=== PATIENT | female | born 1990 | race Caucasian/White ===

== ENCOUNTER 2016-09-28 16:32 | Emergency (ER) | payer MEDICAID ==
[2016-09-28 16:40] VITALS: BP 142/109
--- NOTE | 2016-09-28 18:29 | ER Document Report ---
ED Skin Rash/Insect Bite/Abscs - General Chief Complaint: Rash Stated Complaint: SKIN PROBLEM Mode of Arrival: Ambulatory Information source: Patient TRAVEL OUTSIDE OF THE [place] IN LAST 30 DAYS: No - HPI Patient complains to provider of: Skin rash/lesion Onset: Yesterday Onset/Duration: Sudden - Related Data Allergies/Adverse Reactions: clindamycin [Clindamycin] Allergy (Severe, Verified 08/19/16 21:56) Hives doxycycline [Doxycycline] Allergy (Intermediate, Verified 08/19/16 21:56) Hives Past Medical History - General Information source: Patient - Social History Smoking Status: Current Every Day Smoker Family History: Reviewed & Not Pertinent, CAD, DM, Hypertension, Other - Asthma Patient has suicidal ideation: No Patient has homicidal ideation: No - Past Medical History Cardiac Medical History: Reports: Hx Hypertension Denies: Hx Heart Attack Pulmonary Medical History: Reports: Hx Asthma, Hx Bronchitis, Hx COPD, Hx Pneumonia Neurological Medical History: Reports: Hx Migraine. Denies: Hx Cerebrovascular Accident, Hx Seizures Renal/ Medical History: Denies: Hx Peritoneal Dialysis GI Medical History: Denies: Hx Hepatitis, Hx Hiatal Hernia, Hx Ulcer Musculoskeltal Medical History: Reports Hx Musculoskeletal Trauma Psychiatric Medical History: Reports: Hx Bipolar Disorder Traumatic Medical History: Reports: Hx Fractures Infectious Medical History: Denies: Hx Hepatitis Past Surgical History: Reports: Hx Cholecystectomy, Hx Oral Surgery - [place] teeth, Hx Orthopedic Surgery - Bilateral great toe. Denies: Hx Hysterectomy, Hx Mastectomy, Hx Open Heart Surgery, Hx Pacemaker - Immunizations Immunizations up to date: Yes Hx Diphtheria, Pertussis, Tetanus Vaccination: Yes Hx Pneumococcal Vaccination: 08/29/00 Review of Systems - Review of Systems Constitutional: No symptoms reported EENT: No symptoms reported Cardiovascular: No symptoms reported Respiratory: No symptoms reported Gastrointestinal: No symptoms reported Genitourinary: No symptoms reported Female Genitourinary: No symptoms reported Musculoskeletal: No symptoms reported Skin: No symptoms reported Hematologic/Lymphatic: No symptoms reported Neurological/Psychological: No symptoms reported Physical Exam - Vital signs Vitals: Temp Pulse Resp BP Pulse Ox 98.1 F 97 20 142/109 H 99 09/28/16 16:38 09/28/16 16:38 09/28/16 16:38 09/28/16 16:38 09/28/16 16:38 Interpretation: Normal - General General appearance: Appears well, Alert - HEENT Head: Normocephalic, Atraumatic Eyes: Normal Pupils: PERRL - Respiratory Respiratory status: No respiratory distress Chest status: Nontender Breath sounds: Normal Chest palpation: Normal - Cardiovascular Rhythm: Regular Heart sounds: Normal auscultation Murmur: No - Abdominal Inspection: Normal Distension: No distension Bowel sounds: Normal Tenderness: Nontender Organomegaly: No organomegaly - Back Back: Normal, Nontender - Extremities General upper extremity: Normal inspection, Nontender, Normal color, Normal ROM , Normal temperature General lower extremity: Normal inspection, Nontender, Normal color, Normal ROM , Normal temperature, Normal weight bearing. No: Marco's sign - Neurological Neuro grossly intact: Yes Cognition: Normal Orientation: AAOx4 [place] Coma Scale Eye Opening: Spontaneous [place] Coma Scale Verbal: Oriented [place] Coma Scale Motor: Obeys Commands [place] Coma Scale Total: 15 Speech: Normal Motor strength normal: LUE, RUE, LLE, RLE Sensory: Normal - Psychological Associated symptoms: Normal affect, Normal mood - Skin Skin Temperature: Warm Skin Moisture: Dry Skin Color: Normal Notes: Dry red rash to face and upper chest. He can nature. Course - Vital Signs Vital signs: Temp Pulse Resp BP Pulse Ox 98.1 F 97 20 142/109 H 99 09/28/16 16:38 09/28/16 16:38 09/28/16 16:38 09/28/16 16:38 09/28/16 16:38 Discharge - Discharge Clinical Impression: Contact dermatitis Disposition: HOME, SELF-CARE Additional Instructions: [facility] Dr. Eric Tanner [address] [place] [address] Contact dermatitis to face and chest area patient was advised if she continues to come in contact with the offending allergen that this will continue to be an issue. Patient refused steroid injection. Patient will be discharged with prednisone and Benadryl to follow-up with PMD and trailer chief as above. Follow-up with private doctor in 1 to 2 days for final radiology readings please return to the emergency room for any change worsening condition. Follow up with private M.D. for all other routine health care needs. Prescriptions: Diphenhydramine HCl [Benadryl 25 mg Capsule] 25 mg PO Q6 PRN #25 capsule PRN Reason: Prednisone [Deltasone 20 mg Tablet] 3 tab PO DAILY 5 Days
== END 2016-09-28 18:41 | disposition home or self-care (01) ==
LOC: ER 16:32
DX: L25.9 Unspecified contact dermatitis, unspecified cause (principal); F17.200 Nicotine dependence, unspecified, uncomplicated; I10 Essential (primary) hypertension; J44.9 Chronic obstructive pulmonary disease, unspecified; J45.909 Unspecified asthma, uncomplicated; Z88.1 Allergy status to other antibiotic agents
CPT/HCPCS: 99282

== ENCOUNTER 2016-11-04 14:30 | Emergency (ER) | payer OTHER, MEDICAID ==
[2016-11-04] MEDS ORDERED: ACETAMINOPHEN 325 MG TABLET PO ONE (14:55)
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
[2016-11-04 16:55] VITALS: BP 139/105
== END 2016-11-04 16:50 | disposition home or self-care (01) ==
LOC: ER 14:30
DX: S60.211A Contusion of right wrist, initial encounter (principal); M79.641 Pain in right hand; M25.531 Pain in right wrist; V49.50XA Passenger injured in collision with unspecified motor vehicles in traffic accident, initial encounter; I10 Essential (primary) hypertension; J44.9 Chronic obstructive pulmonary disease, unspecified; J45.909 Unspecified asthma, uncomplicated; Z79.899 Other long term (current) drug therapy; Z88.1 Allergy status to other antibiotic agents
CPT/HCPCS: 99283; 73100; L3984

== ENCOUNTER 2016-11-17 22:55 | Emergency (ER) | payer MEDICAID, OTHER ==
[2016-11-18] MEDS ORDERED: PREDNISONE 20 MG TABLET PO ONE (00:13)
[2016-11-18] MEDS ORDERED: IPRATROPIUM/ALBUTEROL 0.5-2.5 MG/3 ML AMPUL NEB ONE (00:13)
--- NOTE | 2016-11-18 00:15 | ER Document Report ---
ED Medical Screen (RME) - General Stated Complaint: CHEST PAIN Notes: 26 year old female asthmatic, chief complaint of chills, wheezing, chest tightness today. Albuterol inhaler helping some. Denies smoking. TRAVEL OUTSIDE OF THE [place] IN LAST 30 DAYS: No - Related Data Allergies/Adverse Reactions: clindamycin [Clindamycin] Allergy (Severe, Verified 11/18/16 00:10) Hives doxycycline [Doxycycline] Allergy (Intermediate, Verified 11/18/16 00:10) Hives Past Medical History - Social History Family history: Reviewed & Not Pertinent - Past Medical History Cardiac Medical History: Reports: Hx Hypertension Denies: Hx Heart Attack Pulmonary Medical History: Reports: Hx Asthma, Hx Bronchitis, Hx COPD, Hx Pneumonia Neurological Medical History: Reports: Hx Migraine. Denies: Hx Cerebrovascular Accident, Hx Seizures Endocrine Medical History: Reports: Hx Hypothyroidism Renal/ Medical History: Denies: Hx Peritoneal Dialysis GI Medical History: Reports: Hx Gastroesophageal Reflux Disease. Denies: Hx Hepatitis, Hx Hiatal Hernia, Hx Ulcer Musculoskeltal Medical History: Reports Hx Musculoskeletal Trauma Psychiatric Medical History: Reports: Hx Anxiety, Hx Bipolar Disorder Traumatic Medical History: Reports: Hx Fractures Infectious Medical History: Denies: Hx Hepatitis Past Surgical History: Reports: Hx Cholecystectomy, Hx Oral Surgery - [place] teeth, Hx Orthopedic Surgery - Bilateral great toe. Denies: Hx Hysterectomy, Hx Mastectomy, Hx Open Heart Surgery, Hx Pacemaker - Immunizations Immunizations up to date: Yes Hx Diphtheria, Pertussis, Tetanus Vaccination: Yes Physical Exam - Vital signs Vitals: Temp Pulse Resp BP Pulse Ox 98.4 F 113 H 16 143/106 H 99 11/17/16 23:11 11/17/16 23:11 11/17/16 23:11 11/17/16 23:11 11/17/16 23:11 - Respiratory Respiratory status: No respiratory distress. No: Respiratory distress, Labored , Retractions, Tachypnea Breath sounds: Other - A few coarse breath sounds and faint end expiratory wheezes bilaterally Course - Vital Signs Vital signs: Temp Pulse Resp BP Pulse Ox 98.4 F 113 H 16 143/106 H 99 11/17/16 23:11 11/17/16 23:11 11/17/16 23:11 11/17/16 23:11 11/17/16 23:11
--- NOTE | 2016-11-18 06:11 | ER Document Report ---
ED General - General Mode of Arrival: Ambulatory Information source: Patient TRAVEL OUTSIDE OF THE [place] IN LAST 30 DAYS: No - HPI Patient complains to provider of: Chest Pain Onset: Yesterday Onset/Duration: Gradual, Persistent Associated symptoms: Chest pain, Nonproductive cough. denies: Fever - General Chief Complaint: Chest Pain Stated Complaint: CHEST PAIN Notes: Patient is a 26 y/o female presenting to the emergency department with concerns of RUQ abdominal tenderness as well as chest pain. Patient states that the chest pain began yesterday. Patient denies any fever, but states that she has been "cold". Patient admits to dry cough, and states that she has been using her inhaler at home. Patient states that her RUQ abdominal pain stems from "the top stitch" from her cholecystectomy which was performed May 2016. (GIN BOBO) - Related Data Allergies/Adverse Reactions: clindamycin [Clindamycin] Allergy (Severe, Verified 11/18/16 00:10) Hives doxycycline [Doxycycline] Allergy (Intermediate, Verified 11/18/16 00:10) Hives Past Medical History - General Information source: Patient - Social History Smoking Status: Former Smoker Chew tobacco use (# tins/day): No Frequency of alcohol use: None Drug Abuse: None Family History: Reviewed & Not Pertinent, CAD, DM, Hypertension, Other - Asthma Patient has suicidal ideation: No Patient has homicidal ideation: No - Past Medical History Cardiac Medical History: Reports: Hx Hypertension Denies: Hx Heart Attack Pulmonary Medical History: Reports: Hx Asthma, Hx Bronchitis, Hx COPD, Hx Pneumonia Neurological Medical History: Reports: Hx Migraine. Denies: Hx Cerebrovascular Accident, Hx Seizures Endocrine Medical History: Reports: Hx Hypothyroidism Renal/ Medical History: Denies: Hx Peritoneal Dialysis GI Medical History: Reports: Hx Gastroesophageal Reflux Disease. Denies: Hx Hepatitis, Hx Hiatal Hernia, Hx Ulcer Musculoskeltal Medical History: Reports Hx Musculoskeletal Trauma Psychiatric Medical History: Reports: Hx Anxiety, Hx Bipolar Disorder Traumatic Medical History: Reports: Hx Fractures Infectious Medical History: Denies: Hx Hepatitis Past Surgical History: Reports: Hx Cholecystectomy, Hx Oral Surgery - [place] teeth, Hx Orthopedic Surgery - Bilateral great toe. Denies: Hx Hysterectomy, Hx Mastectomy, Hx Open Heart Surgery, Hx Pacemaker - Immunizations Immunizations up to date: Yes Hx Diphtheria, Pertussis, Tetanus Vaccination: Yes Hx Pneumococcal Vaccination: 08/29/00 Review of Systems - Review of Systems Constitutional: No symptoms reported EENT: No symptoms reported Cardiovascular: See HPI, Chest pain Respiratory: See HPI, Cough. denies: Sputum Gastrointestinal: See HPI, Abdominal pain - RUQ Genitourinary: No symptoms reported Female Genitourinary: No symptoms reported Musculoskeletal: No symptoms reported Skin: No symptoms reported Hematologic/Lymphatic: No symptoms reported Neurological/Psychological: No symptoms reported -: Yes All other systems reviewed and negative Physical Exam - General General appearance: Appears well, Alert In distress: None - HEENT Head: Normocephalic, Atraumatic Eyes: Normal Pupils: PERRL - Respiratory Respiratory status: No respiratory distress Chest status: Nontender Breath sounds: Wheezing - Mild bilaterally. No: Rhonchi Chest palpation: Normal - Cardiovascular Rhythm: Regular Heart sounds: Normal auscultation Murmur: No - Abdominal Distension: No distension Bowel sounds: Normal Tenderness: Tender - RUQ muscular tenderness, tenderness over right anterior inferior ribs. - Back Back: Normal, Nontender - Extremities General upper extremity: Normal inspection General lower extremity: Normal inspection - Neurological Neuro grossly intact: Yes Cognition: Normal [place] Coma Scale Eye Opening: Spontaneous [place] Coma Scale Verbal: Oriented [place] Coma Scale Motor: Obeys Commands [place] Coma Scale Total: 15 Speech: Normal - Psychological Associated symptoms: Normal affect, Normal mood - Skin Skin Temperature: Warm Skin Moisture: Dry Skin Color: Normal - Vital signs Vitals: Temp Pulse Resp BP Pulse Ox 98.4 F 113 H 16 143/106 H 99 11/17/16 23:11 11/17/16 23:11 11/17/16 23:11 11/17/16 23:11 11/17/16 23:11 Discharge - Discharge Clinical Impression: Chest wall pain, Viral upper respiratory tract infection with cough Asthmatic bronchitis Qualifiers: Asthma severity: mild persistent Asthma complication type: uncomplicated Qualified Code(s): J45.30 - Mild persistent asthma, uncomplicated Additional Instructions: Bronchitis with Bronchospasm (Wheezing): You have bronchitis with bronchospasm (wheezing). Sometimes people develop wheezing with a chest cold. This occurs either because of an underlying tendency toward asthma or because the virus itself irritates the bronchial tubes. This irritation causes cough, shortness of breath, and wheezing. Emergency treatment of bronchospasm may include adrenaline shots or bronchodilator aerosol. You may feel lightheaded and have a rapid pulse for an hour or two. Rest and get plenty of fluids. At home, we'll treat you with a bronchodilator inhaler. Corticosteroids may be required for some patients. Until you recover, avoid chemical fumes, dusts, pollens, and exercising in very cold or dry air. If you smoke, stop now! Most cases of bronchitis get better without antibiotics. We prescribe antibiotics when we believe bacteria are damaging your airways, or if there's high risk the bronchitis will worsen into pneumonia. Increase your fluid intake. A cool mist humidifier may make your lungs more comfortable. An expectorant (cough medicine that loosens phlegm) can help. Repeated episodes of bronchitis and bronchospasm may result in lung damage -- for example, chronic bronchitis, recurrent pneumonias, or emphysema. If you develop a fever, increased wheezing, chest pain, or severe shortness of breath, you should contact the doctor immediately. Chest Wall Pain: Your chest pain has been diagnosed as coming from the chest wall. This is often caused by straining the muscles or joints in the chest during physical activity, direct trauma, coughing, or vigorous vomiting. Persons with arthritis are especially prone to this type of pain, due to inflammation of the cartilage joints near the breast bone. Occasionally, no cause can be found. Rest from strenuous physical activity. This kind of chest pain is usually made worse by movement of the chest. Depending on the symptoms, we may prescribe medicine for pain, muscle relaxation, and antiinflammatory effects. If the pain is new, and seems to be due to muscle strain, cold packs can help. Otherwise, apply gentle warmth to the painful area for 15 minutes every hour or two. You should contact the doctor immediately if things change. Further evaluation is needed if you develop a fever or cough, if the nature of the pain changes, or if you become short of breath. START THE PREDNISONE TOMORROW PRESCRIBED. USE YOUR INHALERS AND NEBULIZER FOR WHEEZING AND SHORTNESS OF BREATH. DRINK PLENTY OF FLUIDS. TAKE MOTRIN OR ALEVE FOR CHEST WALL MUSCLE PAIN. FOLLOW UP WITH YOUR DOCTOR IF NOT IMPROVING. Prescriptions: Prednisone [Deltasone 10 mg Tablet] 10 mg PO ASDIR PRN #21 tablet PRN Reason: Anjumibsadaf Attestation: 11/18/16 06:16 I personally performed the services described in the documentation, reviewed and edited the documentation which was dictated to the scribe in my presence, and it accurately records my words and actions. (HUNG MALHOTRA) Scribe Documentation - Scribe Written by Leeannee:: Gin Bobo 11/18/2016 0610 acting as scribe for :: Maria E
[2016-11-18 06:52] VITALS: BP 133/99
== END 2016-11-18 06:51 | disposition home or self-care (01) ==
LOC: ER 22:55
DX: J06.9 Acute upper respiratory infection, unspecified (principal); B97.89 Other viral agents as the cause of diseases classified elsewhere; J45.30 Mild persistent asthma, uncomplicated; J44.9 Chronic obstructive pulmonary disease, unspecified; R07.89 Other chest pain; R05 Cough; R10.11 Right upper quadrant pain; I10 Essential (primary) hypertension; Z90.49 Acquired absence of other specified parts of digestive tract; Z88.1 Allergy status to other antibiotic agents; Z87.891 Personal history of nicotine dependence; Z87.01 Personal history of pneumonia (recurrent)
CPT/HCPCS: 94640; 99284; 71020; J7512; J7620

== ENCOUNTER 2016-11-23 01:47 | Emergency (ER) | payer MEDICAID ==
--- NOTE | 2016-11-23 07:19 | ER Document Report ---
HPI - HPI Patient complains to provider of: left ear pain Onset: Other - 2 days Onset/Duration: Gradual Quality of pain: Throbbing Pain Level: 4 Context: 26-year-old female complaining of left ear pain feels like there is water in her ear. Recent upper respiratory infection. No fever. Associated Symptoms: None Exacerbated by: Movement - External ear Relieved by: Denies Similar symptoms previously: Yes Recently seen / treated by doctor: No - ROS ROS below otherwise negative: Yes Systems Reviewed and Negative: Yes All other systems reviewed and negative - REPRODUCTIVE Reproductive: DENIES: : - DERM Skin Color: Normal, [place] Past Medical History - General Information source: Patient - Social History Smoking Status: Never Smoker Frequency of alcohol use: None Drug Abuse: None Lives with: Family Family History: CAD, DM, Hypertension, Other - Asthma - Past Medical History Cardiac Medical History: Reports: Hx Hypertension Pulmonary Medical History: Reports: Hx Asthma, Hx Bronchitis, Hx COPD, Hx Pneumonia Neurological Medical History: Reports: Hx Migraine Endocrine Medical History: Reports: Hx Hypothyroidism Renal/ Medical History: Denies: Hx Peritoneal Dialysis GI Medical History: Reports: Hx Gastroesophageal Reflux Disease Musculoskeltal Medical History: Reports Hx Musculoskeletal Trauma Psychiatric Medical History: Reports: Hx Anxiety, Hx Bipolar Disorder Traumatic Medical History: Reports: Hx Fractures Infectious Medical History: Denies: Hx Hepatitis Past Surgical History: Reports: Hx Cholecystectomy, Hx Oral Surgery - [place] teeth, Hx Orthopedic Surgery - Bilateral great toe. Denies: Hx Hysterectomy, Hx Mastectomy, Hx Open Heart Surgery, Hx Pacemaker - Immunizations Immunizations up to date: Yes Hx Diphtheria, Pertussis, Tetanus Vaccination: Yes Hx Pneumococcal Vaccination: 08/29/00 Vertical Provider Document - CONSTITUTIONAL Agree With Documented VS: Yes - INFECTION CONTROL TRAVEL OUTSIDE OF THE [place] IN LAST 30 DAYS: No - HEENT HEENT: Normocephalic, PERRLA. negative: Conjuctival Injection, Pharyngeal Erythema, Tympanic Membrane Red Notes: left canal minimal red, does hurt with tragus and external ear movement, no adenopathy. - NECK Neck: Supple. negative: Lymphadenopathy-Left, Lymphadenopathy-Right - RESPIRATORY Respiratory: Breath Sounds Normal, No Respiratory Distress O2 Sat by Pulse Oximetry: 98 - CARDIOVASCULAR Cardiovascular: Regular Rate, Regular Rhythm - MUSCULOSKELETAL/EXTREMETIES Musculoskeletal/Extremeties: KALIE KIM - NEURO Level of Consciousness: Awake, Alert - DERM Integumentary: Warm, Dry, No Rash Course - Vital Signs Vital signs: Temp Pulse Resp BP Pulse Ox 98.8 F 110 H 20 139/99 H 98 11/23/16 02:12 11/23/16 02:12 11/23/16 02:12 11/23/16 02:12 11/23/16 02:12 Discharge - Discharge Clinical Impression: left otitis externa Condition: Good Disposition: HOME, SELF-CARE Instructions: Otitis Externa ([facility]), Use of Ear Drops ([facility]), Acetaminophen, Use of [id number] Ibuprofen ([facility]) Additional Instructions: warm compress Eardrops See your doctor if persists Return to the emergency room if worse Please complete the patient satisfaction survey if you get one, and return it.. If you do not receive a survey, then you can go to the [facility] website, [email or web address] and place your comments about your very good care. Thank you very much. It was a pleasure being your medical provider today. Prescriptions: Neomy Sulf/Polymyx B Sulf/Hc [Cortisporin Ear Suspension] 2 drop QID #1 bot
[2016-11-23 07:53] VITALS: BP 141/95
== END 2016-11-23 07:45 | disposition home or self-care (01) ==
LOC: ER 01:47
DX: H60.92 Unspecified otitis externa, left ear (principal); H92.02 Otalgia, left ear
CPT/HCPCS: 99282

== ENCOUNTER 2017-03-16 17:05 | Emergency (ER) | payer MEDICAID ==
--- NOTE | 2017-03-16 18:48 | ER Document Report ---
HPI - HPI Patient complains to provider of: cold symptoms Pain Level: 4 Context: 26 yo female c/o nasal congestion, sinus pressure, sore throat x 2 days Associated Symptoms: Rhinnorhea, Sinus pain/drainage, Sore throat. denies: Fever Exacerbated by: Denies Relieved by: Denies Similar symptoms previously: Yes Recently seen / treated by doctor: No - ROS Systems Reviewed and Negative: Yes All other systems reviewed and negative - CARDIOVASCULAR Cardiovascular: DENIES: Chest pain - REPRODUCTIVE Reproductive: DENIES: : - DERM Skin Color: Normal Past Medical History - General Information source: Patient - Social History Smoking Status: Never Smoker Chew tobacco use (# tins/day): No Frequency of alcohol use: None Drug Abuse: None Family History: CAD, DM, Hypertension, Other - Asthma Patient has suicidal ideation: No Patient has homicidal ideation: No - Past Medical History Cardiac Medical History: Reports: Hx Hypertension Pulmonary Medical History: Reports: Hx Asthma, Hx Bronchitis, Hx COPD, Hx Pneumonia Neurological Medical History: Reports: Hx Migraine Endocrine Medical History: Reports: Hx Hypothyroidism Renal/ Medical History: Denies: Hx Peritoneal Dialysis GI Medical History: Reports: Hx Gastroesophageal Reflux Disease. Denies: Hx Hepatitis Musculoskeltal Medical History: Reports Hx Musculoskeletal Trauma Psychiatric Medical History: Reports: Hx Anxiety, Hx Bipolar Disorder Traumatic Medical History: Reports: Hx Fractures Infectious Medical History: Denies: Hx Hepatitis Past Surgical History: Reports: Hx Cholecystectomy, Hx Oral Surgery - [place] teeth, Hx Orthopedic Surgery - Bilateral great toe. Denies: Hx Hysterectomy, Hx Mastectomy, Hx Open Heart Surgery, Hx Pacemaker - Immunizations Immunizations up to date: Yes Hx Diphtheria, Pertussis, Tetanus Vaccination: Yes Hx Pneumococcal Vaccination: 08/29/00 Vertical Provider Document - CONSTITUTIONAL Agree With Documented VS: Yes Exam Limitations: No Limitations General Appearance: WD/WN, No Apparent Distress - INFECTION CONTROL TRAVEL OUTSIDE OF THE [place] IN LAST 30 DAYS: No - HEENT HEENT: Atraumatic, PERRLA, Pharyngeal Tenderness, Pharyngeal Erythema. negative : Pharyngeal Exudate - NECK Neck: Lymphadenopathy-Right - anterior cervical - RESPIRATORY Respiratory: Breath Sounds Normal, No Respiratory Distress O2 Sat by Pulse Oximetry: 98 - CARDIOVASCULAR Cardiovascular: Regular Rate, Regular Rhythm - NEURO Level of Consciousness: Awake, Alert, Appropriate - DERM Integumentary: Warm, Dry, No Rash Course - Re-evaluation Re-evalutation: 03/16/17 19:06 H&P c/w viral upper respiratory infection. will treat with oral and intranasal steroids. pt stable for discharge - Vital Signs Vital signs: Temp Pulse Resp BP Pulse Ox 98.1 F 96 18 154/105 H 98 03/16/17 17:09 03/16/17 17:09 03/16/17 17:43 03/16/17 17:09 03/16/17 17:09 Discharge - Discharge Clinical Impression: Upper respiratory tract infection Qualifiers: URI type: unspecified viral URI Qualified Code(s): J06.9 - Acute upper respiratory infection, unspecified Condition: Stable Disposition: HOME, SELF-CARE Instructions: Upper Respiratory Illness ([facility]), Nasal Sprays and Drops ([facility]), Steroid Medication Additional Instructions: You have a viral upper respiratory infection Take medications as prescribed You make take over the counter Coricidin HBP for congestion Push fluids follow up with your primary care if symptoms persist more than 10 days Prescriptions: Fluticasone Propionate [Flonase Nasal [place] 50 Mcg/[place] 16 gm] 1 spray NASL Q12 #1 inhaler Prednisone [Deltasone 20 mg Tablet] 2 tab PO BID #16 tablet Forms: Elevated Blood Pressure
[2017-03-16 18:53] VITALS: BP 153/108
== END 2017-03-16 18:53 | disposition home or self-care (01) ==
LOC: ER 17:05
DX: J06.9 Acute upper respiratory infection, unspecified (principal); J02.9 Acute pharyngitis, unspecified; R09.81 Nasal congestion; R51 Headache
CPT/HCPCS: 99283

== ENCOUNTER 2017-03-18 21:06 | Emergency (ER) | payer MEDICAID ==
--- NOTE | 2017-03-18 23:10 | ER Document Report ---
ED ENT - General Chief Complaint: Sore Throat Stated Complaint: SORE THROAT Time Seen by Provider: 03/18/17 22:50 Mode of Arrival: Ambulatory Information source: Patient Notes: 26-year-old female presents to ED for sore throat stuffy nose and chills 4-5 days. TRAVEL OUTSIDE OF THE [place] IN LAST 30 DAYS: No - HPI Patient complains to provider of: Nose problem, Throat problem Onset: Other - 4 To 5 days Onset/Duration: Gradual, Persistent Quality of pain: Achy Severity: Moderate Pain Level: 3 Context: Recent Illness Location of pain: Nose, Sinus, Throat Associated symptoms: Cough, Runny nose, Sinus drainage, Sore throat Similar symptoms previously: Yes Recently seen / treated by doctor: Yes - Related Data Allergies/Adverse Reactions: clindamycin [Clindamycin] Allergy (Severe, Verified 11/18/16 00:10) Hives doxycycline [Doxycycline] Allergy (Intermediate, Verified 11/18/16 00:10) Hives Past Medical History - General Information source: Patient - Social History Smoking Status: Never Smoker Cigarette use (# per day): No Chew tobacco use (# tins/day): No Smoking Education Provided: No Frequency of alcohol use: None Drug Abuse: None Lives with: Spouse/Significant other Family History: CAD, DM, Hypertension, Other - Asthma Patient has suicidal ideation: No Patient has homicidal ideation: No - Past Medical History Cardiac Medical History: Reports: Hx Hypertension Pulmonary Medical History: Reports: Hx Asthma, Hx Bronchitis, Hx COPD, Hx Pneumonia EENT Medical History: Reports: None Neurological Medical History: Reports: Hx Migraine Endocrine Medical History: Reports: Hx Hypothyroidism Renal/ Medical History: Reports: None GI Medical History: Reports: Hx Gastroesophageal Reflux Disease Musculoskeltal Medical History: Reports Hx Musculoskeletal Trauma Skin Medical History: Reports None Psychiatric Medical History: Reports: Hx Anxiety, Hx Bipolar Disorder Traumatic Medical History: Reports: Hx Fractures Infectious Medical History: Reports: None Past Surgical History: Reports: Hx Cholecystectomy, Hx Oral Surgery - [place] teeth, Hx Orthopedic Surgery - Bilateral great toe - Immunizations Immunizations up to date: Yes Hx Diphtheria, Pertussis, Tetanus Vaccination: Yes Hx Pneumococcal Vaccination: 08/29/00 Review of Systems - Review of Systems Constitutional: Recent illness EENT: Nose discharge, Sinus discharge, Throat pain Cardiovascular: No symptoms reported Respiratory: Cough Gastrointestinal: No symptoms reported Genitourinary: No symptoms reported Female Genitourinary: No symptoms reported Musculoskeletal: No symptoms reported Skin: No symptoms reported Hematologic/Lymphatic: No symptoms reported Neurological/Psychological: No symptoms reported -: Yes All other systems reviewed and negative Physical Exam - Vital signs Vitals: Temp Pulse Resp BP Pulse Ox 97.9 F 100 20 152/111 H 100 03/18/17 21:18 03/18/17 21:18 03/18/17 21:18 03/18/17 21:18 03/18/17 21:18 Interpretation: Hypertensive - General General appearance: Appears well, Alert - HEENT Head: Normocephalic, Atraumatic Eyes: Normal Pupils: PERRL Ears: Normal External canal: Normal Tympanic membrane: Normal Sinus: Normal Nasal: Purulent discharge, Swelling Mouth/Lips: Normal Mucous membranes: Normal Pharynx: Post nasal drainage Neck: Normal - Respiratory Respiratory status: No respiratory distress Chest status: Nontender Breath sounds: Normal, Nonproductive cough Chest palpation: Normal - Cardiovascular Rhythm: Regular Heart sounds: Normal auscultation Murmur: No - Abdominal Inspection: Normal Distension: No distension Bowel sounds: Normal Tenderness: Nontender Organomegaly: No organomegaly - Back Back: Normal, Nontender - Extremities General upper extremity: Normal inspection, Nontender, Normal color, Normal ROM , Normal temperature General lower extremity: Normal inspection, Nontender, Normal color, Normal ROM , Normal temperature, Normal weight bearing. No: Marco's sign - Neurological Neuro grossly intact: Yes Cognition: Normal Orientation: AAOx4 [place] Coma Scale Eye Opening: Spontaneous [place] Coma Scale Verbal: Oriented [place] Coma Scale Motor: Obeys Commands [place] Coma Scale Total: 15 Speech: Normal Motor strength normal: LUE, RUE, LLE, RLE Sensory: Normal - Psychological Associated symptoms: Normal affect, Normal mood - Skin Skin Temperature: Warm Skin Moisture: Dry Skin Color: Normal Course - Vital Signs Vital signs: Temp Pulse Resp BP Pulse Ox 97.9 F 68 16 109/56 L 99 03/18/17 21:18 03/18/17 23:36 03/18/17 23:36 03/18/17 23:36 03/18/17 23:36 Discharge - Discharge Clinical Impression: Sore throat (viral) Upper respiratory tract infection Qualifiers: URI type: unspecified URI Qualified Code(s): J06.9 - Acute upper respiratory infection, unspecified Disposition: HOME, SELF-CARE Additional Instructions: SORE THROAT: Sore throats may be caused by viruses, bacteria, or fungi. Most are due to a virus, and must get better on their own. Bacterial sore throats, particularly those due to "strep," need treatment with antibiotics. If an antibiotic is prescribed, be sure to take the medication for a full 10 days. Failure to take the antibiotic can result in complications such as rheumatic fever. Sometimes, an injection of antibiotics is given instead of pills or liquid. This single "shot" is equal in effectiveness to the oral medication. To relieve symptoms, take acetaminophen for pain. Sip clear liquids frequently, or eat popsicles or ice chips. Anesthetic sprays or lozenges may help. Make sure the air in the room is not too dry. Avoid using decongestants or antihistamines. Call the doctor if there is no improvement in two days, or if you have difficulty breathing, increasing throat pain, high fever, rash, or frequent vomiting. UPPER RESPIRATORY ILLNESS: You have a viral infection of the respiratory passages -- a "cold." This common infection causes nasal congestion, drainage, and often sore throat and cough. It is highly contagious. The disease usually lasts about 10 to 14 days. There is no "cure" for the viral infection -- it must run its course. If there is a complication, such as bacterial infection in the nose, sinuses, middle ear, or bronchial tubes, antibiotics may be required. The antibiotics won't affect the virus. Drink plenty of fluids. A humidifier may help. An expectorant medication or decongestant may make you more comfortable. Use acetaminophen or ibuprofen for fever or aches. See the doctor if fever persists over two days, if there is any significant worsening of your symptoms, or if you simply fail to improve as expected. FOLLOW-UP CARE: If you have been referred to a physician for follow-up care, call the physician s office for an appointment as you were instructed or within the next two days. If you experience worsening or a significant change in your symptoms, notify the physician immediately or return to the Emergency Department at any time for re-evaluation. Continue medications as prescribed. Please gargle with warm salt and soda solution 3 times a day to help with your viral sore throat. 1 quart of water 1 tablespoon of salt 1 teaspoon of baking soda Mixed 3 ingredients together and boil for 1 minute Placed in a covered quart jar Use 1/2 ounce of cold solution to gargle 3 times a day Forms: Elevated Blood Pressure
[2017-03-18 23:36] VITALS: BP 109/56
== END 2017-03-18 23:36 | disposition home or self-care (01) ==
LOC: ER 21:06
DX: J06.9 Acute upper respiratory infection, unspecified (principal); J02.9 Acute pharyngitis, unspecified; I10 Essential (primary) hypertension; Z88.2 Allergy status to sulfonamides; Z90.49 Acquired absence of other specified parts of digestive tract; Z88.3 Allergy status to other anti-infective agents
CPT/HCPCS: 87070; 87880; 99283

== ENCOUNTER 2017-03-27 22:46 | Emergency (ER) | payer MEDICAID ==
[2017-03-27] MEDS ORDERED: PREDNISONE 20 MG TABLET PO ONE (22:52)
[2017-03-27] MEDS ORDERED: ALBUTEROL SULFATE 0.083% NEB 2.5 MG/3 ML AMPUL NEB ONE (22:54)
--- NOTE | 2017-03-27 22:55 | ER Document Report ---
ED Medical Screen (RME) - General Chief Complaint: Breathing Difficulty Stated Complaint: CHEST PAIN,DIFFICULTY BREATHING Time Seen by Provider: 03/27/17 22:51 Mode of Arrival: Ambulatory Information source: Patient Notes: 26-year-old female presents to ED for shortness of breath difficulty breathing history of asthma chest tightness. Given prednisone and albuterol in the pit area. Chest x-ray was ordered patient does have wheezing throughout. I have greeted and performed a rapid initial assessment of this patient. A comprehensive ED assessment and evaluation of the patient, analysis of test results and completion of medical decision making process will be conducted by an additional ED providers. TRAVEL OUTSIDE OF THE [place] IN LAST 30 DAYS: No - Related Data Allergies/Adverse Reactions: clindamycin [Clindamycin] Allergy (Severe, Verified 11/18/16 00:10) Hives doxycycline [Doxycycline] Allergy (Intermediate, Verified 11/18/16 00:10) Hives Past Medical History - Social History Family history: Reviewed & Not Pertinent - Past Medical History Cardiac Medical History: Reports: Hx Hypertension Pulmonary Medical History: Reports: Hx Asthma, Hx Bronchitis, Hx COPD, Hx Pneumonia Neurological Medical History: Reports: Hx Migraine Endocrine Medical History: Reports: Hx Hypothyroidism Renal/ Medical History: Denies: Hx Peritoneal Dialysis GI Medical History: Reports: Hx Gastroesophageal Reflux Disease. Denies: Hx Hepatitis Musculoskeltal Medical History: Reports Hx Musculoskeletal Trauma Psychiatric Medical History: Reports: Hx Anxiety, Hx Bipolar Disorder Traumatic Medical History: Reports: Hx Fractures Infectious Medical History: Denies: Hx Hepatitis Past Surgical History: Reports: Hx Cholecystectomy, Hx Oral Surgery - [place] teeth, Hx Orthopedic Surgery - Bilateral great toe. Denies: Hx Hysterectomy, Hx Mastectomy, Hx Open Heart Surgery, Hx Pacemaker - Immunizations Immunizations up to date: Yes Hx Diphtheria, Pertussis, Tetanus Vaccination: Yes Physical Exam - Vital signs Vitals: Temp Pulse Resp BP Pulse Ox 97 F L 106 H 28 H 152/126 H 99 03/27/17 22:55 03/27/17 22:55 03/27/17 22:55 03/27/17 22:55 03/27/17 22:55 Course - Vital Signs Vital signs: Temp Pulse Resp BP Pulse Ox 97 F L 106 H 28 H 152/126 H 99 03/27/17 22:55 03/27/17 22:55 03/27/17 22:55 03/27/17 22:55 03/27/17 22:55
[2017-03-27 22:58] VITALS: BP 152/126
[2017-03-27] MEDS ORDERED: ALBUTEROL SULFATE 0.083% NEB 2.5 MG/3 ML AMPUL NEB SCH (23:00)
[2017-03-27] MEDS ORDERED: IPRATROPIUM/ALBUTEROL 0.5-2.5 MG/3 ML AMPUL NEB ONE (23:02)
[2017-03-28] MEDS ORDERED: ALBUTEROL SULFATE HFA (90 MCG/PUFF) 8 GM MDI (1 MDI/ER DISP) IH PRN (02:06)
--- NOTE | 2017-03-28 02:08 | ER Document Report ---
ED General - General Chief Complaint: Asthma Exacerbation Stated Complaint: CHEST PAIN,DIFFICULTY BREATHING Time Seen by Provider: 03/27/17 22:51 Mode of Arrival: Ambulatory Notes: Patient is a 26-year-old female presents with complaint of wheezing and coughing. She was given some breathing treatments in triage and says she feels much better now. She denies any recent fevers or infections. She has no other complaints at this time. TRAVEL OUTSIDE OF THE [place] IN LAST 30 DAYS: No - Related Data Allergies/Adverse Reactions: clindamycin [Clindamycin] Allergy (Severe, Verified 11/18/16 00:10) Hives doxycycline [Doxycycline] Allergy (Intermediate, Verified 11/18/16 00:10) Hives Past Medical History - General Information source: Patient - Social History Smoking Status: Unknown if Ever Smoked Frequency of alcohol use: None Drug Abuse: None Family History: CAD, DM, Hypertension, Other - Asthma Patient has suicidal ideation: No Patient has homicidal ideation: No - Past Medical History Cardiac Medical History: Reports: Hx Hypertension Pulmonary Medical History: Reports: Hx Asthma, Hx Bronchitis, Hx COPD, Hx Pneumonia Neurological Medical History: Reports: Hx Migraine Endocrine Medical History: Reports: Hx Hypothyroidism Renal/ Medical History: Denies: Hx Peritoneal Dialysis GI Medical History: Reports: Hx Gastroesophageal Reflux Disease. Denies: Hx Hepatitis Musculoskeltal Medical History: Reports Hx Musculoskeletal Trauma Psychiatric Medical History: Reports: Hx Anxiety, Hx Bipolar Disorder Traumatic Medical History: Reports: Hx Fractures Infectious Medical History: Denies: Hx Hepatitis Past Surgical History: Reports: Hx Cholecystectomy, Hx Oral Surgery - [place] teeth, Hx Orthopedic Surgery - Bilateral great toe. Denies: Hx Hysterectomy, Hx Mastectomy, Hx Open Heart Surgery, Hx Pacemaker - Immunizations Immunizations up to date: Yes Hx Diphtheria, Pertussis, Tetanus Vaccination: Yes Hx Pneumococcal Vaccination: 08/29/00 Review of Systems - Review of Systems Notes: My Normal Review Basic REVIEW OF SYSTEMS: CONSTITUTIONAL : Denies fever, chills, or sweats. Denies recent illness. EENT: Denies eye, ear, throat, or mouth pain or symptoms. Denies nasal or sinus congestion. CARDIOVASCULAR: Denies chest pain. RESPIRATORY: Wheezing, coughing, difficulty breathing. GASTROINTESTINAL: Denies abdominal pain. Denies nausea, vomiting, or diarrhea. Denies constipation. Last BM: MUSCULOSKELETAL: Denies neck or back pain or joint pain or swelling. SKIN: Denies rash or skin lesions. NEUROLOGICAL: Denies altered mental status or loss of consciousness. Denies headache. Denies weakness or paralysis or loss of use of either side. Denies problems with gait or speech. Denies sensory or motor loss. ALL OTHER SYSTEMS REVIEWED AND NEGATIVE. Physical Exam - Vital signs Vitals: Temp Pulse Resp BP Pulse Ox 97 F L 106 H 28 H 152/126 H 99 03/27/17 22:55 03/27/17 22:55 03/27/17 22:55 03/27/17 22:55 03/27/17 22:55 - Notes Notes: General Appearance: Well nourished, alert, cooperative, no acute distress, no obvious discomfort. Well appearing. Speaking full sentences. Vitals: reviewed, See vital signs table. Head: no swelling or tenderness to the head Eyes: PERRL, EOMI, Conjuctiva clear Mouth: No decreasd moisture Throat: No tonsillar inflammation, No airway obstruction, No lymphadenopathy Lungs: No wheezing, No rales, No rhonci, No accessory muscle use, good air exchange bilaterally. My lung auscultation was performed after patient received breathing treatments in triage. Heart: Normal rate, Regular rythm, No murmur, no rub Extremities: strength 5/5 in all extremities, good pulses in all extremities, no swelling or tenderness in the extremities, no edema. Skin: warm, dry, appropriate color, no rash Neuro: speech clear, oriented x 3, normal affect, responds appropriately to questions. Course - Re-evaluation Re-evalutation: 03/29/17 06:27 Patient is feeling much improved after the breathing treatments she received in triage. I will place her on prednisone for the next several days. Encouraged her return to ER if she has recurrent wheezing, difficulty breathing, or feels unwell. Patient agrees with plan will be discharged home. Dictation of this chart was performed using voice recognition software; therefore, there may be some unintended grammatical errors. Dictation of this chart was performed using voice recognition software; therefore, there may be some unintended grammatical errors. - Vital Signs Vital signs: Temp Pulse Resp BP Pulse Ox 97 F L 106 H 12 152/126 H 97 03/27/17 22:55 03/27/17 22:55 03/28/17 02:00 03/27/17 22:55 03/28/17 02:00 Discharge - Discharge Clinical Impression: Asthma Condition: Good Disposition: HOME, SELF-CARE Additional Instructions: ASTHMA: You have been diagnosed as having asthma. This is a condition where there is episodic tightness in the bronchial tubes. Allergies, infections, and polluted or cold air may be contributing factors. Emergency treatment of a severe asthma attack may include adrenaline shots , or bronchodilator aerosol. You may feel lightheaded, have a decreased exercise tolerance and a rapid pulse for an hour or two. Rest and get plenty of fluids. Home treatment of asthma requires bronchodilator drugs. These can be administered by injection, inhalation, or by mouth. Antibiotics and corticosteroids may be required for some patients. You should avoid chemical fumes, dusts, pollens, and exercising in very cold or dry air. If you smoke, stop!! If you develop a fever, increased wheezing, chest pain, or severe shortness of breath, you should contact the doctor immediately. STEROID MEDICATION: You have been given an injection of or oral medicine of the cortisone/ steroid class. This medication is used to control inflammation or allergy. Nino t is usually only given for a short period of time, until the acute process subsides. There are usually no side effects from short-term use of cortisone-like medications. Some persons feel an increased sense of well-being and are not sleepy at bedtime. Long-term use of cortisone medications is best avoided, unless required for a severe condition. If your condition does not remit, or relapses after the course of corticosteroid medication, you should consult your physician. INHALED BRONCHODILATORS: You have received treatment(s) of and/or prescription for an inhaled bronchodilator -- a medication which stimulates the airways in the lung to dilate. This improves the flow of air in asthma, bronchitis, and emphysema. These medicines have some similarity to adrenaline, and can cause similar side effects: shakiness, racing heart, and a sense of nervousness. These side effects decrease with time. Contact your doctor if these side effects are severe. Do not over-use the medicine. Too-frequent use of the inhaler may make it ineffective. Call your doctor if the inhaler is not controlling your symptoms at the prescribed doses. FOLLOW-UP CARE: If you have been referred to a physician for follow-up care, call the physician s office for an appointment as you were instructed or within the next two days. If you experience worsening or a significant change in your symptoms, notify the physician immediately or return to the Emergency Department at any time for re-evaluation. Please return to the ER if you have worsening difficulty breathing, fever,s or feel unwell. Please follow up with your doctor today as scheduled for reevaluation. Prescriptions: Prednisone [Deltasone 20 mg Tablet] 3 tab PO DAILY 4 Days Referrals: OFE DIAZ MD [Primary Care Provider] - 03/28/17
== END 2017-03-28 02:41 | disposition home or self-care (01) ==
LOC: ER 22:46
DX: J44.9 Chronic obstructive pulmonary disease, unspecified (principal); R05 Cough; I10 Essential (primary) hypertension; Z87.01 Personal history of pneumonia (recurrent); Z88.1 Allergy status to other antibiotic agents
CPT/HCPCS: 94640 ×2; 99283; J7512; J3490; J7620

== ENCOUNTER 2017-06-16 22:20 | Emergency (ER) | payer MEDICAID ==
--- NOTE | 2017-06-16 23:41 | ER Document Report ---
ED Skin Rash/Insect Bite/Abscs - General Mode of Arrival: Ambulatory Information source: Patient TRAVEL OUTSIDE OF THE [place] IN LAST 30 DAYS: No - HPI Patient complains to provider of: Skin rash/lesion Onset: This evening Medication exposure: Antibiotic - see notes above <PRICILA VO - Last Filed: 06/17/17 00:49> <KATHRYNUBALDO CONCHIS - Last Filed: 06/17/17 05:54> - General Chief Complaint: Skin Problem Stated Complaint: POSSIBLE RASH Time Seen by Provider: 06/16/17 23:11 Notes: 26 year old female with history of hypertension and asthma presents to the ED complaining of a rash to her bilateral upper extremities and left abdomen which she noticed 2 days ago. Patient reports that she had a tooth extraction 2 days ago and was given Penicillin. Patient developed a rash secondary to Penicillin and was switched to Amoxicillin. Patient developed a rash secondary to Amoxicillin. Patient is also complaining of left ear pain. (PRICILA VO) - Related Data Allergies/Adverse Reactions: clindamycin [Clindamycin] Allergy (Severe, Verified 11/18/16 00:10) Hives doxycycline [Doxycycline] Allergy (Intermediate, Verified 11/18/16 00:10) Hives Penicillins Allergy (Verified 06/16/17 23:05) Past Medical History - General Information source: Patient - Social History Smoking Status: Unknown if Ever Smoked Family History: CAD, DM, Hypertension, Other - Asthma Patient has suicidal ideation: No Patient has homicidal ideation: No - Past Medical History Cardiac Medical History: Reports: Hx Hypertension Pulmonary Medical History: Reports: Hx Asthma, Hx Bronchitis, Hx COPD, Hx Pneumonia Neurological Medical History: Reports: Hx Migraine Endocrine Medical History: Reports: Hx Hypothyroidism Renal/ Medical History: Denies: Hx Peritoneal Dialysis GI Medical History: Reports: Hx Gastroesophageal Reflux Disease. Denies: Hx Hepatitis Musculoskeltal Medical History: Reports Hx Musculoskeletal Trauma Psychiatric Medical History: Reports: Hx Anxiety, Hx Bipolar Disorder Traumatic Medical History: Reports: Hx Fractures Infectious Medical History: Denies: Hx Hepatitis Past Surgical History: Reports: Hx Cholecystectomy, Hx Oral Surgery - [place] teeth, Hx Orthopedic Surgery - Bilateral great toe. Denies: Hx Hysterectomy, Hx Mastectomy, Hx Open Heart Surgery, Hx Pacemaker - Immunizations Immunizations up to date: Yes Hx Diphtheria, Pertussis, Tetanus Vaccination: Yes Hx Pneumococcal Vaccination: 08/29/00 <PRICILA VO - Last Filed: 06/17/17 00:49> Review of Systems - Review of Systems Constitutional: No symptoms reported EENT: See HPI, Ear pain - left Cardiovascular: No symptoms reported Respiratory: No symptoms reported Gastrointestinal: No symptoms reported Genitourinary: No symptoms reported Female Genitourinary: No symptoms reported Musculoskeletal: No symptoms reported Skin: See HPI, Rash - bilateral upper extremity and left abdomen Hematologic/Lymphatic: No symptoms reported Neurological/Psychological: No symptoms reported -: Yes All other systems reviewed and negative <PRICILA VO - Last Filed: 06/17/17 00:49> Physical Exam - Vital signs Interpretation: Normal - General General appearance: Appears well, Alert - HEENT Head: Normocephalic, Atraumatic Eyes: Normal Pupils: PERRL Tympanic membrane: Normal Nasal: Normal Mouth/Lips: Other - Mild swelling, TTP upper jaw on R. No erythema Pharynx: Normal - Respiratory Respiratory status: No respiratory distress Chest status: Nontender Breath sounds: Normal Chest palpation: Normal - Cardiovascular Rhythm: Regular Heart sounds: Normal auscultation Murmur: No - Abdominal Inspection: Normal Distension: No distension Bowel sounds: Normal Tenderness: Nontender Organomegaly: No organomegaly - Back Back: Normal, Nontender - Extremities General upper extremity: Normal inspection, Nontender, Normal color, Normal ROM , Normal temperature General lower extremity: Normal inspection, Nontender, Normal color, Normal ROM , Normal temperature, Normal weight bearing. No: Marco's sign - Neurological Neuro grossly intact: Yes Cognition: Normal Orientation: AAOx4 [place] Coma Scale Eye Opening: Spontaneous [place] Coma Scale Verbal: Oriented [place] Coma Scale Motor: Obeys Commands [place] Coma Scale Total: 15 Speech: Normal Motor strength normal: LUE, RUE, LLE, RLE Sensory: Normal - Psychological Associated symptoms: Normal affect, Normal mood - Skin Skin Temperature: Warm Skin Moisture: Dry Skin Color: Normal Character of irregularity: Urticarial - bL UE, abdomen <UBALDO PERALTA - Last Filed: 06/17/17 05:54> - Vital signs Vitals: Temp Pulse Resp BP Pulse Ox 97.8 F 78 18 147/114 H 99 06/17/17 00:10 06/17/17 00:10 06/17/17 00:10 06/17/17 00:10 06/17/17 00:10 Course <PRICILA VO - Last Filed: 06/17/17 00:49> <UBALDO PERALTA - Last Filed: 06/17/17 05:54> - Re-evaluation Re-evalutation: 06/16/17 23:45 Patient with recent dental surgery comes in complaining of a rash. Patient with urticaria on upper arms and abdomen with excoriations. Lungs are clear. No evidence for anaphylaxis. Patient is instructed to stop taking penicillin and amoxicillin. She is also allergic to clindamycin. Patient will be given Keflex. Patient will take Benadryl at home and already has a prescription for prednisone which she is to continue. (UBALDO PERALTA) - Vital Signs Vital signs: Temp Pulse Resp BP Pulse Ox 97.8 F 78 18 147/114 H 99 06/17/17 00:10 06/17/17 00:10 06/17/17 00:10 06/17/17 00:10 06/17/17 00:10 Discharge <PRICIAL VO - Last Filed: 06/17/17 00:49> <UBALDO PERALTA - Last Filed: 06/17/17 05:54> - Discharge Clinical Impression: Allergic reaction caused by a drug Qualifiers: Encounter type: initial encounter Qualified Code(s): T78.40XA - Allergy, unspecified, initial encounter Condition: Stable Disposition: HOME, SELF-CARE Instructions: Acute Allergic Reaction to Drugs ([facility]) Additional Instructions: Stop taking Penicillin and Amoxicillin. Begin taking Keflex tomorrow. You may take Benadryl as needed for itching. It can make you drowsy. Please continue to take Prednisone as prescribed. Prescriptions: Cephalexin Monohydrate [Keflex 500 mg Capsule] 500 mg PO TID 7 Days capsule Forms: Return to Work Scribe Attestation: 06/17/17 05:54 I personally performed the services described in the documentation, reviewed and edited the documentation which was dictated to the scribe in my presence, and it accurately records my words and actions. (UBALDO PERALTA) Scribe Documentation - Scribe Written by Scribe:: Asim Salcido, 06/17/2017 0102 acting as scribe for :: Kathryn <PRICILA VO - Last Filed: 06/17/17 00:49>
[2017-06-17 00:54] VITALS: BP 147/114
== END 2017-06-17 00:10 | disposition home or self-care (01) ==
LOC: ER 22:20
DX: R21 Rash and other nonspecific skin eruption (principal); T78.40XA Allergy, unspecified, initial encounter; I10 Essential (primary) hypertension; Z88.0 Allergy status to penicillin; Z90.49 Acquired absence of other specified parts of digestive tract
CPT/HCPCS: 99282

== ENCOUNTER 2017-07-12 22:15 | Emergency (ER) | payer MEDICAID ==
[2017-07-13] MEDS ORDERED: DEXAMETHASONE 4 MG TABLET PO ONE (00:03)
--- NOTE | 2017-07-13 00:17 | ER Document Report ---
ED General - General Chief Complaint: Sore Throat Stated Complaint: MOUTH PROBLEM Time Seen by Provider: 07/12/17 23:01 Notes: Patient is a 27-year-old female with a past medical history of morbid obesity, no prior surgical history who presents with 3 days of sore throat. Patient states that this was gradual in onset and has gotten progressively worse since that time. She does describe as a constant, dull, scratching pain to the back of her throat. Pain is worsened by swallowing. She has not tried any to improve the pain. She notes that she had red spots in the back of her throat which prompted her come to the emergency department. She denies any fever, vomiting, diarrhea, cough, shortness of breath, headache, or altered mental status. She has not seen a primary care doctor regarding today's concerns. No known sick contacts. She has had similar symptoms in the past and she has had strep pharyngitis. TRAVEL OUTSIDE OF THE [place] IN LAST 30 DAYS: No - Related Data Allergies/Adverse Reactions: clindamycin [Clindamycin] Allergy (Severe, Verified 07/05/17 18:10) Hives doxycycline [Doxycycline] Allergy (Intermediate, Verified 07/05/17 18:10) Hives Penicillins Allergy (Verified 07/05/17 18:10) Past Medical History - General Information source: Patient - Social History Smoking Status: Never Smoker Cigarette use (# per day): No Chew tobacco use (# tins/day): No Frequency of alcohol use: None Drug Abuse: None Lives with: Spouse/Significant other Family History: CAD, DM, Hypertension, Other - Asthma - Past Medical History Cardiac Medical History: Reports: Hx Hypertension Pulmonary Medical History: Reports: Hx Asthma, Hx Bronchitis, Hx COPD, Hx Pneumonia Neurological Medical History: Reports: Hx Migraine Endocrine Medical History: Reports: Hx Hypothyroidism Renal/ Medical History: Denies: Hx Peritoneal Dialysis GI Medical History: Reports: Hx Gastroesophageal Reflux Disease. Denies: Hx Hepatitis Musculoskeltal Medical History: Reports Hx Musculoskeletal Trauma Psychiatric Medical History: Reports: Hx Anxiety, Hx Bipolar Disorder Traumatic Medical History: Reports: Hx Fractures Infectious Medical History: Denies: Hx Hepatitis Past Surgical History: Reports: Hx Cholecystectomy, Hx Oral Surgery - [place] teeth, Hx Orthopedic Surgery - Bilateral great toe. Denies: Hx Hysterectomy, Hx Mastectomy, Hx Open Heart Surgery, Hx Pacemaker - Immunizations Immunizations up to date: Yes Hx Diphtheria, Pertussis, Tetanus Vaccination: Yes Hx Pneumococcal Vaccination: 08/29/00 Review of Systems - Review of Systems Notes: Constitutional: Negative for fever. HENT: Positive for sore throat. Eyes: Negative for visual changes. Cardiovascular: Negative for chest pain. Respiratory: Negative for shortness of breath. Gastrointestinal: Negative for abdominal pain, vomiting or diarrhea. Genitourinary: Negative for dysuria. Musculoskeletal: Negative for back pain. Skin: Negative for rash. Neurological: Negative for headaches, weakness or numbness. 10 point ROS negative except as marked above and in HPI. Physical Exam - Vital signs Vitals: Temp Pulse Resp BP Pulse Ox 98.1 F 91 18 144/94 H 98 07/12/17 22:18 07/12/17 22:18 07/12/17 22:18 07/12/17 22:18 07/12/17 22:18 Interpretation: Hypertensive Notes: PHYSICAL EXAMINATION: GENERAL: Well-appearing, well-nourished and in no acute distress. HEAD: Atraumatic, normocephalic. EYES: Pupils equal round and reactive to light, extraocular movements intact, sclera anicteric, conjunctiva are normal. ENT: nares patent, mild bilateral tonsillar erythema and soft palatal petechiae. Moist mucous membranes. NECK: Normal range of motion, bilateral anterior cervical lymphadenopathy LUNGS: Breath sounds clear to auscultation bilaterally and equal. No wheezes rales or rhonchi. HEART: Regular rate and rhythm without murmurs ABDOMEN: Soft, nontender, normoactive bowel sounds. No guarding, no rebound. No masses appreciated. EXTREMITIES: Normal range of motion, no pitting or edema. No cyanosis. NEUROLOGICAL: No focal neurological deficits. Moves all extremities spontaneously and on command. PSYCH: Normal mood, normal affect. SKIN: Warm, Dry, normal turgor, no rashes or lesions noted. Course - Re-evaluation Re-evalutation: 07/13/17 00:12 Presentation of several days of sore throat in an otherwise well-appearing patient. Rapid strep is negative. History and exam are not consistent with a retropharyngeal abscess or peritonsillar abscess. Airway is patent. No difficulty handling oral secretions. Vitals within normal limits. Patient was treated with a single dose of oral dexamethasone. At this time will discharge with return precautions and follow-up recommendations. Verbal discharge instructions given a the bedside and opportunity for questions given. Medication warnings reviewed. Patient is in agreement with this plan and has verbalized understanding of return precautions and the need for primary care follow-up in the nex - Vital Signs Vital signs: Temp Pulse Resp BP Pulse Ox 98.1 F 91 18 144/94 H 98 07/12/17 22:18 07/12/17 22:18 07/12/17 22:18 07/12/17 22:18 07/12/17 22:18 Discharge - Discharge Clinical Impression: Viral pharyngitis Condition: Good Disposition: HOME, SELF-CARE Additional Instructions: Your rapid strep test is negative. Your symptoms are likely due to a viral infection and this should improve over the next 1 week. You have also been given a dose of steroids to help with your throat discomfort. Please continue to take ibuprofen 600 mg every 6 hours or Tylenol 1000 mg every 6 hours as needed for throat discomfort. You can also gargle with salt water. Continue to drink plenty of fluids. Follow-up with your primary care doctor in the next several days. Return if you become unable to swallow, have difficulty breathing , pass out, have persistent vomiting that prevents you from being able to tolerate fluids, or have any other symptoms that are concerning to you.
[2017-07-13] MEDS ORDERED: ALBUTEROL SULFATE 0.083% NEB 2.5 MG/3 ML AMPUL NEB ONE (00:34)
[2017-07-13] MEDS ORDERED: LORAZEPAM 1 MG TABLET PO ONE (00:34)
[2017-07-13 01:01] VITALS: BP 166/103
== END 2017-07-13 01:01 | disposition home or self-care (01) ==
LOC: ER 22:15
DX: J02.9 Acute pharyngitis, unspecified (principal); E66.01 Morbid (severe) obesity due to excess calories; I10 Essential (primary) hypertension; J44.9 Chronic obstructive pulmonary disease, unspecified; E03.9 Hypothyroidism, unspecified; Z88.3 Allergy status to other anti-infective agents; Z88.0 Allergy status to penicillin; Z90.49 Acquired absence of other specified parts of digestive tract
CPT/HCPCS: 94640; 99283; 87070; 87880; J3490

== ENCOUNTER 2017-09-13 21:56 | Emergency (ER) | payer MEDICAID ==
[2017-09-13] MEDS ORDERED: IPRATROPIUM/ALBUTEROL 0.5-2.5 MG/3 ML AMPUL NEB ONE (22:24)
[2017-09-13] MEDS ORDERED: METHYLPREDNISOLONE INJ 125 MG/2 ML SDV IV ONE (22:24)
[2017-09-13] MEDS: MAGNESIUM SULFATE/D5W 1 GM/100 ML RTUPB IV SCH ×2 (23:01→23:02)
[2017-09-13] MEDS: ALBUTEROL SULFATE 0.083% NEB 2.5 MG/3 ML AMPUL NEB SCH (23:02)
--- NOTE | 2017-09-13 23:13 | RADIOLOGY REPORT (SQ) ---
EXAM DESCRIPTION: CHEST SINGLE VIEW CLINICAL HISTORY: 27 years, Female, difficulty breathing COMPARISON: 11.8.17 FINDINGS: Normal lung volume, clear parenchyma, normal cardiac silhouette, and intact bony thorax. IMPRESSION: No acute cardiopulmonary findings. 2011 [employer]- All Rights Reserved
[2017-09-13 23:25] LABS: ABSOLUTE BASOPHILS # (AUTO) 0.1 10^3/uL (0.0-0.2); ABSOLUTE EOSINOPHILS # (AUTO) 0.2 10^3/uL (0.0-0.6); ABSOLUTE LYMPHOCYTES (AUTO) 2.5 10^3/uL (0.5-4.7); ABSOLUTE MONOCYTES (AUTO) 0.7 10^3/uL (0.1-1.4); ABSOLUTE NEUT (AUTO) 6.4 10^3/uL (1.7-8.2); BASOPHILS % (AUTO) 0.6 % (0-2); EOSINOPHILS % (AUTO) 1.6 % (0-6); HEMATOCRIT 45.1 % (36.0-47.0); LYMPHOCYTES % (AUTO) 25.2 % (13-45); MEAN CORPUSCULAR HGB CONC 35.4 g/dL (32.0-36.0); MEAN CORPUSCULAR VOLUME 91 fl (80-97); MONOCYTES % (AUTO) 7.2 % (3-13); PLATELET COUNT 229 10^3/uL (150-450); RED BLOOD COUNT 4.99 10^6/uL (3.72-5.28); RED CELL DISTRIBUTION WIDTH 13.2 % (11.5-14.0); SEGMENTED NEUTROPHILS % (AUTO) 65.4 % (42-78); TOTAL CELLS COUNTED % (AUTO) 100 %; WHITE BLOOD COUNT 9.8 10^3/uL (4.0-10.5)
--- NOTE | 2017-09-13 23:56 | ER Document Report ---
ED General - General Chief Complaint: Respiratory Distress Stated Complaint: DIFFICULTY BREATHING Time Seen by Provider: 09/13/17 22:37 Notes: Patient is a 19-year-old female who presents with complaint of difficulty breathing. She does have history of asthma. She has had some cough and congestion. No fevers. She saw few days ago. She was placed on antibiotic as well as given albuterol inhaler and Advair inhaler. She says the Advair inhaler always makes her feel very sick so she did not use it. She was not placed on prednisone. She was also given amlodipine for her blood pressure. She is on amlodipine made her feel very unwell so she did not fill the prescription. She denies any fevers. She denies any vomiting. No diarrhea. No chest or abdominal pain. No other complaints at this time. TRAVEL OUTSIDE OF THE [place] IN LAST 30 DAYS: No - Related Data Allergies/Adverse Reactions: clindamycin [Clindamycin] Allergy (Severe, Verified 07/05/17 18:10) Hives doxycycline [Doxycycline] Allergy (Intermediate, Verified 07/05/17 18:10) Hives Penicillins Allergy (Verified 07/05/17 18:10) Past Medical History - Social History Smoking Status: Unknown if Ever Smoked Frequency of alcohol use: None Drug Abuse: None Family History: CAD, DM, Hypertension, Other - Asthma - Past Medical History Cardiac Medical History: Reports: Hx Hypertension Pulmonary Medical History: Reports: Hx Asthma, Hx Bronchitis, Hx COPD, Hx Pneumonia Neurological Medical History: Reports: Hx Migraine Endocrine Medical History: Reports: Hx Hypothyroidism Renal/ Medical History: Denies: Hx Peritoneal Dialysis GI Medical History: Reports: Hx Gastroesophageal Reflux Disease. Denies: Hx Hepatitis Musculoskeltal Medical History: Reports Hx Musculoskeletal Trauma Psychiatric Medical History: Reports: Hx Anxiety, Hx Bipolar Disorder Traumatic Medical History: Reports: Hx Fractures Infectious Medical History: Denies: Hx Hepatitis Past Surgical History: Reports: Hx Cholecystectomy, Hx Oral Surgery - [place] teeth, Hx Orthopedic Surgery - Bilateral great toe. Denies: Hx Hysterectomy, Hx Mastectomy, Hx Open Heart Surgery, Hx Pacemaker - Immunizations Immunizations up to date: Yes Hx Diphtheria, Pertussis, Tetanus Vaccination: Yes Hx Pneumococcal Vaccination: 08/29/00 Review of Systems - Review of Systems Notes: My Normal Review Basic REVIEW OF SYSTEMS: CONSTITUTIONAL : Denies fever, chills, or sweats. Denies recent illness. EENT: Denies eye, ear, throat, or mouth pain or symptoms. Denies nasal or sinus congestion. CARDIOVASCULAR: Denies chest pain. RESPIRATORY: difficulty breathing with tightness and wheezing in the lungs. GASTROINTESTINAL: Denies abdominal pain. Denies nausea, vomiting, or diarrhea. Denies constipation. Last BM: MUSCULOSKELETAL: Denies neck or back pain or joint pain or swelling. SKIN: Denies rash or skin lesions. NEUROLOGICAL: Denies altered mental status or loss of consciousness. Denies headache. Denies weakness or paralysis or loss of use of either side. Denies problems with gait or speech. Denies sensory or motor loss. ALL OTHER SYSTEMS REVIEWED AND NEGATIVE. Physical Exam - Notes Notes: General Appearance: Well nourished, alert, cooperative, moderate acute distress , no obvious discomfort. Vitals: reviewed, See vital signs table. Head: no swelling or tenderness to the head Eyes: PERRL, EOMI, Conjuctiva clear Mouth: No decreasd moisture Throat: No tonsillar inflammation, No airway obstruction, No lymphadenopathy Neck: Supple, no neck tenderness, No thyromegaly Lungs: Diffuse wheezing with fair air exchange in lungs. Heart: Cardiac rate, Regular rythm, No murmur, no rub Abdomen: Normal BS, soft, No rigidity, No abdominal tenderness, No guarding, no rebound, Extremities: strength 5/5 in all extremities, good pulses in all extremities, no swelling or tenderness in the extremities, no edema. Skin: warm, dry, appropriate color, no rash Neuro: speech clear, oriented x 3, normal affect, responds appropriately to questions. Course - Re-evaluation Re-evalutation: 09/13/17 23:56 On reevaluation patient's lung richardson are much clear. She is moving a while. She says she feels much improved. She is now speaking full sentences. She has no tachypnea. No increased work of breathing. We will watch her for little bit longer to make sure that her breathing continues to do well without any rebound wheezing or difficulty breathing after the albuterol wears off. 09/14/17 01:19 Patient continues to feel very well. Her lung richardson remain clear. She looks well. I feel she is safe to be discharged home. Her rate is slightly tachycardic at 106. Her oxygen saturation is 97% on room air. I expect tachycardia is related to albuterol received. Clinically she looks extremely well. She speaking in full sentences and is clear lung richardson and has no tachypnea. Feel she is safe to be discharged home. We will discharge him home a prescription for prednisone I will give her albuterol inhaler to use. I encouraged her return to ER immediately if she has recurrent difficulty breathing, wheezing not responding to inhaler, or she feels unwell. Patient agrees with plan will be discharged home. Dictation of this chart was performed using voice recognition software; therefore, there may be some unintended grammatical errors. - Laboratory Result Diagrams: 09/13/17 23:15 09/14/17 00:02 Laboratory results interpreted by me: 09/13/17 09/14/17 23:15 00:02 Hgb 16.0 H Potassium 3.5 L Glucose 139 H Discharge - Discharge Clinical Impression: Bronchitis, Hypokalemia Condition: Good Disposition: HOME, SELF-CARE Additional Instructions: BRONCHITIS WITH BRONCHOSPASM (WHEEZING): You have bronchitis with bronchospasm (wheezing). Sometimes people develop wheezing with a chest cold. This occurs either because of an underlying tendency toward asthma or because the virus itself irritates the bronchial tubes. This irritation causes cough, shortness of breath, and wheezing. Emergency treatment of bronchospasm may include adrenaline shots or bronchodilator aerosol. You may feel lightheaded and have a rapid pulse for an hour or two. Rest and get plenty of fluids. At home, we'll treat you with a bronchodilator inhaler. Corticosteroids may be required for some patients. Until you recover, avoid chemical fumes, dusts, pollens, and exercising in very cold or dry air. If you smoke, stop now! Most cases of bronchitis get better without antibiotics. We prescribe antibiotics when we believe bacteria are damaging your airways, or if there's high risk the bronchitis will worsen into pneumonia. Increase your fluid intake. A cool mist humidifier may make your lungs more comfortable. An expectorant (cough medicine that loosens phlegm) can help. Repeated episodes of bronchitis and bronchospasm may result in lung damage -- for example, chronic bronchitis, recurrent pneumonias, or emphysema. If you develop a fever, increased wheezing, chest pain, or severe shortness of breath, you should contact the doctor immediately. INHALED BRONCHODILATORS: You have received a treatment of and/or prescription for an inhaled bronchodilator -- a medication which stimulates the airways in the lung to dilate. This improves the flow of air in asthma, bronchitis, and emphysema. These medicines have some similarity to adrenaline, and can cause similar side effects: shakiness, racing heart, and a sense of nervousness. These side effects decrease with time. Contact your doctor if these side effects are severe. Do not over-use the medicine. Too-frequent use of the inhaler may make it ineffective. Call your doctor if the inhaler is not controlling your symptoms at the prescribed doses. STEROID MEDICATION: You have been given an injection of or oral medicine of the cortisone/ steroid class. This medication is used to control inflammation or allergy. Nino t is usually only given for a short period of time, until the acute process subsides. There are usually no side effects from short-term use of cortisone-like medications. Some persons feel an increased sense of well-being and are not sleepy at bedtime. Long-term use of cortisone medications is best avoided, unless required for a severe condition. If your condition does not remit, or relapses after the course of corticosteroid medication, you should consult your physician. SMOKING: If you smoke, you should stop smoking. The tar and chemicals in cigarette smoke are harmful. Smoking has been shown to cause: emphysema chronic bronchitis lung cancer mouth and throat cancer stomach and pancreas cancer premature aging defects In addition, smoking increases ear and lung infections in children of smokers. FOLLOW-UP CARE: If you have been referred to a physician for follow-up care, call the physician s office for an appointment as you were instructed or within the next two days. If you experience worsening or a significant change in your symptoms, notify the physician immediately or return to the Emergency Department at any time for re-evaluation. Please use the inhaler as needed for wheezing and difficulty breathing not to exceed 2 puffs every 2 hours. Please follow up with your doctor in 2-3 days for reevaluation. Please return to the ER immediately if you have fevers, recurrent wheezing not responding to your inhaler, difficulty breathing, or if you feel unwell. Prescriptions: Prednisone [Deltasone 20 mg Tablet] 3 tab PO DAILY 4 Days tablet
[2017-09-14 00:35] LABS: ANION GAP 13 (5-19); BLOOD UREA NITROGEN 14 mg/dL (7-20); CALCIUM 10.2 mg/dL (8.4-10.2); CARBON DIOXIDE 28 mmol/L (22-30); CHLORIDE 101 mmol/L (98-107); GLUCOSE 139 mg/dL (75-110); POTASSIUM 3.5 mmol/L (3.6-5.0); SODIUM 142.2 mmol/L (137-145)
[2017-09-14] MEDS ORDERED: ALBUTEROL SULFATE HFA (90 MCG/PUFF) 8 GM MDI (1 MDI/ER DISP) IH ONE (01:11)
[2017-09-14] MEDS ORDERED: POTASSIUM CHLORIDE 10 MEQ TABLET.SA PO ONE (01:13)
[2017-09-14 01:43] VITALS: BP 126/77
== END 2017-09-14 01:42 | disposition home or self-care (01) ==
LOC: ER 21:56
DX: J44.9 Chronic obstructive pulmonary disease, unspecified (principal); E87.6 Hypokalemia; R00.0 Tachycardia, unspecified; R05 Cough; I10 Essential (primary) hypertension; Z88.1 Allergy status to other antibiotic agents; Z88.0 Allergy status to penicillin; Z87.01 Personal history of pneumonia (recurrent)
CPT/HCPCS: 94640 ×2; 99285; 96375; 96365; 36415; 85025; 80048; 71045; J2930; J3475; J3490; J7620

== ENCOUNTER 2017-09-17 22:17 | Emergency (ER) | payer MEDICAID ==
[2017-09-17 22:30] VITALS: BP 149/92
[2017-09-17] MEDS ORDERED: IPRATROPIUM/ALBUTEROL 0.5-2.5 MG/3 ML AMPUL NEB ONE ×2 (22:34→22:43)
[2017-09-17] MEDS ORDERED: DEXAMETHASONE SOD PHOS INJ 10 MG/1 ML VIAL IM ONE (22:52)
--- NOTE | 2017-09-17 22:58 | ER Document Report ---
ED Respiratory Problem - General Chief Complaint: Breathing Difficulty Stated Complaint: TROUBLE BREATHING,CHILLS Time Seen by Provider: 09/17/17 22:43 Notes: The patient is a 27-year-old female, past medical history asthma, hypertension, presents with 4 days of a dry cough and intermittent wheezing. She was diagnosed with bronchitis by her primary care physician and is taking prednisone , azithromycin and using her albuterol with some relief of her symptoms. She is still having chills and having some wheezing. Patient denies chest pain, leg swelling, nausea, vomiting, OCP use, headache, hemoptysis, rash or back pain. TRAVEL OUTSIDE OF THE [place] IN LAST 30 DAYS: No - Related Data Allergies/Adverse Reactions: clindamycin [Clindamycin] Allergy (Severe, Verified 07/05/17 18:10) Hives doxycycline [Doxycycline] Allergy (Intermediate, Verified 07/05/17 18:10) Hives Penicillins Allergy (Verified 07/05/17 18:10) Past Medical History - General Information source: Patient - Social History Smoking Status: Unknown if Ever Smoked Family History: CAD, DM, Hypertension, Other - Asthma - Past Medical History Cardiac Medical History: Reports: Hx Hypertension Pulmonary Medical History: Reports: Hx Asthma, Hx Bronchitis, Hx COPD, Hx Pneumonia Neurological Medical History: Reports: Hx Migraine Endocrine Medical History: Reports: Hx Hypothyroidism Renal/ Medical History: Denies: Hx Peritoneal Dialysis GI Medical History: Reports: Hx Gastroesophageal Reflux Disease. Denies: Hx Hepatitis Musculoskeltal Medical History: Reports Hx Musculoskeletal Trauma Psychiatric Medical History: Reports: Hx Anxiety, Hx Bipolar Disorder Traumatic Medical History: Reports: Hx Fractures Infectious Medical History: Denies: Hx Hepatitis Past Surgical History: Reports: Hx Cholecystectomy, Hx Oral Surgery - [place] teeth, Hx Orthopedic Surgery - Bilateral great toe. Denies: Hx Hysterectomy, Hx Mastectomy, Hx Open Heart Surgery, Hx Pacemaker - Immunizations Immunizations up to date: Yes Hx Diphtheria, Pertussis, Tetanus Vaccination: Yes Hx Pneumococcal Vaccination: 08/29/00 Review of Systems - Review of Systems Notes: REVIEW OF SYSTEMS: CONSTITUTIONAL: -fevers, -chills EENT: -eye pain, -difficulty swallowing, -nasal congestion CARDIOVASCULAR: -chest pain, -syncope. RESPIRATORY: +cough, +SOB GASTROINTESTINAL: -abdominal pain, -nausea, -vomiting, -diarrhea GENITOURINARY: -dysuria, -hematuria MUSCULOSKELETAL: -back pain, -neck pain SKIN: -rash or skin lesions. HEMATOLOGIC: -easy bruising or bleeding. LYMPHATIC: -swollen, enlarged glands. NEUROLOGICAL: -altered mental status or loss of consciousness, -headache, - neurologic symptoms PSYCHIATRIC: -anxiety, -depression. ALL OTHER SYSTEMS REVIEWED AND NEGATIVE. Physical Exam - Vital signs Vitals: Temp Pulse Resp BP Pulse Ox 98.6 F 97 24 H 149/92 H 97 09/17/17 22:29 09/17/17 22:29 09/17/17 22:29 09/17/17 22:29 09/17/17 22:29 - Notes Notes: PHYSICAL EXAMINATION: GENERAL: Well-appearing, well-nourished and in no acute distress. HEAD: Atraumatic, normocephalic. EYES: Pupils equal round and reactive to light, extraocular movements intact, sclera anicteric, conjunctiva are normal. ENT: nares patent, oropharynx clear without exudates. Moist mucous membranes. NECK: Normal range of motion, supple without lymphadenopathy LUNGS: No respiratory distress. Speaking in full sentences. Mild end- expiratory wheezes. HEART: Regular rate and rhythm without murmurs ABDOMEN: Soft, nontender, normoactive bowel sounds. No guarding, no rebound. No masses appreciated. EXTREMITIES: Normal range of motion, no pitting or edema. No cyanosis. NEUROLOGICAL: Cranial nerves grossly intact. Normal speech, normal gait. Normal sensory and motor exams. PSYCH: Normal mood, normal affect. SKIN: Warm, Dry, normal turgor, no rashes or lesions noted. Course - Re-evaluation Re-evalutation: Patient is in no respiratory distress. She has slight end expiratory wheezes. Patient provided with 3 duonebs and Decadron with complete relief of her symptoms. Repeat lung exam is clear. She is not hypoxic and her slight tachypnea on triage resolved. She has no risk factors for PE and she is PECARN negative. Chest x-ray did not show any focal infiltrates. Pt instructed to continue to use her albuterol as needed. She has azithromycin prescribed by her primary care physician and has an appointment with her PMD tomorrow. Given very strict return precautions and she understands. - Vital Signs Vital signs: Temp Pulse Resp BP Pulse Ox 98.6 F 97 24 H 149/92 H 97 09/17/17 22:29 09/17/17 22:29 09/17/17 22:29 09/17/17 22:29 09/17/17 22:29 - Diagnostic Test Radiology reviewed: Image reviewed, Reports reviewed Radiology results interpreted by me: CXR: NAD Discharge - Discharge Clinical Impression: Bronchitis with asthma, acute Condition: Stable Disposition: HOME, SELF-CARE Additional Instructions: BRONCHITIS WITH BRONCHOSPASM (WHEEZING): You have bronchitis with bronchospasm (wheezing). Sometimes people develop wheezing with a chest cold. This occurs either because of an underlying tendency toward asthma or because the virus itself irritates the bronchial tubes. This irritation causes cough, shortness of breath, and wheezing. Emergency treatment of bronchospasm may include adrenaline shots or bronchodilator aerosol. You may feel lightheaded and have a rapid pulse for an hour or two. Rest and get plenty of fluids. At home, we'll treat you with a bronchodilator inhaler. Corticosteroids may be required for some patients. Until you recover, avoid chemical fumes, dusts, pollens, and exercising in very cold or dry air. If you smoke, stop now! Most cases of bronchitis get better without antibiotics. We prescribe antibiotics when we believe bacteria are damaging your airways, or if there's high risk the bronchitis will worsen into pneumonia. Increase your fluid intake. A cool mist humidifier may make your lungs more comfortable. An expectorant (cough medicine that loosens phlegm) can help. Repeated episodes of bronchitis and bronchospasm may result in lung damage -- for example, chronic bronchitis, recurrent pneumonias, or emphysema. If you develop a fever, increased wheezing, chest pain, or severe shortness of breath, you should contact the doctor immediately. INHALED BRONCHODILATORS: You have received a treatment of and/or prescription for an inhaled bronchodilator -- a medication which stimulates the airways in the lung to dilate. This improves the flow of air in asthma, bronchitis, and emphysema. These medicines have some similarity to adrenaline, and can cause similar side effects: shakiness, racing heart, and a sense of nervousness. These side effects decrease with time. Contact your doctor if these side effects are severe. Do not over-use the medicine. Too-frequent use of the inhaler may make it ineffective. Call your doctor if the inhaler is not controlling your symptoms at the prescribed doses. STEROID MEDICATION: You have been given an injection of or oral medicine of the cortisone/ steroid class. This medication is used to control inflammation or allergy. Nion t is usually only given for a short period of time, until the acute process subsides. There are usually no side effects from short-term use of cortisone-like medications. Some persons feel an increased sense of well-being and are not sleepy at bedtime. Long-term use of cortisone medications is best avoided, unless required for a severe condition. If your condition does not remit, or relapses after the course of corticosteroid medication, you should consult your physician. USE OF ACETAMINOPHEN (Tylenol): Acetaminophen may be taken for pain relief or fever control. It's much safer than aspirin, offering a wider range of "safe" dosages. It is safe during . Some brand names are Tylenol, Panadol, Datril, Anacin 3, Tempra, and Liquiprin. Acetaminophen can be repeated every four hours. The following are maximum recommended dosages: >89 pounds or adults 650 mg to 900 mg Acetaminophen can be repeated every four hours. Maximum dose not to exceed 4000 mg a day. SMOKING: If you smoke, you should stop smoking. The tar and chemicals in cigarette smoke are harmful. Smoking has been shown to cause: emphysema chronic bronchitis lung cancer mouth and throat cancer stomach and pancreas cancer premature aging defects In addition, smoking increases ear and lung infections in children of smokers. FOLLOW-UP CARE: If you have been referred to a physician for follow-up care, call the physician s office for an appointment as you were instructed or within the next two days. If you experience worsening or a significant change in your symptoms, notify the physician immediately or return to the Emergency Department at any time for re-evaluation. Forms: Elevated Blood Pressure, Smoking Cessation Education
--- NOTE | 2017-09-17 23:19 | RADIOLOGY REPORT (SQ) ---
EXAM DESCRIPTION: CHEST PA/LAT CLINICAL HISTORY: 27 years, Female, SOB COMPARISON: 09/13/2017. FINDINGS: Normal lung volume, clear parenchyma, normal cardiac silhouette, and intact bony thorax. IMPRESSION: No acute cardiopulmonary findings.
== END 2017-09-18 00:18 | disposition home or self-care (01) ==
LOC: ER 22:17
DX: J45.998 Other asthma (principal); I10 Essential (primary) hypertension; E03.9 Hypothyroidism, unspecified; Z88.0 Allergy status to penicillin; Z90.49 Acquired absence of other specified parts of digestive tract
CPT/HCPCS: 94640 ×2; 99284; 96372; 71046; J1100; J7620

== ENCOUNTER 2017-11-18 16:57 | Emergency (ER) | payer MEDICAID ==
[2017-11-18 17:05] VITALS: BP 127/95
--- NOTE | 2017-11-18 17:17 | ER Document Report ---
HPI - HPI Pain Level: 4 Notes: Patient is a 27-year-old female with a history of asthma, hypertension, and anxiety who presents to the ED complaining of an occasional cough, feeling of incomplete exhalation 2 days. Pt states that she does have some chest wall pain with a deep breath and pushing in that area. Patient states that her symptoms started on the weather changed. Patient states that she was evaluated by her primary care doctor today who wanted to put her on a Z-Kenneth, but patient wanted to come to the emergency department thereafter as she wanted a second opinion as she does not want to be on antibiotics that she does not have to be and wants a chest x-ray. Patient denies any smoking, IV drug use, hormone use, previous DVT/PE, recent surgery/trauma, or other significant cardiopulmonary medical history. Patient states that she has been using her breathing treatments at home on occasion. She has no other concerns or complaints today. Denies any headache, fever, neck pain, URI, sore throat, chest pain, palpitations, syncope, wheeze, dyspnea, abdominal pain, nausea/vomiting/diarrhea , urinary retention, dysuria, hematuria, or rash. Pt has been here multiple times with the same complaint per patient. - ROS Systems Reviewed and Negative: Yes All other systems reviewed and negative - REPRODUCTIVE Reproductive: DENIES: : Past Medical History - Social History Smoking Status: Never Smoker Family History: CAD, DM, Hypertension, Other - Asthma - Past Medical History Cardiac Medical History: Reports: Hx Hypertension Pulmonary Medical History: Reports: Hx Asthma, Hx Bronchitis, Hx COPD, Hx Pneumonia Neurological Medical History: Reports: Hx Migraine Endocrine Medical History: Reports: Hx Hypothyroidism Renal/ Medical History: Denies: Hx Peritoneal Dialysis GI Medical History: Reports: Hx Gastroesophageal Reflux Disease. Denies: Hx Hepatitis Musculoskeltal Medical History: Reports Hx Musculoskeletal Trauma Psychiatric Medical History: Reports: Hx Anxiety, Hx Bipolar Disorder Traumatic Medical History: Reports: Hx Fractures Infectious Medical History: Denies: Hx Hepatitis Past Surgical History: Reports: Hx Cholecystectomy, Hx Oral Surgery - [place] teeth, Hx Orthopedic Surgery - Bilateral great toe. Denies: Hx Hysterectomy, Hx Mastectomy, Hx Open Heart Surgery, Hx Pacemaker - Immunizations Immunizations up to date: Yes Hx Diphtheria, Pertussis, Tetanus Vaccination: Yes Hx Pneumococcal Vaccination: 08/29/00 Vertical Provider Document - CONSTITUTIONAL Agree With Documented VS: Yes Notes: PHYSICAL EXAMINATION: GENERAL: Well-appearing, well-nourished and in no acute distress. HEAD: Atraumatic, normocephalic. EYES: Pupils equal round and reactive to light, extraocular movements intact, sclera anicteric, conjunctiva are normal. ENT: EAC clear b/l. TM's intact b/l without erythema, fluid, or perforation. Nares patent and without discharge. oropharynx clear without exudates. No tonsilar hypertrophy or erythema. Moist mucous membranes. No sinus tenderness. NECK: Normal range of motion, supple without lymphadenopathy Chest: Moderate tenderness to palp of the left chest wall, correlates with pain described. LUNGS: mildly prolonged expiration. Scant b/l expiratory wheeze w/o crackles. HEART: Regular rate and rhythm without murmurs, rubs, gallops. ABDOMEN: Soft, nontender, nondistended abdomen. No guarding, no rebound. No masses appreciated. Normal bowel sounds present. No CVA tenderness bilaterally. Musculoskeletal: FROM to passive/active. Strength 5+/5. Marco neg b/l. No calf erythema/swelling/asymmetry. Extremities: No cyanosis, clubbing, or edema b/l. Peripheral pulses 2+. Capillary refill less than 3 seconds. NEUROLOGICAL: Normal speech, normal gait. Normal sensory, motor exams PSYCH: Normal mood, normal affect. SKIN: Warm, Dry, normal turgor, no rashes or lesions noted. - INFECTION CONTROL TRAVEL OUTSIDE OF THE [place] IN LAST 30 DAYS: No Course - Re-evaluation Re-evalutation: 11/18/17 18:34 Patient is an afebrile, well-hydrated, 27-year-old female who presents to the ED with a mild asthma exacerbation based on H&P today. Vitals are acceptable. PE is otherwise unremarkable. EKG and chest x-ray were unremarkable for any acute pathology. PECARN negative. Wells 0. Patient has palpable and reproducible chest wall tenderness. No other labs or imaging warranted at this time based on H&P. DuoNeb was given today which improved symptoms. Patient declined any IM steroids. I will be sending her home with a steroid tapering dose. Low suspicion for any ACS, PE, pneumothorax, pericarditis, dissection, respiratory compromise, severe dehydration, sepsis, meningitis, or other systemic emergent condition at this time. Patient is aware that her condition can change from initial presentation and she needs to monitor symptoms closely and seek medical attention for any acute changes. Recommend conservative measures for symptoms. Recheck with your PCM in 3-5 days. Return to the ED with any worsening/concerning symptoms otherwise as reviewed in discharge. Patient is in agreement. - Vital Signs Vital signs: Temp Pulse Resp BP Pulse Ox 97.8 F 78 16 127/95 H 95 11/18/17 17:04 11/18/17 17:04 11/18/17 17:04 11/18/17 17:04 11/18/17 17:04 Discharge - Discharge Clinical Impression: Chest wall pain Asthma Qualifiers: Asthma severity: mild Asthma persistence: intermittent Asthma complication type : uncomplicated Qualified Code(s): J45.20 - Mild intermittent asthma, uncomplicated Condition: Stable Disposition: HOME, SELF-CARE Instructions: Chest Wall Pain ([facility]), Asthma ([facility]) Additional Instructions: Maintain adequate fluid intake Take meds as directed--use inhaler at home as needed tylenol/ibuprofen as needed over the counter cold medication as needed for symptoms Humidified air may help Wash your hands regularly F/u: with your PCM in 3-5 days for a recheck Return to the ED with any fever, worsening pain, chest pain, palpitations, syncope, worsening DAVIS, neck pain/stiffness, shortness of breath, wheezing, drooling, trouble swallowing/breathing, abdominal pain, n/v/d, rash, or worsening/concerning symptoms otherwise. Prescriptions: Prednisone [Deltasone 10 mg Tablet] 10 mg PO ASDIR PRN #21 tablet PRN Reason: Forms: Elevated Blood Pressure Referrals: MARILEE BEVERLY MD [ACTIVE STAFF] - Follow up as needed
--- NOTE | 2017-11-18 17:39 | RADIOLOGY REPORT (SQ) ---
EXAM DESCRIPTION: CHEST PA/LAT COMPLETED DATE/TIME: 11/18/2017 5:32 pm REASON FOR STUDY: cough COMPARISON: 09/17/2017 EXAM PARAMETERS: NUMBER OF VIEWS: two views TECHNIQUE: Digital Frontal and Lateral radiographic views of the chest acquired. RADIATION DOSE: NA LIMITATIONS: none FINDINGS: LUNGS AND PLEURA: No opacities, masses or pneumothorax. No pleural effusion. MEDIASTINUM AND HILAR STRUCTURES: No masses or contour abnormalities. HEART AND VASCULAR STRUCTURES: Heart normal size. No evidence for failure. BONES: No acute findings. HARDWARE: None in the chest. OTHER: No other significant finding. IMPRESSION: NO SIGNIFICANT RADIOGRAPHIC FINDING IN THE CHEST. TECHNICAL DOCUMENTATION: JOB ID: [id number] [employer]- All Rights Reserved Reading location - IP/workstation name: [email or web address]
[2017-11-18] MEDS ORDERED: IPRATROPIUM/ALBUTEROL 0.5-2.5 MG/3 ML AMPUL NEB ONE (17:49)
--- NOTE | 2017-11-18 22:02 | EKG REPORT ---
SEVERITY:- ABNORMAL ECG - SINUS RHYTHM INCOMPLETE RIGHT BUNDLE BRANCH BLOCK : Confirmed by: Robles Justice 18-Nov-2017 22:01:45
== END 2017-11-18 18:25 | disposition home or self-care (01) ==
LOC: ER 16:57
DX: J45.21 Mild intermittent asthma with (acute) exacerbation (principal); J44.9 Chronic obstructive pulmonary disease, unspecified; R07.89 Other chest pain; I10 Essential (primary) hypertension; R05 Cough; Z87.01 Personal history of pneumonia (recurrent)
CPT/HCPCS: 93005; 94640; 99283; 71046; 93010; J7620

== ENCOUNTER 2017-11-22 22:18 | Emergency (ER) | payer MEDICAID ==
--- NOTE | 2017-11-23 00:36 | ER Document Report ---
ED Respiratory Problem - General Chief Complaint: cold symptoms, coughing, chest discomfort Stated Complaint: CHEST PAIN, COLD, COUGHING Time Seen by Provider: 11/23/17 00:13 Notes: 27-year-old female to emergency department for evaluation of cough. States that she was seen here a few days ago on with bronchitis and placed on prednisone and breathing treatments. No fever. No abdominal pain. Still has a cough and hurts every now and then but no pain at this time. TRAVEL OUTSIDE OF THE [place] IN LAST 30 DAYS: No - HPI Onset: Last week - Related Data Allergies/Adverse Reactions: clindamycin [Clindamycin] Allergy (Severe, Verified 11/18/17 16:59) Hives doxycycline [Doxycycline] Allergy (Intermediate, Verified 11/18/17 16:59) Hives Penicillins Allergy (Verified 11/18/17 16:59) Past Medical History - General Information source: Patient - Social History Smoking Status: Former Smoker Cigarette use (# per day): Yes Chew tobacco use (# tins/day): No Frequency of alcohol use: None Drug Abuse: None Lives with: Family Family History: CAD, DM, Hypertension, Other - Asthma Patient has suicidal ideation: No Patient has homicidal ideation: No - Past Medical History Cardiac Medical History: Reports: Hx Hypertension Pulmonary Medical History: Reports: Hx Asthma, Hx Bronchitis, Hx COPD, Hx Pneumonia Neurological Medical History: Reports: Hx Migraine Endocrine Medical History: Reports: Hx Hypothyroidism Renal/ Medical History: Denies: Hx Peritoneal Dialysis GI Medical History: Reports: Hx Gastroesophageal Reflux Disease. Denies: Hx Hepatitis Musculoskeltal Medical History: Reports Hx Musculoskeletal Trauma Psychiatric Medical History: Reports: Hx Anxiety, Hx Bipolar Disorder Traumatic Medical History: Reports: Hx Fractures Infectious Medical History: Denies: Hx Hepatitis Past Surgical History: Reports: Hx Cholecystectomy, Hx Oral Surgery - [place] teeth, Hx Orthopedic Surgery - Bilateral great toe. Denies: Hx Hysterectomy, Hx Mastectomy, Hx Open Heart Surgery, Hx Pacemaker - Immunizations Immunizations up to date: Yes Hx Diphtheria, Pertussis, Tetanus Vaccination: Yes Hx Pneumococcal Vaccination: 08/29/00 Review of Systems - Review of Systems Constitutional: No symptoms reported EENT: No symptoms reported Cardiovascular: No symptoms reported Respiratory: Cough, Short of breath, Wheezing Gastrointestinal: No symptoms reported Genitourinary: No symptoms reported Female Genitourinary: No symptoms reported Musculoskeletal: No symptoms reported Skin: No symptoms reported Hematologic/Lymphatic: No symptoms reported Neurological/Psychological: No symptoms reported Physical Exam - Vital signs Vitals: Temp Pulse Resp BP Pulse Ox 98.5 F 76 18 133/89 H 97 11/22/17 23:02 11/22/17 23:02 11/22/17 23:02 11/22/17 23:02 11/22/17 23:02 Interpretation: Normal - General General appearance: Appears well, Alert - HEENT Head: Normocephalic, Atraumatic Eyes: Normal Pupils: PERRL - Respiratory Respiratory status: No respiratory distress Chest status: Nontender Breath sounds: Normal Chest palpation: Normal - Cardiovascular Rhythm: Regular Heart sounds: Normal auscultation Murmur: No - Abdominal Inspection: Normal Distension: No distension Bowel sounds: Normal Tenderness: Nontender Organomegaly: No organomegaly - Back Back: Normal, Nontender - Extremities General upper extremity: Normal inspection, Nontender, Normal color, Normal ROM , Normal temperature General lower extremity: Normal inspection, Nontender, Normal color, Normal ROM , Normal temperature, Normal weight bearing. No: Marco's sign - Neurological Neuro grossly intact: Yes Cognition: Normal Orientation: AAOx4 Rosina Coma Scale Eye Opening: Spontaneous [place] Coma Scale Verbal: Oriented [place] Coma Scale Motor: Obeys Commands [place] Coma Scale Total: 15 Speech: Normal Motor strength normal: LUE, RUE, LLE, RLE Sensory: Normal - Psychological Associated symptoms: Normal affect, Normal mood - Skin Skin Temperature: Warm Skin Moisture: Dry Skin Color: Normal Course - Re-evaluation Re-evalutation: 11/23/17 00:35 This is an extremely well-appearing 27-year-old female in no acute distress with normal vital signs, no wheezing, nothing on physical exam and who is asymptomatic at this time. Currently on prednisone and breathing treatments. I have encouraged her to continue doing what she is doing. Find nothing further to add at this time. Will DC shortly. - Vital Signs Vital signs: Temp Pulse Resp BP Pulse Ox 98.6 F 78 18 125/93 H 96 11/23/17 00:58 11/23/17 00:58 11/23/17 00:58 11/23/17 00:58 11/23/17 00:58 Discharge - Discharge Clinical Impression: Upper respiratory infection, viral Condition: Good Disposition: HOME, SELF-CARE Instructions: Upper Respiratory Illness ([facility]), Viral Syndrome ([facility]) Additional Instructions: Return for any worsening symptoms or concerns.
[2017-11-23 00:58] VITALS: BP 125/93
== END 2017-11-23 00:58 | disposition home or self-care (01) ==
LOC: ER 22:18
DX: J06.9 Acute upper respiratory infection, unspecified (principal); B97.89 Other viral agents as the cause of diseases classified elsewhere; J44.9 Chronic obstructive pulmonary disease, unspecified; J40 Bronchitis, not specified as acute or chronic; R07.9 Chest pain, unspecified; R05 Cough; R06.02 Shortness of breath; I10 Essential (primary) hypertension; Z88.1 Allergy status to other antibiotic agents; Z88.0 Allergy status to penicillin; Z87.891 Personal history of nicotine dependence; Z87.01 Personal history of pneumonia (recurrent)
CPT/HCPCS: 99283

== ENCOUNTER 2017-12-06 21:27 | Emergency (ER) | payer MEDICAID ==
--- NOTE | 2017-12-06 22:48 | ER Document Report ---
HPI - HPI Pain Level: Denies Notes: Patient is a 27-year-old female who presents to the ED complaining of a skin lesion/rash to her anterior superior chest/inferior neck 1-1/2 weeks. Patient states that it has remained unchanged and on occasion does itch. Patient has not noticed any other lesions or spreading of the rash. Patient has not tried any [id number] creams for her symptoms. She has no other concerns or complaints at this time. No other significant past medical history. Denies any headache, fever, neck pain, URI, sore throat, chest pain, palpitations, syncope, cough, shortness of breath, wheeze, dyspnea, abdominal pain, nausea/ vomiting/diarrhea, urinary retention, dysuria, hematuria. - ROS Systems Reviewed and Negative: Yes All other systems reviewed and negative - REPRODUCTIVE Reproductive: DENIES: : Past Medical History - Social History Smoking Status: Unknown if Ever Smoked Family History: CAD, DM, Hypertension, Other - Asthma - Past Medical History Cardiac Medical History: Reports: Hx Hypertension Pulmonary Medical History: Reports: Hx Asthma, Hx Bronchitis, Hx COPD, Hx Pneumonia Neurological Medical History: Reports: Hx Migraine Endocrine Medical History: Reports: Hx Hypothyroidism Renal/ Medical History: Denies: Hx Peritoneal Dialysis GI Medical History: Reports: Hx Gastroesophageal Reflux Disease. Denies: Hx Hepatitis Musculoskeltal Medical History: Reports Hx Musculoskeletal Trauma Psychiatric Medical History: Reports: Hx Anxiety, Hx Bipolar Disorder Traumatic Medical History: Reports: Hx Fractures Infectious Medical History: Denies: Hx Hepatitis Past Surgical History: Reports: Hx Cholecystectomy, Hx Oral Surgery - [place] teeth, Hx Orthopedic Surgery - Bilateral great toe. Denies: Hx Hysterectomy, Hx Mastectomy, Hx Open Heart Surgery, Hx Pacemaker - Immunizations Immunizations up to date: Yes Hx Diphtheria, Pertussis, Tetanus Vaccination: Yes Hx Pneumococcal Vaccination: 08/29/00 Vertical Provider Document - CONSTITUTIONAL Agree With Documented VS: Yes Notes: PHYSICAL EXAMINATION: GENERAL: Well-appearing, well-nourished and in no acute distress. HEAD: Atraumatic, normocephalic. EYES: Pupils equal round and reactive to light, extraocular movements intact, sclera anicteric, conjunctiva are normal. ENT: Nares patent and without discharge. oropharynx clear without exudates. No tonsilar hypertrophy or erythema. Moist mucous membranes. NECK: Normal range of motion, supple without lymphadenopathy. Nontender. LUNGS: Breath sounds clear to auscultation bilaterally and equal. No wheezes rales or rhonchi. HEART: Regular rate and rhythm without murmurs, rubs, gallops. Extremities: No cyanosis, clubbing, or edema b/l. Peripheral pulses 2+. Capillary refill less than 3 seconds. NEUROLOGICAL: Normal speech, normal gait. Normal sensory, motor exams PSYCH: Normal mood, normal affect. SKIN: Inferior rt neck: there is a small 0.6 diam macular lesion with an erythemic border and minimal central pallor. No Erythema migrans. No abscess, streaks, tenderness, induration, or discharge. - INFECTION CONTROL TRAVEL OUTSIDE OF THE [place] IN LAST 30 DAYS: No Course - Re-evaluation Re-evalutation: 12/06/17 22:46 Patient is an afebrile, well-hydrated, 27-year-old female who presents to the ED with a skin lesion, suspect tinea infection. Vitals are acceptable. PE is otherwise unremarkable. No labs or imaging warranted at this time based on H& P. Low suspicion for any cellulitis, abscess, sepsis, Nec fasciitis, SJS, or other systemic emergent condition at this time. I will send her home with a prescription for Lotrisone cream. Conservative measures otherwise for symptoms. Recheck with your PCM in 3-5 days. Consider consult dermatology if needed. Return to the ED with any worsening/concerning symptoms otherwise as reviewed discharge. Patient is in agreement. - Vital Signs Vital signs: Temp Pulse Resp BP Pulse Ox 98.3 F 99 16 149/108 H 98 12/06/17 21:37 12/06/17 21:37 12/06/17 21:37 12/06/17 21:37 12/06/17 21:37 Discharge - Discharge Clinical Impression: Tinea corporis Condition: Stable Disposition: HOME, SELF-CARE Instructions: Ringworm (Tinea Corporis) ([facility]) Additional Instructions: Keep the skin clean and dry Wash with soap and water Tylenol/ibuprofen if needed Triple antibiotic ointment daily for any break in the skin Take medication as directed Monitor for any worsening symptoms Recheck with your PCM in 3-5 days Consider consult with Dermatology for ongoing/worsening symptoms Return to the ED with any worsening symptoms and/or development of fever, headache, chest pain, palpitations, syncope, shortness of breath, trouble breathing, abdominal pain, n/v/d, abscess, purulent discharge, red streaks, worsening swelling, or other worsening symptoms that are concerning to you. Prescriptions: Clotrimazole/Betamethasone Dip [Lotrisone Cream 15 gm] 1 applic TP BID #15 g Forms: Elevated Blood Pressure Referrals: LOBO BHATT DO [ACTIVE STAFF] - Follow up as needed
[2017-12-06 23:00] VITALS: BP 145/106
== END 2017-12-06 23:00 | disposition home or self-care (01) ==
LOC: ER 21:27
DX: B35.4 Tinea corporis (principal); I10 Essential (primary) hypertension; Z90.49 Acquired absence of other specified parts of digestive tract
CPT/HCPCS: 99282

== ENCOUNTER 2018-02-07 22:46 | Emergency (ER) | payer MEDICAID ==
[2018-02-07 23:21] VITALS: BP 128/87
[2018-02-08] MEDS ORDERED: DOCUSATE SODIUM 100 MG CAPSULE LFT_EAR ONE (01:06)
--- NOTE | 2018-02-08 01:06 | ER Document Report ---
HPI - HPI Pain Level: 4 Context: Patient is a 19-year-old female presents emergency department with chief complaint of left ear pain for the past 8 days. Patient states that she recurrently gets outer ear infections but is never followed up with her nose and throat specialist regarding this. She denies any ear pain, loss of hearing , tinnitus, fever, dizziness. Patient states that she was going to use a home antibiotic drop but she ran out of it earlier today. Patient states that she only used it for about 1 day. She admits to history of seasonal allergies and asthma. - CONSTITUTIONAL Constitutional: DENIES: Fever, Chills - EENT EENT: REPORTS: Ear Pain. DENIES: Sore Throat, Eye problems - NEURO Neurology: DENIES: Headache, Weakness, Vision blurred, Dizzinesss / Vertigo - CARDIOVASCULAR Cardiovascular: DENIES: Chest pain - RESPIRATORY Respiratory: REPORTS: Coughing. DENIES: Trouble Breathing - GASTROINTESTINAL Gastrointestinal: DENIES: Abdominal Pain, Black / Bloody Stools - URINARY Urinary: DENIES: Dysuria, Urgency, Frequency - REPRODUCTIVE Reproductive: DENIES: : - MUSCULOSKELETAL Musculoskeletal: DENIES: Extremity pain Past Medical History - Social History Smoking Status: Unknown if Ever Smoked Family History: CAD, DM, Hypertension, Other - Asthma Patient has suicidal ideation: No Patient has homicidal ideation: No - Past Medical History Cardiac Medical History: Reports: Hx Hypertension Pulmonary Medical History: Reports: Hx Asthma, Hx Bronchitis, Hx COPD, Hx Pneumonia Neurological Medical History: Reports: Hx Migraine Endocrine Medical History: Reports: Hx Hypothyroidism Renal/ Medical History: Denies: Hx Peritoneal Dialysis GI Medical History: Reports: Hx Gastroesophageal Reflux Disease. Denies: Hx Hepatitis Musculoskeltal Medical History: Reports Hx Musculoskeletal Trauma Psychiatric Medical History: Reports: Hx Anxiety, Hx Bipolar Disorder Traumatic Medical History: Reports: Hx Fractures Infectious Medical History: Denies: Hx Hepatitis Past Surgical History: Reports: Hx Cholecystectomy, Hx Oral Surgery - [place] teeth, Hx Orthopedic Surgery - Bilateral great toe. Denies: Hx Hysterectomy, Hx Mastectomy, Hx Open Heart Surgery, Hx Pacemaker - Immunizations Immunizations up to date: Yes Hx Diphtheria, Pertussis, Tetanus Vaccination: Yes Hx Pneumococcal Vaccination: 08/29/00 Vertical Provider Document - CONSTITUTIONAL Agree With Documented VS: Yes Notes: PHYSICAL EXAM GENERAL: Alert, interacts well. HEENT: NCAT, pale conjunctiva, extraocular movements intact, pupils PERRL. Left ear with external auditory canal tenderness, erythema without any evidence of blood, drainage or TM intact without evidence of effusion, bulging, injection, MMM, Uvula midline. Airway patent. No evidence of tonsillar enlargement, peritonsillar abscess, retropharyngeal abscess. LUNGS: Clear to auscultation bilaterally, no wheezes, rales, or rhonchi. No respiratory distress. HEART: Regular rate and rhythm. No murmurs, gallops, or rubs. NEUROLOGICAL: Alert and oriented x4. Normal speech. PSYCH: Normal affect, normal mood. SKIN: Warm, dry, normal turgor. No rashes or lesions noted. - INFECTION CONTROL TRAVEL OUTSIDE OF THE [place] IN LAST 30 DAYS: No Course - Re-evaluation Re-evalutation: 02/08/18 01:04 Patient is a 27-year-old female who presents with symptoms consistent with otitis externa. Will treat with a topical antibiotic solution and have her follow-up with ear nose and throat given her recurrence of these infections. There is no evidence of tympanic membrane perforation, otitis media patient is agreeable with plan otherwise given strict return precautions and stable for discharge home - Vital Signs Vital signs: Temp Pulse Resp BP Pulse Ox 98.8 F 97 20 128/87 H 97 02/07/18 23:20 02/07/18 23:20 02/07/18 23:20 02/07/18 23:20 02/07/18 23:20 Discharge - Discharge Clinical Impression: Otitis externa Qualifiers: Otitis externa type: unspecified type Chronicity: acute Laterality: left Qualified Code(s): H60.502 - Unspecified acute noninfective otitis externa, left ear Condition: Good Disposition: HOME, SELF-CARE Instructions: Acetaminophen, Use of Ear Drops ([facility]), Otitis Externa ([facility]) Prescriptions: Neomy Sulf/Polymyx B Sulf/Hc [Tjfvllxh-Wjcbfzsld-Ro Ear Soln] 10 ml OT QID 10 Days solution Referrals: TROY ESQUIVEL DO [ASSOCIATE] - Follow up in 1 month
== END 2018-02-08 01:17 | disposition home or self-care (01) ==
LOC: ER 22:46
DX: H60.502 Unspecified acute noninfective otitis externa, left ear (principal); H92.02 Otalgia, left ear; I10 Essential (primary) hypertension; J44.9 Chronic obstructive pulmonary disease, unspecified; E03.9 Hypothyroidism, unspecified; Z90.49 Acquired absence of other specified parts of digestive tract
CPT/HCPCS: 99283; J3490

== ENCOUNTER 2018-02-13 23:44 | Emergency (ER) | payer MEDICAID ==
[2018-02-14 00:33] VITALS: BP 119/86
[2018-02-14] MEDS ORDERED: CIPROFLOXACIN HCL/DEXAMETH OTIC DROP 7.5 ML AU ONE (01:41)
--- NOTE | 2018-02-14 01:46 | ER Document Report ---
ED ENT - General Chief Complaint: Ear Pain Stated Complaint: PAIN IN BOTH EARS Time Seen by Provider: 02/14/18 01:39 Mode of Arrival: Ambulatory Information source: Patient Notes: 27-year-old female presents with complaint of bilateral ear pain worse to the left side. Patient reports that she spent quite a bit of time in a pool last week, patient began having the pain approximately 2 days after swimming. Patient reports history of outer ear infections. Patient denies any bleeding or drainage from either ear. TRAVEL OUTSIDE OF THE [place] IN LAST 30 DAYS: No - Related Data Allergies/Adverse Reactions: clindamycin [Clindamycin] Allergy (Severe, Verified 11/18/17 16:59) Hives doxycycline [Doxycycline] Allergy (Intermediate, Verified 11/18/17 16:59) Hives Penicillins Allergy (Verified 11/18/17 16:59) Past Medical History - General Information source: Patient - Social History Smoking Status: Current Every Day Smoker Frequency of alcohol use: None Drug Abuse: None Lives with: Family Family History: CAD, DM, Hypertension, Other - Asthma - Past Medical History Cardiac Medical History: Reports: Hx Hypertension Pulmonary Medical History: Reports: Hx Asthma, Hx Bronchitis, Hx COPD, Hx Pneumonia Neurological Medical History: Reports: Hx Migraine Endocrine Medical History: Reports: Hx Hypothyroidism Renal/ Medical History: Denies: Hx Peritoneal Dialysis GI Medical History: Reports: Hx Gastroesophageal Reflux Disease. Denies: Hx Hepatitis Musculoskeltal Medical History: Reports Hx Musculoskeletal Trauma Psychiatric Medical History: Reports: Hx Anxiety, Hx Bipolar Disorder Traumatic Medical History: Reports: Hx Fractures Infectious Medical History: Denies: Hx Hepatitis Past Surgical History: Reports: Hx Cholecystectomy, Hx Oral Surgery - [place] teeth, Hx Orthopedic Surgery - Bilateral great toe. Denies: Hx Hysterectomy, Hx Mastectomy, Hx Open Heart Surgery, Hx Pacemaker - Immunizations Immunizations up to date: Yes Hx Diphtheria, Pertussis, Tetanus Vaccination: Yes Hx Pneumococcal Vaccination: 08/29/00 Review of Systems - Review of Systems Constitutional: No symptoms reported EENT: Ear pain Cardiovascular: No symptoms reported Respiratory: No symptoms reported Gastrointestinal: No symptoms reported Genitourinary: No symptoms reported Female Genitourinary: No symptoms reported Musculoskeletal: No symptoms reported Skin: No symptoms reported Hematologic/Lymphatic: No symptoms reported Neurological/Psychological: No symptoms reported Physical Exam - Vital signs Vitals: Temp Pulse Resp BP Pulse Ox 98.9 F 74 18 119/86 H 98 02/14/18 00:31 02/14/18 00:31 02/14/18 00:02/14/18 00:02/14/18 00:31 - Notes Notes: PHYSICAL EXAMINATION: GENERAL: Well-appearing, well-nourished and in no acute distress. HEAD: Atraumatic, normocephalic. EYES: Pupils equal round and reactive to light, extraocular movements intact, conjunctiva are normal. ENT: Nares patent, oropharynx clear without exudates. Moist mucous membranes. TTP to external left ear. Left canal swollen. TM's normal bilaterally. NECK: Normal range of motion, supple without lymphadenopathy LUNGS: Breath sounds clear to auscultation bilaterally and equal. No wheezes rales or rhonchi. HEART: Regular rate and rhythm without murmurs ABDOMEN: Soft, nontender, nondistended abdomen. No guarding, no rebound. No masses appreciated. Female : deferred Musculoskeletal: Normal range of motion, no pitting or edema. No cyanosis. NEUROLOGICAL: Cranial nerves grossly intact. Normal speech, normal gait. Normal sensory, motor exams PSYCH: Normal mood, normal affect. SKIN: Warm, Dry, normal turgor, no rashes or lesions noted. Course - Re-evaluation Re-evalutation: Patient with otitis externa. Will discharge patient on ciprodex due to patients multiple allergies. - Vital Signs Vital signs: Temp Pulse Resp BP Pulse Ox 98.9 F 74 18 119/86 H 98 02/14/18 00:31 02/14/18 00:31 02/14/18 00:02/14/18 00:02/14/18 00:31 Discharge - Discharge Clinical Impression: Otitis externa Qualifiers: Otitis externa type: unspecified type Chronicity: unspecified Laterality: bilateral Qualified Code(s): H60.93 - Unspecified otitis externa, bilateral Condition: Stable Disposition: HOME, SELF-CARE Additional Instructions: Otitis Externa You have otitis externa -- an infection of the outer ear canal. This can be very painful. It's sometimes called "swimmer's ear," because it often occurs after prolonged water exposure. Many things, such as earwax and dirt in the ear, can contribute to it. The usual treatment is antibiotic/antiinflammatory ear drops. Occasionally , a wick will be placed in the ear to draw in the medicine. If the infection is severe, an oral antibiotic may be prescribed. Pain medication is often needed. Avoid getting water in the ear. Outer ear infections often take longer to heal than you might expect. Some tenderness and ache in the ear may persist for about two weeks. See your physician if you fail to improve as expected. Call the doctor at once if you develop fever, increasing swelling (particularly if it makes your ear "poke out"), severe headache, stiff neck, or decreased hearing. Please use the ciprodex ear drops 4 drops to each ear twice daily for 7 days. Follow up with your primary care provider for a re-evaluation in 5-7 days.
[2018-02-14] MEDS ORDERED: IBUPROFEN 600 MG TABLET PO ONE (01:47)
== END 2018-02-14 02:18 | disposition home or self-care (01) ==
LOC: ER 23:44
DX: H60.93 Unspecified otitis externa, bilateral (principal); H92.03 Otalgia, bilateral; F17.200 Nicotine dependence, unspecified, uncomplicated; I10 Essential (primary) hypertension; J44.9 Chronic obstructive pulmonary disease, unspecified; Z88.1 Allergy status to other antibiotic agents; Z88.0 Allergy status to penicillin
CPT/HCPCS: 99282; J3490 ×2

== ENCOUNTER 2018-02-16 13:07 | Emergency (ER) | payer MEDICAID ==
[2018-02-16 13:13] VITALS: BP 135/87
--- NOTE | 2018-02-16 13:43 | ER Document Report ---
ED Extremity Problem, Upper - General Chief Complaint: Burn Stated Complaint: FINGER BURN Time Seen by Provider: 02/16/18 13:28 Mode of Arrival: Ambulatory Information source: Patient Notes: 27-year-old female presented to the ED for complaint of tipton to the left index finger and left arm. She states she was trying to burn the top off of a water bottle and dropped some of the plastic on her arm and finger. There are 2 very small less than 1 cm, second-degree tipton to the left index finger and one to the left arm. It is alert and very oriented speaking in full sentences respirations regular and unlabored and walking with a even steady gait. TRAVEL OUTSIDE OF THE [place] IN LAST 30 DAYS: No - HPI Patient complains to provider of: Left, Forearm, Hand Onset: This morning Recent injury: Yes Where: Outdoors Quality of pain: Burning Severity of pain: Moderate Pain Level: 3 Context: Burn Associated symptoms: None Exacerbated by: Movement Relieved by: Nothing Similar symptoms previously: No Recently seen / treated by doctor: No - Related Data Allergies/Adverse Reactions: clindamycin [Clindamycin] Allergy (Severe, Verified 02/16/18 13:09) Hives doxycycline [Doxycycline] Allergy (Intermediate, Verified 02/16/18 13:09) Hives amoxicillin Allergy (Verified 02/16/18 13:09) Penicillins Allergy (Verified 02/16/18 13:09) Past Medical History - General Information source: Patient - Social History Smoking Status: Never Smoker Cigarette use (# per day): No Chew tobacco use (# tins/day): No Smoking Education Provided: No Frequency of alcohol use: None Drug Abuse: None Lives with: Family Family History: CAD, DM, Hypertension, Other - Asthma Patient has suicidal ideation: No Patient has homicidal ideation: No - Past Medical History Cardiac Medical History: Reports: Hx Hypertension Pulmonary Medical History: Reports: Hx Asthma, Hx Bronchitis, Hx COPD, Hx Pneumonia EENT Medical History: Reports: None Neurological Medical History: Reports: Hx Migraine Endocrine Medical History: Reports: Hx Hypothyroidism Renal/ Medical History: Reports: None Malignancy Medical History: Reports: None GI Medical History: Reports: Hx Gastroesophageal Reflux Disease Musculoskeltal Medical History: Reports Hx Musculoskeletal Trauma Skin Medical History: Reports None Psychiatric Medical History: Reports: Hx Anxiety, Hx Bipolar Disorder Traumatic Medical History: Reports: Hx Fractures Infectious Medical History: Reports: None Past Surgical History: Reports: Hx Cholecystectomy, Hx Oral Surgery - [place] teeth, Hx Orthopedic Surgery - Bilateral great toe - Immunizations Immunizations up to date: Yes Hx Diphtheria, Pertussis, Tetanus Vaccination: Yes Hx Pneumococcal Vaccination: 08/29/00 Review of Systems - Review of Systems Constitutional: No symptoms reported EENT: No symptoms reported Cardiovascular: No symptoms reported Respiratory: No symptoms reported Gastrointestinal: No symptoms reported Genitourinary: No symptoms reported Female Genitourinary: No symptoms reported Musculoskeletal: No symptoms reported Skin: Other - Left forearm and index finger second-degree tipton Hematologic/Lymphatic: No symptoms reported Neurological/Psychological: No symptoms reported -: Yes All other systems reviewed and negative Physical Exam - Vital signs Vitals: Temp Pulse Resp BP Pulse Ox 98.6 F 74 18 135/87 H 97 02/16/18 13:11 02/16/18 13:11 02/16/18 13:11 02/16/18 13:11 02/16/18 13:11 Interpretation: Normal - General General appearance: Appears well, Alert - HEENT Head: Normocephalic, Atraumatic Eyes: Normal Pupils: PERRL - Respiratory Respiratory status: No respiratory distress Chest status: Nontender Breath sounds: Normal Chest palpation: Normal - Cardiovascular Rhythm: Regular Heart sounds: Normal auscultation Murmur: No - Abdominal Inspection: Normal Distension: No distension Bowel sounds: Normal Tenderness: Nontender Organomegaly: No organomegaly - Back Back: Normal, Nontender - Extremities General upper extremity: Normal inspection, Nontender, Normal color, Normal ROM , Normal temperature General lower extremity: Normal inspection, Nontender, Normal color, Normal ROM , Normal temperature, Normal weight bearing. No: Marco's sign - Neurological Neuro grossly intact: Yes Cognition: Normal Orientation: AAOx4 Rosina Coma Scale Eye Opening: Spontaneous [place] Coma Scale Verbal: Oriented Rosina Coma Scale Motor: Obeys Commands Rosina Coma Scale Total: 15 Speech: Normal Motor strength normal: LUE, RUE, LLE, RLE Sensory: Normal - Psychological Associated symptoms: Normal affect, Normal mood - Skin Skin Temperature: Warm Skin Moisture: Dry Skin Color: Normal Location of irregularity: Extremities Character of irregularity: Other Irregularity with: Tenderness Course - Re-evaluation Re-evalutation: 02/16/18 18:56 Tipton were cleaned with Shur-Clens rinsed with saline bacitracin and Band-Aids applied to the areas. Patient was instructed to follow-up with primary doctor or the ED for any increase in symptoms. Patient instructed use Tylenol Motrin for her discomfort. None of these tipton were as much as 5 mm. - Vital Signs Vital signs: Temp Pulse Resp BP Pulse Ox 98.6 F 74 18 135/87 H 97 02/16/18 13:11 02/16/18 13:11 02/16/18 13:11 02/16/18 13:11 02/16/18 13:11 Discharge - Discharge Clinical Impression: small 2nd burn to left index finger, small 2nd degree burn to left arm Condition: Stable Disposition: HOME, SELF-CARE Instructions: Family Physicians / Practices Additional Instructions: Tipton The seriousness of a burn is not always obvious at first. Delayed tissue damage and secondary infection may occur despite proper treatment. Proper care is very important. A burn that is third-degree may need skin grafting. Most tipton, however, are simply protected with dressings until healed. Keep the burn clean. If the dressing gets wet, remove it and blot the wound dry, then apply a fresh dressing. Dressings should be changed at least once daily. Soaks to remove crusting are usually started in about two days. Tipton in certain areas require stretching to prevent disabling tightness. Your doctor will advise you about this. For pain control, you may frequently apply a hand towel that has been dipped in water with ice cubes. Do not apply ice directly to the burned areas. If any signs of infection occur (swelling, redness, increasing tenderness, red streaks, tender lumps in the armpit or groin above the burn, or fever), contact the doctor immediately. Soap Cleansing Gently wash the wound daily using a mild soap (like Ivory, Phisoderm, Neutrogena). Use warm water, rubbing gently until all debris, ooze, and crusting have been washed from the wound. Allow to dry briefly (about 10 minutes) after cleaning. Repeat this cleansing at least three times a day for the first two days and then once or twice a day. Antibiotic Ointment Protection Your wounds are such that dressing them is not practical or optional. After cleansing, you should apply a thin coating of antibiotic ointment ( Bacitracin, not Neosporin) to the wounds at least three times daily. This lessens infection risk, and may decrease the amount of scarring. Use a q-tip or dull butter knife, not your finger, to apply this ointment. Any debris or ooze which builds up in the ointment should be gently rubbed off with a sterile gauze pad. Harder crusting may need to be gently scrubbed off with a clean wash cloth with soap and warm water, perhaps applying a warm, wet wash cloth to the wound for ten minutes first. Development of redness, severe itching, or blistering may mean allergy to the ointment. See the doctor. Acetaminophen Acetaminophen may be taken for pain relief or fever control. It's much safer than aspirin, offering a wider range of "safe" dosages. It is safe during . Some brand names are Tylenol, Panadol, Datril, Anacin 3, Tempra, and Liquiprin. Acetaminophen can be repeated every four hours. The following are maximum recommended dosages: WEIGHT Dose Drops Elixir Chewable( 80mg) (LBS.) drprs=droppers tsp=teaspoon 6 40 mg .4 ml (1/2) 6-11 80 mg .8 ml (full) 1/2 tsp 1 tab 12-16 120 mg 1 1/2 drprs 3/4 tsp 1 1/2 tabs 17-23 160 mg 2 drprs 1 tsp 2 tabs 24-30 240 mg 3 drprs 1 1/2 tsp 3 tabs 30-35 320 mg 2 tsp 4 tabs 36-41 360 mg 2 1/4 tsp 4 1 /2 tabs 42-47 400 mg 2 1/2 tsp 5 tabs 48-53 480 mg 3 tsp 6 tabs 54-59 520 mg 3 1/4 tsp 6 1 /2 tabs 60-64 560 mg 3 1/2 tsp 7 tabs 65-70 600 mg 3 3/4 tsp 7 1 /2 tabs 71-76 640 mg 4 tsp 8 tabs 77-82 720 mg 4 1/2 tsp 9 tabs 83-88 800 mg 5 tsp 10 tabs >89 pounds or adults 650 mg to 900 mg Acetaminophen can be repeated every four hours. Maximum daily dose not to exceed 4000 mg. These maximum recommended dosages are slightly higher than the dosages written on the product container, but these dosages are very safe and well below the toxic dosage for acetaminophen. FOLLOW-UP CARE: If you have been referred to a physician for follow-up care, call the physician s office for an appointment as you were instructed or within the next two days. If you experience worsening or a significant change in your symptoms, notify the physician immediately or return to the Emergency Department at any time for re-evaluation. Forms: Elevated Blood Pressure
== END 2018-02-16 13:50 | disposition home or self-care (01) ==
LOC: ER 13:07
DX: T23.222A Burn of second degree of single left finger (nail) except thumb, initial encounter (principal); T22.20XA Burn of second degree of shoulder and upper limb, except wrist and hand, unspecified site, initial encounter; X08.8XXA Exposure to other specified smoke, fire and flames, initial encounter; I10 Essential (primary) hypertension; J44.9 Chronic obstructive pulmonary disease, unspecified
CPT/HCPCS: 99283

== ENCOUNTER 2018-03-08 18:49 | Emergency (ER) | payer MEDICAID ==
[2018-03-08] MEDS ORDERED: IPRATROPIUM/ALBUTEROL 0.5-2.5 MG/3 ML AMPUL NEB ONE (19:10)
[2018-03-08] MEDS ORDERED: PREDNISONE 20 MG TABLET PO ONE (19:10)
--- NOTE | 2018-03-08 19:11 | ER Document Report ---
HPI - HPI Patient complains to provider of: Cough, wheezing Quality of pain: No pain Pain Level: Denies Context: Patient states that she has had a cough for the past week. Patient states that she was sleeping and woke up around 6 PM today and noticed wheezing. Patient does have a history of asthma. Patient used her nebulizer once and then came into the ER. Patient denies any fever. Associated Symptoms: Nonproductive cough. denies: Chest pain Exacerbated by: Denies Relieved by: Denies Similar symptoms previously: Yes Recently seen / treated by doctor: No - ROS ROS below otherwise negative: Yes Systems Reviewed and Negative: Yes All other systems reviewed and negative - CONSTITUTIONAL Constitutional: DENIES: Fever, Chills - EENT EENT: DENIES: Sore Throat, Congestion - CARDIOVASCULAR Cardiovascular: DENIES: Chest pain - RESPIRATORY Respiratory: REPORTS: Coughing. DENIES: Trouble Breathing - GASTROINTESTINAL Gastrointestinal: DENIES: Nausea, Patient vomiting - REPRODUCTIVE Reproductive: DENIES: : - DERM Skin Color: Normal Skin Problems: None Past Medical History - General Information source: Patient - Social History Smoking Status: Never Smoker Frequency of alcohol use: None Drug Abuse: None Occupation: None Lives with: Family Family History: CAD, DM, Hypertension, Other - Asthma - Past Medical History Cardiac Medical History: Reports: Hx Hypertension Pulmonary Medical History: Reports: Hx Asthma, Hx Bronchitis, Hx COPD, Hx Pneumonia Neurological Medical History: Reports: Hx Migraine Endocrine Medical History: Reports: Hx Hypothyroidism Renal/ Medical History: Denies: Hx Peritoneal Dialysis GI Medical History: Reports: Hx Gastroesophageal Reflux Disease. Denies: Hx Hepatitis Musculoskeltal Medical History: Reports Hx Musculoskeletal Trauma Psychiatric Medical History: Reports: Hx Anxiety, Hx Bipolar Disorder Traumatic Medical History: Reports: Hx Fractures Infectious Medical History: Denies: Hx Hepatitis Past Surgical History: Reports: Hx Cholecystectomy, Hx Oral Surgery - [place] teeth, Hx Orthopedic Surgery - Bilateral great toe. Denies: Hx Hysterectomy, Hx Mastectomy, Hx Open Heart Surgery, Hx Pacemaker - Immunizations Immunizations up to date: Yes Hx Diphtheria, Pertussis, Tetanus Vaccination: Yes Hx Pneumococcal Vaccination: 08/29/00 Vertical Provider Document - CONSTITUTIONAL Agree With Documented VS: Yes Exam Limitations: No Limitations General Appearance: WD/WN, No Apparent Distress - INFECTION CONTROL TRAVEL OUTSIDE OF THE [place] IN LAST 30 DAYS: No - HEENT HEENT: Atraumatic, Normal ENT Exam, Normocephalic - NECK Neck: Normal Inspection, Supple. negative: Lymphadenopathy-Left, Lymphadenopathy-Right - RESPIRATORY Respiratory: No Respiratory Distress, Chest Non-Tender, Wheezing - with cough only - CARDIOVASCULAR Cardiovascular: Regular Rate, Regular Rhythm, No Murmur - BACK Back: Normal Inspection - MUSCULOSKELETAL/EXTREMETIES Musculoskeletal/Extremeties: MAEW - NEURO Level of Consciousness: Awake, Alert, Appropriate Motor/Sensory: No Motor Deficit - DERM Integumentary: Warm, Dry, No Rash Course - Re-evaluation Re-evalutation: 03/08/18 20:26 Respirations even and unlabored, no wheezing at this time. Patient encouraged to continue to use her nebulizer at home. Discussed worsening symptoms that patient should return immediately for. - Vital Signs Vital signs: Temp Pulse Resp BP Pulse Ox 97.5 F 73 20 144/103 H 99 03/08/18 18:54 03/08/18 18:54 03/08/18 18:54 03/08/18 18:54 03/08/18 18:54 - Diagnostic Test Radiology reviewed: Reports reviewed Discharge - Discharge Clinical Impression: Asthma exacerbation Qualifiers: Asthma severity: unspecified severity Asthma persistence: unspecified Qualified Code(s): J45.901 - Unspecified asthma with (acute) exacerbation Condition: Stable Disposition: HOME, SELF-CARE Additional Instructions: Return immediately for any new or worsening symptoms Followup with your primary care provider, call tomorrow to make a followup appointment Use your inhaler that you have at home as prescribed ASTHMA: You have been diagnosed as having asthma. This is a condition where there is episodic tightness in the bronchial tubes. Allergies, infections, and polluted or cold air may be contributing factors. Emergency treatment of a severe asthma attack may include adrenaline shots , or bronchodilator aerosol. You may feel lightheaded, have a decreased exercise tolerance and a rapid pulse for an hour or two. Rest and get plenty of fluids. Home treatment of asthma requires bronchodilator drugs. These can be administered by injection, inhalation, or by mouth. Antibiotics and corticosteroids may be required for some patients. You should avoid chemical fumes, dusts, pollens, and exercising in very cold or dry air. If you smoke, stop!! If you develop a fever, increased wheezing, chest pain, or severe shortness of breath, you should contact the doctor immediately. STEROID MEDICATION: You have been given an injection of or oral medicine of the cortisone/ steroid class. This medication is used to control inflammation or allergy. Nino t is usually only given for a short period of time, until the acute process subsides. There are usually no side effects from short-term use of cortisone-like medications. Some persons feel an increased sense of well-being and are not sleepy at bedtime. Long-term use of cortisone medications is best avoided, unless required for a severe condition. If your condition does not remit, or relapses after the course of corticosteroid medication, you should consult your physician. INHALED BRONCHODILATORS: You have received treatment(s) of and/or prescription for an inhaled bronchodilator -- a medication which stimulates the airways in the lung to dilate. This improves the flow of air in asthma, bronchitis, and emphysema. These medicines have some similarity to adrenaline, and can cause similar side effects: shakiness, racing heart, and a sense of nervousness. These side effects decrease with time. Contact your doctor if these side effects are severe. Do not over-use the medicine. Too-frequent use of the inhaler may make it ineffective. Call your doctor if the inhaler is not controlling your symptoms at the prescribed doses. FOLLOW-UP CARE: If you have been referred to a physician for follow-up care, call the physician s office for an appointment as you were instructed or within the next two days. If you experience worsening or a significant change in your symptoms, notify the physician immediately or return to the Emergency Department at any time for re-evaluation. Prescriptions: Prednisone [Deltasone 20 mg Tablet] 3 tab PO DAILY 4 Days tablet Referrals: BRUCE COTE PA-C [PHYSICIAN RACING MECHANIC] - Follow up as needed
--- NOTE | 2018-03-08 19:55 | RADIOLOGY REPORT (SQ) ---
EXAM DESCRIPTION: CHEST 2 VIEWS COMPLETED DATE/TIME: 03/08/2018 7:34 pm REASON FOR STUDY: cough COMPARISON: 11/18/2017 EXAM PARAMETERS: NUMBER OF VIEWS: two views TECHNIQUE: Digital Frontal and Lateral radiographic views of the chest acquired. RADIATION DOSE: NA LIMITATIONS: none FINDINGS: LUNGS AND PLEURA: No opacities, masses or pneumothorax. No pleural effusion. MEDIASTINUM AND HILAR STRUCTURES: No masses or contour abnormalities. HEART AND VASCULAR STRUCTURES: Heart normal size. No evidence for failure. BONES: No acute findings. HARDWARE: None in the chest. OTHER: No other significant finding. IMPRESSION: NO ACUTE RADIOGRAPHIC FINDING IN THE CHEST. TECHNICAL DOCUMENTATION: JOB ID: [id number] [employer]- All Rights Reserved Reading location - IP/workstation name: [email or web address]
[2018-03-08 20:31] VITALS: BP 143/98
== END 2018-03-08 20:31 | disposition home or self-care (01) ==
LOC: ER 18:49
DX: J45.901 Unspecified asthma with (acute) exacerbation (principal); J44.9 Chronic obstructive pulmonary disease, unspecified; I10 Essential (primary) hypertension; E03.9 Hypothyroidism, unspecified; Z90.49 Acquired absence of other specified parts of digestive tract
CPT/HCPCS: 94640; 99284; 71046; J7512; J7620

== ENCOUNTER 2018-03-19 22:59 | Emergency (ER) | payer MEDICAID ==
[2018-03-19] MEDS ORDERED: BENZONATATE 100 MG CAPSULE PO ONE (23:51)
[2018-03-19] MEDS ORDERED: LIDOCAINE 2% INJ-PF (20 MG/ML) 10 ML AMPUL NEB ONE (23:51)
--- NOTE | 2018-03-19 23:53 | RADIOLOGY REPORT (SQ) ---
EXAM DESCRIPTION: XR CHEST 1 VIEW COMPLETED DATE/TME: 03/19/2018 23:19 CLINICAL HISTORY: 27 years, Female, sob, cough EXAM DESCRIPTION: CLINICAL HISTORY: sob, cough COMPARISON: 03/08/2018 FINDINGS: Single view of the chest is submitted. Cardiac silhouette is normal. No focal parenchymal or pleural disease. No acute bony abnormality. There is no significant pulmonary vascular engorgement. IMPRESSION: No evidence of acute cardiopulmonary disease.
--- NOTE | 2018-03-20 00:20 | ER Document Report ---
ED General - General Chief Complaint: Cold Symptoms Stated Complaint: COLD SYMPTOMS Time Seen by Provider: 03/19/18 23:19 Notes: Patient is a 27 year old female with a past history of asthma who presents with 3 days of a persistent, nonproductive cough. She describes as a dry, nagging, daily cough that is worse at night. She has been trying her albuterol inhaler with minimal to no relief. She was recently started on lisinopril several days ago. She has not seen her general doctor regarding his concerns. She denies any shortness of breath, chest pain, syncope, fever or constitutional symptoms. She has a history of similar symptoms in the past with viral upper respiratory infections and allergies. TRAVEL OUTSIDE OF THE [place] IN LAST 30 DAYS: No - Related Data Allergies/Adverse Reactions: clindamycin [Clindamycin] Allergy (Severe, Verified 03/08/18 18:50) Hives doxycycline [Doxycycline] Allergy (Intermediate, Verified 03/08/18 18:50) Hives amoxicillin Allergy (Verified 03/08/18 18:50) Penicillins Allergy (Verified 03/08/18 18:50) Past Medical History - General Information source: Patient - Social History Smoking Status: Never Smoker Frequency of alcohol use: None Drug Abuse: None Family History: CAD, DM, Hypertension, Other - Asthma - Past Medical History Cardiac Medical History: Reports: Hx Hypertension Pulmonary Medical History: Reports: Hx Asthma, Hx Bronchitis, Hx COPD, Hx Pneumonia Neurological Medical History: Reports: Hx Migraine Endocrine Medical History: Reports: Hx Hypothyroidism Renal/ Medical History: Denies: Hx Peritoneal Dialysis GI Medical History: Reports: Hx Gastroesophageal Reflux Disease. Denies: Hx Hepatitis Musculoskeletal Medical History: Reports Hx Musculoskeletal Trauma Psychiatric Medical History: Reports: Hx Anxiety, Hx Bipolar Disorder Traumatic Medical History: Reports: Hx Fractures Infectious Medical History: Denies: Hx Hepatitis Past Surgical History: Reports: Hx Cholecystectomy, Hx Oral Surgery - [place] teeth, Hx Orthopedic Surgery - Bilateral great toe. Denies: Hx Hysterectomy, Hx Mastectomy, Hx Open Heart Surgery, Hx Pacemaker - Immunizations Immunizations up to date: Yes Hx Diphtheria, Pertussis, Tetanus Vaccination: Yes Hx Pneumococcal Vaccination: 08/29/00 Review of Systems - Review of Systems Notes: Constitutional: Negative for fever. HENT: Positive for nasal congestion Eyes: Negative for visual changes. Cardiovascular: Negative for chest pain. Respiratory: Positive cough Gastrointestinal: Negative for abdominal pain, vomiting or diarrhea. Genitourinary: Negative for dysuria. Musculoskeletal: Negative for back pain. Skin: Negative for rash. Neurological: Negative for headaches, weakness or numbness. 10 point ROS negative except as marked above and in HPI. Physical Exam - Vital signs Vitals: Temp Pulse Resp BP Pulse Ox 98.9 F 96 13 144/101 H 98 03/19/18 23:13 03/19/18 23:13 03/19/18 23:13 03/19/18 23:13 03/19/18 23:13 Interpretation: Hypertensive Notes: PHYSICAL EXAMINATION: GENERAL: Well-appearing, well-nourished and in no acute distress. HEAD: Atraumatic, normocephalic. EYES: Pupils equal round and reactive to light, extraocular movements intact, sclera anicteric, conjunctiva are normal. ENT: nares patent, oropharynx clear without exudates. Moist mucous membranes. NECK: Normal range of motion, supple without lymphadenopathy LUNGS: Breath sounds clear to auscultation bilaterally and equal. No wheezes rales or rhonchi. HEART: Regular rate and rhythm without murmurs ABDOMEN: Soft, nontender, normoactive bowel sounds. No guarding, no rebound. No masses appreciated. EXTREMITIES: Normal range of motion, no pitting or edema. No cyanosis. NEUROLOGICAL: No focal neurological deficits. Moves all extremities spontaneously and on command. PSYCH: Normal mood, normal affect. SKIN: Warm, Dry, normal turgor, no rashes or lesions noted. Course - Re-evaluation Re-evalutation: 03/20/18 00:19 Patient presents with a clinical history and exam most consistent with an acute viral bronchitis versus possible allergic rhinitis with associated cough. Alternative consideration will be lisinopril induced cough and I have advised the patient would hold the medication for the next 2 days to see if this resolves the cough. Patient is overall well in appearance without tachypnea, hypoxemia, tachycardia, or difficulty with ambulation. Breath sounds are clear bilaterally. No fever. Patient does have additional signs of upper respiratory infection including nasal congestion, sore throat, and sinus pressure. Chest x-ray clear. Will treat with bronchodilators, single dose of dexamethasone, and Tessalon Perles. At this time will discharge with return precautions and follow-up recommendations. Verbal discharge instructions given a the bedside and opportunity for questions given. Medication warnings reviewed. Patient is in agreement with this plan and has verbalized understanding of return precautions and the need for primary care follow-up in the next 24-72 hours. 03/20/18 03:45 - Vital Signs Vital signs: Temp Pulse Resp BP Pulse Ox 98.4 F 94 15 136/96 H 98 03/20/18 00:39 03/20/18 00:39 03/20/18 00:39 03/20/18 00:39 03/20/18 00:39 - Diagnostic Test Radiology reviewed: Image reviewed, Reports reviewed Radiology results interpreted by me: 03/20/18 00:19 Chest x-ray: No acute infiltrate or pneumothorax Discharge - Discharge Clinical Impression: Persistent cough, Shortness of breath Acute bronchitis Qualifiers: Bronchitis organism: unspecified organism Qualified Code(s): J20.9 - Acute bronchitis, unspecified Condition: Good Disposition: HOME, SELF-CARE Additional Instructions: You were seen for symptoms most consistent with bronchitis. This can take up to 12 weeks to fully resolve. This is generally due to a viral infection. Please follow-up with your primary doctor in the next 2-3 days. Return if you develop worsening cough, vomiting, fever >100.4, pass out, begin coughing blood, or have any other symptoms that are concerning to you. Please use the medications prescribed today as directed. Prescriptions: Benzonatate [Tessalon Perles 100 mg Capsule] 100 mg PO Q8HP PRN #40 capsule PRN Reason:
[2018-03-20 00:58] VITALS: BP 136/96
== END 2018-03-20 00:50 | disposition home or self-care (01) ==
LOC: ER 22:59
DX: J44.0 Chronic obstructive pulmonary disease with (acute) lower respiratory infection (principal); J20.9 Acute bronchitis, unspecified; R09.81 Nasal congestion; R05 Cough; I10 Essential (primary) hypertension; Z88.1 Allergy status to other antibiotic agents; Z88.0 Allergy status to penicillin; Z87.01 Personal history of pneumonia (recurrent)
CPT/HCPCS: 99283; 71045; J3490 ×2

== ENCOUNTER 2018-03-23 16:20 | Emergency (ER) | payer MEDICAID ==
--- NOTE | 2018-03-23 17:09 | ER Document Report ---
ED Respiratory Problem - General Chief Complaint: Respiratory Distress Stated Complaint: DIFFICULTY BREATHING Time Seen by Provider: 03/23/18 17:04 Information source: Patient Notes: Patient is a 27-year-old female who presents for her third visit in the last week for some shortness of breath. Patient has had some runny nose and congestion. No fevers. She states a mild chest discomfort with the coughing. She denies any calf pain or leg swelling, recent trips or travel. Patient does have a history of asthma as well as anxiety. She states her last admission for asthma was when she was 1 years old. She has never been intubated. Patient's older primary care physician yesterday who started on steroids. She called EMS for some wheezing and they provided Solu-Medrol 125 mg as well as 2 albuterol treatments. Patient feels much improved. TRAVEL OUTSIDE OF THE [place] IN LAST 30 DAYS: No - HPI Patient complains to provider of: Chest pain, Short of breath Onset: Other - See above Duration: Better, Gone now Initiating Event: Other - See above Quality of pain: Achy Severity: Mild Pain Level: Denies Context: Other - See above Short of Breath: Mild Cough: Nonproductive Sputum amount: None Associated symptoms: Other - See above Similar symptoms previously: No Recently seen / treated by doctor: No - Related Data Allergies/Adverse Reactions: clindamycin [Clindamycin] Allergy (Severe, Verified 03/23/18 16:37) Hives doxycycline [Doxycycline] Allergy (Intermediate, Verified 03/23/18 16:37) Hives amoxicillin Allergy (Verified 03/08/18 18:50) Penicillins Allergy (Verified 03/08/18 18:50) Past Medical History - General Information source: Patient - Social History Smoking Status: Never Smoker Cigarette use (# per day): No Chew tobacco use (# tins/day): No Smoking Education Provided: No Frequency of alcohol use: None Drug Abuse: None Family History: CAD, DM, Hypertension, Other - Asthma Patient has suicidal ideation: No Patient has homicidal ideation: No - Past Medical History Cardiac Medical History: Reports: Hx Hypertension Pulmonary Medical History: Reports: Hx Asthma, Hx Bronchitis, Hx COPD, Hx Pneumonia Neurological Medical History: Reports: Hx Migraine Endocrine Medical History: Reports: Hx Hypothyroidism Renal/ Medical History: Denies: Hx Peritoneal Dialysis GI Medical History: Reports: Hx Gastroesophageal Reflux Disease. Denies: Hx Hepatitis Musculoskeletal Medical History: Reports Hx Musculoskeletal Trauma Psychiatric Medical History: Reports: Hx Anxiety, Hx Bipolar Disorder Traumatic Medical History: Reports: Hx Fractures Infectious Medical History: Denies: Hx Hepatitis Past Surgical History: Reports: Hx Cholecystectomy, Hx Oral Surgery - [place] teeth, Hx Orthopedic Surgery - Bilateral great toe. Denies: Hx Hysterectomy, Hx Mastectomy, Hx Open Heart Surgery, Hx Pacemaker - Immunizations Immunizations up to date: Yes Hx Diphtheria, Pertussis, Tetanus Vaccination: Yes Hx Pneumococcal Vaccination: 08/29/00 Review of Systems - Review of Systems Constitutional: denies: Fever EENT: Nose congestion, Nose discharge. denies: Eye discharge Cardiovascular: Chest pain. denies: Palpitations, Dizziness, Lightheaded Respiratory: Short of breath Gastrointestinal: denies: Vomiting Genitourinary: denies: Dysuria Musculoskeletal: denies: Leg swelling Skin: Other - no hives. denies: Rash Neurological/Psychological: Other - no slurred speech -: Yes All other systems reviewed and negative Physical Exam - Vital signs Vitals: Temp Resp Pulse Ox 98.7 F 18 95 03/23/18 16:32 03/23/18 16:32 03/23/18 16:32 Notes: Reviewed vital signs and nursing note as charted by RN. CONSTITUTIONAL: Alert and oriented and responds appropriately to questions. Well -appearing; well-nourished HEAD: Normocephalic; atraumatic ENT: Normal nose; bilateral nonpurulent nasal rhinorrhea; moist mucous membranes ; pharynx without lesions noted NECK: Supple without meningismus; non-tender CARD: Regular rate and rhythm; no murmurs; symmetric distal pulses RESP: Normal chest excursion without splinting or tachypnea; breath sounds clear and equal bilaterally without wheezing or rhonchi present ABD/GI: Normal bowel sounds; non-distended; soft, non-tender BACK: The back appears normal and is non-tender to palpation EXT: Normal ROM in all joints; non-tender to palpation; no edema SKIN: Normal color for age and race; warm; dry; no acute lesions noted NEURO: Moves all extremities equally; Motor and sensory function intact PSYCH: The patient's mood and manner are appropriate. Grooming and personal hygiene are appropriate. Course - Re-evaluation Re-evalutation: 03/23/18 17:09 Given the above history and physical with the patient's third visit I will obtain basic labs including a d-dimer. I do not detect any wheezing at this time. Patient is tachycardic after the nebulizer treatment. Patient has been afebrile here. Blood pressure stable. 03/23/18 18:22 Chest x-ray shows normal heart, normal mediastinum, no fractures, normal lung richardson, no pneumothorax. Lungs are still clear to auscultation. 03/23/18 18:55 Patient's labs and d-dimer is recorded. I have discussed with the patient to follow-up with the primary care physician regarding her sugar. Patient has been on steroids. Patient will be discharged home with strict return precautions. - Vital Signs Vital signs: Temp Pulse Resp BP Pulse Ox 98.7 F 18 95 03/23/18 16:32 03/23/18 16:32 03/23/18 16:32 - Laboratory Result Diagrams: 03/23/18 17:51 03/23/18 17:51 Laboratory results interpreted by me: 03/23/18 03/23/18 17:51 17:51 Hgb 16.4 H Seg Neutrophils % 92.7 H Lymphocytes % 6.3 L Monocytes % 0.7 L Absolute Neutrophils 9.2 H Glucose 166 H Calcium 10.3 H Discharge - Discharge Clinical Impression: Wheezing, Nasal congestion Dyspnea Qualifiers: Dyspnea type: unspecified Qualified Code(s): R06.00 - Dyspnea, unspecified Condition: Good Disposition: [facility]-Other Additional Instructions: Come back immediately with any worsening wheezing, shortness of breath, fevers, vomiting, calf pain or leg swelling, or any other acute problems. Please take his steroids as prescribed. Please take 2 puffs of the albuterol inhaler every 4 hours for the next 48 hours as we have discussed. Please follow -up with your primary care physician.
--- NOTE | 2018-03-23 17:31 | RADIOLOGY REPORT (SQ) ---
EXAM DESCRIPTION: CHEST SINGLE VIEW COMPLETED DATE/TIME: 03/23/2018 5:22 pm REASON FOR STUDY: 12; sob COMPARISON: 03/19/2018 EXAM PARAMETERS: NUMBER OF VIEWS: One view. TECHNIQUE: Single frontal radiographic view of the chest acquired. RADIATION DOSE: NA LIMITATIONS: None. FINDINGS: LUNGS AND PLEURA: No opacities, masses or pneumothorax. No pleural effusion. MEDIASTINUM AND HILAR STRUCTURES: No masses. Contour normal. HEART AND VASCULAR STRUCTURES: Heart normal in size. Normal vasculature. BONES: No acute findings. HARDWARE: None in the chest. OTHER: No other significant finding. IMPRESSION: NO ACUTE RADIOGRAPHIC FINDING IN THE CHEST. TECHNICAL DOCUMENTATION: JOB ID: [id number] [employer]- All Rights Reserved Reading location - IP/workstation name: [email or web address]
[2018-03-23 18:15] LABS: ABSOLUTE LYMPHOCYTES (AUTO) 0.6 10^3/uL (0.5-4.7); ABSOLUTE MONOCYTES (AUTO) 0.1 10^3/uL (0.1-1.4); ABSOLUTE NEUT (AUTO) 9.2 10^3/uL (1.7-8.2); BASOPHILS % (AUTO) 0.2 % (0-2); EOSINOPHILS % (AUTO) 0.1 % (0-6); HEMATOCRIT 46.9 % (36.0-47.0); HEMOGLOBIN 16.4 g/dL (12.0-15.5); LYMPHOCYTES % (AUTO) 6.3 % (13-45); MEAN CORPUSCULAR HEMOGLOBIN 31.6 pg (27.0-33.4); MEAN CORPUSCULAR VOLUME 90 fl (80-97); MONOCYTES % (AUTO) 0.7 % (3-13); PLATELET COUNT 281 10^3/uL (150-450); RED BLOOD COUNT 5.19 10^6/uL (3.72-5.28); RED CELL DISTRIBUTION WIDTH 13.5 % (11.5-14.0); SEGMENTED NEUTROPHILS % (AUTO) 92.7 % (42-78); TOTAL CELLS COUNTED % (AUTO) 100 %; WHITE BLOOD COUNT 9.9 10^3/uL (4.0-10.5)
[2018-03-23 18:44] LABS: ANION GAP 17 (5-19); BLOOD UREA NITROGEN 11 mg/dL (7-20); CALCIUM 10.3 mg/dL (8.4-10.2); CARBON DIOXIDE 24 mmol/L (22-30); CHLORIDE 102 mmol/L (98-107); GLUCOSE 166 mg/dL (75-110); POTASSIUM 4.3 mmol/L (3.6-5.0); SODIUM 142.6 mmol/L (137-145)
[2018-03-23 19:50] VITALS: BP 127/65
--- NOTE | 2018-03-23 23:57 | EKG REPORT ---
SEVERITY:- OTHERWISE NORMAL ECG - SINUS TACHYCARDIA : Confirmed by: Antonella Sena MD 23-Mar-2018 23:57:26
== END 2018-03-23 19:51 ==
LOC: ER 16:20
DX: R06.2 Wheezing (principal); R06.00 Dyspnea, unspecified; R09.81 Nasal congestion; R06.02 Shortness of breath; I10 Essential (primary) hypertension; J44.9 Chronic obstructive pulmonary disease, unspecified; Z88.0 Allergy status to penicillin; Z88.3 Allergy status to other anti-infective agents; Z90.49 Acquired absence of other specified parts of digestive tract
CPT/HCPCS: 36415; 71045; 80048; 84484; 85025; 85379; 93005; 93010; 99284

== ENCOUNTER 2018-03-27 21:11 | Emergency (ER) | payer MEDICAID ==
--- NOTE | 2018-03-27 23:28 | ER Document Report ---
ED General - General Chief Complaint: Asthma Exacerbation Stated Complaint: CHEST TIGHTNESS Time Seen by Provider: 03/27/18 23:17 Notes: Patient is a 19-year-old female who presents with complaint of feeling that she still short of breath. She does have history of asthma. She does not smoke. She has been seen here many times for similar symptoms. She was recently seen here a few days ago. At that time she had a CBC, CMP, cardiac enzymes and a d- dimer which were negative. She was placed on steroids. She says her wheezing has resolved but she still feels as if she cannot fully exhale as she is supposed to. She saw her primary care doctor referred her to an botany laboratory assistant. She brought some of her allergy testing with her which showed that she is allergic to cat dander as well as dust mites. She really has no other complaints at this time and denies any recent fevers. TRAVEL OUTSIDE OF THE [place] IN LAST 30 DAYS: No - Related Data Allergies/Adverse Reactions: clindamycin [Clindamycin] Allergy (Severe, Verified 03/23/18 16:37) Hives doxycycline [Doxycycline] Allergy (Intermediate, Verified 03/23/18 16:37) Hives amoxicillin Allergy (Verified 03/08/18 18:50) Penicillins Allergy (Verified 03/08/18 18:50) Past Medical History - Social History Smoking Status: Never Smoker Frequency of alcohol use: None Drug Abuse: None Family History: CAD, DM, Hypertension, Other - Asthma - Past Medical History Cardiac Medical History: Reports: Hx Hypertension Pulmonary Medical History: Reports: Hx Asthma, Hx Bronchitis, Hx COPD, Hx Pneumonia Neurological Medical History: Reports: Hx Migraine Endocrine Medical History: Reports: Hx Hypothyroidism Renal/ Medical History: Denies: Hx Peritoneal Dialysis GI Medical History: Reports: Hx Gastroesophageal Reflux Disease. Denies: Hx Hepatitis Musculoskeletal Medical History: Reports Hx Musculoskeletal Trauma Psychiatric Medical History: Reports: Hx Anxiety, Hx Bipolar Disorder Traumatic Medical History: Reports: Hx Fractures Infectious Medical History: Denies: Hx Hepatitis Past Surgical History: Reports: Hx Cholecystectomy, Hx Oral Surgery - [place] teeth, Hx Orthopedic Surgery - Bilateral great toe. Denies: Hx Hysterectomy, Hx Mastectomy, Hx Open Heart Surgery, Hx Pacemaker - Immunizations Immunizations up to date: Yes Hx Diphtheria, Pertussis, Tetanus Vaccination: Yes Hx Pneumococcal Vaccination: 08/29/00 Review of Systems - Review of Systems Notes: My Normal Review Basic REVIEW OF SYSTEMS: CONSTITUTIONAL : Denies fever, chills, or sweats. Denies recent illness. EENT: Some nasal congestion CARDIOVASCULAR: Denies chest pain. RESPIRATORY: Some dyspnea. GASTROINTESTINAL: Denies abdominal pain. Denies nausea, vomiting, or diarrhea. MUSCULOSKELETAL: Denies neck or back pain or joint pain or swelling. SKIN: Denies rash or skin lesions. NEUROLOGICAL: Denies altered mental status or loss of consciousness. Denies headache. Denies weakness or paralysis or loss of use of either side. Denies problems with gait or speech. Denies sensory or motor loss. ALL OTHER SYSTEMS REVIEWED AND NEGATIVE. Physical Exam - Vital signs Vitals: Temp Pulse Resp BP Pulse Ox 98.8 F 96 20 142/98 H 100 03/27/18 21:24 03/27/18 21:24 03/27/18 21:24 03/27/18 21:24 03/27/18 21:24 - Notes Notes: General Appearance: Well nourished, alert, cooperative, no acute distress, no obvious discomfort. Vitals: reviewed, See vital signs table. Head: no swelling or tenderness to the head Eyes: PERRL, EOMI, Conjuctiva clear Mouth: No decreasd moisture Throat: No tonsillar inflammation, No airway obstruction, No lymphadenopathy Neck: Supple, no neck tenderness, No thyromegaly Lungs: No wheezing on exam. Lung richardson are completely clear. No tachypnea. No accessory muscle use. Heart: Normal rate, Regular rythm, No murmur, no rub Abdomen: Normal BS, soft, No rigidity, No abdominal tenderness, No guarding, no rebound, Extremities: strength 5/5 in all extremities, good pulses in all extremities, no swelling or tenderness in the extremities, no edema. Skin: warm, dry, appropriate color, no rash Neuro: speech clear, oriented x 3, normal affect, responds appropriately to questions. Course - Re-evaluation Re-evalutation: 03/28/18 01:07 Patient's x-rays completely normal. Her lung richardson are clear. She has good air movement. I informed her that something adequately added to her regimen at this time that I feel with help her feeling of not being able to fully exhale. On exam she exhales just fine. She does have an upcoming appointment with print operator this Tuesday. Encouraged her to keep that appointment. I did ask her about sleep apnea and snoring she does snore at nighttime. Informed her that treatment of sleep apnea might help her chronic difficulty with her breathing. She is overweight and has a body habitus that would be concerning for her having problems with sleep apnea as well. Informed to inform print operator that she is snoring as he may want to do sleep study on her as well. Encouraged her return to ER if she has worsening difficulty breathing or feels unwell. She had blood work just to 3 days ago with a negative d-dimer. Her vital signs do not reflect that of a PE. Currently she has no tachypnea, no accessory muscle use, she is clear lung richardson, she is 99% on room air. I do not see any further treatment or intervention is needed at this time. Dictation of this chart was performed using voice recognition software; therefore, there may be some unintended grammatical errors. - Vital Signs Vital signs: Temp Pulse Resp BP Pulse Ox 98.8 F 96 20 142/98 H 100 03/27/18 21:24 03/27/18 21:24 03/27/18 21:24 03/27/18 21:24 03/27/18 21:24 Discharge - Discharge Clinical Impression: Shortness of breath Condition: Good Disposition: HOME, SELF-CARE Additional Instructions: Please continue to use your inhalers as prescribed. Your print operator on Tuesday as scheduled. Please inform them that you do have some snoring at nighttime. Please return to the ER for likely difficulty breathing is worsening , you have fevers, or if you feel unwell.
--- NOTE | 2018-03-27 23:38 | RADIOLOGY REPORT (SQ) ---
EXAM DESCRIPTION: XR CHEST 1 VIEW COMPLETED DATE/TME: 03/27/2018 23:24 CLINICAL HISTORY: 27 years Female, dyspnea COMPARISON: 7.26.18 NUMBER OF VIEWS/TECHNIQUE: 1/AP FINDINGS: Adequate lung volume, clear parenchyma, normal cardiac silhouette, and intact bony thorax. IMPRESSION: No acute cardiopulmonary findings.
[2018-03-28 01:11] VITALS: BP 137/100
== END 2018-03-28 01:12 | disposition home or self-care (01) ==
LOC: ER 21:11
DX: J44.9 Chronic obstructive pulmonary disease, unspecified (principal); R06.02 Shortness of breath; R09.81 Nasal congestion; R06.83 Snoring; E66.3 Overweight; Z68.42 Body mass index [BMI] 45.0-49.9, adult; Z91.048 Other nonmedicinal substance allergy status; Z88.1 Allergy status to other antibiotic agents; Z88.0 Allergy status to penicillin; Z87.01 Personal history of pneumonia (recurrent); Z82.5 Family history of asthma and other chronic lower respiratory diseases
CPT/HCPCS: 71045; 99285

== ENCOUNTER 2018-03-31 19:32 | Emergency (ER) | payer MEDICAID ==
[2018-03-31] MEDS ORDERED: IPRATROPIUM/ALBUTEROL 0.5-2.5 MG/3 ML AMPUL NEB ONE (20:06)
[2018-03-31] MEDS ORDERED: NORMAL SALINE 1000 ML 1,000 ML IV ONE (20:07)
--- NOTE | 2018-03-31 20:09 | ER Document Report ---
ED Respiratory Problem - General Chief Complaint: Cough Stated Complaint: CHEST PAIN/COUGH Time Seen by Provider: 03/31/18 19:53 Notes: Patient is a 27-year-old female comes emergency department for chief complaint of episodes of coughing, wheezing, shortness of breath, and asthma exacerbation. She states for the past 2 weeks she has been in and out of the emergency department, she went to see her bariatric program coordinator 2 days ago, she was placed on Spiriva after having lung testing, she has a sleep study scheduled. She did complete a round of steroids recently. She states that she does okay until she has the episodes of coughing where she feels like she cannot breathe. She denies any fevers or chills, passing out, nausea vomiting. She does not smoke, she stopped smoking a long time ago. Only other medication is losartan. TRAVEL OUTSIDE OF THE [place] IN LAST 30 DAYS: No - Related Data Allergies/Adverse Reactions: clindamycin [Clindamycin] Allergy (Severe, Verified 03/31/18 20:02) Hives doxycycline [Doxycycline] Allergy (Intermediate, Verified 03/31/18 20:02) Hives amoxicillin Allergy (Verified 03/31/18 20:02) Penicillins Allergy (Verified 03/31/18 20:02) Past Medical History - General Information source: Patient - Social History Smoking Status: Former Smoker Frequency of alcohol use: None Drug Abuse: None Lives with: Spouse/Significant other Family History: CAD, DM, Hypertension, Other - Asthma Patient has suicidal ideation: No Patient has homicidal ideation: No - Past Medical History Cardiac Medical History: Reports: Hx Hypertension Pulmonary Medical History: Reports: Hx Asthma, Hx Bronchitis, Hx COPD, Hx Pneumonia Neurological Medical History: Reports: Hx Migraine Endocrine Medical History: Reports: Hx Hypothyroidism Renal/ Medical History: Denies: Hx Peritoneal Dialysis GI Medical History: Reports: Hx Gastroesophageal Reflux Disease. Denies: Hx Hepatitis Musculoskeletal Medical History: Reports Hx Musculoskeletal Trauma Psychiatric Medical History: Reports: Hx Anxiety, Hx Bipolar Disorder Traumatic Medical History: Reports: Hx Fractures Infectious Medical History: Denies: Hx Hepatitis Past Surgical History: Reports: Hx Cholecystectomy, Hx Oral Surgery - [place] teeth, Hx Orthopedic Surgery - Bilateral great toe. Denies: Hx Hysterectomy, Hx Mastectomy, Hx Open Heart Surgery, Hx Pacemaker - Immunizations Immunizations up to date: Yes Hx Diphtheria, Pertussis, Tetanus Vaccination: Yes Hx Pneumococcal Vaccination: 08/29/00 Review of Systems - Review of Systems Constitutional: No symptoms reported EENT: No symptoms reported Cardiovascular: No symptoms reported Respiratory: See HPI Gastrointestinal: No symptoms reported Genitourinary: No symptoms reported Female Genitourinary: No symptoms reported Musculoskeletal: No symptoms reported Skin: No symptoms reported Hematologic/Lymphatic: No symptoms reported Neurological/Psychological: No symptoms reported Physical Exam - Vital signs Vitals: Temp Pulse Resp BP Pulse Ox 98.5 F 106 H 20 150/110 H 100 03/31/18 19:37 03/31/18 19:37 03/31/18 19:37 03/31/18 19:37 03/31/18 19:37 - Notes Notes: GENERAL: Alert, interacts well. No acute distress. HEAD: Normocephalic, atraumatic. EYES: Pupils equal, round, and reactive to light. Extraocular movements intact. ENT: Oral mucosa moist, tongue midline. NECK: Full range of motion. Supple. Trachea midline. LUNGS: Questionable slightly decreased breath sounds versus not taking full breaths. Questionable vocalization versus wheezing. No rales or rhonchi. No tachypnea. No labored breathing. HEART: Regular rate and rhythm. No murmur ABDOMEN: Soft, non-tender. Non-distended. Bowel sounds present in all 4 quadrants. EXTREMITIES: Moves all 4 extremities spontaneously. No edema, normal radial and dorsalis pedis pulses bilaterally. No cyanosis. BACK: no cervical, thoracic, lumbar midline tenderness. No saddle anesthesia, normal distal neurovascular exam. NEUROLOGICAL: Alert and oriented x3. Normal speech. [cranial nerves II through XII grossly intact]. PSYCH: Normal affect, normal mood. SKIN: Warm, dry, normal turgor. No rashes or lesions noted. Course - Re-evaluation Re-evalutation: Patient seems to have some decreased breath sounds on initial evaluation, questionable wheezing versus vocalization, no respiratory distress, smiling and well-appearing. No hypoxia. On reevaluation patient taking full breaths, no abnormal lung sounds, she states she feels much better. Questionable whether patient had a bronchospasm or not, she did have a couple of coughing episodes. No smoking, she is not tachycardic on my evaluation, she denies any symptoms on reevaluation, no lower extremity swelling, recent travel, recent surgery, personal or family history of pulmonary embolism. No fever. She states she is ready to go home. She declines steroids after discussion. She states she will follow-up with her bariatric program coordinator. Discussed return precautions. Patient states understanding and agreement. Stable at time of discharge. - Vital Signs Vital signs: Temp Pulse Resp BP Pulse Ox 98.1 F 78 18 128/68 H 98 03/31/18 22:00 03/31/18 22:00 03/31/18 22:00 03/31/18 22:00 03/31/18 22:00 Discharge - Discharge Clinical Impression: Cough Asthma Qualifiers: Asthma severity: unspecified severity Asthma persistence: intermittent Asthma complication type: unspecified Qualified Code(s): J45.20 - Mild intermittent asthma, uncomplicated Condition: Stable Disposition: HOME, SELF-CARE Additional Instructions: You were treated here for bronchospasm from asthma, continue current medications at home, take cough medication as prescribed if needed, continue to follow-up with your bariatric program coordinator and sleep study. Return if you worsen including difficulty breathing, wheezing, passing out, spiking fever, or any other concerning or worsening symptoms. Prescriptions: Benzonatate [Tessalon Perle 100 mg Capsule] 100 mg PO Q8HP PRN #20 cap PRN Reason: Forms: Return to Work, Treatment of Relative/Child
[2018-03-31] MEDS: MAGNESIUM SULFATE/D5W 1 GM/100 ML RTUPB IV SCH ×2 (20:34→22:03)
[2018-03-31 23:51] VITALS: BP 128/68
== END 2018-03-31 22:27 | disposition home or self-care (01) ==
LOC: ER 19:32
DX: J45.20 Mild intermittent asthma, uncomplicated (principal); R07.9 Chest pain, unspecified; I10 Essential (primary) hypertension; E03.9 Hypothyroidism, unspecified; Z88.3 Allergy status to other anti-infective agents; Z88.0 Allergy status to penicillin; Z87.891 Personal history of nicotine dependence; Z90.49 Acquired absence of other specified parts of digestive tract
CPT/HCPCS: 99283; 96365; J3475; J7030; J7620

== ENCOUNTER 2018-04-04 23:43 | Emergency (ER) | payer MEDICAID ==
--- NOTE | 2018-04-05 01:41 | ER Document Report ---
ED General - General Chief Complaint: Sore throat, cough, headache Stated Complaint: HEADACHE,COUGH Time Seen by Provider: 04/05/18 01:35 Notes: Patient presents with upper respiratory congestion and sore throat that has been going on for approximately 1 week. She was seen for similar symptoms and wheezing with a history of asthma several days ago and was provided steroid she states. She continues to have upper respiratory congestion but does not complain of any respiratory compromise at this time. No fevers or chills. TRAVEL OUTSIDE OF THE [place] IN LAST 30 DAYS: No - Related Data Allergies/Adverse Reactions: clindamycin [Clindamycin] Allergy (Severe, Verified 03/31/18 20:02) Hives doxycycline [Doxycycline] Allergy (Intermediate, Verified 03/31/18 20:02) Hives amoxicillin Allergy (Verified 03/31/18 20:02) Penicillins Allergy (Verified 03/31/18 20:02) Past Medical History - Social History Smoking Status: Unknown if Ever Smoked Family History: CAD, DM, Hypertension, Other - Asthma - Past Medical History Cardiac Medical History: Reports: Hx Hypertension Pulmonary Medical History: Reports: Hx Asthma, Hx Bronchitis, Hx COPD, Hx Pneumonia Neurological Medical History: Reports: Hx Migraine Endocrine Medical History: Reports: Hx Hypothyroidism Renal/ Medical History: Denies: Hx Peritoneal Dialysis GI Medical History: Reports: Hx Gastroesophageal Reflux Disease. Denies: Hx Hepatitis Musculoskeletal Medical History: Reports Hx Musculoskeletal Trauma Psychiatric Medical History: Reports: Hx Anxiety, Hx Bipolar Disorder Traumatic Medical History: Reports: Hx Fractures Infectious Medical History: Denies: Hx Hepatitis Past Surgical History: Reports: Hx Cholecystectomy, Hx Oral Surgery - [place] teeth, Hx Orthopedic Surgery - Bilateral great toe. Denies: Hx Hysterectomy, Hx Mastectomy, Hx Open Heart Surgery, Hx Pacemaker - Immunizations Immunizations up to date: Yes Hx Diphtheria, Pertussis, Tetanus Vaccination: Yes Hx Pneumococcal Vaccination: 08/29/00 Review of Systems - Review of Systems Constitutional: No symptoms reported EENT: See HPI Cardiovascular: No symptoms reported Respiratory: No symptoms reported Gastrointestinal: No symptoms reported Genitourinary: No symptoms reported Female Genitourinary: No symptoms reported Musculoskeletal: No symptoms reported Skin: No symptoms reported Hematologic/Lymphatic: No symptoms reported Neurological/Psychological: No symptoms reported Physical Exam - Vital signs Vitals: Temp Pulse Resp BP Pulse Ox 99.0 F 102 H 18 145/106 H 99 04/04/18 23:51 04/04/18 23:51 04/04/18 23:51 04/04/18 23:51 04/04/18 23:51 - General General appearance: Appears well, Alert - HEENT Head: Normocephalic, Atraumatic - Respiratory Respiratory status: No respiratory distress - Mild diffuse wheezing but good air movement no crackles - Cardiovascular Rhythm: Regular Heart sounds: Normal auscultation Murmur: No - Abdominal Inspection: Normal Course - Re-evaluation Re-evalutation: 04/05/18 01:38 Overall, patient is well-appearing with normal exam other than mild wheezing Sliva with good air movement. No cervical lymphadenopathy no erythematous tonsils. Will provide fluticasone and nasal azelastine - Vital Signs Vital signs: Temp Pulse Resp BP Pulse Ox 98.6 F 92 18 139/101 H 97 04/05/18 01:58 04/05/18 01:58 04/05/18 01:58 04/05/18 01:58 04/05/18 01:58 Discharge - Discharge Clinical Impression: Sinus congestion Condition: Good Disposition: HOME, SELF-CARE Instructions: Sinusitis ([facility]) Prescriptions: Dextromethorphan HBr [Tussin Cough] 10 mg PO QHS #1 bottle Azelastine HCl 205.5 mcg NS BID PRN #1 bottle PRN Reason: Fluticasone Propionate 9.9 ml NS BID PRN #1 bottle PRN Reason:
[2018-04-05 01:59] VITALS: BP 139/101
== END 2018-04-05 01:59 | disposition home or self-care (01) ==
LOC: ER 23:43
DX: R09.81 Nasal congestion (principal); J02.9 Acute pharyngitis, unspecified; R05 Cough; R51 Headache; J45.909 Unspecified asthma, uncomplicated; I10 Essential (primary) hypertension
CPT/HCPCS: 99283

== ENCOUNTER 2018-04-18 00:58 | Emergency (ER) | payer MEDICAID ==
[2018-04-18] MEDS ORDERED: PREDNISONE 20 MG TABLET PO ONE (01:38)
[2018-04-18] MEDS ORDERED: IPRATROPIUM/ALBUTEROL 0.5-2.5 MG/3 ML AMPUL NEB ONE (01:38)
--- NOTE | 2018-04-18 01:40 | ER Document Report ---
ED General - General Chief Complaint: Asthma Exacerbation Stated Complaint: CHEST TIGHTNESS Time Seen by Provider: 04/18/18 01:32 Notes: Patient is a 27-year-old female who presents with chief complaint of asthma exacerbation. Patient reports she has had a dry cough for several weeks. Patient reports that this evening she tried to lay down and go to sleep however she started wheezing severely, patient reports trying to use her albuterol inhaler with minimal relief. Patient denies any history of fever. TRAVEL OUTSIDE OF THE [place] IN LAST 30 DAYS: No - Related Data Allergies/Adverse Reactions: clindamycin [Clindamycin] Allergy (Severe, Verified 03/31/18 20:02) Hives doxycycline [Doxycycline] Allergy (Intermediate, Verified 03/31/18 20:02) Hives amoxicillin Allergy (Verified 03/31/18 20:02) Penicillins Allergy (Verified 03/31/18 20:02) Past Medical History - General Information source: Patient - Social History Smoking Status: Current Some Day Smoker Frequency of alcohol use: None Drug Abuse: None Family History: CAD, DM, Hypertension, Other - Asthma - Past Medical History Cardiac Medical History: Reports: Hx Hypertension Pulmonary Medical History: Reports: Hx Asthma, Hx Bronchitis, Hx COPD, Hx Pneumonia Neurological Medical History: Reports: Hx Migraine Endocrine Medical History: Reports: Hx Hypothyroidism Renal/ Medical History: Denies: Hx Peritoneal Dialysis GI Medical History: Reports: Hx Gastroesophageal Reflux Disease. Denies: Hx Hepatitis Musculoskeletal Medical History: Reports Hx Musculoskeletal Trauma Psychiatric Medical History: Reports: Hx Anxiety, Hx Bipolar Disorder Traumatic Medical History: Reports: Hx Fractures Infectious Medical History: Denies: Hx Hepatitis Past Surgical History: Reports: Hx Cholecystectomy, Hx Oral Surgery - [place] teeth, Hx Orthopedic Surgery - Bilateral great toe. Denies: Hx Hysterectomy, Hx Mastectomy, Hx Open Heart Surgery, Hx Pacemaker - Immunizations Immunizations up to date: Yes Hx Diphtheria, Pertussis, Tetanus Vaccination: Yes Hx Pneumococcal Vaccination: 08/29/00 Review of Systems - Review of Systems Constitutional: No symptoms reported EENT: No symptoms reported Cardiovascular: No symptoms reported Respiratory: See HPI Gastrointestinal: No symptoms reported Genitourinary: No symptoms reported Female Genitourinary: No symptoms reported Musculoskeletal: No symptoms reported Skin: No symptoms reported Hematologic/Lymphatic: No symptoms reported Neurological/Psychological: No symptoms reported Physical Exam - Vital signs Vitals: Temp Pulse Resp BP Pulse Ox 97.9 F 92 20 164/109 H 98 04/18/18 01:02 04/18/18 01:02 04/18/18 01:02 04/18/18 01:02 04/18/18 01:02 - Notes Notes: PHYSICAL EXAMINATION: GENERAL: Well-appearing, well-nourished and in no acute distress. HEAD: Atraumatic, normocephalic. EYES: Pupils equal round and reactive to light, extraocular movements intact, conjunctiva are normal. ENT: Nares patent, oropharynx clear without exudates. Moist mucous membranes. NECK: Normal range of motion, supple without lymphadenopathy LUNGS: Breath sounds clear to auscultation bilaterally and equal. No rales or rhonchi. Mild expiratory wheezing bilaterally. HEART: Regular rate and rhythm without murmurs ABDOMEN: Soft, nontender, nondistended abdomen. No guarding, no rebound. No masses appreciated. Female : deferred Musculoskeletal: Normal range of motion, no pitting or edema. No cyanosis. NEUROLOGICAL: Cranial nerves grossly intact. Normal speech, normal gait. Normal sensory, motor exams PSYCH: Normal mood, normal affect. SKIN: Warm, Dry, normal turgor, no rashes or lesions noted. Course - Re-evaluation Re-evalutation: Mild expiratory wheezing noted otherwise examination is unremarkable. Patient alert, oriented and speaking in full and complete sentences without difficulty. Will try DuoNeb and p.o. prednisone. Patient's vital signs are stable with a pulse ox of 97%, respiratory rate of 20. Will reevaluate shortly. Patient's lung sounds improved after administration of DuoNeb's. Patient ready for discharge. Patient reports she has adequate asthma medications at home. Will place patient on a short course of prednisone. Patient called encouraged to follow-up with her plastics sheet finishing press operator sooner than originally scheduled in June if she continues to have acute asthma exacerbations. - Vital Signs Vital signs: Temp Pulse Resp BP Pulse Ox 97.9 F 92 20 164/109 H 98 04/18/18 01:02 04/18/18 01:02 04/18/18 01:02 04/18/18 01:02 04/18/18 01:02 Discharge - Discharge Clinical Impression: Asthma exacerbation Qualifiers: Asthma severity: moderate Asthma persistence: unspecified Qualified Code(s): J45.901 - Unspecified asthma with (acute) exacerbation Condition: Stable Disposition: HOME, SELF-CARE Additional Instructions: Asthma You have been diagnosed as having asthma. This is a condition where there is episodic tightness in the bronchial tubes. Allergies, infections, and polluted or cold air may be contributing factors. Emergency treatment of a severe asthma attack may include adrenaline shots , or bronchodilator aerosol. You may feel lightheaded, have a decreased exercise tolerance and a rapid pulse for an hour or two. Rest and get plenty of fluids. Home treatment of asthma requires bronchodilator drugs. These can be administered by injection, inhalation, or by mouth. Antibiotics and corticosteroids may be required for some patients. You should avoid chemical fumes, dusts, pollens, and exercising in very cold or dry air. If you smoke, stop!! If you develop a fever, increased wheezing, chest pain, or severe shortness of breath, you should contact the doctor immediately Please take course of prednisone as prescribed. You may want to consider contacting your plastics sheet finishing press operator to move up your scheduled appointment as you may need to see him sooner than June if you continue to have acute asthma flareups. Please be sure to take all medications as prescribed and stay away from any irritants such as cigarette smoke. Prescriptions: Prednisone [Deltasone 20 mg Tablet] 3 tab PO DAILY 5 Days #15 tablet
[2018-04-18 05:14] VITALS: BP 137/100
== END 2018-04-18 03:55 | disposition home or self-care (01) ==
LOC: ER 00:58
DX: J44.9 Chronic obstructive pulmonary disease, unspecified (principal); R05 Cough; I10 Essential (primary) hypertension; F17.200 Nicotine dependence, unspecified, uncomplicated
CPT/HCPCS: 94640; 99284; J7512; J7620

== ENCOUNTER 2018-05-23 22:30 | Emergency (ER) | payer MEDICAID ==
--- NOTE | 2018-05-24 02:15 | ER Document Report ---
HPI - HPI Pain Level: 3 Notes: Patient is a 19-year-old female with a history of asthma and hypertension who presents to the ED complaining of nasal congestion/discharge, dry nonproductive cough times 1 day. Patient states that she is still eating and drinking without difficulties, but does have a decreased p.o. intake. She is still urinating normally having normal bowel movements. Patient has been using some [id number] meds for symptoms which has been helping. Patient states that she has been exposed to a couple kids who were coughing as well. She denies any significant past medical history including cardiopulmonary history and immunocompromised conditions aside from her asthma. Denies any current headache , neck pain, sore throat, chest pain, palpitations, syncope, shortness of breath , wheeze, dyspnea, abdominal pain, nausea/vomiting/diarrhea, urinary retention, dysuria, hematuria, or rash. - ROS Systems Reviewed and Negative: Yes All other systems reviewed and negative - REPRODUCTIVE Reproductive: DENIES: : Past Medical History - Social History Smoking Status: Unknown if Ever Smoked Family History: CAD, DM, Hypertension, Other - Asthma - Past Medical History Cardiac Medical History: Reports: Hx Hypertension Pulmonary Medical History: Reports: Hx Asthma, Hx Bronchitis, Hx COPD, Hx Pneumonia Neurological Medical History: Reports: Hx Migraine Endocrine Medical History: Reports: Hx Hypothyroidism Renal/ Medical History: Denies: Hx Peritoneal Dialysis GI Medical History: Reports: Hx Gastroesophageal Reflux Disease. Denies: Hx Hepatitis Musculoskeletal Medical History: Reports Hx Musculoskeletal Trauma Psychiatric Medical History: Reports: Hx Anxiety, Hx Bipolar Disorder Traumatic Medical History: Reports: Hx Fractures Infectious Medical History: Denies: Hx Hepatitis Past Surgical History: Reports: Hx Cholecystectomy, Hx Oral Surgery - [place] teeth, Hx Orthopedic Surgery - Bilateral great toe. Denies: Hx Hysterectomy, Hx Mastectomy, Hx Open Heart Surgery, Hx Pacemaker - Immunizations Immunizations up to date: Yes Hx Diphtheria, Pertussis, Tetanus Vaccination: Yes Hx Pneumococcal Vaccination: 08/29/00 Vertical Provider Document - CONSTITUTIONAL Agree With Documented VS: Yes Notes: PHYSICAL EXAMINATION: GENERAL: Well-appearing, well-nourished and in no acute distress. A&Ox4. Answers questions appropriately. Moves comfortably w/o notable distress HEAD: Atraumatic, normocephalic. EYES: Pupils equal round and reactive to light, extraocular movements intact, sclera anicteric, conjunctiva are normal. ENT: EAC clear b/l. TM's intact b/l without erythema, fluid, or perforation. Nares patent and with clear discharge. oropharynx no erythema without exudates. No tonsilar hypertrophy without erythema or exudate. No palatine shift. Uvula midline. No tongue protrusion. No drooling, hoarseness, or airway compromise. Moist mucous membranes. No sinus tenderness. NECK: Normal range of motion, supple without lymphadenopathy. No rigidity/ meningismus. LUNGS: Very minimal wheeze bilateral base without any retractions. HEART: Regular rate and rhythm without murmurs, rubs, gallops. NEUROLOGICAL: Normal speech, normal gait. Normal sensory, motor exams PSYCH: Normal mood, normal affect. SKIN: Warm, Dry, normal turgor, no rashes or lesions noted. - INFECTION CONTROL TRAVEL OUTSIDE OF THE [place] IN LAST 30 DAYS: No Course - Re-evaluation Re-evalutation: 05/24/18 02:11 Patient is an afebrile, well-hydrated, 27-year-old female who presents to the ED with acute URI, suspect viral. Vitals are acceptable. PE is otherwise unremarkable. No labs or imaging warranted at this time based on H&P. Patient has no significant cardiopulmonary or immunocompromised medical conditions aside from asthma. Patient is without tachycardia, hypoxia, or tachypnea. Patient is tolerating p.o. without any difficulties. Low suspicion for any meningitis, sepsis, peritonsillar/pharyngeal abscess, respiratory compromise, severe dehydration, or other emergent systemic condition at this time. Patient is aware this condition can change from initial presentation and she needs to monitor symptoms closely. Rx for steroid taper. Conservative measures otherwise for symptoms. Recheck with your PCM in 3-5 days. Return to the ED with any worsening/concerning symptoms otherwise as reviewed in discharge. Patient is in agreement. - Vital Signs Vital signs: Temp Pulse Resp BP Pulse Ox 98.8 F 89 17 152/97 H 98 05/23/18 22:57 05/23/18 22:57 05/23/18 22:57 05/23/18 22:57 05/23/18 22:57 Discharge - Discharge Clinical Impression: Acute URI Acute bronchitis Qualifiers: Bronchitis organism: unspecified organism Qualified Code(s): J20.9 - Acute bronchitis, unspecified Condition: Stable Disposition: HOME, SELF-CARE Instructions: Upper Respiratory Illness ([facility]), Bronchitis ([facility]) Additional Instructions: Maintain adequate fluid intake Take meds as directed tylenol/ibuprofen as needed over the counter cold medication as needed for symptoms Humidified air may help Wash your hands regularly Wear a mask when coughing F/u: with your PCM in 3-5 days for a recheck Return to the ED with any fever, worsening pain, chest pain, palpitations, syncope, worsening DAVIS, neck pain/stiffness, shortness of breath, wheezing, drooling, trouble swallowing/breathing, abdominal pain, n/v/d, rash, or worsening/concerning symptoms otherwise. Prescriptions: Prednisone [Deltasone 20 mg Tablet] 3 tab PO DAILY 3 Days tablet Forms: Elevated Blood Pressure Referrals: [facility] [Provider Group] - Follow up as needed [facility] [Provider Group] - Follow up as needed
[2018-05-24 03:13] VITALS: BP 132/97
== END 2018-05-24 02:30 | disposition home or self-care (01) ==
LOC: ER 22:30
DX: J20.9 Acute bronchitis, unspecified (principal); J44.0 Chronic obstructive pulmonary disease with (acute) lower respiratory infection; I10 Essential (primary) hypertension; R09.81 Nasal congestion
CPT/HCPCS: 99283

== ENCOUNTER 2018-05-30 14:23 | Emergency (ER) | payer MEDICAID ==
[2018-05-30] MEDS ORDERED: IPRATROPIUM/ALBUTEROL 0.5-2.5 MG/3 ML AMPUL NEB ONE ×2 (14:48→14:52)
[2018-05-30] MEDS ORDERED: METHYLPREDNISOLONE INJ 125 MG/2 ML SDV IV ONE (14:52)
[2018-05-30] MEDS ORDERED: ALBUTEROL SULFATE 0.083% NEB 2.5 MG/3 ML AMPUL NEB ONE (14:52)
--- NOTE | 2018-05-30 14:54 | ER Document Report ---
ED Medical Screen (RME) - General Chief Complaint: Asthma Exacerbation Stated Complaint: BREATHING PROBLEMS Time Seen by Provider: 05/30/18 14:52 Mode of Arrival: Ambulatory Information source: Patient Notes: 27-year-old female with COPD, asthma presents with complaint of shortness of breath that started 1 hour prior to arrival. Patient reports recent upper respiratory infection. She has been hospitalized in the past for her asthma but denies any intubations. Patient has tried her home medications without relief. I have greeted and performed a rapid initial assessment of this patient. A comprehensive ED assessment and evaluation of the patient, analysis of test results and completion of medical decision making process we will be contacted by additional ED providers. General; mild distress Respiratory; auditory wheezing, accessory muscle use. Neuro; alert and oriented x3 TRAVEL OUTSIDE OF THE [place] IN LAST 30 DAYS: No - HPI Onset: Just prior to arrival Onset/Duration: Sudden Associated Symptoms: Cough (productive), Shortness of breath Exacerbated by: Coughing, Deep breathing Relieved by: Denies Similar symptoms previously: Yes Recently seen / treated by doctor: Yes - Related Data Smoking: Non-smoker Frequency of alcohol use: None Drug Abuse: None Allergies/Adverse Reactions: clindamycin [Clindamycin] Allergy (Severe, Verified 03/31/18 20:02) Hives doxycycline [Doxycycline] Allergy (Intermediate, Verified 03/31/18 20:02) Hives amoxicillin Allergy (Verified 03/31/18 20:02) Penicillins Allergy (Verified 03/31/18 20:02) Past Medical History - Social History Chew tobacco use (# tins/day): No Frequency of alcohol use: None Drug Abuse: None Family history: Reviewed & Not Pertinent - Past Medical History Cardiac Medical History: Reports: Hx Hypertension Pulmonary Medical History: Reports: Hx Asthma, Hx Bronchitis, Hx COPD, Hx Pneumonia Neurological Medical History: Reports: Hx Migraine Endocrine Medical History: Reports: Hx Hypothyroidism Renal/ Medical History: Denies: Hx Peritoneal Dialysis GI Medical History: Reports: Hx Gastroesophageal Reflux Disease. Denies: Hx Hepatitis Musculoskeltal Medical History: Reports Hx Musculoskeletal Trauma Psychiatric Medical History: Reports: Hx Anxiety, Hx Bipolar Disorder Traumatic Medical History: Reports: Hx Fractures Infectious Medical History: Denies: Hx Hepatitis Past Surgical History: Reports: Hx Cholecystectomy, Hx Oral Surgery - [place] teeth, Hx Orthopedic Surgery - Bilateral great toe. Denies: Hx Hysterectomy, Hx Mastectomy, Hx Open Heart Surgery, Hx Pacemaker - Immunizations Immunizations up to date: Yes Hx Diphtheria, Pertussis, Tetanus Vaccination: Yes History of Influenza Vaccine for 05/2017 - 10/2017 Season: No
[2018-05-30] MEDS ORDERED: MAGNESIUM SULFATE/D5W 1 GM/100 ML RTUPB IV ONE (16:01)
--- NOTE | 2018-05-30 16:02 | RADIOLOGY REPORT (SQ) ---
EXAM DESCRIPTION: CHEST SINGLE VIEW COMPLETED DATE/TIME: 05/30/2018 3:54 pm REASON FOR STUDY: sob COMPARISON: 03/27/2018 EXAM PARAMETERS: NUMBER OF VIEWS: One view. TECHNIQUE: Single frontal radiographic view of the chest acquired. RADIATION DOSE: NA LIMITATIONS: None. FINDINGS: LUNGS AND PLEURA: No opacities, masses or pneumothorax. No pleural effusion. MEDIASTINUM AND HILAR STRUCTURES: No masses. Contour normal. HEART AND VASCULAR STRUCTURES: Heart normal in size. Normal vasculature. BONES: No acute findings. HARDWARE: None in the chest. OTHER: No other significant finding. IMPRESSION: 1. No significant interval changes since the prior study dated 03/27/2018. No acute fin dings. TECHNICAL DOCUMENTATION: JOB ID: [id number] [employer]- All Rights Reserved Reading location - IP/workstation name: [email or web address]
[2018-05-30 16:06] LABS: ANION GAP 10 (5-19); BLOOD UREA NITROGEN 11 mg/dL (7-20); CARBON DIOXIDE 24 mmol/L (22-30); CHLORIDE 104 mmol/L (98-107); GLUCOSE 105 mg/dL (75-110); POTASSIUM 4.1 mmol/L (3.6-5.0); SODIUM 137.7 mmol/L (137-145)
[2018-05-30 18:21] VITALS: BP 140/86
[2018-05-30] MEDS ORDERED: DEXAMETHASONE SOD PHOS INJ 10 MG/1 ML VIAL IV ONE (18:31)
[2018-05-30] MEDS ORDERED: ALBUTEROL SULFATE HFA (90 MCG/PUFF) 8 GM MDI (1 MDI/ER DISP) IH ONE (18:32)
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
== END 2018-05-30 19:00 | disposition home or self-care (01) ==
LOC: ER 14:23
DX: J45.901 Unspecified asthma with (acute) exacerbation (principal); I10 Essential (primary) hypertension; J44.9 Chronic obstructive pulmonary disease, unspecified; E03.9 Hypothyroidism, unspecified; Z90.49 Acquired absence of other specified parts of digestive tract
CPT/HCPCS: 94640 ×2; 99285; 96375; 96365; 96366; 36415; 84703; 80048; 71045; J2930; J3475; J1100; J3490; J7620

== ENCOUNTER 2018-07-05 09:25 | Emergency (ER) | payer MEDICAID ==
[2018-07-05 09:35] VITALS: BP 135/95
--- NOTE | 2018-07-05 10:00 | ER Document Report ---
ED General - General Chief Complaint: Cold Symptoms Stated Complaint: DIFFICULTY BREATHING Time Seen by Provider: 07/05/18 09:50 TRAVEL OUTSIDE OF THE [place] IN LAST 30 DAYS: No - HPI Notes: Patient is a 28-year-old female that presents to the emergency department for chief complaint of cough congestion and wheezing for the last 3-4 days. Patient reports history of asthma and has been using her albuterol nebulizer 1- 2 times daily. She states she has a thick sputum production. She has not been admitted for her asthma since she was 1 years old. She denies any fevers or chills. She does report increased cough and runny nose. She denies any chest pain. She states she has some mild shortness of breath when she gets coughing. She denies any nausea, vomiting, or abdominal pain. Past Medical History: Asthma Past Surgical History: Cholecystectomy Social History: Denies drugs alcohol and tobacco use Family History: Reviewed and noncontributory for presenting illness Allergies: Reviewed, see documented allergy list. REVIEW OF SYSTEMS: CONSTITUTIONAL : No fever No chills No diaphoresis No recent illness EENT: No vision changes No congestion No sore throat CARDIOVASCULAR: No chest pain No palpitations RESPIRATORY: shortness of breath cough No difficulty breathing GASTROINTESTINAL: No abdominal pain No nausea No vomiting No diarrhea GENITOURINARY: No dysuria No hematuria No difficulty urinating MUSCULOSKELETAL: No back pain No leg pain No arm pain SKIN: No rashes No lesions LYMPHATIC: No swollen, enlarged glands. NEUROLOGICAL: No lightheadedness No headache No weakness No paresthesias PSYCHIATRIC: No anxiety No depression PHYSICAL EXAMINATION: Vital signs reviewed, nursing noted reviewed. GENERAL: Well-appearing, well-nourished and in no acute distress. HEAD: Atraumatic, normocephalic. EYES: Eyes appear normal, extraocular movements intact, sclera anicteric, conjunctiva are normal. ENT: nares patent, oropharynx clear without exudates. Moist mucous membranes. NECK: Normal range of motion, supple without lymphadenopathy LUNGS: Breath sounds clear to auscultation bilaterally and equal. No wheezes rales or rhonchi. HEART: Regular rate and rhythm without murmurs ABDOMEN: Soft, nontender, normoactive bowel sounds. No rebound, guarding, or rigidity. No masses appreciated. EXTREMITIES: Nontender, good range of motion, no pitting or edema. NEUROLOGICAL: No focal neurological deficits. Moves all extremities spontaneously Motor and sensory grossly intact on exam. PSYCH: Normal mood, normal affect. SKIN: Warm, Dry, normal turgor, no rashes or lesions noted on exposed skin - Related Data Allergies/Adverse Reactions: clindamycin [Clindamycin] Allergy (Severe, Verified 07/05/18 09:27) Hives doxycycline [Doxycycline] Allergy (Intermediate, Verified 07/05/18 09:27) Hives amoxicillin Allergy (Verified 07/05/18 09:27) Penicillins Allergy (Verified 07/05/18 09:27) Past Medical History - Social History Smoking Status: Never Smoker Family History: CAD, DM, Hypertension, Other - Asthma - Past Medical History Cardiac Medical History: Reports: Hx Hypertension Pulmonary Medical History: Reports: Hx Asthma, Hx Bronchitis, Hx COPD, Hx Pneumonia Neurological Medical History: Reports: Hx Migraine Endocrine Medical History: Reports: Hx Hypothyroidism Renal/ Medical History: Denies: Hx Peritoneal Dialysis GI Medical History: Reports: Hx Gastroesophageal Reflux Disease. Denies: Hx Hepatitis Musculoskeletal Medical History: Reports Hx Musculoskeletal Trauma Psychiatric Medical History: Reports: Hx Anxiety, Hx Bipolar Disorder Traumatic Medical History: Reports: Hx Fractures Infectious Medical History: Denies: Hx Hepatitis Past Surgical History: Reports: Hx Cholecystectomy, Hx Oral Surgery - [place] teeth, Hx Orthopedic Surgery - Bilateral great toe. Denies: Hx Hysterectomy, Hx Mastectomy, Hx Open Heart Surgery, Hx Pacemaker - Immunizations Immunizations up to date: Yes Hx Diphtheria, Pertussis, Tetanus Vaccination: Yes Hx Pneumococcal Vaccination: 08/29/00 Review of Systems - Review of Systems Notes: Dictated Physical Exam - Vital signs Vitals: Temp Pulse Resp BP Pulse Ox 98.5 F 98 20 135/95 H 99 07/05/18 09:34 07/05/18 09:34 07/05/18 09:34 07/05/18 09:34 07/05/18 09:34 - Notes Notes: Dictated Course - Re-evaluation Re-evalutation: 07/05/18 09:58 Vitals reviewed. Nursing notes reviewed. Patient afebrile and nontoxic- appearing. She has no wheezing on lung auscultation and is in no respiratory distress. She is oxygenating well on room air. She was instructed to increase the frequency of her home nebulized treatments to every 4 hours instead of 1-2 times daily. She will continue taking her inhaled corticosteroids. She will be started on azithromycin for her thick sputum. She will be referred to primary care for close follow-up if not improving. She will return for new or worsening symptoms. Discharged home in stable condition. - Vital Signs Vital signs: Temp Pulse Resp BP Pulse Ox 98.5 F 98 20 135/95 H 99 07/05/18 09:34 07/05/18 09:34 07/05/18 09:34 07/05/18 09:34 07/05/18 09:34 Discharge - Discharge Clinical Impression: URI, acute, Asthma exacerbation Condition: Stable Disposition: HOME, SELF-CARE Instructions: Upper Respiratory Illness ([facility]), Asthma ([facility]) Additional Instructions: Please return to the emergency department if you have any worsening, or concern of your symptoms. Please return to the emergency department if you develop chest pain, difficulty breathing, severe abdominal pain, or ongoing vomiting. Please follow-up with your primary care physician in 2-3 days and any other recommended physicians. If prescribed, take all medications as directed. If you have any questions or concerns do not hesitate to return the emergency department for evaluation. [] Prescriptions: Azithromycin [Zithromax 250 mg Tablet] 250 mg PO ASDIR PRN #6 tablet PRN Reason: Referrals: BRUCE COTE PA-C [Primary Care Provider] - Follow up in 3-5 days
== END 2018-07-05 10:05 | disposition home or self-care (01) ==
LOC: ER 09:25
DX: J45.901 Unspecified asthma with (acute) exacerbation (principal); Z79.899 Other long term (current) drug therapy; J06.9 Acute upper respiratory infection, unspecified; J44.9 Chronic obstructive pulmonary disease, unspecified; R05 Cough; R09.89 Other specified symptoms and signs involving the circulatory and respiratory systems; R06.02 Shortness of breath; I10 Essential (primary) hypertension; Z88.1 Allergy status to other antibiotic agents; Z88.0 Allergy status to penicillin; Z87.01 Personal history of pneumonia (recurrent)
CPT/HCPCS: 99283

== ENCOUNTER 2018-07-05 20:52 | Emergency (ER) | payer MEDICAID ==
--- NOTE | 2018-07-05 21:41 | ER Document Report ---
ED General - General Chief Complaint: Chest Congestion Stated Complaint: SHORTNESS OF BREATH Time Seen by Provider: 07/05/18 21:41 Notes: Patient is a 28-year-old female with asthma that presents to the emergency department for chief complaint of cough and wheezing. Patient states she is been having cough and wheezing since Tuesday, she was seen in the emergency department earlier today, for similar symptoms, was given breathing treatments and was improved, was discharged home on azithromycin, for possible bronchitis, she does typically use her albuterol, which has not been helping significantly at home so she came back to the emergency department. She denies having any chest pain, but does complain of chest congestion, denies any sputum production at this time. She also denies having any lightheadedness, dizziness, nausea, vomiting or abdominal pain. Past Medical History: Asthma, hypertension Past Surgical History: Cholecystectomy Social History: Denies tobacco, alcohol or drug use Family History: Reviewed and noncontributory for presenting illness Allergies: Reviewed, see documented allergy list. REVIEW OF SYSTEMS: Other than noted above, the 12 point review of systems was reviewed with the patient and were negative, all pertinent findings are included in the HPI. PHYSICAL EXAMINATION: Vital signs reviewed, nursing noted reviewed. GENERAL: Well-appearing, well-nourished and in no acute distress. HEAD: Atraumatic, normocephalic. EYES: Eyes appear normal, extraocular movements intact, sclera anicteric, conjunctiva are normal. ENT: nares patent, oropharynx clear without exudates. Moist mucous membranes. NECK: Normal range of motion, supple without lymphadenopathy LUNGS: Mild expiratory wheezing noted throughout all lung richardson, no acute respiratory distress. HEART: Regular rate and rhythm without murmurs ABDOMEN: Soft, obese, nontender, normoactive bowel sounds. No rebound, guarding , or rigidity. No masses appreciated. EXTREMITIES: Nontender, good range of motion, no pitting or edema. NEUROLOGICAL: No focal neurological deficits. Moves all extremities spontaneously Motor and sensory grossly intact on exam. PSYCH: Normal mood, normal affect. SKIN: Warm, Dry, normal turgor, no rashes or lesions noted on exposed skin TRAVEL OUTSIDE OF THE [place] IN LAST 30 DAYS: No - Related Data Allergies/Adverse Reactions: clindamycin [Clindamycin] Allergy (Severe, Verified 07/05/18 09:27) Hives doxycycline [Doxycycline] Allergy (Intermediate, Verified 07/05/18 09:27) Hives amoxicillin Allergy (Verified 07/05/18 09:27) Penicillins Allergy (Verified 07/05/18 09:) Past Medical History - Social History Smoking Status: Never Smoker Family History: CAD, DM, Hypertension, Other - Asthma Patient has suicidal ideation: No Patient has homicidal ideation: No - Past Medical History Cardiac Medical History: Reports: Hx Hypertension Pulmonary Medical History: Reports: Hx Asthma, Hx Bronchitis, Hx COPD, Hx Pneumonia Neurological Medical History: Reports: Hx Migraine Endocrine Medical History: Reports: Hx Hypothyroidism Renal/ Medical History: Denies: Hx Peritoneal Dialysis GI Medical History: Reports: Hx Gastroesophageal Reflux Disease. Denies: Hx Hepatitis Musculoskeletal Medical History: Reports Hx Musculoskeletal Trauma Psychiatric Medical History: Reports: Hx Anxiety, Hx Bipolar Disorder Traumatic Medical History: Reports: Hx Fractures Infectious Medical History: Denies: Hx Hepatitis Past Surgical History: Reports: Hx Cholecystectomy, Hx Oral Surgery - [place] teeth, Hx Orthopedic Surgery - Bilateral great toe. Denies: Hx Hysterectomy, Hx Mastectomy, Hx Open Heart Surgery, Hx Pacemaker - Immunizations Immunizations up to date: Yes Hx Diphtheria, Pertussis, Tetanus Vaccination: Yes Hx Pneumococcal Vaccination: 08/29/00 Physical Exam - Vital signs Vitals: Temp Pulse Resp BP Pulse Ox 98.1 F 105 H 22 H 139/90 H 99 07/05/18 21:03 07/05/18 21:03 07/05/18 21:03 07/05/18 21:03 07/05/18 21:03 Course - Re-evaluation Re-evalutation: Patient seen and examined vital signs reviewed. Laboratory data and imaging were ordered as appropriate for the patient's presenting symptoms and complaint, with consideration of any critical or life threatening conditions that may be associated with their obtained history and exam as noted above. Patient was treated with DuoNeb breathing treatment, which she was improved afterwards, she was also given IV Solu-Medrol 125 mg, and 1 g of IV magnesium Results were reviewed when available and demonstrated negative chest x-ray The patient was re-evaluated and was improved Evaluation was most consistent with acute asthma exacerbation, will provide prednisone for 5 additional days, and advised her to use albuterol 4 times daily for the next 3-5 days, and then as needed afterwards and to follow-up with her primary care physician. Results were discussed with the patient at this point, after careful consideration I feel that that patient can be discharged from the emergency department, the patient was educated treatments and reasons to return to the emergency department based on their presumed diagnosis as noted above, they were advised to followup with a primary care physician in 2-3 days. Patient was agreeable to plan of care. *Note is created using voice recognition software and may contain spelling, syntax or grammatical errors. Chest X-Ray 07/05/18 21:43 IMPRESSION: No acute cardiopulmonary findings. - Vital Signs Vital signs: Temp Pulse Resp BP Pulse Ox 98.1 F 105 H 22 H 139/90 H 100 07/05/18 21:03 07/05/18 21:03 07/05/18 21:03 07/05/18 21:03 07/05/18 21:22 - EKG Interpretation by Me Additional EKG results interpreted by me: EKG demonstrates sinus tachycardia with a ventricular rate of 111 bpm, normal axis, QTC 462 ms, no evidence of acute ischemia on this EKG, this is compared with prior EKG from 03/23/2018, without significant change. Discharge - Discharge Clinical Impression: Asthma exacerbation Qualifiers: Asthma severity: unspecified severity Asthma persistence: unspecified Qualified Code(s): J45.901 - Unspecified asthma with (acute) exacerbation Condition: Stable Disposition: HOME, SELF-CARE Instructions: Asthma ([facility]) Additional Instructions: Use your albuterol inhaler 4 times daily for the next 3-4 days, take the prednisone as prescribed. Please return to the emergency department if you have any worsening, or concern of your symptoms. Please return to the emergency department if you develop chest pain, difficulty breathing, severe abdominal pain, or ongoing vomiting. Please follow-up with your primary care physician in 2-3 days and any other recommended physicians. If prescribed, take all medications as directed. If you have any questions or concerns do not hesitate to return the emergency department for evaluation. Prescriptions: Prednisone [Deltasone 20 mg Tablet] 2 tab PO DAILY 5 Days #10 tablet Referrals: BRUCE COTE PA-C [Primary Care Provider] - Follow up in 3-5 days
[2018-07-05] MEDS ORDERED: IPRATROPIUM/ALBUTEROL 0.5-2.5 MG/3 ML AMPUL NEB ONE (21:42)
--- NOTE | 2018-07-05 22:34 | RADIOLOGY REPORT (SQ) ---
EXAM DESCRIPTION: XR CHEST 2 VIEWS COMPLETED DATE/TME: 07/05/2018 21:43 CLINICAL HISTORY: 28 years Female, cough COMPARISON: None. FINDINGS: Adequate lung volume, clear parenchyma, normal cardiac silhouette, and intact bony thorax. IMPRESSION: No acute cardiopulmonary findings.
[2018-07-05] MEDS ORDERED: METHYLPREDNISOLONE INJ 125 MG/2 ML SDV IV ONE (22:37)
[2018-07-05] MEDS ORDERED: MAGNESIUM SULFATE/D5W 1 GM/100 ML RTUPB IV ONE (22:37)
[2018-07-05 23:34] VITALS: BP 143/106
--- NOTE | 2018-07-06 07:33 | EKG REPORT ---
SEVERITY:- OTHERWISE NORMAL ECG - SINUS TACHYCARDIA : Confirmed by: Baldemar Mojica MD 06-Jul-2018 07:32:59
== END 2018-07-05 23:37 | disposition home or self-care (01) ==
LOC: ER 20:52
DX: J45.901 Unspecified asthma with (acute) exacerbation (principal); J44.9 Chronic obstructive pulmonary disease, unspecified; Z87.01 Personal history of pneumonia (recurrent); R09.89 Other specified symptoms and signs involving the circulatory and respiratory systems; R05 Cough; R00.0 Tachycardia, unspecified; I10 Essential (primary) hypertension; Z79.899 Other long term (current) drug therapy; Z88.1 Allergy status to other antibiotic agents; Z88.0 Allergy status to penicillin
CPT/HCPCS: 93005; 94640; 99284; 96374; 96375; 71046; 93010; J2930; J3475; J7620

== ENCOUNTER 2018-07-18 19:54 | Emergency (ER) | payer MEDICAID ==
--- NOTE | 2018-07-18 21:39 | ER Document Report ---
HPI - HPI Patient complains to provider of: Sore throat cough Time Seen by Provider: 07/18/18 21:14 Onset: Other - 3 days Onset/Duration: Persistent Quality of pain: Achy Pain Level: Denies Context: Patient presents complaining of a 3-day history of sore throat, cough and ear pain. Patient denies any fever. Patient is here with significant other who has similar upper respiratory symptoms. Associated Symptoms: Nonproductive cough, Sore throat. denies: Chills, Fever Exacerbated by: Denies Relieved by: Denies Similar symptoms previously: Yes Recently seen / treated by doctor: No - ROS ROS below otherwise negative: Yes Systems Reviewed and Negative: Yes All other systems reviewed and negative - CONSTITUTIONAL Constitutional: REPORTS: Chills. DENIES: Fever - EENT EENT: REPORTS: Sore Throat, Ear Pain - L ear - RESPIRATORY Respiratory: REPORTS: Coughing - GASTROINTESTINAL Gastrointestinal: DENIES: Abdominal Pain, Nausea, Patient vomiting, Diarrhea - REPRODUCTIVE Reproductive: DENIES: : - MUSCULOSKELETAL Musculoskeletal: DENIES: Back Pain, Neck Pain - DERM Skin Color: Normal Skin Problems: None Past Medical History - General Information source: Patient - Social History Smoking Status: Former Smoker Chew tobacco use (# tins/day): No Frequency of alcohol use: None Drug Abuse: None Occupation: None Lives with: Spouse/Significant other Family History: CAD, DM, Hypertension, Other - Asthma Patient has suicidal ideation: No Patient has homicidal ideation: No - Past Medical History Cardiac Medical History: Reports: Hx Hypertension Pulmonary Medical History: Reports: Hx Asthma, Hx Bronchitis, Hx COPD, Hx Pneumonia Neurological Medical History: Reports: Hx Migraine Endocrine Medical History: Reports: Hx Hypothyroidism Renal/ Medical History: Denies: Hx Peritoneal Dialysis GI Medical History: Reports: Hx Gastroesophageal Reflux Disease. Denies: Hx Hepatitis Musculoskeletal Medical History: Reports Hx Musculoskeletal Trauma Psychiatric Medical History: Reports: Hx Anxiety, Hx Bipolar Disorder Traumatic Medical History: Reports: Hx Fractures Infectious Medical History: Denies: Hx Hepatitis Past Surgical History: Reports: Hx Cholecystectomy, Hx Oral Surgery - [place] teeth, Hx Orthopedic Surgery - Bilateral great toe. Denies: Hx Hysterectomy, Hx Mastectomy, Hx Open Heart Surgery, Hx Pacemaker - Immunizations Immunizations up to date: Yes Hx Diphtheria, Pertussis, Tetanus Vaccination: Yes Hx Pneumococcal Vaccination: 08/29/00 Vertical Provider Document - CONSTITUTIONAL Agree With Documented VS: Yes Exam Limitations: No Limitations General Appearance: WD/WN, No Apparent Distress - INFECTION CONTROL TRAVEL OUTSIDE OF THE [place] IN LAST 30 DAYS: No - HEENT HEENT: Atraumatic, Normocephalic, Pharyngeal Tenderness, Pharyngeal Erythema. negative: Pharyngeal Exudate, Tympanic Membrane Red, Tympanic Membrane Bulging - NECK Neck: Normal Inspection, Supple. negative: Lymphadenopathy-Left, Lymphadenopathy-Right - RESPIRATORY Respiratory: Breath Sounds Normal, No Respiratory Distress, Chest Non-Tender. negative: Rales, Rhonchi, Wheezing - CARDIOVASCULAR Cardiovascular: Regular Rate, Regular Rhythm, No Murmur - BACK Back: Normal Inspection - MUSCULOSKELETAL/EXTREMETIES Musculoskeletal/Extremeties: MAEW, FROM - NEURO Level of Consciousness: Awake, Alert, Appropriate Motor/Sensory: No Motor Deficit - DERM Integumentary: Warm, Dry, No Rash Course - Re-evaluation Re-evalutation: 07/18/18 22:36 Respirations even and unlabored, patient nontoxic in appearance. Patient with sore throat and URI symptoms and presents with significant other with similar symptoms. No concern for pneumonia pneumothorax or PE at this time. Good return precautions given. - Vital Signs Vital signs: Temp Pulse Resp BP Pulse Ox 98.7 F 108 H 16 137/103 H 99 07/18/18 19:55 07/18/18 19:55 07/18/18 19:55 07/18/18 19:55 07/18/18 19:55 - Laboratory Laboratory results interpreted by me: 07/18/18 22:36 Labs- Entire Visit 07/18/18 21:20 Group A Strep Rapid NEGATIVE 07/18/18 22:37 Labs- Entire Visit 07/18/18 21:20 Group A Strep Rapid NEGATIVE Discharge - Discharge Clinical Impression: Sore throat Upper respiratory infection Qualifiers: URI type: unspecified URI Qualified Code(s): J06.9 - Acute upper respiratory infection, unspecified Condition: Stable Disposition: HOME, SELF-CARE Instructions: Acetaminophen, Sore Throat ([facility]), Upper Respiratory Illness ([facility]) Additional Instructions: Return immediately for any new or worsening symptoms Followup with your primary care provider, call tomorrow to make a followup appointment Use your inhaler that you have at home as prescribed Throat culture is pending, will call if you need any different treatment Prescriptions: Benzonatate [Tessalon Perle 100 mg Capsule] 100 mg PO Q8HP PRN #20 cap PRN Reason: Referrals: BRUCE COTE PA-C [Primary Care Provider] - Follow up tomorrow
[2018-07-18] MEDS ORDERED: ACETAMINOPHEN 325 MG TABLET PO ONE (22:38)
[2018-07-18 22:52] VITALS: BP 149/102
== END 2018-07-18 22:52 | disposition home or self-care (01) ==
LOC: ER 19:54
DX: J02.9 Acute pharyngitis, unspecified (principal); J06.9 Acute upper respiratory infection, unspecified; R05 Cough; R68.83 Chills (without fever); H92.02 Otalgia, left ear; I10 Essential (primary) hypertension; J44.9 Chronic obstructive pulmonary disease, unspecified; Z87.891 Personal history of nicotine dependence
CPT/HCPCS: 99283; 87070; 87880; J3490

== ENCOUNTER 2018-08-29 22:20 | Emergency (ER) | payer MEDICAID ==
[2018-08-30] MEDS ORDERED: IPRATROPIUM/ALBUTEROL 0.5-2.5 MG/3 ML AMPUL NEB ONE (02:49)
[2018-08-30] MEDS ORDERED: AZITHROMYCIN 250 MG TABLET PO ONE (02:50)
--- NOTE | 2018-08-30 02:53 | ER Document Report ---
ED General - General Chief Complaint: Cough Stated Complaint: CHILLS,COUGH Time Seen by Provider: 08/30/18 02:25 Notes: Patient is a 28-year-old female who presents to the emergency department with a chief complaint of a cough times 2 days. At home she has been taking albuterol nebulizer treatments, with little relief. She also complains of right sided ear pain. She has associated chills with her symptoms. She has not taken any medication to help with her symptoms. She has also not seen her primary care doctor for this issue. She has a history of hypertension and asthma. TRAVEL OUTSIDE OF THE [place] IN LAST 30 DAYS: No - Related Data Allergies/Adverse Reactions: clindamycin [Clindamycin] Allergy (Severe, Verified 07/05/18 09:27) Hives doxycycline [Doxycycline] Allergy (Intermediate, Verified 07/05/18 09:27) Hives amoxicillin Allergy (Verified 07/05/18 09:27) Penicillins Allergy (Verified 07/05/18 09:27) Past Medical History - Social History Smoking Status: Unknown if Ever Smoked Family History: CAD, DM, Hypertension, Other - Asthma Patient has suicidal ideation: No Patient has homicidal ideation: No - Past Medical History Cardiac Medical History: Reports: Hx Hypertension Pulmonary Medical History: Reports: Hx Asthma, Hx Bronchitis, Hx COPD, Hx Pneumonia Neurological Medical History: Reports: Hx Migraine Endocrine Medical History: Reports: Hx Hypothyroidism Renal/ Medical History: Denies: Hx Peritoneal Dialysis GI Medical History: Reports: Hx Gastroesophageal Reflux Disease. Denies: Hx Hepatitis Musculoskeletal Medical History: Reports Hx Musculoskeletal Trauma Psychiatric Medical History: Reports: Hx Anxiety, Hx Bipolar Disorder Traumatic Medical History: Reports: Hx Fractures Infectious Medical History: Denies: Hx Hepatitis Past Surgical History: Reports: Hx Cholecystectomy, Hx Oral Surgery - [place] teeth, Hx Orthopedic Surgery - Bilateral great toe. Denies: Hx Hysterectomy, Hx Mastectomy, Hx Open Heart Surgery, Hx Pacemaker - Immunizations Immunizations up to date: Yes Hx Diphtheria, Pertussis, Tetanus Vaccination: Yes Hx Pneumococcal Vaccination: 08/29/00 Review of Systems - Review of Systems Notes: REVIEW OF SYSTEMS: CONSTITUTIONAL : Denies recent illness. Denies recent unintentional weight loss. Denies fever, chills, or sweats. EENT: See HPI CARDIOVASCULAR: Denies chest pain. RESPIRATORY: See HPI GASTROINTESTINAL: Denies nausea, vomiting, and diarrhea. Denies abdominal pain. Denies constipation. GENITOURINARY: Denies difficulty urinating, burning, blood in urine, urgency or frequency. MUSCULOSKELETAL: Denies neck and back pain. Denies joint pain or swelling. SKIN: Denies rash, itchiness, or lesions HEMATOLOGIC : Denies easy bruising or bleeding. LYMPHATIC: Denies swollen, painful, enlarged glands. NEUROLOGICAL: Denies no numbness or tingling denies weakness. Denies headache. Denies altered mental status. Denies alteration in speech. PSYCHIATRIC: Denies stress, anxiety, alteration in sleep patterns, or depression. All other systems reviewed and negative. Physical Exam - Vital signs Vitals: Temp Pulse Resp BP Pulse Ox 99.4 F 105 H 19 144/96 H 97 08/29/18 22:59 08/29/18 22:59 08/29/18 22:59 08/29/18 22:59 08/29/18 22:59 - Notes Notes: PHYSICAL EXAMINATION: GENERAL: Appears well, healthy, well-nourished, no acute distress. HEAD: Normocephalic, atraumatic. EYES: PERRL, conjunctiva normal, all extraocular movements intact, sclera nonicteric ENT: Moist mucous membranes. Erythema noted to bilateral tympanic membranes. NECK: Supple, no noticeable swelling, redness, rash. Normal range of motion. LUNGS: Wheezes noted anteriorly diminished lung sounds posteriorly. CARDIOVASCULAR: S1-S2, regular rate, regular rhythm. Radial pulses 2+, normal. ABDOMEN: Normoactive bowel sounds. Soft, nontender, no guarding, no rebound tenderness, and no masses palpated. EXTREMITIES: Normal strength and range of motion, no pitting or edema. No cyanosis. NEUROLOGICAL: Moves all extremities upon command. Strength 5/5 in all extremities. PSYCH: Normal mood, normal affect. SKIN: Warm, dry. No rash, lesions, ulcerations noted. Normal skin turgor. Course - Re-evaluation Re-evalutation: 08/30/18 02:54 Patient's physical exam is most consistent with bilateral otitis media. She does have mild wheezing, which she will be given a DuoNeb treatment for. Her last albuterol treatment was at 2100 this evening. I do not suspect mastoiditis at this time, because she does not have pain to the mastoid process. Due to her multiple antibiotic allergies, she will be given her first dose of azithromycin here in the emergency department and sent home with the rest of her azithromycin prescription. 08/30/18 03:20 Patient's blood sounds have improved and she states she feels better. Verbal discharge instructions were given to the patient. They verbalized understanding. They are stable for discharge. - Vital Signs Vital signs: Temp Pulse Resp BP Pulse Ox 98.3 F 98 17 140/95 H 97 08/30/18 03:24 08/30/18 03:24 08/30/18 03:24 08/30/18 03:24 08/30/18 03:24 Discharge - Discharge Clinical Impression: Acute otitis media Qualifiers: Otitis media type: suppurative Laterality: bilateral Recurrence: non-recurrent Spontaneous tympanic membrane rupture: without spontaneous rupture Qualified Code(s): H66.003 - Acute suppurative otitis media without spontaneous rupture of ear drum, bilateral Condition: Stable Disposition: HOME, SELF-CARE Additional Instructions: You were seen in the emergency department for a cough. You have an ear infection in both ears. You have been given your first dose of antibiotics here in the emergency department. Please take 1 tablet of your antibiotic every day until it is gone. You may develop a fever, if you do you may take Motrin or Tylenol 600 mg of Motrin and 1000 mg of Tylenol every 6 hours as needed for your fever or pain. Please continue to take your Zyrtec and Flonase at home. You may also take your albuterol treatments every 4 hours as needed for wheezing. If you develop a fever greater than 100.4 F that is not controlled by Motrin and Tylenol, or have any developed shortness of breath, or have any symptoms that are worrisome to you, please return to the emergency department. Prescriptions: Azithromycin [Zithromax 250 mg Tablet] 250 mg PO DAILY #4 tablet Referrals: BRUCE COTE PA-C [Primary Care Provider] - Follow up as needed
[2018-08-30 03:31] VITALS: BP 140/95
== END 2018-08-30 03:30 | disposition home or self-care (01) ==
LOC: ER 08-30 02:31
DX: H66.003 Acute suppurative otitis media without spontaneous rupture of ear drum, bilateral (principal); R05 Cough; H92.01 Otalgia, right ear; I10 Essential (primary) hypertension; J44.9 Chronic obstructive pulmonary disease, unspecified
CPT/HCPCS: 94640; 99282; Q0144; J7620

== ENCOUNTER 2018-10-02 11:01 | Emergency (ER) | payer MEDICAID ==
[2018-10-02] MEDS ORDERED: IPRATROPIUM/ALBUTEROL 0.5-2.5 MG/3 ML AMPUL NEB ONE (13:12)
--- NOTE | 2018-10-02 13:13 | ER Document Report ---
ED Flu Like - General Chief Complaint: Flu Symptoms Stated Complaint: FLU SYMPTOMS Time Seen by Provider: 10/02/18 12:33 Primary Care Provider: BRUCE COTE PA-C [Primary Care Provider] - Follow up as needed TRAVEL OUTSIDE OF THE U.S[place] IN LAST 30 DAYS: No - HPI Patient complains to provider of: Fever cough runny nose Notes: Patient coming in states a history of asthma coming in for evaluation of fever cough runny nose ongoing since . Upon my evaluation patient looks nontoxic. Patient states that he received flu vaccine this year denies any sick contacts. Patient states she does not smoke. Denies any recent travel denies any recent antibiotics. Patient is in no obvious distress upon my evaluation no air hunger. Patient is compliant with her medic at home. A brief review of the patient's past medical records available in [place] was performed - Related Data Allergies/Adverse Reactions: clindamycin [Clindamycin] Allergy (Severe, Verified 07/05/18 09:27) Hives doxycycline [Doxycycline] Allergy (Intermediate, Verified 07/05/18 09:27) Hives amoxicillin Allergy (Verified 07/05/18 09:27) Penicillins Allergy (Verified 07/05/18 09:27) Past Medical History - Social History Smoking Status: Never Smoker Chew tobacco use (# tins/day): No Frequency of alcohol use: None Drug Abuse: None Family History: CAD, DM, Hypertension, Other - Asthma Patient has suicidal ideation: No Patient has homicidal ideation: No - Past Medical History Cardiac Medical History: Reports: Hx Hypertension Pulmonary Medical History: Reports: Hx Asthma, Hx Bronchitis, Hx COPD, Hx Pneumonia Neurological Medical History: Reports: Hx Migraine Endocrine Medical History: Reports: Hx Hypothyroidism Renal/ Medical History: Denies: Hx Peritoneal Dialysis GI Medical History: Reports: Hx Gastroesophageal Reflux Disease. Denies: Hx Hepatitis Musculoskeletal Medical History: Reports Hx Musculoskeletal Trauma Psychiatric Medical History: Reports: Hx Anxiety, Hx Bipolar Disorder Traumatic Medical History: Reports: Hx Fractures Infectious Medical History: Denies: Hx Hepatitis Past Surgical History: Reports: Hx Cholecystectomy, Hx Oral Surgery - [place] teeth, Hx Orthopedic Surgery - Bilateral great toe. Denies: Hx Hysterectomy, Hx Mastectomy, Hx Open Heart Surgery, Hx Pacemaker - Immunizations Immunizations up to date: Yes Hx Diphtheria, Pertussis, Tetanus Vaccination: Yes Hx Pneumococcal Vaccination: 01/01/01 Review of Systems - Review of Systems Constitutional: Fever EENT: Nose discharge Cardiovascular: No symptoms reported Respiratory: Short of breath Gastrointestinal: No symptoms reported Genitourinary: No symptoms reported Female Genitourinary: No symptoms reported Musculoskeletal: No symptoms reported Skin: No symptoms reported Hematologic/Lymphatic: No symptoms reported Neurological/Psychological: No symptoms reported -: Yes All other systems reviewed and negative Physical Exam - Vital signs Vitals: Temp Pulse Resp BP Pulse Ox 98.3 F 96 16 150/90 H 99 10/02/18 13:26 10/02/18 13:26 10/02/18 13:10/02/18 13:10/02/18 13:26 Interpretation: Normal - General General appearance: Appears well, Alert - HEENT Head: Normocephalic, Atraumatic Eyes: Normal Pupils: PERRL - Respiratory Respiratory status: No respiratory distress Chest status: Nontender Breath sounds: Wheezing - Scattered Chest palpation: Normal - Cardiovascular Rhythm: Regular Heart sounds: Normal auscultation Murmur: No - Abdominal Inspection: Normal Distension: No distension Bowel sounds: Normal Tenderness: Nontender Organomegaly: No organomegaly - Back Back: Normal, Nontender - Extremities General upper extremity: Normal inspection, Nontender, Normal color, Normal ROM, Normal temperature General lower extremity: Normal inspection, Nontender, Normal color, Normal ROM, Normal temperature, Normal weight bearing. No: Marco's sign - Neurological Neuro grossly intact: Yes Cognition: Normal Orientation: AAOx4 [place] Coma Scale Eye Opening: Spontaneous [place] Coma Scale Verbal: Oriented [place] Coma Scale Motor: Obeys Commands [place] Coma Scale Total: 15 Speech: Normal Motor strength normal: LUE, RUE, LLE, RLE Sensory: Normal - Psychological Associated symptoms: Normal affect, Normal mood - Skin Skin Temperature: Warm Skin Moisture: Dry Skin Color: Normal Course - Re-evaluation Re-evalutation: 10/02/18 18:20 Patient was scattered wheezes on examination more likely patient has a viral etiology possibly influenza. Discussed this possible etiology with patient. Patient is to follow-up with her primary care physician continue with her medications at home. States understanding patient will be discharged home - Vital Signs Vital signs: Temp Pulse Resp BP Pulse Ox 98.3 F 96 16 150/90 H 99 10/02/18 13:26 10/02/18 13:10/02/18 13:26 10/02/18 13:26 10/02/18 13:26 Discharge - Discharge Clinical Impression: Shortness of breath, Flu-like symptoms Condition: Good Disposition: HOME, SELF-CARE Instructions: Influenza ([facility]) [id number] Additional Instructions: Continue take Tylenol Motrin for fever and pain control at home please use your nebulizer and inhalers at home 1 treatment every 2-4 hours as needed for shortness of breath or wheezing. You may use the Zofran as prescribed for any nausea that she may have. Follow-up with your primary care physician in the next 2-3 days return to the ER symptoms worsen. Prescriptions: Ondansetron HCl [Zofran 4 mg Tablet] 1 - 2 tab PO Q6 #30 tablet Referrals: BRUCE COTE PA-C [Primary Care Provider] - Follow up as needed
[2018-10-02 13:27] VITALS: BP 150/90
== END 2018-10-02 13:26 | disposition home or self-care (01) ==
LOC: ER 11:01
DX: J11.1 Influenza due to unidentified influenza virus with other respiratory manifestations (principal); R06.02 Shortness of breath; R50.9 Fever, unspecified; R05 Cough; R09.89 Other specified symptoms and signs involving the circulatory and respiratory systems; I10 Essential (primary) hypertension; J44.9 Chronic obstructive pulmonary disease, unspecified
CPT/HCPCS: 94640; 99283; J7620

== ENCOUNTER 2018-10-02 19:58 | Emergency (ER) | payer MEDICAID ==
--- NOTE | 2018-10-02 23:33 | ER Document Report ---
ED General - General Chief Complaint: Sore Throat Stated Complaint: SORE THROAT,COUGH,CHILLS Time Seen by Provider: 10/02/18 23:32 Primary Care Provider: BRUCE COTE PA-C [Primary Care Provider] - Follow up as needed Mode of Arrival: Ambulatory Information source: Patient Notes: HISTORY OF PRESENT ILLNESS: Patient is a 28-year-old obese female with a past medical history of hypertension and anxiety who presents with fever with nonproductive cough and sore throat for the past "few days." Location: Global, throat Onset: Gradual Provocation: Swallowing Quality: "Burning and soreness" Radiation: None Severity: Mild to moderate Timing: Constant 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 Denies recent illness. EENT: Positive for sore throat, denies nasal congestion. CARDIOVASCULAR: Denies chest pain. RESPIRATORY: Positive for cough that is nonproductive. Denies shortness of breath, difficulty breathing, or wheezing. GASTROINTESTINAL: Denies abdominal pain. Denies nausea, vomiting, or diarrhea. Denies constipation. GENITOURINARY: Denies difficulty urinating, painful urination, burning, frequency, or blood in urine. FEMALE GENITOURINARY: Denies vaginal bleeding, abnormal or irregular periods. MUSCULOSKELETAL: Denies body aches. Denies neck or back pain or joint pain or swelling. SKIN: Denies rash or skin lesions. HEMATOLOGIC : Denies easy bruising or bleeding. LYMPHATIC: Denies swollen, enlarged glands. NEUROLOGICAL: Denies altered mental status or loss of consciousness. Denies headache. Denies weakness or paralysis or loss of use of either side. Denies problems with gait or speech. Denies sensory or motor loss. PSYCHIATRIC: Denies anxiety or stress or depression. All other systems reviewed and negative. PHYSICAL EXAMINATION: GENERAL: Well-appearing, well-nourished and in no acute distress, morbidly obese. HEAD: Atraumatic, normocephalic. No scalp deformity, depression, or crepitance. EYES: Pupils are 3 mm and equal/round/reactive to light, extraocular movements intact, sclera anicteric, conjunctiva are normal. ENT: Nares patent bilaterally, oropharynx clear without exudates or palatal petechia. Moist mucous membranes. No tonsil hypertrophy. NECK: Normal range of motion, supple without lymphadenopathy. LUNGS: Breath sounds present, equal, and clear to auscultation bilaterally. No wheezes, rales, or rhonchi. HEART: Regular rate and rhythm without murmurs, rubs, or gallops. 2+ peripheral pulses. Normal capillary refill. ABDOMEN: Soft, nontender, nondistended. Normoactive bowel sounds. No guarding, no rebound. No masses appreciated. BACK: Normal contour, no midline tenderness. Rectal exam deferred. PELVC: Deferred. EXTREMITIES: Normal range of motion, no pitting or edema. No cyanosis. NEUROLOGICAL: No focal neurological deficits. Moves all extremities spontaneously and on command. PSYCH: Normal mood, normal affect. No suicidal thoughts/ideations. No homocidal thoughts/ideations. No hallucinations. SKIN: Warm, dry, normal turgor, no rashes or lesions noted. ASSESSMENT AND PLAN: This patient is a 28-year-old female who presents with subjective fever with sore throat that is consistent with viral syndrome. 1. Will give oral Decadron and discharged home with return precautions and follow-up as needed. Patient voices both understanding and agreeing with the plan. TRAVEL OUTSIDE OF THE [place] IN LAST 30 DAYS: No - Related Data Allergies/Adverse Reactions: clindamycin [Clindamycin] Allergy (Severe, Verified 07/05/18 09:27) Hives doxycycline [Doxycycline] Allergy (Intermediate, Verified 07/05/18 09:27) Hives amoxicillin Allergy (Verified 07/05/18 09:27) Penicillins Allergy (Verified 07/05/18 09:27) Past Medical History - General Information source: Patient - Social History Smoking Status: Never Smoker Chew tobacco use (# tins/day): No Frequency of alcohol use: None Drug Abuse: None Lives with: Family Family History: CAD, DM, Hypertension, Other - Asthma Patient has suicidal ideation: No Patient has homicidal ideation: No - Past Medical History Cardiac Medical History: Reports: Hx Hypertension Pulmonary Medical History: Reports: Hx Asthma, Hx Bronchitis, Hx COPD, Hx Pn eum[place] EENT Medical History: Reports: None Neurological Medical History: Reports: Hx Migraine Endocrine Medical History: Reports: Hx Hypothyroidism Renal/ Medical History: Reports: None. Denies: Hx Peritoneal Dialysis Malignancy Medical History: Reports: None GI Medical History: Reports: Hx Gastroesophageal Reflux Disease. Denies: Hx Hepatitis Musculoskeletal Medical History: Reports Hx Musculoskeletal Trauma Skin Medical History: Reports None Psychiatric Medical History: Reports: Hx Anxiety, Hx Bipolar Disorder Traumatic Medical History: Reports: Hx Fractures Infectious Medical History: Reports: None. Denies: Hx Hepatitis Past Surgical History: Reports: Hx Cholecystectomy, Hx Oral Surgery - [place] teeth, Hx Orthopedic Surgery - Bilateral great toe. Denies: Hx Hysterectomy, Hx Mastectomy, Hx Open Heart Surgery, Hx Pacemaker - Immunizations Immunizations up to date: Yes Hx Diphtheria, Pertussis, Tetanus Vaccination: Yes Hx Pneumococcal Vaccination: 08/29/00 Physical Exam - Vital signs Vitals: Temp Pulse Resp BP Pulse Ox 98.8 F 112 H 24 H 154/108 H 97 10/02/18 20:06 10/02/18 20:06 10/02/18 20:06 10/02/18 20:06 10/02/18 20:06 Course - Vital Signs Vital signs: Temp Pulse Resp BP Pulse Ox 98.8 F 112 H 24 H 154/108 H 97 10/02/18 20:06 10/02/18 20:06 10/02/18 20:06 10/02/18 20:06 10/02/18 20:06 Discharge - Discharge Clinical Impression: Viral syndrome Condition: Good Disposition: HOME, SELF-CARE Instructions: Viral Syndrome ([facility]) Additional Instructions: You have been evaluated in the Emergency Department for continued symptoms secondary to a viral illness. While here, you received oral Decadron and will be discharged home with prescriptions. Please follow-up with your primary physician as instructed in 1-2 weeks to be rechecked for improvement. Return to the Emergency Department if you experience uncontrolled fevers, difficulty breathing, or any other concerning symptoms. Prescriptions: Codeine Phosphate/Guaifenesin [Cheratussin AC Syrup] 10 ml PO Q6H PRN #240 liquid PRN Reason: Cough Referrals: BRUCE COTE PA-C [Primary Care Provider] - Follow up as needed Print Language: Kosovan
[2018-10-03] MEDS ORDERED: DEXAMETHASONE CONC 1 MG/ML SOLN PO ONE (00:53)
[2018-10-03 01:45] VITALS: BP 145/105
== END 2018-10-03 01:45 | disposition home or self-care (01) ==
LOC: ER 19:58
DX: B34.9 Viral infection, unspecified (principal); J02.9 Acute pharyngitis, unspecified; R05 Cough; I10 Essential (primary) hypertension; R50.9 Fever, unspecified; J44.9 Chronic obstructive pulmonary disease, unspecified
CPT/HCPCS: 99282; J8540

== ENCOUNTER 2018-10-13 10:38 | Emergency (ER) | payer MEDICAID ==
[2018-10-13] MEDS ORDERED: DIPHENHYDRAMINE HCL 50 MG/ML VIAL IV ONE (11:30)
[2018-10-13] MEDS ORDERED: FAMOTIDINE INJ/PF 20 MG/2 ML SDV IV ONE (11:31)
[2018-10-13] MEDS ORDERED: MAGNESIUM SULFATE/D5W 1 GM/100 ML RTUPB IV ONE (11:31)
--- NOTE | 2018-10-13 11:32 | ER Document Report ---
ED Medical Screen (RME) - General Chief Complaint: Lip Swelling Stated Complaint: SWOLLEN LIP/EAR PAIN Time Seen by Provider: 10/13/18 11:30 Primary Care Provider: BRUCE COTE PA-C [Primary Care Provider] - Follow up as needed Mode of Arrival: Ambulatory Information source: Patient Notes: Note this is a 28-year-old female with a colitis, hypertension, hypothyroidism and allergic reactions to bee stings. Patient states her lower lip was tingling last night she put some ice packs on it. She awoke this morning with swollen lower lip. She denies any difficulty swallowing or breathing. She denies any wheezing. She denies any fever. She does have swelling and tenderness to the left. He denies any recent illnesses. TRAVEL OUTSIDE OF THE [place] IN LAST 30 DAYS: No - Related Data Allergies/Adverse Reactions: clindamycin [Clindamycin] Allergy (Severe, Verified 10/13/18 11:05) Hives doxycycline [Doxycycline] Allergy (Intermediate, Verified 10/13/18 11:05) Hives amoxicillin Allergy (Verified 10/13/18 11:05) Penicillins Allergy (Verified 10/13/18 11:05) Past Medical History - Social History Chew tobacco use (# tins/day): No Frequency of alcohol use: None Drug Abuse: None Family history: Reviewed & Not Pertinent - Past Medical History Cardiac Medical History: Reports: Hx Hypertension Pulmonary Medical History: Reports: Hx Asthma, Hx Bronchitis, Hx COPD, Hx Pneumonia Neurological Medical History: Reports: Hx Migraine Endocrine Medical History: Reports: Hx Hypothyroidism Renal/ Medical History: Denies: Hx Peritoneal Dialysis GI Medical History: Reports: Hx Gastroesophageal Reflux Disease. Denies: Hx Hepatitis Musculoskeltal Medical History: Reports Hx Musculoskeletal Trauma Psychiatric Medical History: Reports: Hx Anxiety, Hx Bipolar Disorder Traumatic Medical History: Reports: Hx Fractures Infectious Medical History: Denies: Hx Hepatitis Past Surgical History: Reports: Hx Cholecystectomy, Hx Oral Surgery - [place] teeth, Hx Orthopedic Surgery - Bilateral great toe. Denies: Hx Hysterectomy, Hx Mastectomy, Hx Open Heart Surgery, Hx Pacemaker - Immunizations Immunizations up to date: Yes Hx Diphtheria, Pertussis, Tetanus Vaccination: Yes History of Influenza Vaccine for 05/2017 - 10/2017 Season: No Physical Exam - Vital signs Vitals: Temp Pulse Resp BP Pulse Ox 99.1 F 96 18 145/108 H 98 10/13/18 11:00 10/13/18 11:00 10/13/18 11:00 10/13/18 11:00 10/13/18 11:00 Course - Vital Signs Vital signs: Temp Pulse Resp BP Pulse Ox 99.1 F 96 18 145/108 H 98 10/13/18 11:00 10/13/18 11:00 10/13/18 11:00 10/13/18 11:00 10/13/18 11:00 Doctor's Discharge - Discharge Referrals: BRUCE COTE PA-C [Primary Care Provider] - Follow up as needed
[2018-10-13 11:56] LABS: ABSOLUTE BASOPHILS # (AUTO) 0.1 10^3/uL (0.0-0.2); ABSOLUTE EOSINOPHILS # (AUTO) 0.4 10^3/uL (0.0-0.6); ABSOLUTE LYMPHOCYTES (AUTO) 1.7 10^3/uL (0.5-4.7); ABSOLUTE MONOCYTES (AUTO) 0.6 10^3/uL (0.1-1.4); ABSOLUTE NEUT (AUTO) 6.5 10^3/uL (1.7-8.2); BASOPHILS % (AUTO) 0.6 % (0-2); EOSINOPHILS % (AUTO) 4.4 % (0-6); HEMATOCRIT 49.6 % (36.0-47.0); HEMOGLOBIN 17.6 g/dL (12.0-15.5); LYMPHOCYTES % (AUTO) 18.5 % (13-45); MEAN CORPUSCULAR HEMOGLOBIN 31.9 pg (27.0-33.4); MEAN CORPUSCULAR HGB CONC 35.5 g/dL (32.0-36.0); MEAN CORPUSCULAR VOLUME 90 fl (80-97); MONOCYTES % (AUTO) 6.3 % (3-13); PLATELET COUNT 289 10^3/uL (150-450); RED BLOOD COUNT 5.53 10^6/uL (3.72-5.28); SEGMENTED NEUTROPHILS % (AUTO) 70.2 % (42-78); TOTAL CELLS COUNTED % (AUTO) 100 %; WHITE BLOOD COUNT 9.2 10^3/uL (4.0-10.5)
[2018-10-13 12:14] LABS: ALANINE AMINOTRANSFERASE 122 U/L (9-52); ALBUMIN 5.3 g/dL (3.5-5.0); ALKALINE PHOSPHATASE 93 U/L (38-126); ANION GAP 14 (5-19); ASPARTATE AMINO TRANSFERASE 77 U/L (14-36); BLOOD UREA NITROGEN 9 mg/dL (7-20); CALCIUM 10.2 mg/dL (8.4-10.2); CARBON DIOXIDE 28 mmol/L (22-30); CHLORIDE 100 mmol/L (98-107); GLUCOSE 95 mg/dL (75-110); POTASSIUM 4.7 mmol/L (3.6-5.0); SODIUM 141.7 mmol/L (137-145)
[2018-10-13 12:15] LABS: BILIRUBIN,DIRECT 0.4 mg/dL (0.0-0.4); BILIRUBIN,TOTAL 1.4 mg/dL (0.2-1.3); TOTAL PROTEIN 8.4 g/dL (6.3-8.2)
--- NOTE | 2018-10-13 13:19 | ER Document Report ---
ED General - General Chief Complaint: Lip Swelling Stated Complaint: SWOLLEN LIP/EAR PAIN Time Seen by Provider: 10/13/18 11:30 Primary Care Provider: BRUCE COTE PA-C [Primary Care Provider] - Follow up as needed Mode of Arrival: Ambulatory Notes: 28-year-old female with a colitis, hypertension, hypothyroidism and allergic reactions to bee stings. Patient states her lower lip was tingling last night she put some ice packs on it. No changes as far as food consumption, last thing she ate was pizza last night which is typical. She awoke this morning with swollen lower lip. She denies any difficulty swallowing or breathing. She denies any wheezing. She denies rashes or hives. She denies nausea or vomiting. She denies any fever. She denies neck stiffness. Denies shortness of breath or chest pain. TRAVEL OUTSIDE OF THE [place] IN LAST 30 DAYS: No - Related Data Allergies/Adverse Reactions: clindamycin [Clindamycin] Allergy (Severe, Verified 10/13/18 11:05) Hives doxycycline [Doxycycline] Allergy (Intermediate, Verified 10/13/18 11:05) Hives amoxicillin Allergy (Verified 10/13/18 11:05) Penicillins Allergy (Verified 10/13/18 11:05) Past Medical History - General Information source: Patient - Social History Smoking Status: Never Smoker Chew tobacco use (# tins/day): No Frequency of alcohol use: None Drug Abuse: None Family History: CAD, DM, Hypertension, Other - Asthma Patient has suicidal ideation: No Patient has homicidal ideation: No - Past Medical History Cardiac Medical History: Reports: Hx Hypertension Pulmonary Medical History: Reports: Hx Asthma, Hx Bronchitis, Hx COPD, Hx Pneumonia Neurological Medical History: Reports: Hx Migraine Endocrine Medical History: Reports: Hx Hypothyroidism Renal/ Medical History: Denies: Hx Peritoneal Dialysis GI Medical History: Reports: Hx Gastroesophageal Reflux Disease. Denies: Hx Hepatitis Musculoskeletal Medical History: Reports Hx Musculoskeletal Trauma Psychiatric Medical History: Reports: Hx Anxiety, Hx Bipolar Disorder Traumatic Medical History: Reports: Hx Fractures Infectious Medical History: Denies: Hx Hepatitis Past Surgical History: Reports: Hx Cholecystectomy, Hx Oral Surgery - [place] teeth, Hx Orthopedic Surgery - Bilateral great toe. Denies: Hx Hysterectomy, Hx Mastectomy, Hx Open Heart Surgery, Hx Pacemaker - Immunizations Immunizations up to date: Yes Hx Diphtheria, Pertussis, Tetanus Vaccination: Yes Hx Pneumococcal Vaccination: 08/29/00 Review of Systems - Review of Systems Constitutional: See HPI EENT: See HPI Cardiovascular: See HPI Respiratory: See HPI Gastrointestinal: See HPI Genitourinary: No symptoms reported Female Genitourinary: No symptoms reported Musculoskeletal: No symptoms reported Skin: See HPI Hematologic/Lymphatic: No symptoms reported Neurological/Psychological: No symptoms reported Physical Exam - Vital signs Vitals: Temp Pulse Resp BP Pulse Ox 99.1 F 96 18 145/108 H 98 10/13/18 11:00 10/13/18 11:00 10/13/18 11:00 10/13/18 11:00 10/13/18 11:00 - Notes Notes: PHYSICAL EXAMINATION: Reviewed vital signs and charting by RN GENERAL: Alert, interacts well. No acute distress. HEAD: Normocephalic, atraumatic. EYES: Pupils equal, round, and reactive to light. Extraocular movements intact. ENT: Oral mucosa moist, tongue midline. NECK: Full range of motion. Tenderness right side of neck, a lot of fat difficult to assess anatomy but she states she feels subjective swelling trachea midline. LUNGS: Clear to auscultation bilaterally, no wheezes, rales, or rhonchi. No respiratory distress. HEART: Regular rate and rhythm. No murmur ABDOMEN: soft, non-tender. Non-distended. Bowel sounds present in all 4 quadrants. no McBurney's point tenderness, no Alvarado sign. EXTREMITIES: Moves all 4 extremities spontaneously. No edema, No cyanosis. NEUROLOGICAL: Alert and oriented. Normal speech. PSYCH: Normal affect, normal mood. SKIN: Warm, dry, normal turgor. Lower lip edema with lesion center part of bottom lip, no drainage from it, discolored, and no area of fluctuance. Course - Re-evaluation Re-evalutation: 10/13/18 13:19 Overall well-appearing 28-year-old female presents with a swollen lip that started this morning. Discussed patient with Dr. Ornelas. Patient did get Pepcid, Benadryl, mag sulfate IV. After infusions patient still had lip swelling. Because patient noted tingling last night this is consistent with pro dromal symptoms with a lesion present. She states that she is having pain on her lip. I cannot explain why her lip is swollen but there is no evidence of anaphylaxis or concern for an allergic reaction. Patient states she was playing with her cat but denies that cat scratched her on her lip. Lesion appears to be herpetic in nature. Plan is to give her Goss's Cyclovir 1 g now with a prescription. I told her close follow-up with her primary doctor on Tuesday or Tuesday. Gave her strict return precautions. Patient understood all instructions and agrees to plan. 10/13/18 14:30 - Vital Signs Vital signs: Temp Pulse Resp BP Pulse Ox 99.1 F 96 18 145/108 H 98 10/13/18 11:00 10/13/18 11:00 10/13/18 11:00 10/13/18 11:00 10/13/18 11:00 - Laboratory Result Diagrams: 10/13/18 11:42 10/13/18 11:42 Laboratory results interpreted by me: 10/13/18 10/13/18 11:42 11:42 RBC 5.53 H Hgb 17.6 H Hct 49.6 H Total Bilirubin 1.4 H AST 77 H ALT 122 H Total Protein 8.4 H Albumin 5.3 H Discharge - Discharge Clinical Impression: Swollen lip Condition: Good Disposition: HOME, SELF-CARE Additional Instructions: You are seen in the emergency department this afternoon for lip swelling. It is unclear why her lip is swollen but because your cat did not scratch you I am not concerned for infection. Your blood work did not show any evidence of infection. We gave you the medications that we give for allergic reaction which did not respond which tells us that is most likely is not an allergic reaction. Because you had the tingling on your lip last night prior to this break out that is consistent with a herpetic breakout. This is also a cold sore. I have given you medication here in the emergency department called valacyclovir. I am sending her home with a prescription for 7 days able take 3 times a day. Please follow-up with your primary doctor on Tuesday or Tuesday. If you develop worsening swelling of your lips, your throat starts closing off you are having difficulty breathing, he develop hives, he developed nausea or vomiting with hives please immediately return to the emergency department as this is a sign of an emergency Referrals: BRUCE COTE PA-C [Primary Care Provider] - Follow up as needed
[2018-10-13] MEDS ORDERED: VALACYCLOVIR HCL 500 MG TABLET PO ONE (14:29)
[2018-10-13 14:51] VITALS: BP 139/99
== END 2018-10-13 14:52 | disposition home or self-care (01) ==
LOC: ER 10:38
DX: R22.0 Localized swelling, mass and lump, head (principal); K13.0 Diseases of lips; I10 Essential (primary) hypertension; J44.9 Chronic obstructive pulmonary disease, unspecified; Z91.030 Bee allergy status; Z88.1 Allergy status to other antibiotic agents; Z88.0 Allergy status to penicillin
CPT/HCPCS: 99283; 96375; 96365; 96366; 36415; 85025; 80053; J1200; J3475; S0028; J3490

== ENCOUNTER 2018-10-16 22:24 | Emergency (ER) | payer MEDICAID ==
--- NOTE | 2018-10-17 01:41 | ER Document Report ---
HPI - HPI Patient complains to provider of: Respiratory distress Time Seen by Provider: 10/17/18 01:35 Pain Level: 3 Context: Patient is a 28-year-old female presents to the emergency department chief complaint respiratory distress. Patient states she is an asthma patient and feels as though her albuterol at home was not working this evening. Patient is denying any cough, congestion, fever, nausea, vomiting. Patient states she overall is feeling fine just states that she feels as though her home albuterol was not "doing the trick tonight." Past medical history: Asthma Medications: Albuterol Allergies: Clindamycin, doxycycline, penicillin - REPRODUCTIVE Reproductive: DENIES: : Past Medical History - General Information source: Patient - Social History Smoking Status: Unknown if Ever Smoked Family History: CAD, DM, Hypertension, Other - Asthma - Past Medical History Cardiac Medical History: Reports: Hx Hypertension Pulmonary Medical History: Reports: Hx Asthma, Hx Bronchitis, Hx COPD, Hx Pneumonia Neurological Medical History: Reports: Hx Migraine Endocrine Medical History: Reports: Hx Hypothyroidism Renal/ Medical History: Denies: Hx Peritoneal Dialysis GI Medical History: Reports: Hx Gastroesophageal Reflux Disease. Denies: Hx Hepatitis Musculoskeletal Medical History: Reports Hx Musculoskeletal Trauma Psychiatric Medical History: Reports: Hx Anxiety, Hx Bipolar Disorder Traumatic Medical History: Reports: Hx Fractures Infectious Medical History: Denies: Hx Hepatitis Past Surgical History: Reports: Hx Cholecystectomy, Hx Oral Surgery - [place] te eth, Hx Orthopedic Surgery - Bilateral great toe. Denies: Hx Hysterectomy, Hx Mastectomy, Hx Open Heart Surgery, Hx Pacemaker - Immunizations Immunizations up to date: Yes Hx Diphtheria, Pertussis, Tetanus Vaccination: Yes Hx Pneumococcal Vaccination: 08/29/00 Vertical Provider Document - CONSTITUTIONAL Agree With Documented VS: Yes Notes: GENERAL: Alert, interacts well. No acute distress. HEAD: Normocephalic, atraumatic. EYES: Pupils equal, round, and reactive to light. Extraocular movements intact. ENT: Oral mucosa moist, tongue midline. Nares patent, TM's intact, nonerythematous, nonbulging bilaterally. Pharynx within normal limits no palatal petechiae noted NECK: Full range of motion. Supple. Trachea midline. LUNGS: Clear to auscultation bilaterally, no wheezes, rales, or rhonchi. No respiratory distress. HEART: Regular rate and rhythm. No murmur ABDOMEN: Soft, non-tender. Non-distended. Bowel sounds present in all 4 quadrants. EXTREMITIES: Moves all 4 extremities spontaneously. No edema, normal radial and dorsalis pedis pulses bilaterally. No cyanosis. BACK: no cervical, thoracic, lumbar midline tenderness. No saddle anesthesia, normal distal neurovascular exam. NEUROLOGICAL: Alert and oriented x3. Normal speech. cranial nerves II through XII grossly intact PSYCH: Normal affect, normal mood. SKIN: Warm, dry, normal turgor. No rashes or lesions noted. - INFECTION CONTROL TRAVEL OUTSIDE OF THE [place] IN LAST 30 DAYS: No Course - Re-evaluation Re-evalutation: 10/17/18 01:39 Upon my examination patient is in absolutely no respiratory distress. Her pulse oxygenation on room air is 100%. Patient states "I feel a whole lot better after sitting in the waiting room." Patient states she has plenty of her albuterol inhaler at home. I discussed with her I do not feel as though she is put on a dose of steroids at this time because her lung sounds clear in all richardson. Discussed the use of a chest x-ray. Patient continues without cough, congestion, fever, pneumonia is unlikely. Patient states "I feel better and would like to go home." Patient stable for discharge. - Vital Signs Vital signs: Temp Pulse Resp BP Pulse Ox 98.7 F 104 H 18 170/103 H 99 10/16/18 22:52 10/16/18 22:52 10/16/18 22:52 10/16/18 22:52 10/16/18 22:52 Discharge - Discharge Clinical Impression: Shortness of breath Condition: Stable Disposition: HOME, SELF-CARE Additional Instructions: You have been seen and treated in the emergency department for your rest jacki distress. Please continue to use your at home breathing treatments every 4 hours as needed. Please make sure he stay well-hydrated and follow-up with your primary care provider in the next 24-48 hours. Please immediately return to the emergency room should you feel short of breath or have any other concerning symptoms. Forms: Elevated Blood Pressure Referrals: BRUCE COTE PA-C [Primary Care Provider] - Follow up as needed
[2018-10-17 03:04] VITALS: BP 151/88
== END 2018-10-17 01:45 | disposition home or self-care (01) ==
LOC: ER 22:24
DX: J44.9 Chronic obstructive pulmonary disease, unspecified (principal); Z79.899 Other long term (current) drug therapy; R06.02 Shortness of breath; I10 Essential (primary) hypertension; Z88.1 Allergy status to other antibiotic agents; Z88.0 Allergy status to penicillin
CPT/HCPCS: 99284

== ENCOUNTER 2018-11-15 21:45 | Emergency (ER) | payer MEDICAID ==
[2018-11-15] MEDS ORDERED: NORMAL SALINE 1000 ML 1,000 ML IV ONE (21:58)
[2018-11-15] MEDS: MAGNESIUM SULFATE/D5W 1 GM/100 ML RTUPB IV SCH ×2 (21:59→22:27)
--- NOTE | 2018-11-15 22:00 | ER Document Report ---
ED Respiratory Problem - General Stated Complaint: DIFFICULTY BREATHING Time Seen by Provider: 11/15/18 21:55 Primary Care Provider: BRUCE COTE PA-C [Primary Care Provider] - Follow up as needed Notes: Patient is a 28-year-old female who comes in with difficulty breathing. Patient has a history of asthma and states that her difficulty breathing has been getting worse all week. She had a temperature of 99 yesterday. Patient denies any productive coughing. She has been using rescue inhaler and nebulizer at home. Patient has never been intubated for asthma. She does not get flu vaccines or pneumonia vaccines. Patient has not smoked in quite some time. Denies any chance of being . No chest pain. Has been feeling better since EMS started nebulizer treatments and gave her Solu-Medrol prior to arrival. TRAVEL OUTSIDE OF THE [place] IN LAST 30 DAYS: No - HPI Patient complains to provider of: Asthma, Short of breath Onset: Last week Duration: Continuous Quality of pain: No pain Pain Level: Denies Context: Hx asthma Short of Breath: Moderate Cough: Nonproductive Sputum amount: Scant Sputum color: Clear At home treatment: Bronchodilators EMS treatments: Bronchodilators, Solumedrol Associated symptoms: None - Related Data Allergies/Adverse Reactions: clindamycin [Clindamycin] Allergy (Severe, Verified 10/13/18 11:05) Hives doxycycline [Doxycycline] Allergy (Intermediate, Verified 10/13/18 11:05) Hives amoxicillin Allergy (Verified 10/13/18 11:05) Penicillins Allergy (Verified 10/13/18 11:05) Past Medical History - Social History Smoking Status: Former Smoker Family History: CAD, DM, Hypertension, Other - Asthma - Past Medical History Cardiac Medical History: Reports: Hx Hypertension Pulmonary Medical History: Reports: Hx Asthma, Hx Bronchitis, Hx COPD, Hx Pneumonia Neurological Medical History: Reports: Hx Migraine Endocrine Medical History: Reports: Hx Hypothyroidism Renal/ Medical History: Denies: Hx Peritoneal Dialysis GI Medical History: Reports: Hx Gastroesophageal Reflux Disease. Denies: Hx Hepatitis Musculoskeletal Medical History: Reports Hx Musculoskeletal Trauma Psychiatric Medical History: Reports: Hx Anxiety, Hx Bipolar Disorder Traumatic Medical History: Reports: Hx Fractures Infectious Medical History: Denies: Hx Hepatitis Past Surgical History: Reports: Hx Cholecystectomy, Hx Oral Surgery - [place] teeth, Hx Orthopedic Surgery - Bilateral great toe. Denies: Hx Hysterectomy, Hx Mastectomy, Hx Open Heart Surgery, Hx Pacemaker - Immunizations Immunizations up to date: Yes Hx Diphtheria, Pertussis, Tetanus Vaccination: Yes Hx Pneumococcal Vaccination: 08/29/00 Review of Systems - Review of Systems Constitutional: Malaise EENT: No symptoms reported Cardiovascular: No symptoms reported Respiratory: See HPI Gastrointestinal: No symptoms reported Genitourinary: No symptoms reported Female Genitourinary: No symptoms reported Musculoskeletal: No symptoms reported Skin: No symptoms reported Hematologic/Lymphatic: No symptoms reported Neurological/Psychological: No symptoms reported Physical Exam - Vital signs Interpretation: Tachypneic - General General appearance: Alert In distress: Mild - some tachypnea - HEENT Head: Normocephalic, Atraumatic Eyes: Normal Pupils: PERRL - Respiratory Respiratory status: Respiratory distress - mild Breath sounds: Wheezing - Cardiovascular Rhythm: Regular, Tachycardia - Abdominal Inspection: Normal Tenderness: Nontender - Back Back: Normal - Extremities General upper extremity: Normal inspection, Normal ROM General lower extremity: Normal inspection, Normal ROM - Neurological Neuro grossly intact: Yes Cognition: Normal Orientation: AAOx4 Rosina Coma Scale Eye Opening: Spontaneous Rosina Coma Scale Verbal: Oriented Rosina Coma Scale Motor: Obeys Commands Rosina Coma Scale Total: 15 - Psychological Associated symptoms: Normal affect, Normal mood - Skin Skin Temperature: Warm Skin Moisture: Diaphoretic Skin Color: Flushed Course - Re-evaluation Re-evalutation: 11/15/18 21:59 Patient with difficulty breathing. Currently on a nebulizer treatment. Is received Solu-Medrol. Magnesium and fluids initiated for tachycardia. 11/15/18 22:08 Respiratory status improving. CARE transition to Dr. Juan Boothe. - Laboratory Result Diagrams: 11/15/18 21:47 11/15/18 21:47 - Diagnostic Test Radiology reviewed: Image reviewed - NAD - EKG Interpretation by [facility] EKG shows normal: Sinus rhythm Rate: Tachycardia Discharge - Discharge Clinical Impression: Asthma exacerbation Qualifiers: Asthma severity: moderate Asthma persistence: unspecified Qualified Code(s): J45.901 - Unspecified asthma with (acute) exacerbation Condition: Stable Disposition: OTHER Referrals: BRUCE COTE PA-C [Primary Care Provider] - Follow up as needed
[2018-11-15 22:06] LABS: ABSOLUTE EOSINOPHILS # (AUTO) 0.5 10^3/uL (0.0-0.6); ABSOLUTE LYMPHOCYTES (AUTO) 2.2 10^3/uL (0.5-4.7); ABSOLUTE MONOCYTES (AUTO) 0.6 10^3/uL (0.1-1.4); ABSOLUTE NEUT (AUTO) 6.8 10^3/uL (1.7-8.2); BASOPHILS % (AUTO) 0.5 % (0-2); EOSINOPHILS % (AUTO) 5.1 % (0-6); HEMATOCRIT 43.2 % (36.0-47.0); HEMOGLOBIN 15.4 g/dL (12.0-15.5); LYMPHOCYTES % (AUTO) 21.4 % (13-45); MEAN CORPUSCULAR HEMOGLOBIN 32.3 pg (27.0-33.4); MEAN CORPUSCULAR HGB CONC 35.7 g/dL (32.0-36.0); MEAN CORPUSCULAR VOLUME 91 fl (80-97); MONOCYTES % (AUTO) 6.3 % (3-13); PLATELET COUNT 228 10^3/uL (150-450); RED BLOOD COUNT 4.76 10^6/uL (3.72-5.28); RED CELL DISTRIBUTION WIDTH 13.4 % (11.5-14.0); SEGMENTED NEUTROPHILS % (AUTO) 66.7 % (42-78); TOTAL CELLS COUNTED % (AUTO) 100 %; WHITE BLOOD COUNT 10.1 10^3/uL (4.0-10.5)
[2018-11-15 22:14] LABS: ALANINE AMINOTRANSFERASE 121 U/L (9-52); ALBUMIN 4.5 g/dL (3.5-5.0); ALKALINE PHOSPHATASE 92 U/L (38-126); ANION GAP 11 (5-19); ASPARTATE AMINO TRANSFERASE 81 U/L (14-36); BILIRUBIN,DIRECT 0.2 mg/dL (0.0-0.4); BILIRUBIN,TOTAL 0.6 mg/dL (0.2-1.3); BLOOD UREA NITROGEN 10 mg/dL (7-20); CALCIUM 9.8 mg/dL (8.4-10.2); CARBON DIOXIDE 26 mmol/L (22-30); CHLORIDE 102 mmol/L (98-107); GLUCOSE 116 mg/dL (75-110); POTASSIUM 3.8 mmol/L (3.6-5.0); SODIUM 139.4 mmol/L (137-145); TOTAL PROTEIN 7.4 g/dL (6.3-8.2)
--- NOTE | 2018-11-15 22:35 | RADIOLOGY REPORT (SQ) ---
EXAM DESCRIPTION: XR CHEST 1 VIEW COMPLETED DATE/TME: 11/15/2018 00:00 CLINICAL HISTORY: 28 years, Female, sob COMPARISON: 07/05/2018 chest x-ray NUMBER OF VIEWS: 1 TECHNIQUE: Portable chest LIMITATIONS: None. FINDINGS: The heart size is normal. Lungs are clear. No pneumothorax IMPRESSION: Negative chest copyright 2010 [employer] [facility] [employer]- All Rights Reserved
[2018-11-15 22:41] LABS: A TYPE INFLUENZA AG NEGATIVE (NEGATIVE); B INFLUENZA AG NEGATIVE (NEGATIVE)
[2018-11-16 00:20] VITALS: BP 141/88
== END 2018-11-16 00:29 | disposition home or self-care (01) ==
LOC: ER 21:45
DX: J45.901 Unspecified asthma with (acute) exacerbation (principal); J44.9 Chronic obstructive pulmonary disease, unspecified; R74.0 Nonspecific elevation of levels of transaminase and lactic acid dehydrogenase [LDH]; R00.0 Tachycardia, unspecified; R61 Generalized hyperhidrosis; R23.2 Flushing; I10 Essential (primary) hypertension; Z87.01 Personal history of pneumonia (recurrent); Z88.1 Allergy status to other antibiotic agents; Z88.0 Allergy status to penicillin; Z87.891 Personal history of nicotine dependence
CPT/HCPCS: 99285; 96365; 36415; 84703; 85025; 80053; 87804; 71045; J3475; J7030

== ENCOUNTER 2018-12-10 19:53 | Emergency (ER) | payer MEDICAID ==
[2018-12-10] MEDS ORDERED: IPRATROPIUM/ALBUTEROL 0.5-2.5 MG/3 ML AMPUL NEB ONE (21:32)
[2018-12-10] MEDS ORDERED: PREDNISONE 20 MG TABLET PO ONE (21:32)
--- NOTE | 2018-12-10 21:35 | ER Document Report ---
ED Medical Screen (RME) - General Chief Complaint: Shortness Of Breath Stated Complaint: SHORTNESS OF BREATH Time Seen by Provider: 12/10/18 21:32 Notes: Patient is a 28-year-old female with history of asthma who comes in tonight with onset of coughing, wheezing, shortness of breath, tightness in her chest since this afternoon. She is afebrile. She takes mostly just and healed albuterol but does mention another inhaler which sounds like a corticosteroid. I have treated and performed a rapid initial assessment of this patient. A comprehensive ED assessment and evaluation of the patient, analysis of test results and completion of medical decision making process will be conducted by additional ED providers. PHYSICAL EXAMINATION: GENERAL: Well-appearing, well-nourished and in no acute distress. A&Ox4. Answers questions appropriately. LUNGS: Diminished breath sounds bilateral. No respiratory distress. No intercostal retractions. HEART: Regular rate and rhythm without murmurs, rubs, gallops. ABDOMEN: Soft, nondistended abdomen. Extremities: No cyanosis, clubbing, or edema b/l. NEUROLOGICAL: Normal speech, normal gait. PSYCH: Normal mood, normal affect. TRAVEL OUTSIDE OF THE [place] IN LAST 30 DAYS: No - Related Data Allergies/Adverse Reactions: clindamycin [Clindamycin] Allergy (Severe, Verified 10/13/18 11:05) Hives doxycycline [Doxycycline] Allergy (Intermediate, Verified 10/13/18 11:05) Hives amoxicillin Allergy (Verified 10/13/18 11:05) Penicillins Allergy (Verified 10/13/18 11:05) Past Medical History - Social History Family history: Reviewed & Not Pertinent - Past Medical History Cardiac Medical History: Reports: Hx Hypertension Pulmonary Medical History: Reports: Hx Asthma, Hx Bronchitis, Hx COPD, Hx Pneumonia Neurological Medical History: Reports: Hx Migraine Endocrine Medical History: Reports: Hx Hypothyroidism Renal/ Medical History: Denies: Hx Peritoneal Dialysis GI Medical History: Reports: Hx Gastroesophageal Reflux Disease. Denies: Hx Hepatitis Musculoskeltal Medical History: Reports Hx Musculoskeletal Trauma Psychiatric Medical History: Reports: Hx Anxiety, Hx Bipolar Disorder Traumatic Medical History: Reports: Hx Fractures Infectious Medical History: Denies: Hx Hepatitis Past Surgical History: Reports: Hx Cholecystectomy, Hx Oral Surgery - [place] teeth, Hx Orthopedic Surgery - Bilateral great toe. Denies: Hx Hysterectomy, Hx Mastectomy, Hx Open Heart Surgery, Hx Pacemaker - Immunizations Immunizations up to date: Yes Hx Diphtheria, Pertussis, Tetanus Vaccination: Yes History of Influenza Vaccine for 05/2017 - 10/2017 Season: No Physical Exam - Vital signs Vitals: Temp Pulse Resp BP Pulse Ox 98.1 F 97 24 H 140/99 H 98 12/10/18 20:09 12/10/18 20:09 12/10/18 20:09 12/10/18 20:09 12/10/18 20:09 Course - Vital Signs Vital signs: Temp Pulse Resp BP Pulse Ox 98.1 F 97 24 H 140/99 H 98 12/10/18 20:09 12/10/18 20:09 12/10/18 20:09 12/10/18 20:09 12/10/18 20:09
--- NOTE | 2018-12-10 22:11 | ER Document Report ---
ED General - General Chief Complaint: Shortness Of Breath Stated Complaint: SHORTNESS OF BREATH Time Seen by Provider: 12/10/18 21:32 Primary Care Provider: BRUCE COTE PA-C [Primary Care Provider] - Follow up in 3-5 days Notes: Patient is a 28-year-old female with a history of asthma presents with complaint of wheezing and difficulty breathing. She ran out of her inhaler. She denies fevers. No vomiting. No other complaints at this time. Patient was given a breathing treatment in triage. She says her symptoms are much improved and she feels better. TRAVEL OUTSIDE OF THE [place] IN LAST 30 DAYS: No - Related Data Allergies/Adverse Reactions: clindamycin [Clindamycin] Allergy (Severe, Verified 10/13/18 11:05) Hives doxycycline [Doxycycline] Allergy (Intermediate, Verified 10/13/18 11:05) Hives amoxicillin Allergy (Verified 10/13/18 11:05) Penicillins Allergy (Verified 10/13/18 11:05) Past Medical History - Social History Smoking Status: Unknown if Ever Smoked Frequency of alcohol use: None Drug Abuse: None Family History: CAD, DM, Hypertension, Other - Asthma - Past Medical History Cardiac Medical History: Reports: Hx Hypertension Pulmonary Medical History: Reports: Hx Asthma, Hx Bronchitis, Hx COPD, Hx Pneumonia Neurological Medical History: Reports: Hx Migraine Endocrine Medical History: Reports: Hx Hypothyroidism Renal/ Medical History: Denies: Hx Peritoneal Dialysis GI Medical History: Reports: Hx Gastroesophageal Reflux Disease. Denies: Hx Hepatitis Musculoskeletal Medical History: Reports Hx Musculoskeletal Trauma Psychiatric Medical History: Reports: Hx Anxiety, Hx Bipolar Disorder Traumatic Medical History: Reports: Hx Fractures Infectious Medical History: Denies: Hx Hepatitis Past Surgical History: Reports: Hx Cholecystectomy, Hx Oral Surgery - [place] teeth, Hx Orthopedic Surgery - Bilateral great toe. Denies: Hx Hysterectomy, Hx Mastectomy, Hx Open Heart Surgery, Hx Pacemaker - Immunizations Immunizations up to date: Yes Hx Diphtheria, Pertussis, Tetanus Vaccination: Yes Hx Pneumococcal Vaccination: 08/29/00 Review of Systems - Review of Systems Notes: My Normal Review Basic REVIEW OF SYSTEMS: CONSTITUTIONAL : Denies fever, chills, or sweats. Denies recent illness. EENT: Denies eye, ear, throat, or mouth pain or symptoms. Denies nasal or sinus congestion. RESPIRATORY: Difficulty breathing. Wheezing. GASTROINTESTINAL: Denies abdominal pain. Denies nausea, vomiting, or diarrhea. MUSCULOSKELETAL: Denies neck or back pain or joint pain or swelling. SKIN: Denies rash or skin lesions. NEUROLOGICAL: Denies altered mental status or loss of consciousness. Denies headache. Denies weakness or paralysis or loss of use of either side. Denies problems with gait or speech. Denies sensory or motor loss. ALL OTHER SYSTEMS REVIEWED AND NEGATIVE. Physical Exam - Vital signs Vitals: Temp Pulse Resp BP Pulse Ox 98.1 F 97 24 H 140/99 H 98 12/10/18 20:09 12/10/18 20:09 12/10/18 20:09 12/10/18 20:09 12/10/18 20:09 - Notes Notes: General Appearance: Well nourished, alert, cooperative, no acute distress, no obvious discomfort. Well-appearing. Vitals: reviewed, See vital signs table. Eyes: PERRL, EOMI, Conjuctiva clear Mouth: No decreasd moisture Lungs: No wheezing, No rales, No rhonci, No accessory muscle use, good air exchange bilaterally. Heart: Normal rate, Regular rythm, No murmur, no rub Extremities: good pulses in all extremities, no swelling or tenderness in the extremities, no edema. Skin: warm, dry, appropriate color Neuro: speech clear, oriented x 3, normal affect, responds appropriately to questions. Course - Re-evaluation Re-evalutation: 12/10/18 22:22 Patient's wheezing is completely resolved with one breathing treatment. She looks well. I will give her an inhlaer and a prescription for prednisone. She is to return to the ER if she has difficulty breathing, wheezing not responding to the inhaler, or if she feels she is worsening in any way. Patient agrees with plan and will be discharged home. 12/10/18 22:23 12/11/18 05:59 Dictation of this chart was performed using voice recognition software; therefore, there may be some unintended grammatical errors. - Vital Signs Vital signs: Temp Pulse Resp BP Pulse Ox 98.5 F 98 16 140/84 H 95 12/10/18 22:41 12/10/18 22:43 12/10/18 22:41 12/10/18 22:41 12/10/18 22:41 - EKG Interpretation by Me Additional EKG results interpreted by me: 12/10/18 22:09 EKG is reviewed and interpreted by me. EKG shows NSR with a rate of [address] segment elevation or depression. OR interval is within normal range, QRS duration is normal, QTc is within normal range. No old EKG for comparison. Discharge - Discharge Clinical Impression: Asthma Qualifiers: Asthma severity: unspecified severity Asthma persistence: unspecified Asthma complication type: with acute exacerbation Qualified Code(s): J45.901 - Unspecified asthma with (acute) exacerbation Condition: Good Disposition: HOME, SELF-CARE Additional Instructions: ASTHMA: You have been diagnosed as having asthma. This is a condition where there is episodic tightness in the bronchial tubes. Allergies, infections, and polluted or cold air may be contributing factors. Emergency treatment of a severe asthma attack may include adrenaline shots, or bronchodilator aerosol. You may feel lightheaded, have a decreased exercise tolerance and a rapid pulse for an hour or two. Rest and get plenty of fluids. Home treatment of asthma requires bronchodilator drugs. These can be administered by injection, inhalation, or by mouth. Antibiotics and corticosteroids may be required for some patients. You should avoid chemical fumes, dusts, pollens, and exercising in very cold or dry air. If you smoke, stop!! If you develop a fever, increased wheezing, chest pain, or severe shortness of breath, you should contact the doctor immediately. STEROID MEDICATION: You have been given an injection of or oral medicine of the cortisone/steroid class. This medication is used to control inflammation or allergy. Nino t is usually only given for a short period of time, until the acute process subsides. There are usually no side effects from short-term use of cortisone-like medications. Some persons feel an increased sense of well-being and are not sleepy at bedtime. Long-term use of cortisone medications is best avoided, unless required for a severe condition. If your condition does not remit, or relapses after the course of corticosteroid medication, you should consult your physician. INHALED BRONCHODILATORS: You have received treatment(s) of and/or prescription for an inhaled bronchodilator -- a medication which stimulates the airways in the lung to dilate. This improves the flow of air in asthma, bronchitis, and emphysema. These medicines have some similarity to adrenaline, and can cause similar side effects: shakiness, racing heart, and a sense of nervousness. These side effects decrease with time. Contact your doctor if these side effects are severe. Do not over-use the medicine. Too-frequent use of the inhaler may make it ineffective. Call your doctor if the inhaler is not controlling your symptoms at the prescribed doses. FOLLOW-UP CARE: If you have been referred to a physician for follow-up care, call the physicians office for an appointment as you were instructed or within the next two days. If you experience worsening or a significant change in your symptoms, notify the physician immediately or return to the Emergency Department at any time for re-evaluation. Please follow up with your doctor in a few days for reevaluation. please return to the ER if you have recurrent wheezing not responding to your inhaler, fevers, worsening difficulty breathing, or feel that you are worsening in any way. Prescriptions: RX: Prednisone [Deltasone 20 mg Tablet] 3 tab PO DAILY 4 Days tablet Referrals: BRUCE COTE PA-C [Primary Care Provider] - Follow up in 3-5 days
[2018-12-10] MEDS ORDERED: ALBUTEROL SULFATE HFA (90 MCG/PUFF) 8 GM MDI (1 MDI/ER DISP) IH ONE (22:20)
[2018-12-10 22:42] VITALS: BP 140/84
--- NOTE | 2018-12-10 23:40 | EKG REPORT ---
SEVERITY:- NORMAL ECG - SINUS RHYTHM : Confirmed by: Robles Justice 10-Dec-2018 23:38:36
== END 2018-12-10 22:44 | disposition home or self-care (01) ==
LOC: ER 19:53
DX: J45.909 Unspecified asthma, uncomplicated (principal); J44.9 Chronic obstructive pulmonary disease, unspecified; T48.906A Underdosing of unspecified agents primarily acting on the respiratory system, initial encounter; Z91.128 Patient's intentional underdosing of medication regimen for other reason; Z91.14 Patient's other noncompliance with medication regimen; Z87.01 Personal history of pneumonia (recurrent); Z88.1 Allergy status to other antibiotic agents; Z88.0 Allergy status to penicillin
CPT/HCPCS: 93005; 99285; 93010; J7512; J3490; J7620

== ENCOUNTER 2018-12-28 22:14 | Emergency (ER) | payer MEDICAID ==
--- NOTE | 2018-12-28 22:57 | RADIOLOGY REPORT (SQ) ---
EXAM DESCRIPTION: Right foot RadLex: XR FOOT 3 OR MORE VIEWS Views: 3 CLINICAL HISTORY: 28 years Female, foor injury COMPARISON: None. FINDINGS: Negative for acute fracture, dislocation, or radiopaque foreign body. Small Achilles calcaneal spur is noted. There are 2 small well-corticated ossific densities lateral to the calcaneocuboid joint, typical for benign ossicles. No lytic bone changes or periosteal reaction. IMPRESSION: 1. No acute findings.
--- NOTE | 2018-12-29 00:34 | ER Document Report ---
ED Extremity Problem, Lower - General Chief Complaint: Foot Injury Stated Complaint: RIGHT FOOT PAIN Time Seen by Provider: 12/29/18 00:22 Primary Care Provider: BRUCE COTE PA-C [Primary Care Provider] - Follow up as needed Notes: Patient is a 28-year-old female comes emergency room complaining of right great toe pain. Patient states yesterday she was walking in her house and she kicked a floor register. Her states that the landlord did not screw in the floor register and as she walked on it it pops up and as it popped up she stubbed her toe into it. She is stating that she has some mild discomfort and pain with ambulation and it hurts and throbs since yesterday. She is taken ibuprofen without much relief. She denies any other injuries. She does have a history of gout. TRAVEL OUTSIDE OF THE [place] IN LAST 30 DAYS: No - HPI Patient complains to provider of: Altered sensation, Injury, Pain, Swelling Location: Great Toe Occurred: Yesterday Where: Home Onset/Duration: Sudden, Persistent, Worse Quality of pain: Pressure, Sharp, Throbbing Severity: Moderate Pain Level: 3 Context: Barefoot Recent injury: Yes Associated symptoms: Painful ambulation Exacerbated by: Movement, Walking Relieved by: Rest - Related Data Allergies/Adverse Reactions: clindamycin [Clindamycin] Allergy (Severe, Verified 10/13/18 11:05) Hives doxycycline [Doxycycline] Allergy (Intermediate, Verified 10/13/18 11:05) Hives amoxicillin Allergy (Verified 10/13/18 11:05) Penicillins Allergy (Verified 10/13/18 11:05) Past Medical History - General Information source: Patient, Relative - Social History Smoking Status: Never Smoker Cigarette use (# per day): No Chew tobacco use (# tins/day): No Smoking Education Provided: No Frequency of alcohol use: None Drug Abuse: None Lives with: Family - Like that I want needles patient is no more movement in the after performing a Medical Screening Examination, I estimate there is LOW risk for OPEN FRACTURE, COMPARTMENT SYNDROME, TENDON RUPTURE, ACUTE NEUROVASCULAR INJURY, or RETAINED FOREIGN BODY, thus I consider the discharge disposition reasonable. Also, there is no evidence or peritonitis, sepsis, or toxicity. I have reevaluated this patient multiple times and no significant life threatening changes are noted. The patient and I have discussed the diagnosis and risks, and we agree with discharging home with close follow-up with the understanding that symptoms and presentations can change. We also discussed returning to the Emergency Department immediately if new or worsening symptoms occur. We have discussed the symptoms which are most concerning (e.g., changing or worsening pain, fever, numbness, weakness, cool or painful digits) that necessitate immediate return. Normal 1 Family History: CAD, DM, Hypertension, Other - Asthma Patient has suicidal ideation: No - Past Medical History Cardiac Medical History: Reports: Hx Hypertension Pulmonary Medical History: Reports: Hx Asthma, Hx Bronchitis, Hx COPD, Hx Pneumonia Neurological Medical History: Reports: Hx Migraine Endocrine Medical History: Reports: Hx Hypothyroidism Renal/ Medical History: Denies: Hx Peritoneal Dialysis GI Medical History: Reports: Hx Gastroesophageal Reflux Disease. Denies: Hx Hepatitis Musculoskeletal Medical History: Reports Hx Musculoskeletal Trauma Psychiatric Medical History: Reports: Hx Anxiety, Hx Bipolar Disorder Traumatic Medical History: Reports: Hx Fractures Infectious Medical History: Denies: Hx Hepatitis Past Surgical History: Reports: Hx Cholecystectomy, Hx Oral Surgery - [place] teeth, Hx Orthopedic Surgery - Bilateral great toe. Denies: Hx Hysterectomy, Hx Mastectomy, Hx Open Heart Surgery, Hx Pacemaker - Immunizations Immunizations up to date: Yes Hx Diphtheria, Pertussis, Tetanus Vaccination: Yes Hx Pneumococcal Vaccination: 08/29/00 Review of Systems - Review of Systems Constitutional: No symptoms reported EENT: No symptoms reported Cardiovascular: No symptoms reported Respiratory: No symptoms reported Gastrointestinal: No symptoms reported Genitourinary: No symptoms reported Female Genitourinary: No symptoms reported Musculoskeletal: See HPI, Joint pain, Joint swelling, Muscle pain Skin: No symptoms reported Hematologic/Lymphatic: No symptoms reported Neurological/Psychological: No symptoms reported -: Yes All other systems reviewed and negative Physical Exam - Vital signs Vitals: Temp Pulse Resp BP Pulse Ox 98.3 F 95 20 150/102 H 95 12/28/18 22:50 12/28/18 22:50 12/28/18 22:50 12/28/18 22:50 12/28/18 22:50 Interpretation: Hypertensive - Notes Notes: PHYSICAL EXAMINATION: GENERAL: Well-appearing, well-nourished and in no acute distress. HEAD: Atraumatic, normocephalic. LUNGS: Breath sounds clear to auscultation bilaterally and equal. No wheezes rales or rhonchi. HEART: Regular rate and rhythm without murmur Musculoskeletal: Examination patient's area of concern is her right great toe. On physical examination there is no sign of ecchymosis or abrasions there is a slight discoloration on the dorsum of the right great toe and the dorsum of the foot some mild redness or erythema. Does not appear to be a cellulitis. More of an irritation. There is no sign of a hematoma no sign of discoloration as stated with ecchymosis and patient does not attempt to move her toes when asked. So ambulation is done on her heel. Palpation of the great toe shows some mild tenderness but no warmth change and good cap refill in the nailbeds of the toes of the right foot. NEUROLOGICAL: Normal speech, normal gait. Normal sensory, motor exams PSYCH: Normal mood, normal affect. SKIN: Warm, Dry, normal turgor, no rashes or lesions noted. Course - Re-evaluation Re-evalutation: 12/29/18 00:34 It appears patient has just stubbed/strained her great toe on the right foot. X-rays were negative for any acute findings. - Vital Signs Vital signs: Temp Pulse Resp BP Pulse Ox 98.3 F 95 20 150/102 H 95 12/28/18 22:50 12/28/18 22:50 12/28/18 22:50 12/28/18 22:50 12/28/18 22:50 Procedures - Immobilization Right Great toe Time completed: 00:35 Pre-Proc Neuro Vasc Exam: Normal Immobilizer type: Post-op shoe Performed by: [email or web address] Post-Proc Neuro Vasc Exam: Normal Discharge - Discharge Clinical Impression: Stubbed toe Strain of toe of right foot Qualifiers: Encounter type: initial encounter Qualified Code(s): S96.911A - Strain of unspecified muscle and tendon at ankle and foot level, right foot, initial encounter Condition: Stable Disposition: HOME, SELF-CARE Instructions: Sprained Toe ([facility]), Stubbed Toe ([facility]) Additional Instructions: Use the postop shoe as directed. Wear it for the next 4 to 5 days. This stops her toes from bending. Highly suggest if nothing else use a cane. Ice to the area 3 times a day. Continue with ibuprofen 800 mg 3 times a day with food. Should you have continued pain or discomfort you will need to follow-up with orthopedist. I will give you the name of orthopedic group that you can contact to see if they can accommodate you. Forms: Elevated Blood Pressure Referrals: BRUCE COTE PA-C [Primary Care Provider] - Follow up as needed MIN ZAVALA MD [ACTIVE STAFF] - Follow up as needed
[2018-12-29 00:50] VITALS: BP 180/131
== END 2018-12-29 00:50 | disposition home or self-care (01) ==
LOC: ER 22:14
DX: S96.911A Strain of unspecified muscle and tendon at ankle and foot level, right foot, initial encounter (principal); R20.9 Unspecified disturbances of skin sensation; W22.8XXA Striking against or struck by other objects, initial encounter; Y92.009 Unspecified place in unspecified non-institutional (private) residence as the place of occurrence of the external cause; I10 Essential (primary) hypertension; J44.9 Chronic obstructive pulmonary disease, unspecified; Z88.1 Allergy status to other antibiotic agents; Z88.0 Allergy status to penicillin
CPT/HCPCS: 99283

== ENCOUNTER 2019-01-02 21:34 | Emergency (ER) | payer MEDICAID ==
[2019-01-02 22:30] VITALS: BP 142/98
== END 2019-01-03 00:30 | disposition left against medical advice (07) ==
LOC: ER 21:34
DX: Z53.21 Procedure and treatment not carried out due to patient leaving prior to being seen by health care provider (principal)

== ENCOUNTER 2019-01-22 23:54 | Emergency (ER) | payer MEDICAID ==
[2019-01-23] MEDS ORDERED: HYDROCODONE/ACETAMINOPHEN 5-325 MG TABLET PO ONE (01:26)
--- NOTE | 2019-01-23 01:31 | ER Document Report ---
ED ENT - General Chief Complaint: Ear Pain Stated Complaint: EAR PAIN Time Seen by Provider: 01/23/19 00:53 Primary Care Provider: BRUCE COTE PA-C [Primary Care Provider] - Follow up as needed Mode of Arrival: Ambulatory Information source: Patient TRAVEL OUTSIDE OF THE [place] IN LAST 30 DAYS: No - HPI Patient complains to provider of: Ear problem Notes: Patient here with complaints of right ear pain. The patient states that she went swimming yesterday and got stuck underneath the water and got water in her right ear. Since that time she has had increasing pain to the right ear. No fevers. She has not noticed any drainage. She denies any nausea, vomiting, diarrhea. No severe headache. No blurred or loss vision. No swelling. No rash. Pain is constant, moderate, worse with movement of the right jaw, palpation of the ear, better with ibuprofen. She denies any traumatic injury to this area. No sore throat. No difficulty breathing or swallowing. No chest pain or shortness of breath. No other complaints. - Related Data Allergies/Adverse Reactions: clindamycin [Clindamycin] Allergy (Severe, Verified 10/13/18 11:05) Hives doxycycline [Doxycycline] Allergy (Intermediate, Verified 10/13/18 11:05) Hives amoxicillin Allergy (Verified 10/13/18 11:05) Penicillins Allergy (Verified 10/13/18 11:05) Past Medical History - Social History Smoking Status: Never Smoker Chew tobacco use (# tins/day): No Frequency of alcohol use: None Drug Abuse: None Family History: CAD, DM, Hypertension, Other - Asthma Patient has suicidal ideation: No Patient has homicidal ideation: No - Past Medical History Cardiac Medical History: Reports: Hx Hypertension Pulmonary Medical History: Reports: Hx Asthma, Hx Bronchitis, Hx COPD, Hx Pneumonia Neurological Medical History: Reports: Hx Migraine Endocrine Medical History: Reports: Hx Hypothyroidism Renal/ Medical History: Denies: Hx Peritoneal Dialysis GI Medical History: Reports: Hx Gastroesophageal Reflux Disease. Denies: Hx Hepatitis Musculoskeletal Medical History: Reports Hx Musculoskeletal Trauma Psychiatric Medical History: Reports: Hx Anxiety, Hx Bipolar Disorder Traumatic Medical History: Reports: Hx Fractures Infectious Medical History: Denies: Hx Hepatitis Past Surgical History: Reports: Hx Cholecystectomy, Hx Oral Surgery - [place] teeth, Hx Orthopedic Surgery - Bilateral great toe. Denies: Hx Hysterectomy, Hx Mastectomy, Hx Open Heart Surgery, Hx Pacemaker - Immunizations Immunizations up to date: Yes Hx Diphtheria, Pertussis, Tetanus Vaccination: Yes Hx Pneumococcal Vaccination: 08/29/00 Review of Systems - Review of Systems -: Yes All other systems reviewed and negative Physical Exam - Vital signs Vitals: Temp Pulse Resp BP Pulse Ox 98.5 F 93 16 147/89 H 98 01/22/19 23:56 01/22/19 23:56 01/22/19 23:56 01/22/19 23:56 01/22/19 23:56 - Notes Notes: GENERAL: alert, cooperative, nontoxic, no distress. HEAD: normocephalic, atraumatic EYES: conjunctiva pink without discharge, no external redness or swelling. EARS: no external swelling, no external redness, no mastoid redness, swelling, tenderness. Left ear canal and TM unremarkable. Right ear canal is erythematous and swollen. Tenderness to palpation of the tragus. Visualized TM shows no sign of perforation or otitis media. Unable to completely visualize the entire TM due to ear canal swelling. NOSE: atraumatic, no external swelling. clear rhinorrhea noted. MOUTH/THROAT: mucous membranes moist and pink, posterior pharynx without erythema, swelling, exudate. No trismus or drooling. NECK: soft, supple, full range of motion, no meningismus. CHEST: no distress, lungs clear and equal throughout. No wheezing, rales, rhonchi. CARDIAC: regular rate and rhythm, no murmur, normal capillary refill, normal pulses. No peripheral edema noted. BACK: full range of motion, no CVA tenderness. EXTREMITIES: full range of motion of all extremities. No redness, no swelling. NEURO: alert and oriented A&O3, no focal deficits, full range of motion of all extremities. PYSCH: appropriate mood, affect. Patient is cooperative. SKIN: pink, warm, dry, no rash. Course - Re-evaluation Re-evalutation: 01/23/19 01:28 Patient is nontoxic-appearing with stable vitals. Patient here with complaints of right ear pain. She got water in her ear yesterday while swimming and now has pain to the ear. On exam she is noted to have a right otitis externa. No obvious perforation or otitis media. There is no sign of mastoiditis. Patient is nontoxic-appearing and otherwise looks well. Patient states that she has Cortisporin eardrops at the house. She was instructed that she can continue using these. She will be given a dose of Medina here in the emergency department will be discharged home with a prescription for Medina to take as needed for pain. She has an ENT and was she was instructed to follow-up with her ENT if this is not improving within the next 2 to 3 days, sooner for worsening pain, fever, swelling, persistent vomiting, or for any further concerns. The patient's emergency department workup and current diagnosis were explained to the patient and or family. Follow-up instructions were provided. Medications if prescribed were discussed. Instructions for when to return to the emergency department including specific worrisome symptoms were discussed with the patient and/or family. - Vital Signs Vital signs: Temp Pulse Resp BP Pulse Ox 98.5 F 93 16 147/89 H 98 01/22/19 23:56 01/22/19 23:56 01/22/19 23:56 01/22/19 23:56 01/22/19 23:56 Discharge - Discharge Clinical Impression: Otitis externa of right ear Qualifiers: Otitis externa type: swimmer's ear Chronicity: acute Qualified Code(s): H60.331 - Swimmer's ear, right ear Condition: Stable Disposition: HOME, SELF-CARE Instructions: Use of Ear Drops ([facility]), Oral Narcotic Medication ([facility]), Otitis Externa ([facility]) Additional Instructions: Take medication as prescribed. Follow-up with your ENT if not improving in the next 2 to 3 days, sooner for worsening pain, fever, swelling, redness, persistent vomiting, or for any further concerns. Prescriptions: Hydrocodone/Acetaminophen [Medina 5-325 mg Tablet] 2 tab PO Q6H PRN #10 tab PRN Reason: Neomy Sulf/Polymyx B Sulf/Hc [Cortisporin Ear Suspension] 4 drop AD QID 7 Days #1 bottle Forms: Elevated Blood Pressure, Smoking Cessation Education Referrals: BRUCE COTE PA-C [Primary Care Provider] - Follow up as needed
[2019-01-23 01:42] VITALS: BP 150/96
== END 2019-01-23 01:45 | disposition home or self-care (01) ==
LOC: ER 23:54
DX: H60.331 Swimmer's ear, right ear (principal); H92.01 Otalgia, right ear; I10 Essential (primary) hypertension; J44.9 Chronic obstructive pulmonary disease, unspecified; Z88.1 Allergy status to other antibiotic agents; Z88.0 Allergy status to penicillin
CPT/HCPCS: 99282

== ENCOUNTER 2019-01-24 19:33 | Emergency (ER) | payer MEDICAID ==
[2019-01-25] MEDS ORDERED: IBUPROFEN 600 MG TABLET PO ONE (01:00)
[2019-01-25] MEDS ORDERED: AZITHROMYCIN 250 MG TABLET PO ONE (01:00)
--- NOTE | 2019-01-25 01:08 | ER Document Report ---
ED ENT - General Chief Complaint: Ear Pain Stated Complaint: EAR ACHE Time Seen by Provider: 01/25/19 00:54 Primary Care Provider: BRUCE COTE PA-C [Primary Care Provider] - Follow up as needed TRAVEL OUTSIDE OF THE [place] IN LAST 30 DAYS: No - HPI Notes: Patient is a 28-year-old female that presents to the emergency department for chief complaint of right ear pain. Patient was diagnosed with otitis externa yesterday. She states she was given eardrops and they are running out of her ear. She reports the ear feels more swollen today. She denies any headache, fever, nausea and vomiting. Patient has been taking ibuprofen for her pain and states her last dose was about 10 hours ago. Past Medical History: Asthma, hypertension Past Surgical History: Negative Social History: Denies drugs alcohol and tobacco Family History: Reviewed and noncontributory for presenting illness Allergies: Reviewed, see documented allergy list. REVIEW OF SYSTEMS: CONSTITUTIONAL : No fever No chills No diaphoresis No recent illness EENT: No vision changes No congestion No sore throat Right ear pain CARDIOVASCULAR: No chest pain No palpitations RESPIRATORY: No shortness of breath No cough No difficulty breathing GASTROINTESTINAL: No abdominal pain No nausea No vomiting No diarrhea GENITOURINARY: No dysuria No hematuria No difficulty urinating MUSCULOSKELETAL: No back pain No leg pain No arm pain SKIN: No rashes No lesions LYMPHATIC: No swollen, enlarged glands. NEUROLOGICAL: No lightheadedness No headache No weakness No paresthesias PSYCHIATRIC: No anxiety No depression PHYSICAL EXAMINATION: Vital signs reviewed, nursing noted reviewed. GENERAL: Well-appearing, well-nourished and in no acute distress. HEAD: Atraumatic, normocephalic. EYES: Eyes appear normal, extraocular movements intact, sclera anicteric, conjunctiva are normal. ENT: No mastoid tenderness bilaterally. Normal left ear. Right external ear canal edema, erythema and purulent discharge. Nares patent, oropharynx clear without exudates. Moist mucous membranes. NECK: Normal range of motion, supple with anterior chain lymphadenopathy LUNGS: Breath sounds clear to auscultation bilaterally and equal. No wheezes rales or rhonchi. HEART: Regular rate and rhythm without murmurs ABDOMEN: Soft, nontender, normoactive bowel sounds. No rebound, guarding, or rigidity. No masses appreciated. EXTREMITIES: Nontender, good range of motion, no pitting or edema. NEUROLOGICAL: No focal neurological deficits. Moves all extremities spontaneou sly Motor and sensory grossly intact on exam. PSYCH: Normal mood, normal affect. SKIN: Warm, Dry, normal turgor, no rashes or lesions noted on exposed skin - Related Data Allergies/Adverse Reactions: clindamycin [Clindamycin] Allergy (Severe, Verified 10/13/18 11:05) Hives doxycycline [Doxycycline] Allergy (Intermediate, Verified 10/13/18 11:05) Hives amoxicillin Allergy (Verified 10/13/18 11:05) Penicillins Allergy (Verified 10/13/18 11:05) Past Medical History - Social History Smoking Status: Never Smoker Family History: CAD, DM, Hypertension, Other - Asthma - Past Medical History Cardiac Medical History: Reports: Hx Hypertension Pulmonary Medical History: Reports: Hx Asthma, Hx Bronchitis, Hx COPD, Hx Pneumonia Neurological Medical History: Reports: Hx Migraine Endocrine Medical History: Reports: Hx Hypothyroidism Renal/ Medical History: Denies: Hx Peritoneal Dialysis GI Medical History: Reports: Hx Gastroesophageal Reflux Disease. Denies: Hx Hepatitis Musculoskeletal Medical History: Reports Hx Musculoskeletal Trauma Psychiatric Medical History: Reports: Hx Anxiety, Hx Bipolar Disorder Traumatic Medical History: Reports: Hx Fractures Infectious Medical History: Denies: Hx Hepatitis Past Surgical History: Reports: Hx Cholecystectomy, Hx Oral Surgery - [place] teeth, Hx Orthopedic Surgery - Bilateral great toe. Denies: Hx Hysterectomy, Hx Mastectomy, Hx Open Heart Surgery, Hx Pacemaker - Immunizations Immunizations up to date: Yes Hx Diphtheria, Pertussis, Tetanus Vaccination: Yes Hx Pneumococcal Vaccination: 08/29/00 Physical Exam - Vital signs Vitals: Temp Pulse Resp BP Pulse Ox 98.2 F 92 16 133/95 H 99 01/24/19 20:27 01/24/19 20:27 01/24/19 20:27 01/24/19 20:27 01/24/19 20:27 Course - Re-evaluation Re-evalutation: 01/25/19 01:08 Vitals reviewed. Nursing notes reviewed. Patient has a right otitis externa. She was given antibiotics yesterday. Her right ear is too swollen to insert an ear wick at this time. I did encourage her to continue using the eardrops and to lay on her left side for at least 30 minutes after instillation of the drops. Patient will also be started on oral antibiotic for concern that the drops are not getting into her ear because of the edema. She is otherwise afebrile and well-appearing. There is no mastoid tenderness or bogginess to suggest mastoiditis. She was given ibuprofen for pain. She is discharged in stable condition. - Vital Signs Vital signs: Temp Pulse Resp BP Pulse Ox 98.2 F 92 16 133/95 H 99 01/24/19 20:27 01/24/19 20:27 01/24/19 20:01/24/19 20:01/24/19 20:27 Discharge - Discharge Clinical Impression: Right otitis externa Qualifiers: Otitis externa type: unspecified type Chronicity: acute Qualified Code(s): H60.501 - Unspecified acute noninfective otitis externa, right ear Condition: Stable Disposition: HOME, SELF-CARE Instructions: Otitis Externa ([facility]) Additional Instructions: Please return to the emergency department if you have any worsening, or concern of your symptoms. Please return to the emergency department if you develop chest pain, difficulty breathing, severe abdominal pain, or ongoing vomiting. Please follow-up with your primary care physician in 2-3 days and any other recommended physicians. If prescribed, take all medications as directed. If you have any questions or concerns do not hesitate to return the emergency department for evaluation. Lay on your left side for 30 minutes to an hour after using her eardrops Prescriptions: Azithromycin [Zithromax 250 mg Tablet] 250 mg PO DAILY #4 tablet Referrals: BRUCE COTE PA-C [Primary Care Provider] - Follow up in 3-5 days
[2019-01-25 01:26] VITALS: BP 128/93
== END 2019-01-25 01:26 | disposition home or self-care (01) ==
LOC: ER 19:33
DX: H60.501 Unspecified acute noninfective otitis externa, right ear (principal); H92.01 Otalgia, right ear; I10 Essential (primary) hypertension; J44.9 Chronic obstructive pulmonary disease, unspecified; Z88.1 Allergy status to other antibiotic agents; Z88.0 Allergy status to penicillin
CPT/HCPCS: 99282; Q0144; J3490

== ENCOUNTER 2019-01-29 17:10 | Emergency (ER) | payer MEDICAID ==
[2019-01-29 17:48] VITALS: BP 173/108
[2019-01-29] MEDS ORDERED: LIDOCAINE 2% VISCOUS SOLN 20 ML UDCUP PO ONE (17:49)
--- NOTE | 2019-01-29 17:52 | ER Document Report ---
ED ENT - General Chief Complaint: Ear Pain Stated Complaint: EAR PAIN Time Seen by Provider: 01/29/19 17:38 Primary Care Provider: BRUCE COTE PA-C [Primary Care Provider] - Follow up tomorrow Mode of Arrival: Ambulatory Information source: Patient Notes: 28-year-old female presented to ED for right ear pain with swelling and yellow drainage. She was seen in the emergency room on started on azithromycin and completed that. She states she then went to her primary care doctor and was started on eardrops for the otitis externa. She states she is c ontinuing to have pain in the ibuprofen does not seem to be helping with the pain. She states she would like something stronger for the pain. Patient is alert oriented respirations regular and unlabored speaking in full sentences walks with a even steady gait. TRAVEL OUTSIDE OF THE [place] IN LAST 30 DAYS: No - HPI Patient complains to provider of: Ear problem Onset: Last week Onset/Duration: Persistent Quality of pain: Sharp, Stabbing Severity: Moderate Pain Level: 4 Context: Recent Illness Location of pain: Ears Associated symptoms: Ear pain, Ear drainage Similar symptoms previously: Yes Recently seen / treated by doctor: Yes - Related Data Allergies/Adverse Reactions: clindamycin [Clindamycin] Allergy (Severe, Verified 01/29/19 17:12) Hives doxycycline [Doxycycline] Allergy (Intermediate, Verified 01/29/19 17:12) Hives amoxicillin Allergy (Verified 01/29/19 17:12) Penicillins Allergy (Verified 01/29/19 17:12) Past Medical History - General Information source: Patient - Social History Smoking Status: Never Smoker Frequency of alcohol use: None Drug Abuse: None Lives with: Family Family History: CAD, DM, Hypertension, Other - Asthma Patient has suicidal ideation: No Patient has homicidal ideation: No - Past Medical History Cardiac Medical History: Reports: Hx Hypertension Pulmonary Medical History: Reports: Hx Asthma, Hx Bronchitis, Hx COPD, Hx Pneumonia EENT Medical History: Reports: None Neurological Medical History: Reports: Hx Migraine Endocrine Medical History: Reports: Hx Hypothyroidism Renal/ Medical History: Reports: None Malignancy Medical History: Reports: None GI Medical History: Reports: Hx Gastroesophageal Reflux Disease Musculoskeletal Medical History: Reports Hx Musculoskeletal Trauma Skin Medical History: Reports None Psychiatric Medical History: Reports: Hx Anxiety, Hx Bipolar Disorder Traumatic Medical History: Reports: Hx Fractures Infectious Medical History: Reports: None Past Surgical History: Reports: Hx Cholecystectomy, Hx Oral Surgery - [place] teeth, Hx Orthopedic Surgery - Bilateral great toe - Immunizations Immunizations up to date: Yes Hx Diphtheria, Pertussis, Tetanus Vaccination: Yes Hx Pneumococcal Vaccination: 08/29/00 Review of Systems - Review of Systems Constitutional: Recent illness EENT: Ear pain, Ear discharge Cardiovascular: No symptoms reported Respiratory: No symptoms reported Gastrointestinal: No symptoms reported Genitourinary: No symptoms reported Female Genitourinary: No symptoms reported Musculoskeletal: No symptoms reported Skin: No symptoms reported Hematologic/Lymphatic: No symptoms reported Neurological/Psychological: No symptoms reported -: Yes All other systems reviewed and negative Physical Exam - Vital signs Vitals: Temp Pulse Resp BP Pulse Ox 98.1 F 120 H 16 160/107 H 97 01/29/19 17:15 01/29/19 17:15 01/29/19 17:15 01/29/19 17:15 01/29/19 17:15 Interpretation: Normal - General General appearance: Appears well, Alert - HEENT Head: Normocephalic, Atraumatic Eyes: Normal Pupils: PERRL Ears: Pinna tenderness, Tragus tenderness External canal: Erythema, Swollen, Other - right Tympanic membrane: Normal Sinus: Normal Nasal: Purulent discharge, Swelling Mouth/Lips: Normal Mucous membranes: Normal Pharynx: Normal Neck: Normal - Respiratory Respiratory status: No respiratory distress Chest status: Nontender Breath sounds: Normal Chest palpation: Normal - Cardiovascular Rhythm: Regular Heart sounds: Normal auscultation Murmur: No - Abdominal Inspection: Normal Distension: No distension Bowel sounds: Normal Tenderness: Nontender Organomegaly: No organomegaly - Back Back: Normal, Nontender - Extremities General upper extremity: Normal inspection, Nontender, Normal color, Normal ROM, Normal temperature General lower extremity: Normal inspection, Nontender, Normal color, Normal ROM, Normal temperature, Normal weight bearing. No: Marco's sign - Neurological Neuro grossly intact: Yes Cognition: Normal Orientation: AAOx4 [place] Coma Scale Eye Opening: Spontaneous [place] Coma Scale Verbal: Oriented [place] Coma Scale Motor: Obeys Commands [place] Coma Scale Total: 15 Speech: Normal Motor strength normal: LUE, RUE, LLE, RLE Sensory: Normal - Psychological Associated symptoms: Normal affect, Normal mood - Skin Skin Temperature: Warm Skin Moisture: Dry Skin Color: Normal Course - Re-evaluation Re-evalutation: 01/29/19 18:20 Patient was seen by her primary care today and was started with eardrops and steroids. She was seen on the and started on azithromycin which she has completed. She states she is continued to have pain in the ear. Patient was given lidocaine viscous jelly to place in the ear. Patient received relief from the pain - Vital Signs Vital signs: Temp Pulse Resp BP Pulse Ox 98.0 F 99 20 173/108 H 96 01/29/19 17:47 01/29/19 18:01 01/29/19 17:47 01/29/19 17:47 01/29/19 17:47 Discharge - Discharge Clinical Impression: Right ear pain Right otitis externa Qualifiers: Otitis externa type: unspecified type Chronicity: unspecified Qualified Code (s): H60.91 - Unspecified otitis externa, right ear Condition: Stable Disposition: HOME, SELF-CARE Additional Instructions: OTITIS EXTERNA: You have otitis externa -- an infection of the outer ear canal. This can be very painful. It's sometimes called "swimmer's ear," because it often occurs after prolonged water exposure. Many things, such as earwax and dirt in the ear, can contribute to it. The usual treatment is antibiotic/antiinflammatory ear drops. Occasionally, a wick will be placed in the ear to draw in the medicine. If the infection is severe, an oral antibiotic may be prescribed. Pain medication is often needed. Avoid getting water in the ear. Outer ear infections often take longer to heal than you might expect. Some tenderness and ache in the ear may persist for about two weeks. See your physician if you fail to improve as expected. Call the doctor at once if you develop fever, increasing swelling (particularly if it makes your ear "poke out"), severe headache, stiff neck, or decreased hearing. You have been given a syringe of lidocaine viscous jelly. It is in a syringe that you can insert a small amount into the ear canal after you have done your eardrops no more than 2-3 times a day for the pain. Please use after the eardrops that the eardrops get to the canal. Continue your antibiotics prescribed by your primary care doctor as they are the actual antibiotics. USE OF ACETAMINOPHEN (Tylenol): Acetaminophen may be taken for pain relief or fever control. It's much safer than aspirin, offering a wider range of "safe" dosages. It is safe during . Some brand names are Tylenol, Panadol, Datril, Anacin 3, Tempra, and Liquiprin. Acetaminophen can be repeated every four hours. The following are maximum recommended dosages: WEIGHT Dose Drops Elixir Chewable(80mg) (LBS.) drprs=droppers tsp=teaspoon 6 40 mg 0.4 ml (1/2) 6-11 80 mg 0.8 ml (full) tsp 1 tab 12-16 120 mg 1 1/2 drprs 3/4 tsp 1 1/2 tabs 17-23 160 mg 2 drprs 1 tsp 2 tabs 24-30 240 mg 3 drprs 1 1/2 tsp 3 tabs 30-35 320 mg 2 tsp 4 tabs 36-41 360 mg 2 1/4 tsp 4 1/2 tabs 42-47 400 mg 2 1/2 tsp 5 tabs 48-53 480 mg 3 tsp 6 tabs 54-59 520 mg 3 1/4 tsp 6 1/2 tabs 60-64 560 mg 3 1/2 tsp 7 tabs 65-70 600 mg 3 3/4 tsp 7 1/2 tabs 71-76 640 mg 4 tsp 8 tabs 77-82 720 mg 4 1/2 tsp 9 tabs 83-88 800 mg 5 tsp 10 tabs >89 pounds or adults 650 mg to 900 mg Acetaminophen can be repeated every four hours. Maximum dose not to exceed 4000 mg a day. These maximum recommended dosages are slightly higher than the dosages written on the product container, but these dosages are very safe and below the toxic dosage for acetaminophen. FOLLOW-UP CARE: If you have been referred to a physician for follow-up care, call the physicians office for an appointment as you were instructed or within the next two days. If you experience worsening or a significant change in your symptoms, notify the physician immediately or return to the Emergency Department at any time for re-evaluation. Forms: Elevated Blood Pressure Referrals: BRUCE COTE PA-C [Primary Care Provider] - Follow up tomorrow
== END 2019-01-29 18:21 | disposition home or self-care (01) ==
LOC: ER 17:10
DX: H60.91 Unspecified otitis externa, right ear (principal); H92.01 Otalgia, right ear; R09.89 Other specified symptoms and signs involving the circulatory and respiratory systems; I10 Essential (primary) hypertension; J44.9 Chronic obstructive pulmonary disease, unspecified; Z88.1 Allergy status to other antibiotic agents; Z88.0 Allergy status to penicillin
CPT/HCPCS: 99282; J3490

== ENCOUNTER 2019-05-05 15:15 | Emergency (ER) | payer MEDICAID ==
--- NOTE | 2019-05-05 18:32 | ER Document Report ---
HPI - HPI Patient complains to provider of: chest pain Time Seen by Provider: 05/05/19 18:28 Pain Level: 4 Context: Pt denies any prior personal cardiac history. denies any family history of sudden or cardiac dz at a young age. no syncope. no palpitations. no hx of mi, cva, tia, or cad. no ripping or tearing sensation. denies any blood thinners. No prior history of blood clots. No recent long distance travel/immobilization, recent surgery, exogenous estrogen use, hemoptysis, history of cancer, or calf pain/swelling. No prior history of arrhythmias. - ROS Systems Reviewed and Negative: Yes All other systems reviewed and negative - To include 10 systems, unless mentioned in the hpi. - REPRODUCTIVE Reproductive: DENIES: : Past Medical History - Social History Smoking Status: Former Smoker Frequency of alcohol use: None Drug Abuse: None Family History: CAD, DM, Hypertension, Other - Asthma Patient has suicidal ideation: No Patient has homicidal ideation: No - Past Medical History Cardiac Medical History: Reports: Hx Hypertension Pulmonary Medical History: Reports: Hx Asthma, Hx Bronchitis, Hx COPD, Hx Pneumonia Neurological Medical History: Reports: Hx Migraine Endocrine Medical History: Reports: Hx Hypothyroidism Renal/ Medical History: Denies: Hx Peritoneal Dialysis GI Medical History: Reports: Hx Gastroesophageal Reflux Disease. Denies: Hx Hepatitis Musculoskeletal Medical History: Reports Hx Musculoskeletal Trauma Psychiatric Medical History: Reports: Hx Anxiety, Hx Bipolar Disorder Traumatic Medical History: Reports: Hx Fractures Infectious Medical History: Denies: Hx Hepatitis Past Surgical History: Reports: Hx Cholecystectomy, Hx Oral Surgery - [place] teeth, Hx Orthopedic Surgery - Bilateral great toe. Denies: Hx Hysterectomy, Hx Mastectomy, Hx Open Heart Surgery, Hx Pacemaker - Immunizations Immunizations up to date: Yes Hx Diphtheria, Pertussis, Tetanus Vaccination: Yes Hx Pneumococcal Vaccination: 08/29/00 Vertical Provider Document - CONSTITUTIONAL Notes: >>>> PHYSICAL_EXAM: GENERAL_APPEARANCE: well_nourished, alert, cooperative, no_acute_distress, no_obvious_discomfort. pleasant, obese young white female, smiling, speaking in full sentences, in no sign of pain or resp distress, VITALS: reviewed, see vital signs table. HEAD: no_swelling\tenderness on the head. normocephalic. atraumatic. no ramirez signs. no raccoons eyes. EARS: canals_clear_bilat, TMs_clear. EYES: PERRL, EOMI, conjunctiva_clear. NOSE: no_nasal_discharge. MOUTH: (-)decreased moisture. THROAT: no_tonsilar_inflammation, no_airway_obstruction. no_lymphadenopathy NECK: supple, no_neck_tenderness, full rom. full strength. no jvd. no carotid bruit. no meningeal signs. no sign of central cord syndrome. BACK: no_back_tenderness. CHEST_WALL: pos_chest_tenderness peristernally that reproduces pts pain exactly. no overlying skin changes LUNGS:scant exp wheezes diffusely with slight decreased breath sounds (- )accessory muscle use, good air exchange bilateral. HEART: normal_rate, normal_rhythm, ABDOMEN: normal_BS, soft, no_abd_tenderness, (-)guarding, (-)rebound, no distension or peritoneal signs. no cva ttp EXTREMITIES: strength 5/5 in all_extremities, good pulses in all_extremities, no_swelling\tenderness in the extremities, no_edema. full rom. normal gait. good pulses. brisk cap refill. good hand warp preparer. neg ayaan sign NEURO: motor and sensation intact, cranial nerves 2-12 intact, cerebellar fxn intact SKIN: warm, dry, good_color, no_rash. MENTAL_STATUS: speech_clear, oriented_X_3, normal_affect, responds_appropriately to questions. - INFECTION CONTROL TRAVEL OUTSIDE OF THE [place] IN LAST 30 DAYS: No Course - Re-evaluation Re-evalutation: 05/05/19 18:33 Pt here for . advised to f/u with pcp in 1-2 days. return for any worsening sym ptoms. vss. well appearing. satting well on ra. neurononfocal. pt understands and agrees to plan. On reexam, pt improved with tx listed. remained stable. nontoxic. well appearing. pain controlled. tolerating po. requesting to go home. case discussed with ER Attending, , who directed and agrees with plan of care and advised no further workup indicated at this time and pt is stable for dc home with close f/u with pcp/specialist. Documentation achieved through voice recording which may lead to some occasional accidental typographical errors. Extensive efforts have been made to proof read documentation to make sure these are the least as possible. 05/05/19 21:47 Category Date Time Status EKG Documentation STAT Care 05/05/19 15:18 Completed CHEST 2 VIEWS [RAD] Stat Exams 05/05/19 18:30 Completed CBC WITH DIFF [HEME] Stat Lab 05/05/19 18:53 Completed COMPREHENSIVE METABOLIC PANEL [CHEM] Stat Lab 05/05/19 18:53 Completed CREATINE KINASE MB [CHEM] Stat Lab 05/05/19 18:53 Completed CREATINE KINASE [CHEM] Stat Lab 05/05/19 18:53 Completed FREE T3 [CHEM] Stat Lab 05/05/19 18:53 Completed HCG QUALITATIVE, URINE [URIN] Stat Lab 05/05/19 20:19 Completed MAGNESIUM [CHEM] Stat Lab 05/05/19 18:53 Completed T4 [FREE T4 (FREE THYROXINE)] [CHEM] Stat Lab 05/05/19 18:53 Completed THYROID STIMULATING HORMONE [CHEM] Stat Lab 05/05/19 18:53 Completed TROPONIN I [CHEM] Stat Lab 05/05/19 18:53 Completed URINALYSIS [URIN] Stat Lab 05/05/19 20:19 Completed URINE CULTURE [MC] Stat Lab 05/05/19 21:41 Uncollected Ipratropium/Albuterol Sulfate [Duoneb 3 ml Ampul] Med 05/05/19 18:58 Discontinued 3 ml NEB NOW ONE Ketorolac Tromethamine [Toradol Inj/Pf 30 mg/1 ml Sdv] Med 05/05/19 18:58 Discontinued 30 mg IV NOW ONE EKG ER ONLY [ER] Stat Oth 05/05/19 Active Nebulizer Therapy Routine [RESPCARE] NOW Ther 05/05/19 18:58 Active - Vital Signs Vital signs: Temp Pulse Resp BP Pulse Ox 98.7 F 103 H 18 136/86 H 97 05/05/19 15:25 05/05/19 15:25 05/05/19 15:25 05/05/19 15:25 05/05/19 15:25 05/05/19 21:41 Temp Pulse Pulse Resp BP BP Pulse Ox 05/05/19 21:01 18 98 05/05/19 21:00 16 126/90 H 98 05/05/19 20:59 19 98 05/05/19 20:26 20 116/88 H 98 05/05/19 20:25 16 98 05/05/19 20:15 104 H 20 149/98 H 100 05/05/19 20:12 23 H 149/98 H 100 05/05/19 20:11 21 H 100 05/05/19 20:00 16 98 05/05/19 19:01 19 99 05/05/19 19:00 16 157/103 H 100 05/05/19 18:59 23 H 99 05/05/19 18:58 19 144/104 H 100 05/05/19 18:57 17 99 05/05/19 18:50 25 H 100 05/05/19 15:25 98.7 F 103 H 18 136/86 H 97 - Laboratory Result Diagrams: 05/05/19 18:53 05/05/19 18:53 Laboratory results interpreted by me: 05/05/19 21:41 Labs- Entire Visit 05/05/19 05/05/19 05/05/19 18:53 18:53 18:53 WBC 10.9 H RBC 4.95 Hgb 15.7 H Hct 45.0 MCV 91 MCH 31.7 MCHC 34.9 RDW 13.2 Plt Count 267 Lymph % (Auto) 21.3 Bullock % (Auto) 5.1 Eos % (Auto) 3.7 Baso % (Auto) 0.6 Absolute Neuts (auto) 7.6 Absolute Lymphs (auto) 2.3 Absolute Monos (auto) 0.6 Absolute Eos (auto) 0.4 Absolute Basos (auto) 0.1 Seg Neutrophils % 69.3 Sodium 138.2 Potassium 4.0 Chloride 98 Carbon Dioxide 30 Anion Gap 10 BUN 15 Creatinine 0.96 Est GFR ( Amer) > 60 Est GFR (MDRD) Non-Af > 60 Glucose 86 Calcium 10.1 Magnesium 1.8 Total Bilirubin 1.2 Direct Bilirubin 0.2 Neonat Total Bilirubin Not Reportable Neonat Direct Bilirubin Not Reportable Neonat Indirect Bili Not Reportable AST 55 H ALT 80 Alkaline Phosphatase 82 Creatine Kinase 100 CK-MB (CK-2) Troponin I Total Protein 7.5 Albumin 4.7 TSH Free T4 Free T3 pg/mL Urine Color Urine Appearance Urine pH Ur Specific Mcdonough Urine Protein Urine Glucose (UA) Urine Ketones Urine Blood Urine Nitrite Urine Bilirubin Urine Urobilinogen Ur Leukocyte Esterase Urine WBC (Auto) Urine RBC (Auto) Urine Bacteria (Auto) Squamous Epi Cells Auto Urine Mucus (Auto) Urine Ascorbic Acid Urine HCG, Qual 05/05/19 05/05/19 05/05/19 18:53 18:53 20:19 WBC RBC Hgb Hct MCV MCH MCHC RDW Plt Count Lymph % (Auto) Bullock % (Auto) Eos % (Auto) Baso % (Auto) Absolute Neuts (auto) Absolute Lymphs (auto) Absolute Monos (auto) Absolute Eos (auto) Absolute Basos (auto) Seg Neutrophils % Sodium Potassium Chloride Carbon Dioxide Anion Gap BUN Creatinine Est GFR ( Amer) Est GFR (MDRD) Non-Af Glucose Calcium Magnesium Total Bilirubin Direct Bilirubin Neonat Total Bilirubin Neonat Direct Bilirubin Neonat Indirect Bili AST ALT Alkaline Phosphatase Creatine Kinase CK-MB (CK-2) 0.59 Troponin I < 0.012 Total Protein Albumin TSH 1.63 Free T4 1.21 Free T3 pg/mL 3.45 Urine Color DARK YELLOW Urine Appearance CLOUDY Urine pH 6.0 Ur Specific Mcdonough 1.029 Urine Protein 30 H Urine Glucose (UA) NEGATIVE Urine Ketones NEGATIVE Urine Blood MODERATE H Urine Nitrite NEGATIVE Urine Bilirubin NEGATIVE Urine Urobilinogen NEGATIVE Ur Leukocyte Esterase MODERATE H Urine WBC (Auto) 152 Urine RBC (Auto) 34 Urine Bacteria (Auto) TRACE Squamous Epi Cells Auto 6 Urine Mucus (Auto) FEW Urine Ascorbic Acid NEGATIVE Urine HCG, Qual NEGATIVE - Diagnostic Test Radiology reviewed: Image reviewed, Reports reviewed Radiology results interpreted by me: 05/05/19 21:41 Chest X-Ray 05/05/19 18:30 IMPRESSION: No acute abnormality of the lungs. No focal airspace opacity. - EKG Interpretation by Mo EKG shows normal: Sinus rhythm Rate: Tachycardia - 101 bpm, no stemi, reviewed by dr de la fuente When compared to previous EKG there are: No significant change Discharge - Discharge Clinical Impression: Acute bronchospasm, Costochondritis Condition: Good Disposition: HOME, SELF-CARE Instructions: Chest Wall Pain ([facility]), Bronchospasm ([facility]) Additional Instructions: Follow-up with PCP in 1 to 2 days. Return for any worsening symptoms. tylenol or motrin as needed for any pain or fever if not allergic. take the medication as prescribed. Continue to use your inhalers as prescribed. Referrals: BRUCE COTE PA-C [Primary Care Provider] - Follow up as needed
[2019-05-05] MEDS ORDERED: IPRATROPIUM/ALBUTEROL 0.5-2.5 MG/3 ML AMPUL NEB ONE (18:58)
[2019-05-05] MEDS ORDERED: KETOROLAC TROMETHAMINE INJ/PF 30 MG/1 ML SDV IV ONE (18:58)
[2019-05-05 19:11] LABS: ABSOLUTE BASOPHILS # (AUTO) 0.1 10^3/uL (0.0-0.2); ABSOLUTE EOSINOPHILS # (AUTO) 0.4 10^3/uL (0.0-0.6); ABSOLUTE LYMPHOCYTES (AUTO) 2.3 10^3/uL (0.5-4.7); ABSOLUTE MONOCYTES (AUTO) 0.6 10^3/uL (0.1-1.4); ABSOLUTE NEUT (AUTO) 7.6 10^3/uL (1.7-8.2); BASOPHILS % (AUTO) 0.6 % (0-2); EOSINOPHILS % (AUTO) 3.7 % (0-6); HEMOGLOBIN 15.7 g/dL (12.0-15.5); LYMPHOCYTES % (AUTO) 21.3 % (13-45); MEAN CORPUSCULAR HEMOGLOBIN 31.7 pg (27.0-33.4); MEAN CORPUSCULAR HGB CONC 34.9 g/dL (32.0-36.0); MEAN CORPUSCULAR VOLUME 91 fl (80-97); MONOCYTES % (AUTO) 5.1 % (3-13); PLATELET COUNT 267 10^3/uL (150-450); RED BLOOD COUNT 4.95 10^6/uL (3.72-5.28); RED CELL DISTRIBUTION WIDTH 13.2 % (11.5-14.0); SEGMENTED NEUTROPHILS % (AUTO) 69.3 % (42-78); TOTAL CELLS COUNTED % (AUTO) 100 %; WHITE BLOOD COUNT 10.9 10^3/uL (4.0-10.5)
[2019-05-05 19:28] LABS: ALBUMIN 4.7 g/dL (3.5-5.0); ALKALINE PHOSPHATASE 82 U/L (38-126); ANION GAP 10 (5-19); ASPARTATE AMINO TRANSFERASE 55 U/L (14-36); BILIRUBIN,DIRECT 0.2 mg/dL (0.0-0.4); BILIRUBIN,TOTAL 1.2 mg/dL (0.2-1.3); BLOOD UREA NITROGEN 15 mg/dL (7-20); CALCIUM 10.1 mg/dL (8.4-10.2); CARBON DIOXIDE 30 mmol/L (22-30); CHLORIDE 98 mmol/L (98-107); GLUCOSE 86 mg/dL (75-110); TOTAL PROTEIN 7.5 g/dL (6.3-8.2)
--- NOTE | 2019-05-05 19:32 | RADIOLOGY REPORT (SQ) ---
EXAM DESCRIPTION: CHEST 2 VIEWS COMPLETED DATE/TIME: 05/05/2019 7:22 pm REASON FOR STUDY: cp COMPARISON: 11/15/2018 EXAM PARAMETERS: NUMBER OF VIEWS: two views TECHNIQUE: Digital Frontal and Lateral radiographic views of the chest acquired. RADIATION DOSE: NA LIMITATIONS: none FINDINGS: LUNGS AND PLEURA: No opacities, masses or pneumothorax. No pleural effusion. MEDIASTINUM AND HILAR STRUCTURES: No masses or contour abnormalities. HEART AND VASCULAR STRUCTURES: Heart normal size. No evidence for failure. BONES: No acute findings. HARDWARE: None in the chest. OTHER: No other significant finding. IMPRESSION: No acute abnormality of the lungs. No focal airspace opacity. TECHNICAL DOCUMENTATION: JOB ID: [id number] [employer]- All Rights Reserved Reading location - IP/workstation name: [email or web address]
[2019-05-05 19:40] LABS: CREATINE KINASE MB 0.59 ng/mL (<4.55)
[2019-05-05 19:41] LABS: TROPONIN I < 0.012 ng/mL
[2019-05-05 19:46] LABS: FREE T3 3.45 pg/mL (2.77-5.27); FREE T4 (FREE THYROXINE) 1.21 ng/dL (0.78-2.19)
[2019-05-05 20:00] LABS: THYROID STIMULATING HORMONE 1.63 uIU/mL (0.47-4.68)
[2019-05-05 20:58] LABS: APPEARANCE,URINE CLOUDY; BILIRUBIN,URINE NEGATIVE (NEGATIVE); GLUCOSE, URINE NEGATIVE (NEGATIVE); KETONES,URINE NEGATIVE (NEGATIVE); LEUKOCYTE ESTERASE,URINE MODERATE (NEGATIVE); NITRITE,URINE NEGATIVE (NEGATIVE); PROTEIN,URINE 30 mg/dL (NEGATIVE); URINE SPECIFIC GRAVITY 1.029; UROBILINOGEN,URINE NEGATIVE mg/dL (<2.0)
[2019-05-05 20:59] LABS: COLOR,URINE DARK YELLOW
[2019-05-05 21:54] VITALS: BP 132/85
--- NOTE | 2019-05-06 18:38 | EKG REPORT ---
SEVERITY:- OTHERWISE NORMAL ECG - SINUS TACHYCARDIA : Confirmed by: Robles Justice 06-May-2019 18:37:14
== END 2019-05-05 21:55 | disposition home or self-care (01) ==
LOC: ER 15:15
DX: M94.0 Chondrocostal junction syndrome [Tietze] (principal); J98.01 Acute bronchospasm; R00.0 Tachycardia, unspecified; R07.9 Chest pain, unspecified; I10 Essential (primary) hypertension; J44.9 Chronic obstructive pulmonary disease, unspecified; Z87.891 Personal history of nicotine dependence; E66.9 Obesity, unspecified
CPT/HCPCS: 93005; 94640; 99285; 96374; 36415; 87086; 84439; 82553; 82550; 83735; 84443; 85025; 81025; 87088; 80053; 81001; 84484; 84481; 71046; 93010; J1885; J7620

== ENCOUNTER 2019-05-09 22:36 | Emergency (ER) | payer MEDICAID ==
--- NOTE | 2019-05-09 23:28 | ER Document Report ---
HPI - HPI Patient complains to provider of: chest pain, sob, tachy Time Seen by Provider: 05/09/19 23:18 Pain Level: 3 - REPRODUCTIVE Reproductive: DENIES: : - DERM Skin Color: Normal Past Medical History - Social History Smoking Status: Former Smoker Frequency of alcohol use: None Drug Abuse: None Family History: CAD, DM, Hypertension, Other - Asthma Patient has suicidal ideation: No Patient has homicidal ideation: No - Past Medical History Cardiac Medical History: Reports: Hx Hypertension Pulmonary Medical History: Reports: Hx Asthma, Hx Bronchitis, Hx COPD, Hx Pneumonia Neurological Medical History: Reports: Hx Migraine Endocrine Medical History: Reports: Hx Hypothyroidism Renal/ Medical History: Denies: Hx Peritoneal Dialysis GI Medical History: Reports: Hx Gastroesophageal Reflux Disease. Denies: Hx Hepatitis Musculoskeletal Medical History: Reports Hx Musculoskeletal Trauma Psychiatric Medical History: Reports: Hx Anxiety, Hx Bipolar Disorder Traumatic Medical History: Reports: Hx Fractures Infectious Medical History: Denies: Hx Hepatitis Past Surgical History: Reports: Hx Cholecystectomy, Hx Oral Surgery - [place] teeth, Hx Orthopedic Surgery - Bilateral great toe. Denies: Hx Hysterectomy, Hx Mastectomy, Hx Open Heart Surgery, Hx Pacemaker - Immunizations Immunizations up to date: Yes Hx Diphtheria, Pertussis, Tetanus Vaccination: Yes Hx Pneumococcal Vaccination: 08/29/00 Vertical Provider Document - INFECTION CONTROL TRAVEL OUTSIDE OF THE [place] IN LAST 30 DAYS: No Course - Vital Signs Vital signs: Temp Pulse Resp BP Pulse Ox 98.9 F 109 H 18 136/97 H 99 05/09/19 22:42 05/09/19 22:42 05/09/19 22:42 05/09/19 22:42 05/09/19 22:42 - Laboratory Result Diagrams: 05/09/19 23:48 05/09/19 23:48 - EKG Interpretation by Pr EKG shows normal: Sinus rhythm Rate: Tachycardia - 107 bpm, no stemi, reviewed by dr cervantes When compared to previous EKG there are: No significant change Discharge - Discharge Clinical Impression: Costochondritis, Shortness of breath, Acute bronchospasm Acute bronchitis Qualifiers: Bronchitis organism: unspecified organism Qualified Code(s): J20.9 - Acute bronchitis, unspecified Asthma exacerbation Qualifiers: Asthma severity: mild Asthma persistence: unspecified Qualified Code(s): J45.901 - Unspecified asthma with (acute) exacerbation Condition: Good Disposition: HOME, SELF-CARE Instructions: Chest Wall Pain ([facility]) Additional Instructions: Follow-up with PCP/pulmonology in 1 to 2 days. Return for any worsening sym ptoms. tylenol or motrin as needed for any pain or fever if not allergic. take the medication as prescribed. Prescriptions: Prednisone [Deltasone 10 mg Tablet] 40 mg PO DAILY 5 Days #20 tablet Albuterol Sulfate [Proair HFA Inhalation Aerosol 8.5 gm MDI] 2 puff IH Q4H PRN # 1 mdi PRN Reason: Beclomethasone Dipropionate [Qvar] 1 - 2 inh IH BID PRN #1 aer.w.adap PRN Reason: Azithromycin [Zithromax 250 mg Tablet] 250 mg PO ASDIR PRN #6 tablet PRN Reason: Referrals: BRUCE COTE PA-C [Primary Care Provider] - Follow up tomorrow OFE MEJIA II, MD [NO LOCAL MD] - Follow up tomorrow
[2019-05-10 00:04] LABS: ABSOLUTE BASOPHILS # (AUTO) 0.1 10^3/uL (0.0-0.2); ABSOLUTE EOSINOPHILS # (AUTO) 0.4 10^3/uL (0.0-0.6); ABSOLUTE LYMPHOCYTES (AUTO) 2.2 10^3/uL (0.5-4.7); ABSOLUTE MONOCYTES (AUTO) 0.6 10^3/uL (0.1-1.4); ABSOLUTE NEUT (AUTO) 6.7 10^3/uL (1.7-8.2); BASOPHILS % (AUTO) 0.7 % (0-2); EOSINOPHILS % (AUTO) 4.2 % (0-6); HEMATOCRIT 43.9 % (36.0-47.0); HEMOGLOBIN 15.2 g/dL (12.0-15.5); LYMPHOCYTES % (AUTO) 21.6 % (13-45); MEAN CORPUSCULAR HEMOGLOBIN 31.5 pg (27.0-33.4); MEAN CORPUSCULAR HGB CONC 34.7 g/dL (32.0-36.0); MEAN CORPUSCULAR VOLUME 91 fl (80-97); PLATELET COUNT 266 10^3/uL (150-450); RED BLOOD COUNT 4.84 10^6/uL (3.72-5.28); RED CELL DISTRIBUTION WIDTH 12.9 % (11.5-14.0); SEGMENTED NEUTROPHILS % (AUTO) 67.5 % (42-78); TOTAL CELLS COUNTED % (AUTO) 100 %
[2019-05-10 00:21] LABS: INTERNATIONAL RATION (INR) 0.98
--- NOTE | 2019-05-10 00:22 | RADIOLOGY REPORT (SQ) ---
XR CHEST 2 VIEWS EXAM DATE: 05/09/2019 11:20 PM CDT HISTORY: Chest pain. COMPARISON: 05/05/2019 FINDINGS: The heart size is within normal limits. No consolidation, pleural effusion, or pneumothorax is seen. The bony thorax is intact. IMPRESSION: No evidence of acute cardiopulmonary disease.
[2019-05-10 00:24] LABS: ALBUMIN 4.7 g/dL (3.5-5.0); ALKALINE PHOSPHATASE 82 U/L (38-126); ANION GAP 9 (5-19); ASPARTATE AMINO TRANSFERASE 52 U/L (14-36); BILIRUBIN,DIRECT 0.1 mg/dL (0.0-0.4); BILIRUBIN,TOTAL 0.6 mg/dL (0.2-1.3); BLOOD UREA NITROGEN 10 mg/dL (7-20); CALCIUM 9.9 mg/dL (8.4-10.2); CARBON DIOXIDE 31 mmol/L (22-30); CHLORIDE 99 mmol/L (98-107); CREATINE KINASE 58 U/L (30-135); GLUCOSE 91 mg/dL (75-110); POTASSIUM 3.9 mmol/L (3.6-5.0); TOTAL PROTEIN 7.6 g/dL (6.3-8.2)
[2019-05-10] MEDS ORDERED: IPRATROPIUM/ALBUTEROL 0.5-2.5 MG/3 ML AMPUL NEB ONE (00:40)
[2019-05-10 00:42] LABS: CREATINE KINASE MB < 0.22 ng/mL (<4.55); TROPONIN I < 0.012 ng/mL
--- NOTE | 2019-05-10 01:53 | RADIOLOGY REPORT (SQ) ---
CLINICAL HISTORY: tachy, sob, EVAL pe COMPARISON: None. TECHNIQUE: CT CHEST ANGIOGRAPHY WITHOUT THEN WITH IV CONTRAST on 05/10/2019 12:40 AM CDT. MIPS reconstructions were generated. This exam was performed according to our departmental dose-optimization program, which includes automated exposure control, adjustment of the mA and/or kV according to patient size and/or use of iterative reconstruction technique. MIP images were generated. FINDINGS: Thoracic aorta is normal in course and caliber without aneurysm or dissection. Pulmonary arteries are adequately opacified without acute or chronic filling defects. The heart is normal in size. There is no pericardial effusion. Intrathoracic lymph nodes are not enlarged. There is no pleural effusion, pleural thickening or pneumothorax. Central airways are patent. Lungs are clear with no consolidation, mass or interstitial lung disease. In the upper abdomen, cholecystectomy was performed. The spleen is enlarged measuring 16.1 cm. There are no acute osseous findings. No suspicious bony lesions. IMPRESSION: No aortic dissection or aneurysm. No pulmonary embolus. No pneumonia.
[2019-05-10 03:05] VITALS: BP 113/94
--- NOTE | 2019-05-10 09:33 | EKG REPORT ---
SEVERITY:- OTHERWISE NORMAL ECG - SINUS TACHYCARDIA : Confirmed by: Antonella Sena MD 10-May-2019 09:32:18
== END 2019-05-10 03:26 | disposition home or self-care (01) ==
LOC: ER 22:36
DX: M94.0 Chondrocostal junction syndrome [Tietze] (principal); J20.9 Acute bronchitis, unspecified; J44.9 Chronic obstructive pulmonary disease, unspecified; R06.02 Shortness of breath; R07.9 Chest pain, unspecified; R00.0 Tachycardia, unspecified; Z87.891 Personal history of nicotine dependence; I10 Essential (primary) hypertension
CPT/HCPCS: 93005; 94640; 99285; 36415; 82553; 82550; 83735; 84703; 85025; 85610; 80053; 84484; 71046; 71275; 93010; J7620

== ENCOUNTER 2019-06-17 21:23 | Emergency (ER) | payer MEDICAID ==
[2019-06-17 21:33] VITALS: BP 138/92
[2019-06-17] MEDS ORDERED: DIPHENHYDRAMINE HCL 50 MG CAPSULE PO ONE (22:02)
[2019-06-17] MEDS ORDERED: FAMOTIDINE 20 MG TABLET PO ONE (22:02)
--- NOTE | 2019-06-17 22:02 | ER Document Report ---
ED Medical Screen (RME) - General Chief Complaint: Rash Stated Complaint: RASH Time Seen by Provider: 06/17/19 22:00 Primary Care Provider: BRUCE COTE PA-C [Primary Care Provider] - Follow up as needed Mode of Arrival: Ambulatory Information source: Patient Notes: 29-year-old female presents to ED for complaint of a rash to both forearms. She states it started yesterday but is getting more painful swollen and red. States she did not use anything or do anything that should be given her rash on her arms. She is alert oriented respirations regular and unlabored speaking in full sentences. Took Benadryl yesterday but not today. She states she did use cortisone 10 on it tonight. I have greeted and performed a rapid initial assessment of this patient. A comprehensive ED assessment and evaluation of the patient, analysis of test results and completion of medical decision making process will be conducted by an additional ED providers. TRAVEL OUTSIDE OF THE [place] IN LAST 30 DAYS: No - Related Data Allergies/Adverse Reactions: clindamycin [Clindamycin] Allergy (Severe, Verified 01/29/19 17:12) Hives doxycycline [Doxycycline] Allergy (Intermediate, Verified 01/29/19 17:12) Hives amoxicillin Allergy (Verified 01/29/19 17:12) Penicillins Allergy (Verified 01/29/19 17:12) Home Medications: Blood pressure meds. cholesterol med. pro air. symbicort Past Medical History - Social History Chew tobacco use (# tins/day): No Frequency of alcohol use: None Drug Abuse: None Family history: Reviewed & Not Pertinent - Past Medical History Cardiac Medical History: Reports: Hx Hypertension Pulmonary Medical History: Reports: Hx Asthma, Hx Bronchitis, Hx COPD, Hx Pneumonia Neurological Medical History: Reports: Hx Migraine Endocrine Medical History: Reports: Hx Hypothyroidism Renal/ Medical History: Denies: Hx Peritoneal Dialysis GI Medical History: Reports: Hx Gastroesophageal Reflux Disease. Denies: Hx Hepatitis Musculoskeltal Medical History: Reports Hx Musculoskeletal Trauma Psychiatric Medical History: Reports: Hx Anxiety, Hx Bipolar Disorder Traumatic Medical History: Reports: Hx Fractures Infectious Medical History: Denies: Hx Hepatitis Past Surgical History: Reports: Hx Cholecystectomy, Hx Oral Surgery - [place] teeth, Hx Orthopedic Surgery - Bilateral great toe. Denies: Hx Hysterectomy, Hx Mastectomy, Hx Open Heart Surgery, Hx Pacemaker - Immunizations Immunizations up to date: Yes Hx Diphtheria, Pertussis, Tetanus Vaccination: Yes Physical Exam - Vital signs Vitals: Temp Pulse Resp BP Pulse Ox 98.9 F 106 H 18 138/92 H 97 06/17/19 21:31 06/17/19 21:31 06/17/19 21:31 06/17/19 21:31 06/17/19 21:31 Course - Vital Signs Vital signs: Temp Pulse Resp BP Pulse Ox 98.9 F 106 H 18 138/92 H 97 06/17/19 21:31 06/17/19 21:31 06/17/19 21:31 06/17/19 21:31 06/17/19 21:31 Doctor's Discharge - Discharge Referrals: BRUCE COTE PA-C [Primary Care Provider] - Follow up as needed
--- NOTE | 2019-06-17 22:59 | ER Document Report ---
ED General - General Chief Complaint: Rash Stated Complaint: RASH Time Seen by Provider: 06/17/19 22:00 Primary Care Provider: BRUCE COTE PA-C [Primary Care Provider] - Follow up as needed Mode of Arrival: Ambulatory TRAVEL OUTSIDE OF THE [place] IN LAST 30 DAYS: No - HPI Notes: 29-year-old female presents with itchy redness and rash on her bilateral f orearms and hand. Gradual onset of last 2 to 3 days, first thought she may have been exposed to a new detergent but states this was several months ago. She has had several bug bites mosquito bites thinks it may be related to that. Otherwise she is really uncertain. No odynophagia or dysphagia, no systemic effects. No fever chills or sweats. Moderate intensity, gradual onset, nonradiating. No other modifying factors, no other associated symptoms, no other provocative or palliative factors. - Related Data Allergies/Adverse Reactions: clindamycin [Clindamycin] Allergy (Severe, Verified 01/29/19 17:12) Hives doxycycline [Doxycycline] Allergy (Intermediate, Verified 01/29/19 17:12) Hives amoxicillin Allergy (Verified 01/29/19 17:12) Penicillins Allergy (Verified 01/29/19 17:12) Home Medications: Blood pressure meds. cholesterol med. pro air. symbicort Past Medical History - General Information source: Patient - Social History Smoking Status: Former Smoker Chew tobacco use (# tins/day): No Frequency of alcohol use: None Drug Abuse: None Family History: CAD, DM, Hypertension, Other - Asthma Patient has suicidal ideation: No Patient has homicidal ideation: No - Past Medical History Cardiac Medical History: Reports: Hx Hypertension Pulmonary Medical History: Reports: Hx Asthma, Hx Bronchitis, Hx COPD, Hx Pneumonia Neurological Medical History: Reports: Hx Migraine Endocrine Medical History: Reports: Hx Hypothyroidism Renal/ Medical History: Denies: Hx Peritoneal Dialysis GI Medical History: Reports: Hx Gastroesophageal Reflux Disease. Denies: Hx Hepatitis Musculoskeletal Medical History: Reports Hx Musculoskeletal Trauma Psychiatric Medical History: Reports: Hx Anxiety, Hx Bipolar Disorder Traumatic Medical History: Reports: Hx Fractures Infectious Medical History: Denies: Hx Hepatitis Past Surgical History: Reports: Hx Cholecystectomy, Hx Oral Surgery - [place] teeth, Hx Orthopedic Surgery - Bilateral great toe. Denies: Hx Hysterectomy, Hx Mastectomy, Hx Open Heart Surgery, Hx Pacemaker - Immunizations Immunizations up to date: Yes Hx Diphtheria, Pertussis, Tetanus Vaccination: Yes Hx Pneumococcal Vaccination: 08/29/00 Review of Systems - Review of Systems Notes: Review of systems as in the history of present illness, otherwise negative x 10 systems. Physical Exam - Vital signs Vitals: Temp Pulse Resp BP Pulse Ox 98.9 F 106 H 18 138/92 H 97 06/17/19 21:31 06/17/19 21:31 06/17/19 21:31 06/17/19 21:31 06/17/19 21:31 - Notes Notes: General: Well devloped, no acute distress. HEENT: Normocephalic, atraumatic. Pupils equal round reactive to light. Mucosa moist. No JVD. Chest: No trauma, normal excursion. Respiratory: Good air exchange, normal excursion. Cardiac: Regular rhythm Abdomen: Soft, benign. Nondistended. Back: No asymmetry or gross abnormality. Motor: Grossly normal power and tone. Neurologic: Alert, nonfocal. Vascular: Well perfused Skin: No petechiae or purpura. There is some mild blanching erythematous patches and papular areas on the forearm and dorsal distal hand. Course - Re-evaluation Re-evalutation: 06/17/19 22:58 Appearing female with what appears to be contact dermatitis versus possible localized allergic reaction. No clinical evidence to support cellulitis. Will treat empirically with a short course of steroids, close outpatient follow-up, return if worsening. - Vital Signs Vital signs: Temp Pulse Resp BP Pulse Ox 98.9 F 106 H 18 138/92 H 97 06/17/19 21:31 06/17/19 21:31 06/17/19 21:31 06/17/19 21:31 06/17/19 21:31 Discharge - Discharge Clinical Impression: Dermatitis Condition: Stable Disposition: HOME, SELF-CARE Instructions: Contact Dermatitis ([facility]) Prescriptions: Prednisone [Deltasone 20 mg Tablet] 2 tab PO DAILY 5 Days tablet Referrals: BRUCE COTE PA-C [Primary Care Provider] - Follow up as needed
== END 2019-06-17 23:12 | disposition home or self-care (01) ==
LOC: ER 21:23
DX: L30.9 Dermatitis, unspecified (principal); I10 Essential (primary) hypertension; E03.9 Hypothyroidism, unspecified; Z88.0 Allergy status to penicillin; Z90.49 Acquired absence of other specified parts of digestive tract
CPT/HCPCS: J3490 ×2; 99282

== ENCOUNTER 2019-07-24 15:16 | Emergency (ER) | payer MEDICAID ==
--- NOTE | 2019-07-24 15:25 | ER Document Report ---
ED Medical Screen (RME) - General Chief Complaint: Shortness Of Breath Stated Complaint: CHEST PAIN Time Seen by Provider: 07/24/19 15:22 Primary Care Provider: BRUCE COTE PA-C [Primary Care Provider] - Follow up as needed Mode of Arrival: Ambulatory Information source: Patient Notes: 29-year-old female presents to ED for complaint of chest pain to the upper mid sternal area. She states she has been short of breath for about 5 days and has been using her asthma medication and treatments. She states her last asthma treatment was about an hour ago. Her lungs are clear to auscultation no wheezing anywhere noted. She is not short of breath at this time. She does complain of the chest pain. She is getting a EKG at this time. Patient's medical history has been updated I have greeted and performed a rapid initial assessment of this patient. A comprehensive ED assessment and evaluation of the patient, analysis of test results and completion of medical decision making process will be conducted by an additional ED providers. TRAVEL OUTSIDE OF THE [place] IN LAST 30 DAYS: No - HPI Onset: Other - Chest pain this morning shortness of breath x5 days Onset/Duration: Gradual, Intermittent Quality of pain: Pressure Severity: Moderate Pain Level: 3 Associated Symptoms: Chest pain, Shortness of breath Exacerbated by: Denies Relieved by: Denies Similar symptoms previously: Yes Recently seen / treated by doctor: No - Related Data Smoking: Non-smoker Frequency of alcohol use: None Drug Abuse: None - She is in the EKG room right now Allergies/Adverse Reactions: clindamycin [Clindamycin] Allergy (Severe, Verified 01/29/19 17:12) Hives doxycycline [Doxycycline] Allergy (Intermediate, Verified 01/29/19 17:12) Hives amoxicillin Allergy (Verified 01/29/19 17:12) Penicillins Allergy (Verified 01/29/19 17:12) Past Medical History - General Information source: Patient - Social History Family history: Reviewed & Not Pertinent - Past Medical History Cardiac Medical History: Reports: Hx Hypercholesterolemia, Hx Hypertension Pulmonary Medical History: Reports: Hx Asthma, Hx Bronchitis, Hx COPD, Hx Pneumonia EENT Medical History: Reports: None Neurological Medical History: Reports: Hx Migraine Endocrine Medical History: Reports: Hx Hypothyroidism Renal/ Medical History: Reports: None Malignancy Medical History: Reports: None GI Medical History: Reports: Hx Gastroesophageal Reflux Disease Musculoskeltal Medical History: Reports Hx Musculoskeletal Trauma Skin Medical History: Reports None Psychiatric Medical History: Reports: Hx Anxiety, Hx Bipolar Disorder Traumatic Medical History: Reports: Hx Fractures Infectious Medical History: Reports: None Past Surgical History: Reports: Hx Cholecystectomy, Hx Oral Surgery - [place] teeth, Hx Orthopedic Surgery - Bilateral great toe - Immunizations Immunizations up to date: Yes Hx Diphtheria, Pertussis, Tetanus Vaccination: Yes Doctor's Discharge - Discharge Referrals: BRUCE COTE PA-C [Primary Care Provider] - Follow up as needed
[2019-07-24] MEDS ORDERED: ASPIRIN 81 MG TABLET, CHEWABLE PO ONE (15:26)
--- NOTE | 2019-07-24 15:48 | RADIOLOGY REPORT (SQ) ---
EXAM DESCRIPTION: CHEST 2 VIEWS COMPLETED DATE/TIME: 07/24/2019 3:40 pm REASON FOR STUDY: Upper chest pain shortness of breath COMPARISON: 05/09/2019 EXAM PARAMETERS: NUMBER OF VIEWS: two views TECHNIQUE: Digital Frontal and Lateral radiographic views of the chest acquired. RADIATION DOSE: NA LIMITATIONS: none FINDINGS: LUNGS AND PLEURA: No opacities, masses or pneumothorax. No pleural effusion. MEDIASTINUM AND HILAR STRUCTURES: No masses or contour abnormalities. HEART AND VASCULAR STRUCTURES: Heart normal size. No evidence for failure. BONES: No acute findings. HARDWARE: None in the chest. OTHER: No other significant finding. IMPRESSION: NO ACUTE RADIOGRAPHIC FINDING IN THE CHEST. TECHNICAL DOCUMENTATION: JOB ID: [id number] [employer]- All Rights Reserved Reading location - IP/workstation name: [email or web address]
[2019-07-24 16:20] LABS: ABSOLUTE BASOPHILS # (AUTO) 0.1 10^3/uL (0.0-0.2); ABSOLUTE EOSINOPHILS # (AUTO) 0.3 10^3/uL (0.0-0.6); ABSOLUTE LYMPHOCYTES (AUTO) 2.8 10^3/uL (0.5-4.7); ABSOLUTE MONOCYTES (AUTO) 0.9 10^3/uL (0.1-1.4); ABSOLUTE NEUT (AUTO) 9.7 10^3/uL (1.7-8.2); BASOPHILS % (AUTO) 0.5 % (0-2); HEMATOCRIT 46.6 % (36.0-47.0); HEMOGLOBIN 16.4 g/dL (12.0-15.5); LYMPHOCYTES % (AUTO) 20.6 % (13-45); MEAN CORPUSCULAR HEMOGLOBIN 32.1 pg (27.0-33.4); MEAN CORPUSCULAR HGB CONC 35.1 g/dL (32.0-36.0); MEAN CORPUSCULAR VOLUME 92 fl (80-97); MONOCYTES % (AUTO) 6.7 % (3-13); PLATELET COUNT 340 10^3/uL (150-450); RED CELL DISTRIBUTION WIDTH 13.6 % (11.5-14.0); SEGMENTED NEUTROPHILS % (AUTO) 70.2 % (42-78); TOTAL CELLS COUNTED % (AUTO) 100 %; WHITE BLOOD COUNT 13.8 10^3/uL (4.0-10.5)
--- NOTE | 2019-07-24 16:22 | ER Document Report ---
ED General - General Chief Complaint: Shortness Of Breath Stated Complaint: CHEST PAIN Time Seen by Provider: 07/24/19 15:22 Primary Care Provider: BRUCE COTE PA-C [Primary Care Provider] - Follow up in 3-5 days Mode of Arrival: Ambulatory Notes: 29-year-old female presents with shortness of breath for 5 days and chest pain that started earlier today. Patient states she has been using her breathing treatments at home with little relief. Last breathing treatment was at 2:30 PM. Patient states that the chest pain is mid upper and describes it as constant. Patient has associated nausea and dizziness with it. Patient denies any recent long distance travel, recent history of surgery/hospitalizations, control use, personal history of cancer, or history of PE or DVT. TRAVEL OUTSIDE OF THE [place] IN LAST 30 DAYS: No - Related Data Allergies/Adverse Reactions: clindamycin [Clindamycin] Allergy (Severe, Verified 01/29/19 17:12) Hives doxycycline [Doxycycline] Allergy (Intermediate, Verified 01/29/19 17:12) Hives amoxicillin Allergy (Verified 01/29/19 17:12) Penicillins Allergy (Verified 01/29/19 17:12) Past Medical History - General Information source: Patient - Social History Smoking Status: Unknown if Ever Smoked Frequency of alcohol use: None Drug Abuse: None - She is in the EKG room right now Family History: CAD, DM, Hypertension, Other - Asthma - Past Medical History Cardiac Medical History: Reports: Hx Hypercholesterolemia, Hx Hypertension Pulmonary Medical History: Reports: Hx Asthma, Hx Bronchitis, Hx COPD, Hx Pneumonia EENT Medical History: Reports: None Neurological Medical History: Reports: Hx Migraine Endocrine Medical History: Reports: Hx Hypothyroidism Renal/ Medical History: Reports: None Malignancy Medical History: Reports: None GI Medical History: Reports: Hx Gastroesophageal Reflux Disease Musculoskeletal Medical History: Reports Hx Musculoskeletal Trauma Skin Medical History: Reports None Psychiatric Medical History: Reports: Hx Anxiety, Hx Bipolar Disorder Traumatic Medical History: Reports: Hx Fractures Infectious Medical History: Reports: None Past Surgical History: Reports: Hx Cholecystectomy, Hx Oral Surgery - [place] teeth, Hx Orthopedic Surgery - Bilateral great toe - Immunizations Immunizations up to date: Yes Hx Diphtheria, Pertussis, Tetanus Vaccination: Yes Hx Pneumococcal Vaccination: 08/29/00 Review of Systems - Review of Systems Notes: Constitutional: Negative for fever. HENT: Negative for sore throat. Eyes: Negative for visual changes. Cardiovascular: Positive for chest pain. Respiratory: Positive for shortness of breath. Gastrointestinal: Positive for nausea. Negative for abdominal pain, vomiting or diarrhea. Genitourinary: Negative for dysuria. Musculoskeletal: Negative for back pain. Skin: Negative for rash. Neurological: Positive for dizziness. Negative for headaches, weakness or numbness. 10 point ROS negative except as marked above and in HPI. Physical Exam - Vital signs Vitals: Temp Pulse Resp BP Pulse Ox 98.1 F 110 H 16 132/81 H 99 07/24/19 15:32 07/24/19 15:32 07/24/19 15:32 07/24/19 15:32 07/24/19 15:32 - Notes Notes: GENERAL: Well-appearing, well-nourished. Diaphoretic. Morbidly obese. HEAD: Atraumatic, normocephalic. EYES: Extraocular movements intact, sclera anicteric, conjunctiva are normal. NECK: Normal range of motion, supple without lymphadenopathy or JVD. LUNGS: Breath sounds clear to auscultation bilaterally and equal. No wheezes rales or rhonchi. HEART: Tachycardic without murmurs, rubs or gallops. ABDOMEN: Soft, nontender. No guarding, no rebound. No masses appreciated. EXTREMITIES: Normal range of motion, no pitting or edema. No clubbing or cyanosis. NEUROLOGICAL: Cranial nerves II through XII grossly intact. Normal speech, normal gait. PSYCH: Normal mood, normal affect. SKIN: Warm, Dry, normal turgor, no rashes or lesions noted. Course - Re-evaluation Re-evalutation: 07/24/19 29-year-old female presents for dyspnea for 5 days and chest pain that started today. Patient is mildly tachycardic on exam. Patient denies any recent long distance travel, personal history of cancer, control use, recent history of hospitalizations/surgeries, or history of PE/DVT. Cardiac wo rkup initiated. EKG shows tachycardia. 07/24/19 19:52 Presentation of chest pain in an otherwise well appearing patient. Low clinical suspicion for ACS given clinical history, exam, EKG without ST elevations or depressions, and negative initial troponin. HEART score less than or equal to 3. PE also seems unlikely given clinical history or dyspnea. Patient is PERC criteria negative. D-dimer negative. CXR without evidence of pneumothorax or pneumonia. No widened mediastinum. Aortic dissection also seems unlikely given history, symmetric pulses, CXR, and vitals. Pt ambulated and SpO2 stayed 94-97%. HEART Score: 1 Chest pain in a patient without evidence of cardiac or other serious etiology on workup today. I discussed with patient that, based on their age, risk factors and emergency department testing today, the likelihood that their symptoms are related to a heart attack is very low (estimated risk of heart attack or over the next 30 days of less than 1%). The patient demonstrates decision making capacity and has verbalized an understanding of these risks to me. Based on this, the patient has chosen to follow-up as an outpatient. Usual chest pain return precautions reviewed. The patient states understanding and agreement with this plan. 07/24/19 19:54 - Vital Signs Vital signs: Temp Pulse Resp BP Pulse Ox 97.9 F 110 H 15 123/70 96 07/24/19 19:38 07/24/19 15:32 07/24/19 19:01 07/24/19 19:00 07/24/19 19:01 - Laboratory Result Diagrams: 07/24/19 15:48 07/24/19 15:48 Laboratory results interpreted by me: 07/24/19 07/24/19 07/24/19 15:40 15:48 15:48 WBC 13.8 H Hgb 16.4 H Absolute Neuts (auto) 9.7 H Calcium 10.4 H Leukocyte Esterase Rfl TRACE H Discharge - Discharge Clinical Impression: Chest pain Qualifiers: Chest pain type: unspecified Qualified Code(s): R07.9 - Chest pain, unspecified Dyspnea Qualifiers: Dyspnea type: shortness of breath Qualified Code(s): R06.02 - Shortness of breath Condition: Stable Disposition: HOME, SELF-CARE Instructions: Chest Pain of Unclear Cause ([facility]) Additional Instructions: You were seen today for chest pain. The exact cause of your pain is unclear. However, based on your cardiac enzyme testing, chest x-ray, and EKG it does not appear that it is from an immediately life-threatening cause at this time. Although your testing here is normal is critical that you follow-up with your primary care physician for continued evaluation of this chest pain and possible stress testing. I recommended you see your physician within the next 24-48 hours to be evaluated for consideration of a stress test. Please return to emergency department immediately if you have worsening of your chest pain, shortness of breath, vomiting, become unable to exert yourself due to pain or difficulty breathing, you pass out, or have any pain that radiates into your arms, jaw, or back. Please also return if you have any additional symptoms that are concerning to you. Referrals: BRUCE COTE PA-C [Primary Care Provider] - Follow up in 3-5 days
[2019-07-24 16:41] LABS: ALBUMIN 4.9 g/dL (3.5-5.0); ALKALINE PHOSPHATASE 75 U/L (38-126); ANION GAP 16 (5-19); ASPARTATE AMINO TRANSFERASE 31 U/L (14-36); BILIRUBIN,DIRECT 0.1 mg/dL (0.0-0.4); BILIRUBIN,TOTAL 0.7 mg/dL (0.2-1.3); BLOOD UREA NITROGEN 12 mg/dL (7-20); CALCIUM 10.4 mg/dL (8.4-10.2); CARBON DIOXIDE 27 mmol/L (22-30); CHLORIDE 99 mmol/L (98-107); GLUCOSE 85 mg/dL (75-110); TOTAL PROTEIN 8.1 g/dL (6.3-8.2)
[2019-07-24 17:02] LABS: APPEARANCE,URINE SLIGHTLY-CLOUDY; BILIRUBIN,URINE NEGATIVE (NEGATIVE); COLOR,URINE YELLOW; GLUCOSE, URINE NEGATIVE (NEGATIVE); KETONES,URINE NEGATIVE (NEGATIVE); PROTEIN,URINE NEGATIVE (NEGATIVE); UROBILINOGEN,URINE NEGATIVE mg/dL (<2.0)
--- NOTE | 2019-07-24 18:19 | EKG REPORT ---
SEVERITY:- OTHERWISE NORMAL ECG - SINUS TACHYCARDIA : Confirmed by: Robles Justice 24-Jul-2019 18:18:47
[2019-07-24 20:17] VITALS: BP 132/78
== END 2019-07-24 20:16 | disposition home or self-care (01) ==
LOC: ER 15:16
DX: R07.9 Chest pain, unspecified (principal); R06.02 Shortness of breath; R11.0 Nausea; R42 Dizziness and giddiness; E78.00 Pure hypercholesterolemia, unspecified; I10 Essential (primary) hypertension; J44.9 Chronic obstructive pulmonary disease, unspecified; Z88.3 Allergy status to other anti-infective agents; Z88.0 Allergy status to penicillin; Z90.49 Acquired absence of other specified parts of digestive tract
CPT/HCPCS: 36415; 71046; 80053; 81001; 83690; 84484; 84703; 85025; 85379; 87086; 93005; 93010; 99285

== ENCOUNTER 2019-07-30 00:37 | Emergency (ER) | payer MEDICAID ==
--- NOTE | 2019-07-30 01:31 | EKG REPORT ---
SEVERITY:- ABNORMAL ECG - SINUS TACHYCARDIA INCOMPLETE RIGHT BUNDLE BRANCH BLOCK : Confirmed by: Robles Justice 30-Jul-2019 01:30:39
[2019-07-30] MEDS ORDERED: MAG HYDROX/AL HYDROX/SIMETH SUSP 30 ML UDCUP PO ONE (01:37)
[2019-07-30] MEDS ORDERED: LIDOCAINE 2% VISCOUS SOLN 20 ML UDCUP PO ONE (01:37)
--- NOTE | 2019-07-30 02:33 | ER Document Report ---
ED General - General Chief Complaint: Shortness Of Breath Stated Complaint: SHORTNESS OF BREATH Time Seen by Provider: 07/30/19 01:30 Primary Care Provider: BRUCE COTE PA-C [Primary Care Provider] - Follow up as needed TRAVEL OUTSIDE OF THE [place] IN LAST 30 DAYS: No - HPI Notes: Patient is a 29-year-old female who presents emergency department for evaluation of chest pain. She points to the substernal upper region of her chest. She describes it as a tightness and burning. She did have one episode of emesis. It was sudden onset 1130. She states she is been seen here for similar symptoms in the past. She states that she had been on omeprazole which helped it, but she needs a new prescription for that. She had one episode of emesis that was in fact the food that she had eaten earlier today. She denies any associated shortness of breath, diaphoresis, near syncope. - Related Data Allergies/Adverse Reactions: clindamycin [Clindamycin] Allergy (Severe, Verified 01/29/19 17:12) Hives doxycycline [Doxycycline] Allergy (Intermediate, Verified 01/29/19 17:12) Hives amoxicillin Allergy (Verified 01/29/19 17:12) Penicillins Allergy (Verified 01/29/19 17:12) Home Medications: see med list Past Medical History - General Information source: Patient - Social History Smoking Status: Former Smoker Frequency of alcohol use: None Drug Abuse: None Family History: CAD, DM, Hypertension, Other - Asthma Patient has suicidal ideation: No Patient has homicidal ideation: No - Past Medical History Cardiac Medical History: Reports: Hx Hypercholesterolemia, Hx Hypertension Pulmonary Medical History: Reports: Hx Asthma, Hx Bronchitis, Hx COPD, Hx Pneumonia Neurological Medical History: Reports: Hx Migraine Endocrine Medical History: Reports: Hx Hypothyroidism GI Medical History: Reports: Hx Gastroesophageal Reflux Disease Musculoskeletal Medical History: Reports Hx Musculoskeletal Trauma Psychiatric Medical History: Reports: Hx Anxiety, Hx Bipolar Disorder Traumatic Medical History: Reports: Hx Fractures Past Surgical History: Reports: Hx Cholecystectomy, Hx Oral Surgery - [place] teeth, Hx Orthopedic Surgery - Bilateral great toe - Immunizations Immunizations up to date: Yes Hx Diphtheria, Pertussis, Tetanus Vaccination: Yes Hx Pneumococcal Vaccination: 08/29/00 Review of Systems - Review of Systems Constitutional: No symptoms reported EENT: No symptoms reported Cardiovascular: See HPI Respiratory: No symptoms reported Gastrointestinal: See HPI Genitourinary: No symptoms reported Musculoskeletal: No symptoms reported Skin: No symptoms reported Neurological/Psychological: No symptoms reported Physical Exam - Vital signs Vitals: Temp Pulse Resp BP Pulse Ox 98.1 F 112 H 20 147/97 H 98 07/30/19 00:52 07/30/19 00:52 07/30/19 00:52 07/30/19 00:52 07/30/19 00:52 - Notes Notes: This is an obese 29-year-old female who appears her stated age in no acute distress. Vital signs reviewed, please refer to chart. Head is normocephalic, atraumatic. Pupils equal round, reactive to light. Neck is supple without meningismus. Heart is regular rate and rhythm. Lungs are clear to auscultation bilaterally. Abdomen is soft, nontender, normoactive bowel sounds throughout. Extremities without cyanosis, clubbing. Posterior calves are nontender. Peripheral pulses are equal. Skin is warm and dry. Patient is awake, alert, neurological exam is nonfocal. Course - Re-evaluation Re-evalutation: 07/30/19 02:33 Patient presents emergency department for evaluation. She has upper chest pain with associated nausea and one episode of emesis, she describes as a burning. She has had relief in the past with omeprazole. She had complete relief with a GI cocktail. I will send her home with 6 Zofran to go and another prescription for omeprazole. She is encouraged to make some dietary changes, follow-up with primary care this week. She is to return to the ED with worsening or new concerning symptoms of any sort. - Vital Signs Vital signs: Temp Pulse Resp BP Pulse Ox 98.1 F 112 H 14 145/105 H 98 07/30/19 00:52 07/30/19 00:52 07/30/19 02:02 07/30/19 02:02 07/30/19 02:02 - EKG Interpretation by Me Additional EKG results interpreted by me: 07/30/19 02:35 Sinus tachycardia with a rate of 102 bpm. Normal axis and intervals, no acute ST changes concerning for ischemia or infarction Discharge - Discharge Clinical Impression: GERD (gastroesophageal reflux disease) Qualifiers: Esophagitis presence: esophagitis presence not specified Qualified Code(s): K21.9 - Gastro-esophageal reflux disease without esophagitis Chest pain Qualifiers: Chest pain type: unspecified Qualified Code(s): R07.9 - Chest pain, unspecified Condition: Stable Disposition: HOME, SELF-CARE Instructions: Chest Pain of Unclear Cause ([facility]), Reflux Disease (GERD) ([facility]) Additional Instructions: Avoid spicy, greasy, and acidic foods. Try not to eat for at least 4 to 6 hours before going to bed. Take omeprazole as directed. Zofran as needed for severe nausea. Follow-up with primary care next week. Return to the emergency department with worsening or new concerning symptoms of any sort. Prescriptions: Omeprazole 40 mg PO DAILY #30 capsule.dr Referrals: BRUCE COTE PA-C [Primary Care Provider] - Follow up as needed
[2019-07-30] MEDS ORDERED: ONDANSETRON ODT 4 MG TAB (6 TAB/ER DISP) PO PRN (02:34)
[2019-07-30 02:51] VITALS: BP 149/96
== END 2019-07-30 02:51 | disposition home or self-care (01) ==
LOC: ER 00:37
DX: K21.9 Gastro-esophageal reflux disease without esophagitis (principal); R07.9 Chest pain, unspecified; R06.02 Shortness of breath; Z79.899 Other long term (current) drug therapy; Z87.891 Personal history of nicotine dependence; I10 Essential (primary) hypertension; J44.9 Chronic obstructive pulmonary disease, unspecified; J45.909 Unspecified asthma, uncomplicated
CPT/HCPCS: 93005; 99284; 93010; J3490 ×2

== ENCOUNTER 2019-11-25 12:55 | Emergency (ER) | payer MEDICAID ==
[2019-11-25] MEDS ORDERED: NORMAL SALINE 500 ML IV ONE (13:49)
--- NOTE | 2019-11-25 13:56 | EKG REPORT ---
SEVERITY:- ABNORMAL ECG - SINUS TACHYCARDIA LATERAL Q WAVES, PROBABLY NORMAL VARIATION IRBBB : Confirmed by: Baldemar Mojica MD 25-Nov-2019 13:55:05
[2019-11-25 14:15] LABS: ABSOLUTE LYMPHOCYTES (AUTO) 0.7 10^3/uL (0.5-4.7); ABSOLUTE MONOCYTES (AUTO) 0.1 10^3/uL (0.1-1.4); ABSOLUTE NEUT (AUTO) 7.7 10^3/uL (1.7-8.2); BASOPHILS % (AUTO) 0.2 % (0-2); EOSINOPHILS % (AUTO) 0.2 % (0-6); HEMOGLOBIN 16.3 g/dL (12.0-15.5); LYMPHOCYTES % (AUTO) 8.2 % (13-45); MEAN CORPUSCULAR HEMOGLOBIN 32.7 pg (27.0-33.4); MEAN CORPUSCULAR HGB CONC 36.3 g/dL (32.0-36.0); MEAN CORPUSCULAR VOLUME 90 fl (80-97); MONOCYTES % (AUTO) 1.6 % (3-13); PLATELET COUNT 309 10^3/uL (150-450); RED BLOOD COUNT 4.99 10^6/uL (3.72-5.28); SEGMENTED NEUTROPHILS % (AUTO) 89.8 % (42-78); TOTAL CELLS COUNTED % (AUTO) 100 %; WHITE BLOOD COUNT 8.6 10^3/uL (4.0-10.5)
--- NOTE | 2019-11-25 14:15 | RADIOLOGY REPORT (SQ) ---
EXAM DESCRIPTION: CHEST SINGLE VIEW IMAGES COMPLETED DATE/TIME: 11/25/2019 2:06 pm REASON FOR STUDY: shortness of breath COMPARISON: 2018. NUMBER OF VIEWS: One view. TECHNIQUE: Single frontal radiographic view of the chest acquired. LIMITATIONS: None. FINDINGS: LUNGS AND PLEURA: No opacities, masses or pneumothorax. No pleural effusion. MEDIASTINUM AND HILAR STRUCTURES: No masses. Contour normal. HEART AND VASCULAR STRUCTURES: Heart normal in size. Normal vasculature. BONES: No acute findings. HARDWARE: None in the chest. OTHER: No other significant finding. IMPRESSION: NO SIGNIFICANT RADIOGRAPHIC FINDING IN THE CHEST. TECHNICAL DOCUMENTATION: JOB ID: [id number] 2010 [employer]- All Rights Reserved Reading location - IP/workstation name: [email or web address]
[2019-11-25 14:29] LABS: ALBUMIN 5.2 g/dL (3.5-5.0); ALKALINE PHOSPHATASE 94 U/L (38-126); ANION GAP 14 (5-19); ASPARTATE AMINO TRANSFERASE 57 U/L (14-36); BILIRUBIN,DIRECT 0.2 mg/dL (0.0-0.4); BILIRUBIN,TOTAL 0.9 mg/dL (0.2-1.3); BLOOD UREA NITROGEN 12 mg/dL (7-20); CARBON DIOXIDE 24 mmol/L (22-30); CHLORIDE 98 mmol/L (98-107); GLUCOSE 183 mg/dL (75-110); POTASSIUM 4.3 mmol/L (3.6-5.0); TOTAL PROTEIN 8.7 g/dL (6.3-8.2)
[2019-11-25 15:25] LABS: APPEARANCE,URINE SLIGHTLY-CLOUDY; BILIRUBIN,URINE NEGATIVE (NEGATIVE); COLOR,URINE STRAW; GLUCOSE, URINE NEGATIVE (NEGATIVE); KETONES,URINE NEGATIVE (NEGATIVE); LEUKOCYTE ESTERASE,URINE TRACE (NEGATIVE); NITRITE,URINE NEGATIVE (NEGATIVE); PROTEIN,URINE NEGATIVE (NEGATIVE); URINE SPECIFIC GRAVITY 1.008; UROBILINOGEN,URINE NEGATIVE mg/dL (<2.0)
[2019-11-25] MEDS ORDERED: NORMAL SALINE 1000 ML 1,000 ML IV ONE (15:32)
[2019-11-25 15:36] LABS: URINE BARBITURATES SCREEN NEGATIVE; URINE BENZODIAZEPINES SCREEN NEGATIVE; URINE COCAINE SCREEN NEGATIVE; URINE MARIJUANA (THC) SCREEN NEGATIVE; URINE METHADONE SCREEN NEGATIVE; URINE PHENCYCLIDINE SCREEN NEGATIVE
[2019-11-25 15:37] LABS: URINE AMPHETAMINES SCREEN UNCONFIRMED POSITIVE
[2019-11-25 16:15] LABS: A TYPE INFLUENZA AG NEGATIVE (NEGATIVE); B INFLUENZA AG NEGATIVE (NEGATIVE)
[2019-11-25 16:16] LABS: VENOUS BLOOD BASE EXCESS 1.7 mmol/L; VENOUS BLOOD HCO3 27.2 mmol/L (20-32); VENOUS BLOOD PCO2 45.5 mmHg (35-63); VENOUS BLOOD PH 7.4 (7.30-7.42)
[2019-11-25 18:50] VITALS: BP 136/89
--- NOTE | 2019-11-26 06:13 | ER Document Report ---
Entered by MARTHA DE LA CRUZ SCRIBE 11/25/19 1326 Acting as scribe for:LUKE GRIMES MD ED General - General Chief Complaint: Breathing Difficulty Stated Complaint: DIFFICULTY BREATHING Time Seen by Provider: 11/25/19 13:11 Primary Care Provider: BRUCE COTE PA-C [Primary Care Provider] - Follow up as needed Information source: Patient Notes: This 29-year-old female with COPD, asthma and hypertension presents to the emergency department via EMS complaining of difficulty breathing that began 3-4 days prior to arrival. Patient complains of fatigue and a non-productive cough. Patient denied fever, chills, shortness of breath, calf tenderness and wheezing. Patient explains that her significant other was cutting the grass a few days ago and this caused an asthma flare up. Patient uses a nebulizer and inhaler at home. Patient stated that she used her inhaler three times before EMS arrived today. Patient stated that she had a panic attack prior to EMS arrival and her heart rate was 125. Patient stated that she felt numb and tingly. When EMS arrived, patient said that they "made her hyperventilate more". TRAVEL OUTSIDE OF THE [place] IN LAST 30 DAYS: No - Related Data Allergies/Adverse Reactions: clindamycin [Clindamycin] Allergy (Severe, Verified 01/29/19 17:12) Hives doxycycline [Doxycycline] Allergy (Intermediate, Verified 01/29/19 17:12) Hives amoxicillin Allergy (Verified 01/29/19 17:12) Penicillins Allergy (Verified 01/29/19 17:12) Past Medical History - General Information source: Patient - Social History Smoking Status: Former Smoker Cigarette use (# per day): No Chew tobacco use (# tins/day): No Frequency of alcohol use: None Drug Abuse: None Family History: CAD, DM, Hypertension, Other - Asthma - Past Medical History Cardiac Medical History: Reports: Hx Hypercholesterolemia, Hx Hypertension Pulmonary Medical History: Reports: Hx Asthma, Hx Bronchitis, Hx COPD, Hx Pneumonia Neurological Medical History: Reports: Hx Migraine Endocrine Medical History: Reports: Hx Hypothyroidism GI Medical History: Reports: Hx Gastroesophageal Reflux Disease Musculoskeletal Medical History: Reports Hx Musculoskeletal Trauma Psychiatric Medical History: Reports: Hx Anxiety, Hx Bipolar Disorder Traumatic Medical History: Reports: Hx Fractures Past Surgical History: Reports: Hx Cholecystectomy, Hx Oral Surgery - [place] teeth, Hx Orthopedic Surgery - Bilateral great toe - Immunizations Immunizations up to date: Yes Hx Diphtheria, Pertussis, Tetanus Vaccination: Yes Hx Pneumococcal Vaccination: 08/29/00 Review of Systems - Review of Systems Constitutional: See HPI. denies: Chills, Fever EENT: No symptoms reported Cardiovascular: No symptoms reported Respiratory: See HPI, Cough, Other - Difficulty breathing. denies: Short of breath, Wheezing Gastrointestinal: No symptoms reported Genitourinary: No symptoms reported Female Genitourinary: No symptoms reported Musculoskeletal: No symptoms reported Skin: No symptoms reported Hematologic/Lymphatic: No symptoms reported Neurological/Psychological: No symptoms reported -: Yes All other systems reviewed and negative Physical Exam - Vital signs Vitals: Temp 98.4 F 11/25/19 12:55 - Notes Notes: Physical Exam: General: Alert, appears well. HEENT: Normocephalic. Atraumatic. PERRL. Extraocular movements intact. Oropharynx clear. Neck: Supple. Non-tender. Respiratory: No respiratory distress. Clear and equal breath sounds bilaterally. Cardiovascular: Sinus Tachycardia. Heart rate 135. Abdominal: Obese. Non-tender. No distension. Normal Bowel Sounds. Back: No gross abnormalities. Extremities: Moves all four extremities. Upper extremities: Normal inspection. Normal ROM. Lower extremities: Normal inspection. No edema. Normal ROM. Neurological: Normal cognition. AAOx4. Normal speech. Psychological: Normal affect. Normal Mood. Skin: Warm. Dry. Normal color. Course - Re-evaluation Re-evalutation: 11/25/19 16:12 Patient resting comfortably showing no signs of distress at this time. Patient does have an anxiety disorder and seems quite anxious on occasion. Patient sinus tachycardia has improved down to 110 at this time with a blood pressure 149/101. Sats are 99 to 100%. Patient is continuing to receive a bolus of IV normal saline inasmuch as she had a lactic acid of 2.3. There is going to be a repeat lactic acid and troponin level at 1731 today. Once those have resulted and if within normal limits patient will be discharged home. Patient appears to have all the medication she needs for her care taking care of her asthma and respiratory allergies. - Vital Signs Vital signs: Temp Pulse Resp BP Pulse Ox 98.2 F 15 136/89 H 99 11/25/19 18:44 11/25/19 18:44 11/25/19 18:44 11/25/19 18:44 - Laboratory Result Diagrams: 11/25/19 13:23 11/25/19 13:23 Laboratory results interpreted by me: 11/25/19 11/25/19 11/25/19 13:23 13:23 14:55 Hgb 16.3 H MCHC 36.3 H Lymph % (Auto) 8.2 L [place] % (Auto) 1.6 L Seg Neutrophils % 89.8 H Sodium 136.4 L Glucose 183 H Lactic Acid 2.3 H Calcium 11.0 H AST 57 H ALT 76 H Total Protein 8.7 H Albumin 5.2 H Urine Blood Ur Leukocyte Esterase 11/25/19 15:00 Hgb MCHC Lymph % (Auto) [place] % (Auto) Seg Neutrophils % Sodium Glucose Lactic Acid Calcium AST ALT Total Protein Albumin Urine Blood SMALL H Ur Leukocyte Esterase TRACE H Negative strep screen and negative influenza a and B. - Diagnostic Test Radiology reviewed: Image reviewed, Reports reviewed Radiology results interpreted by me: 11/25/19 16:13 Chest x-ray shows no acute process no infiltrates no pneumonia. 11/25/19 16:14 12-lead EKG shows sinus tachycardia rate of 133 with lateral Q waves noted. No other acute ST-T wave change. - Transfer of Care Care transferred to following provider: Dr Joyner -follow-up on pending troponin and lactic acid second draw. Notes: 11/25/19 16:15 Patient may be discharged if normal vitals and normal second troponin and lactic acid. Discharge - Discharge Clinical Impression: Panic attack, Hyperventilation syndrome, Chronic anxiety, Asthma, Hypertension, Morbid obesity with BMI of 45.0-49.9, adult Condition: Stable Disposition: HOME, SELF-CARE Additional Instructions: Asthma You have been diagnosed as having asthma. This is a condition where there is episodic tightness in the bronchial tubes. Allergies, infections, and polluted or cold air may be contributing factors. Emergency treatment of a severe asthma attack may include adrenaline shots, or bronchodilator aerosol. You may feel lightheaded, have a decreased exercise tolerance and a rapid pulse for an hour or two. Rest and get plenty of fluids. Home treatment of asthma requires bronchodilator drugs. These can be administered by injection, inhalation, or by mouth. Antibiotics and corticosteroids may be required for some patients. You should avoid chemical fumes, dusts, pollens, and exercising in very cold or dry air. If you smoke, stop!! If you develop a fever, increased wheezing, chest pain, or severe shortness of breath, you should contact the doctor immediatelyHyperventilation You have had an episode of hyperventilation. The symptoms occur because rapid breathing changes the body's chemical balance. Hyperventilation causes dizziness, numbness (particularly of the hands and face), chest pain, muscle spasms, and anxiety. Once an episode begins, it's extremely difficult to c ontrol the "need" to breathe rapidly. Hyperventilation may be provoked by drug effects, nausea, or illness, but is often due to anxiety. If no specific cause for the problem was found, treatment for anxiety may be necessary. Once the chemical changes have occurred, the hyperventilation is likely to recur. If you feel the symptoms again, rebreathe your air with a paper bag for several minutes. Sometimes hyperventilation is a symptom of an underlying metabolic or lung problem. If new symptoms develop (such as productive cough, fever, or chest pain), or if you are unable to get relief with rebreathing your exhaled air, call the physician.Anxiety The physician feels that some of your health problems are being caused by anxiety. Anxiety affects your health in many ways. Anxiety alone can cause palpitations, sweats, chest pains, abdominal pains, shortness of breath, and headaches. It contributes to ulcer disease, high blood pressure, irritable bowel syndrome, and has been shown to cause flare-ups of many other diseases. Anxiety is not a simple disorder to treat. If the anxiety is due to recent life stresses, you may simply need time to "work through" the changes. If the anxiety is due to an underlying unhappiness with yourself or due to psychiatric disturbance, professional help will be needed. Your physician can refer you for further help if needed. Anti-anxiety medication is occasionally given if the stress is acute or if you are having trouble sleeping. Chronic or frequent use of these medications is not a good idea because the body becomes reliant on it, preventing you from dealing with life's normal stresses.Panic Attack The cause of panic attacks is unknown. Symptoms can include chest pain, shortness of breath, palpitations, sweats, and a sense of smothering or impending doom. In time, the panic attacks can lead to generalized anxiety and phobias. Because the symptoms can mimic heart attack, pulmonary embolism, and other serious diseases, the physician has evaluated you for these conditions. There is no evidence of a serious problem. An acute panic attack usually goes away by itself without treatment. A severe attack can be treated with medicine to calm you. Long-term, antide pressant medicines may help prevent attacks. Counselling can also be very beneficial in dealing with panic attacks. Panic attacks are less likely if you are getting regular exercise, proper diet, and plenty of sleep. It's normal for panic attacks to cause many frightening symptoms. However, you should call or return if your symptoms change significantly or if you are worsening. Continue your same medications that you currently take for your anxiety, asthma, blood pressure. I highly recommend that you discontinue use of your diet pills which may be contributing to your tachycardia. Referrals: BRUCE COTE PA-C [Primary Care Provider] - Follow up as needed I personally performed the services described in the documentation, reviewed and edited the documentation which was dictated to the scribe in my presence, and it accurately records my words and actions.
== END 2019-11-25 18:44 | disposition home or self-care (01) ==
LOC: ER 12:55
DX: F41.0 Panic disorder [episodic paroxysmal anxiety] (principal); F41.9 Anxiety disorder, unspecified; F45.8 Other somatoform disorders; I10 Essential (primary) hypertension; E66.9 Obesity, unspecified; Z68.42 Body mass index [BMI] 45.0-49.9, adult; J44.9 Chronic obstructive pulmonary disease, unspecified; R05 Cough; R53.83 Other fatigue; R00.0 Tachycardia, unspecified; Z87.891 Personal history of nicotine dependence; Z79.899 Other long term (current) drug therapy; Z88.0 Allergy status to penicillin; Z88.1 Allergy status to other antibiotic agents
CPT/HCPCS: 93005; 99285; 96360; 96361; 36415; 87070; 87880; 83605; 84443; 84703; 85025; 80053; 81001; 84484; 80307; 85379; 82803; 87804; 71045; 93010; J7030; J7040

== ENCOUNTER 2020-04-30 18:29 | Emergency (ER) | payer MEDICAID, OTHER ==
--- NOTE | 2020-04-30 18:45 | ER Document Report ---
ED Medical Screen (RME) - General Stated Complaint: CHEST PAINS/ASTHMA Time Seen by Provider: 04/30/20 18:34 Primary Care Provider: BRUCE COTE PA-C [Primary Care Provider] - Follow up as needed Information source: Patient Notes: Patient presents complaining of midsternal chest pain with shortness of breath for the past 5 days. Patient reports occasional lightheadedness. Patient denies any cough nausea or vomiting. Patient denies any fever. Patient does have a history of asthma and hypertension. Patient has been taking prednisone in addition to her inhaler and had her blood pressure medication recently a djusted. I have greeted and performed a rapid initial assessment of this patient. A comprehensive ED assessment and evaluation of the patient, analysis of test results and completion of the medical decision making process will be conducted by additional ED providers. TRAVEL OUTSIDE OF THE [place] IN LAST 30 DAYS: No - Related Data Allergies/Adverse Reactions: clindamycin [Clindamycin] Allergy (Severe, Verified 01/29/19 17:12) Hives doxycycline [Doxycycline] Allergy (Intermediate, Verified 01/29/19 17:12) Hives amoxicillin Allergy (Verified 01/29/19 17:12) Penicillins Allergy (Verified 01/29/19 17:12) Past Medical History - Social History Family history: Reviewed & Not Pertinent - Past Medical History Cardiac Medical History: Reports: Hx Hypercholesterolemia, Hx Hypertension Pulmonary Medical History: Reports: Hx Asthma, Hx Bronchitis, Hx COPD, Hx Pneumonia Neurological Medical History: Reports: Hx Migraine Endocrine Medical History: Reports: Hx Hypothyroidism GI Medical History: Reports: Hx Gastroesophageal Reflux Disease Musculoskeltal Medical History: Reports Hx Musculoskeletal Trauma Psychiatric Medical History: Reports: Hx Anxiety, Hx Bipolar Disorder Traumatic Medical History: Reports: Hx Fractures Past Surgical History: Reports: Hx Cholecystectomy, Hx Oral Surgery - [place] teeth, Hx Orthopedic Surgery - Bilateral great toe - Immunizations Immunizations up to date: Yes Hx Diphtheria, Pertussis, Tetanus Vaccination: Yes Physical Exam - Respiratory Respiratory status: No respiratory distress Chest status: Tender Breath sounds: Normal. No: Wheezing - Cardiovascular Rhythm: Tachycardia Heart sounds: S1 appreciated, S2 appreciated Doctor's Discharge - Discharge Referrals: BRUCE COTE PA-C [Primary Care Provider] - Follow up as needed
[2020-04-30 19:06] LABS: ABSOLUTE BASOPHILS # (AUTO) 0.1 10^3/uL (0.0-0.2); ABSOLUTE EOSINOPHILS # (AUTO) 0.2 10^3/uL (0.0-0.6); ABSOLUTE LYMPHOCYTES (AUTO) 2.6 10^3/uL (0.5-4.7); ABSOLUTE MONOCYTES (AUTO) 0.7 10^3/uL (0.1-1.4); ABSOLUTE NEUT (AUTO) 10.2 10^3/uL (1.7-8.2); BASOPHILS % (AUTO) 0.9 % (0-2); EOSINOPHILS % (AUTO) 1.3 % (0-6); HEMATOCRIT 42.4 % (36.0-47.0); HEMOGLOBIN 15.4 g/dL (12.0-15.5); LYMPHOCYTES % (AUTO) 19.1 % (13-45); MEAN CORPUSCULAR HEMOGLOBIN 32.2 pg (27.0-33.4); MEAN CORPUSCULAR HGB CONC 36.2 g/dL (32.0-36.0); MEAN CORPUSCULAR VOLUME 89 fl (80-97); MONOCYTES % (AUTO) 4.9 % (3-13); PLATELET COUNT 311 10^3/uL (150-450); RED BLOOD COUNT 4.77 10^6/uL (3.72-5.28); RED CELL DISTRIBUTION WIDTH 13.2 % (11.5-14.0); SEGMENTED NEUTROPHILS % (AUTO) 73.8 % (42-78); TOTAL CELLS COUNTED % (AUTO) 100 %; WHITE BLOOD COUNT 13.8 10^3/uL (4.0-10.5)
--- NOTE | 2020-04-30 19:16 | EKG REPORT ---
SEVERITY:- ABNORMAL ECG - SINUS TACHYCARDIA INCOMPLETE RIGHT BUNDLE BRANCH BLOCK : Confirmed by: Baldemar Mojica MD 30-Apr-2020 19:15:53
[2020-04-30 19:27] LABS: ALBUMIN 4.7 g/dL (3.5-5.0); ALKALINE PHOSPHATASE 73 U/L (38-126); ANION GAP 9 (5-19); ASPARTATE AMINO TRANSFERASE 28 U/L (14-36); BILIRUBIN,DIRECT 0.3 mg/dL (0.0-0.4); BILIRUBIN,TOTAL 0.6 mg/dL (0.2-1.3); BLOOD UREA NITROGEN 12 mg/dL (7-20); CALCIUM 9.9 mg/dL (8.4-10.2); CARBON DIOXIDE 28 mmol/L (22-30); CHLORIDE 101 mmol/L (98-107); GLUCOSE 94 mg/dL (75-110); TOTAL PROTEIN 7.3 g/dL (6.3-8.2)
--- NOTE | 2020-04-30 19:33 | RADIOLOGY REPORT (SQ) ---
EXAM DESCRIPTION: CHEST 2 VIEWS IMAGES COMPLETED DATE/TIME: 04/30/2020 7:20 pm REASON FOR STUDY: n[place] [email or web address] COMPARISON: 11/25/2019 EXAM PARAMETERS: NUMBER OF VIEWS: two views TECHNIQUE: Digital Frontal and Lateral radiographic views of the chest acquired. RADIATION DOSE: NA LIMITATIONS: none FINDINGS: LUNGS AND PLEURA: No opacities, masses or pneumothorax. No pleural effusion. MEDIASTINUM AND HILAR STRUCTURES: No masses or contour abnormalities. HEART AND VASCULAR STRUCTURES: Heart normal size. No evidence for failure. BONES: No acute findings. HARDWARE: None in the chest. OTHER: No other significant finding. IMPRESSION: NO ACUTE RADIOGRAPHIC FINDING IN THE CHEST. TECHNICAL DOCUMENTATION: JOB ID: [id number] 2010 [email or web address]- All Rights Reserved Reading location - IP/workstation name: [email or web address]
--- NOTE | 2020-05-01 03:45 | ER Document Report ---
ED General - General Chief Complaint: Chest Pain Stated Complaint: CHEST PAINS/ASTHMA Time Seen by Provider: 04/30/20 18:34 Primary Care Provider: BRUCE COTE PA-C [Primary Care Provider] - Follow up as needed TRAVEL OUTSIDE OF THE [place] IN LAST 30 DAYS: No - HPI Notes: Patient is a 29-year-old female who presents to the emergency department for evaluation of shortness of breath and chest pains. Her symptoms started on Tuesday. She saw her primary care provider. She was started on steroids. She has been using her albuterol inhaler about twice a day. She has a sharp chest pain that has been intermittent in the center part of her chest. It hurts to take a deep breath, hurts to cough. She has had a nonproductive cough that is been intermittent. No fevers or chills. No nausea or vomiting. Normal bowel movements. She is eating and drinking normally. She denies any recent surgeries. No history of DVT. No family history of DVT or PE. She has no history of prolonged immobilization, no history of cancer. - Related Data Allergies/Adverse Reactions: clindamycin [Clindamycin] Allergy (Severe, Verified 01/29/19 17:12) Hives doxycycline [Doxycycline] Allergy (Intermediate, Verified 01/29/19 17:12) Hives amoxicillin Allergy (Verified 01/29/19 17:12) Penicillins Allergy (Verified 01/29/19 17:12) Past Medical History - General Information source: Patient - Social History Smoking Status: Never Smoker Family History: CAD, DM, Hypertension, Other - Asthma Patient has homicidal ideation: No - Past Medical History Cardiac Medical History: Reports: Hx Hypercholesterolemia, Hx Hypertension Pulmonary Medical History: Reports: Hx Asthma, Hx Bronchitis, Hx COPD, Hx Pneumonia Neurological Medical History: Reports: Hx Migraine Endocrine Medical History: Reports: Hx Hypothyroidism GI Medical History: Reports: Hx Gastroesophageal Reflux Disease Musculoskeletal Medical History: Reports Hx Musculoskeletal Trauma Psychiatric Medical History: Reports: Hx Anxiety, Hx Bipolar Disorder Traumatic Medical History: Reports: Hx Fractures Past Surgical History: Reports: Hx Cholecystectomy, Hx Oral Surgery - [place] teeth, Hx Orthopedic Surgery - Bilateral great toe - Immunizations Immunizations up to date: Yes Hx Diphtheria, Pertussis, Tetanus Vaccination: Yes Hx Pneumococcal Vaccination: 08/29/00 Review of Systems - Review of Systems Constitutional: No symptoms reported - Oktuesday finish the sterilely back and will go EENT: No symptoms reported Cardiovascular: See HPI Respiratory: See HPI Gastrointestinal: No symptoms reported Genitourinary: No symptoms reported Musculoskeletal: No symptoms reported Skin: No symptoms reported Neurological/Psychological: No symptoms reported Physical Exam - Vital signs Vitals: Temp Pulse Resp BP Pulse Ox 99.1 F 109 H 18 150/108 H 100 04/30/20 18:44 04/30/20 18:44 04/30/20 18:44 04/30/20 18:44 04/30/20 18:44 - Notes Notes: This is a morbidly obese 29-year-old female, who appears her stated age, in no acute distress. Vital signs reviewed, please refer to chart. Head is normocephalic, atraumatic. Pupils equal round, reactive to light. Neck is supple without meningismus. Heart is regular rate and rhythm. Lungs are clear to auscultation bilaterally. Chest wall is tender to palpation. Abdomen is soft, nontender, normoactive bowel sounds throughout. Extremities without cyanosis, clubbing. Posterior calves are nontender. Peripheral pulses are equal. Skin is warm and dry. Patient is awake, alert, neurological exam is nonfocal. Course - Re-evaluation Re-evalutation: 05/01/20 03:48 Patient presents to the emergency department for evaluation of shortness of breath as well as chest pain. Her chest pain is reproducible with palpation. Her laboratory investigations are unremarkable. She does have a mild leukocytosis, but is on steroids. Her chest x-ray shows no abnormality. Her EKG is mildly tachycardic, but she has been more tachycardic in the past. I attribute this to the patient's morbid obesity. She has no risk factors for DVT or PE. On exam she is not wheezing. She is to continue her steroids, use albuterol as needed, return to the ED with worsening. - Vital Signs Vital signs: Temp Pulse Resp BP Pulse Ox 98.2 F 97 16 156/108 H 98 05/01/20 01:39 05/01/20 01:39 05/01/20 01:39 05/01/20 01:39 05/01/20 01:39 - Laboratory Result Diagrams: 04/30/20 18:54 04/30/20 18:54 Laboratory results interpreted by me: 04/30/20 04/30/20 18:54 18:54 WBC 13.8 H MCHC 36.2 H Absolute Neuts (auto) 10.2 H ALT 46 H - Diagnostic Test Radiology reviewed: Reports reviewed Radiology results interpreted by me: 05/01/20 03:49 Chest X-Ray 04/30/20 18:43 IMPRESSION: NO ACUTE RADIOGRAPHIC FINDING IN THE CHEST. - EKG Interpretation by Me Additional EKG results interpreted by me: 05/01/20 03:49 Sinus tachycardia with a rate of 108 bpm. Normal axis. Incomplete right bundle branch block. No acute ST changes concerning for ischemia or infarction. No change from prior study. Discharge - Discharge Clinical Impression: Shortness of breath, Chest wall pain Condition: Stable Disposition: HOME, SELF-CARE Instructions: Asthma ([facility]), Chest Wall Pain ([facility]), Dyspnea, Nonspecific ([facility]) Additional Instructions: Continue your medications as prescribed. Follow-up with your primary care provider this week. Return to the emergency department with worsening or new concerning symptoms of any sort. Referrals: BRUCE COTE PA-C [Primary Care Provider] - Follow up as needed
[2020-05-01 04:09] VITALS: BP 159/105
== END 2020-05-01 04:28 | disposition home or self-care (01) ==
LOC: ER 18:29
DX: R07.89 Other chest pain (principal); R07.1 Chest pain on breathing; J44.9 Chronic obstructive pulmonary disease, unspecified; R06.02 Shortness of breath; I45.10 Unspecified right bundle-branch block; E66.01 Morbid (severe) obesity due to excess calories; D72.829 Elevated white blood cell count, unspecified; R00.0 Tachycardia, unspecified; I10 Essential (primary) hypertension; Z87.01 Personal history of pneumonia (recurrent); Z82.49 Family history of ischemic heart disease and other diseases of the circulatory system; Z79.899 Other long term (current) drug therapy; Z88.1 Allergy status to other antibiotic agents; Z88.0 Allergy status to penicillin
CPT/HCPCS: 36415; 71046; 80053; 83735; 84484; 84703; 85025; 93005; 93010; 99285

== ENCOUNTER 2020-07-30 23:27 | Emergency (ER) | payer MEDICAID ==
[2020-07-31] MEDS ORDERED: HYDROXYZINE PAMOATE 25 MG CAPSULE PO ONE (00:46)
--- NOTE | 2020-07-31 00:52 | ER Document Report ---
HPI - HPI Patient complains to provider of: sneezing Time Seen by Provider: 07/31/20 00:38 Pain Level: Denies Notes: 30-year-old female to the emergency department with complaints of sneezing, runny nose, watering eyes has been ongoing all afternoon since she got her teeth extracted this afternoon with oral surgeon, Dr. Mead. She states she was given prescriptions for hydrocodone, Motrin, Zofran. She states that she took a Motrin prior to arrival but it did not really help her symptoms. She denies any fevers. She states that she has had intermittent nosebleeds that stopped spontaneously today. She states her mouth does not really hurt a lot. She denies any facial swelling, shortness of breath, feeling like her throat is closing. She denies any fevers or chills. She denies any possible COVID-19 contacts. - ROS Systems Reviewed and Negative: Yes All other systems reviewed and negative - CONSTITUTIONAL Constitutional: DENIES: Fever, Chills - EENT EENT: DENIES: Sore Throat, Ear Pain, Congestion Notes: See HPI - NEURO Neurology: DENIES: Headache - CARDIOVASCULAR Cardiovascular: DENIES: Chest pain - RESPIRATORY Respiratory: DENIES: Trouble Breathing, Coughing - GASTROINTESTINAL Gastrointestinal: DENIES: Abdominal Pain, Nausea, Patient vomiting, Diarrhea - URINARY Urinary: DENIES: Dysuria - REPRODUCTIVE LMP: 07/12/20 Reproductive: DENIES: : - MUSCULOSKELETAL Musculoskeletal: DENIES: Extremity pain, Back Pain, Neck Pain - DERM Skin Color: Normal Skin Problems: None Past Medical History - General Information source: Patient - Social History Smoking Status: Former Smoker Frequency of alcohol use: None Drug Abuse: None Family History: CAD, DM, Hypertension, Other - Asthma - Past Medical History Cardiac Medical History: Reports: Hx Hypercholesterolemia, Hx Hypertension Pulmonary Medical History: Reports: Hx Asthma, Hx Bronchitis, Hx COPD, Hx Pneumonia Neurological Medical History: Reports: Hx Migraine Endocrine Medical History: Reports: Hx Hypothyroidism GI Medical History: Reports: Hx Gastroesophageal Reflux Disease Musculoskeletal Medical History: Reports Hx Musculoskeletal Trauma Psychiatric Medical History: Reports: Hx Anxiety, Hx Bipolar Disorder Traumatic Medical History: Reports: Hx Fractures Past Surgical History: Reports: Hx Cholecystectomy, Hx Oral Surgery - [place] teeth, Hx Orthopedic Surgery - Bilateral great toe - Immunizations Immunizations up to date: Yes Hx Diphtheria, Pertussis, Tetanus Vaccination: Yes Hx Pneumococcal Vaccination: 08/29/00 Vertical Provider Document - CONSTITUTIONAL Agree With Documented VS: Yes Exam Limitations: No Limitations General Appearance: WD/WN - INFECTION CONTROL TRAVEL OUTSIDE OF THE [place] IN LAST 30 DAYS: No - HEENT HEENT: Atraumatic, Normocephalic, PERRLA Notes: There is an extraction site to the left upper gum as well as to the right lower gum. They are not bleeding and they appear to be doing well. There is no Reginald's angina. There is no uvular swelling, tongue swelling. There is no change in voice. Nose is not particularly runny on initial exam. There is no active epistaxis. Patient is not sneezing during exam. There is no significant facial swelling, ecchymosis, raccoon eyes, ramirez sign - NECK Neck: Normal Inspection, Supple - RESPIRATORY Respiratory: Breath Sounds Normal, No Respiratory Distress. negative: Rales, Rhonchi, Wheezing - CARDIOVASCULAR Cardiovascular: Regular Rate, Regular Rhythm, No Murmur - GI/ABDOMEN Gastrointestinal: Abdomen Soft, Abdomen Non-Tender, No Organomegaly - BACK Back: Normal Inspection - MUSCULOSKELETAL/EXTREMETIES Musculoskeletal/Extremeties: MAEW, FROM, Non-Tender - NEURO Level of Consciousness: Awake, Alert, Appropriate Motor/Sensory: No Motor Deficit, No Sensory Deficit - DERM Integumentary: Warm, Dry, No Rash Course - Re-evaluation Re-evalutation: 07/31/20 Impression: Suspect some sort of allergic rhinitis. May be post anesthesia for her. We will go ahead and start her on hydroxyzine to try to help with her symptoms. Encouraged her to call her oral surgeon without fail tomorrow. Initially she had a heart rate that was elevated as well as a respiratory rate. On my exam she has a normal respiratory rate. suspect this is related to her walking in the door and sneezing. We we will give her a glass of water as well as her hydroxyzine and then recheck the vital signs. 07/31/20 01:26 Improvement of HR -- after giving oral fluids, now 101. WIll discharge. - Vital Signs Vital signs: Temp Pulse Resp BP Pulse Ox 98.1 F 119 H 24 H 146/113 H 98 07/30/20 23:43 07/30/20 23:43 07/30/20 23:43 07/30/20 23:43 07/30/20 23:43 Discharge - Discharge Clinical Impression: Runny nose, Sneezing with watery eyes Allergic rhinitis Qualifiers: Allergic rhinitis trigger: unspecified Allergic rhinitis seasonality: unspecified Qualified Code(s): J30.9 - Allergic rhinitis, unspecified Condition: Stable Disposition: HOME, SELF-CARE Additional Instructions: Take medicines as prescribed. Return if you have worsening symptoms. Call your oral surgeon tomorrow and update about your symptoms. The hydroxyzine written for you can make you drowsy. It should also help control the runny eyes as well as the sneezing and runny nose. Prescriptions: Hydroxyzine Pamoate [Vistaril 25 mg Capsule] 1 cap PO Q6 PRN #10 capsule PRN Reason: Referrals: BRUCE COTE PA-C [Primary Care Provider] - Follow up in 3-5 days
[2020-07-31 02:08] VITALS: BP 146/95
== END 2020-07-31 01:25 | disposition home or self-care (01) ==
LOC: ER 23:27
DX: J44.9 Chronic obstructive pulmonary disease, unspecified (principal); R06.7 Sneezing; R09.89 Other specified symptoms and signs involving the circulatory and respiratory systems; I10 Essential (primary) hypertension; R04.0 Epistaxis; K08.409 Partial loss of teeth, unspecified cause, unspecified class; Z87.01 Personal history of pneumonia (recurrent); Z87.891 Personal history of nicotine dependence
CPT/HCPCS: 99283; J3490

== ENCOUNTER 2020-08-24 23:13 | Emergency (ER) | payer MEDICAID ==
[2020-08-24 23:28] VITALS: BP 155/113
--- NOTE | 2020-08-25 00:51 | ER Document Report ---
ED Medical Screen (RME) - General Chief Complaint: Chest Pain Stated Complaint: CHEST PAIN,ASTHMA EXACERBATION Time Seen by Provider: 08/25/20 00:46 Primary Care Provider: BRUCE COTE PA-C [Primary Care Provider] - Follow up as needed Mode of Arrival: Ambulatory Information source: Patient Notes: HPI; 30-year-old female past medical history significant for hypertension asthma presents to the emergency room complaining of cough with chest pain and wheezing that started earlier tonight. Complains of shortness of breath. Describes the chest pain is midsternal tightness which worsens with coughing. She has used her nebulizers and inhalers without relief. Denies fevers. No COVID-19 exposure. PE: Alert and oriented x3. Lungs diminished without wheezes, rales, rhonchi. Heart: Regular rate and rhythm without murmurs, rubs, gallops. I have greeted and performed a rapid initial assessment of this patient. A comprehensive ED assessment and evaluation of the patient, analysis of test results and completion of the medical decision making process will be conducted by additional ED providers. I have specifically instructed the patient or family members with the patient to immediately return to any nursing staff should anything change in the patient's condition or with their chief complaint. Our TRAVEL OUTSIDE OF THE [place] IN LAST 30 DAYS: No - Related Data Allergies/Adverse Reactions: clindamycin [Clindamycin] Allergy (Severe, Verified 01/29/19 17:12) Hives doxycycline [Doxycycline] Allergy (Intermediate, Verified 01/29/19 17:12) Hives Penicillins Allergy (Verified 01/29/19 17:12) Home Medications: Amlodipine. HCTZ. Proair Past Medical History - Social History Family history: Reviewed & Not Pertinent - Past Medical History Cardiac Medical History: Reports: Hx Hypercholesterolemia, Hx Hypertension Pulmonary Medical History: Reports: Hx Asthma, Hx Bronchitis, Hx COPD, Hx Pneumonia Neurological Medical History: Reports: Hx Migraine Endocrine Medical History: Reports: Hx Hypothyroidism GI Medical History: Reports: Hx Gastroesophageal Reflux Disease Musculoskeltal Medical History: Reports Hx Musculoskeletal Trauma Psychiatric Medical History: Reports: Hx Anxiety, Hx Bipolar Disorder Traumatic Medical History: Reports: Hx Fractures Past Surgical History: Reports: Hx Cholecystectomy, Hx Oral Surgery - [place] teeth, Hx Orthopedic Surgery - Bilateral great toe - Immunizations Immunizations up to date: Yes Hx Diphtheria, Pertussis, Tetanus Vaccination: Yes Physical Exam - Vital signs Vitals: Temp Pulse Resp BP Pulse Ox 98.2 F 99 25 H 155/113 H 99 08/24/20 23:27 08/24/20 23:27 08/24/20 23:27 08/24/20 23:27 08/24/20 23:27 Course - Vital Signs Vital signs: Temp Pulse Resp BP Pulse Ox 98.2 F 99 25 H 155/113 H 99 08/24/20 23:27 08/24/20 23:27 08/24/20 23:27 08/24/20 23:27 08/24/20 23:27 Doctor's Discharge - Discharge Referrals: BRUCE COTE PA-C [Primary Care Provider] - Follow up as needed
[2020-08-25 01:11] LABS: ABSOLUTE EOSINOPHILS # (AUTO) 0.6 10^3/uL (0.0-0.6); ABSOLUTE LYMPHOCYTES (AUTO) 2.2 10^3/uL (0.5-4.7); ABSOLUTE MONOCYTES (AUTO) 0.5 10^3/uL (0.1-1.4); ABSOLUTE NEUT (AUTO) 4.7 10^3/uL (1.7-8.2); BASOPHILS % (AUTO) 0.5 % (0-2); EOSINOPHILS % (AUTO) 7.2 % (0-6); HEMATOCRIT 42.7 % (36.0-47.0); HEMOGLOBIN 14.9 g/dL (12.0-15.5); LYMPHOCYTES % (AUTO) 27.2 % (13-45); MEAN CORPUSCULAR HEMOGLOBIN 31.1 pg (27.0-33.4); MEAN CORPUSCULAR HGB CONC 34.9 g/dL (32.0-36.0); MEAN CORPUSCULAR VOLUME 89 fl (80-97); MONOCYTES % (AUTO) 6.3 % (3-13); PLATELET COUNT 263 10^3/uL (150-450); RED BLOOD COUNT 4.79 10^6/uL (3.72-5.28); RED CELL DISTRIBUTION WIDTH 13.1 % (11.5-14.0); SEGMENTED NEUTROPHILS % (AUTO) 58.8 % (42-78); TOTAL CELLS COUNTED % (AUTO) 100 %
--- NOTE | 2020-08-25 01:26 | RADIOLOGY REPORT (SQ) ---
EXAM DESCRIPTION: CHEST 2 VIEWS CLINICAL HISTORY: 30 years Female, chest pain COMPARISON: Single view of the chest 11/25/2019 FINDINGS: Lungs: Lungs are clear. No pneumonia or edema. No pneumothorax or pleural effusion. Mediastinum: Cardiac and mediastinal silhouette are normal. Bones: Osseous structures are normal. IMPRESSION: No acute process. No significant interval change.
[2020-08-25 01:39] LABS: ALBUMIN 4.3 g/dL (3.5-5.0); ALKALINE PHOSPHATASE 79 U/L (38-126); ASPARTATE AMINO TRANSFERASE 74 U/L (14-36); BILIRUBIN,DIRECT 0.1 mg/dL (0.0-0.4); BILIRUBIN,TOTAL 0.6 mg/dL (0.2-1.3); BLOOD UREA NITROGEN 16 mg/dL (7-20); CALCIUM 9.5 mg/dL (8.4-10.2); CARBON DIOXIDE 34 mmol/L (22-30); CHLORIDE 99 mmol/L (98-107); GLUCOSE 105 mg/dL (75-110); POTASSIUM 4.5 mmol/L (3.6-5.0); TOTAL PROTEIN 7.3 g/dL (6.3-8.2)
[2020-08-25 01:52] LABS: ANION GAP 4 (5-19)
--- NOTE | 2020-08-25 06:28 | EKG REPORT ---
SEVERITY:- NORMAL ECG - SINUS RHYTHM : Confirmed by: Baldemar Mojica MD 25-Aug-2020 06:28:05
== END 2020-08-25 03:51 | disposition left against medical advice (07) ==
LOC: ER 23:13
DX: J44.9 Chronic obstructive pulmonary disease, unspecified (principal); R05 Cough; R07.89 Other chest pain; I10 Essential (primary) hypertension; Z79.899 Other long term (current) drug therapy; Z53.29 Procedure and treatment not carried out because of patient's decision for other reasons; Z88.1 Allergy status to other antibiotic agents; Z88.0 Allergy status to penicillin; Z87.01 Personal history of pneumonia (recurrent)
CPT/HCPCS: 36415; 71046; 80053; 84484; 84703; 85025; 93005; 93010; 99281